=== PATIENT | female | born 1935 | race Caucasian/White ===

== ENCOUNTER → 2016-11-12 | Outpatient (CLI) | payer MEDICARE ==
--- NOTE | 2016-11-12 15:59 | US ---
EXAMINATION TYPE: US thyroid st tissue head/neck DATE OF EXAM: 11/12/2016 3:06 PM COMPARISON: on PACS CLINICAL HISTORY: Thyroid Nodule E04.1. Follow up. No hx of biopsy. GLAND SIZE: Right Lobe: 3.8 x 1.8 x 1.8 cm Overall Parenchyma: heterogenous Left Lobe: 4.3 x 1.9 x 1.4 cm Overall Parenchyma: heterogeneous Isthmus Thickness: 0.7 cm NODULES RIGHT: # of nodules measured on right: 2 1. 0.8 X 0.6 x 0.7 cm echogenic solid nodule at the lower pole with well-defined margins. This nod ule is taller than wide and shows intranodular vascularity. Prior size: 0.7 x 0.6 x 0.7 cm 2. 0.3 X 0.2 x 0.3 cm echogenic solid nodule at the mid pole with well-defined margins. This nodule is taller than wide and shows intranodular vascularity. Prior size: no prior LEFT: # of nodules measured on left: 1 1. 0.9 X 0.6 x 0.8 cm echogenic solid nodule at the mid pole with well-defined margins. This nodul e is taller than wide and shows intranodular vascularity. Prior size: 0.7 x 0.6 x 0.7 cm ISTHMUS: # of nodules measured in the isthmus: 0 Bilateral neck scanned, no evidence of lymphadenopathy. IMPRESSION: Bilateral thyroid heterogeneity and nodularity persists. Nodules are nonspecific.
== END | disposition home or self-care (01) ==
LOC: RADUSWWP 14:31
PROVIDERS: ATTEND Family Medicine
DX: E04.2 Nontoxic multinodular goiter (principal)
CPT/HCPCS: 76536

== ENCOUNTER → 2017-05-12 | Outpatient (CLI) | payer MEDICARE ==
--- NOTE | 2017-05-12 16:03 | US ---
EXAMINATION TYPE: US pelvic limited DATE OF EXAM: 05/12/2017 COMPARISON: US 2013 CLINICAL HISTORY: R35.0 Urinary frequency. Bladder appears wnl. Post void residual is normal at 0. IMPRESSION: Unremarkable bladder, no significant postvoid residual volume
--- NOTE | 2017-05-12 16:06 | US ---
EXAMINATION TYPE: US thyroid st tissue head/neck DATE OF EXAM: 05/12/2017 COMPARISON: US 10/2016 CLINICAL HISTORY: 81-year-old female E04.1 Thyroid nodule. TECHNIQUE: Multiple sonographic images of the thyroid gland are obtained. FINDINGS: GLAND SIZE: Right Lobe: 4.1 x 1.4 x 1.7 cm Overall Parenchyma: heterogenous Left Lobe: 3.9 x 1.3 x 1.5 cm Overall Parenchyma: heterogeneous Isthmus Thickness: 0.7 cm NODULES RIGHT: # of nodules measured on right: 2 1. 0.8 X 0.6 x 0.7 cm echogenic solid nodule at the lower pole with well-defined margins; . This n odule is taller than wide and shows intranodular vascularity. Prior size: 0.8 x 0.6 x 0.7 cm 2. 0.2 X 0.3 x 0.3 cm echogenic solid nodule at the mid pole with well-defined margins; . This nodu le is wider than tall and shows intranodular vascularity. Prior size: 0.3 x 0.2 x 0.3 cm LEFT: # of nodules measured on left: 1 1. 0.9 X 0.8 x 0.8 cm echogenic solid nodule at the mid/lower pole with well-defined margins; . Th is nodule is wider than tall and shows intranodular vascularity. Prior size: 0.9 x 0.6 x 0.8 cm ISTHMUS: # of nodules measured in the isthmus: 0 Bilateral neck scanned, no evidence of lymphadenopathy. IMPRESSION: 2 nodules in the right lobe and one on the left, largest measuring 9 mm, all appearing solid. These h ave not significantly changed from 11/12/2016.
== END | disposition home or self-care (01) ==
LOC: RADUSWWP 13:54
PROVIDERS: ATTEND Family Medicine
DX: R35.0 Frequency of micturition (principal); E04.2 Nontoxic multinodular goiter
CPT/HCPCS: 76536; 76857

== ENCOUNTER → 2017-11-09 | Outpatient (CLI) | payer MEDICARE ==
--- NOTE | 2017-11-09 10:32 | US ---
EXAMINATION TYPE: US thyroid st tissue head/neck DATE OF EXAM: 11/09/2017 COMPARISON: NONE CLINICAL HISTORY: 82-year-old female E04.1 nontoxic single thyroid nodule. TECHNIQUE: Multiple sonographic images of the thyroid gland are obtained. FINDINGS: GLAND SIZE: Right Lobe: 4.0 x 2.0 x 2.5 cm Overall Parenchyma: heterogenous Left Lobe: 4.0 x 1.3 x 2.0 cm Overall Parenchyma: homogeneous Isthmus Thickness: 0.9 cm NODULES RIGHT: # of nodules measured on right: 2 1. 0.8 X 0.8 x 0.8 cm hyperechoic solid nodule at the lower pole with well-defined margins. This n odule is wider than tall and shows intranodular vascularity. Prior size: 8 x 7 x 6 mm 2. 0.4 X 0.4 x 0.4 cm hyperechoic solid nodule at the mid pole with irregular margins. This nodule is wider as is tall and shows intranodular vascularity. Prior size: 0.3 x 0.2 x 0.3 cm LEFT: # of nodules measured on left: 1 1. 1.0 X 0.6 x 0.7 cm hyperechoic solid nodule at the mid pole with well-defined margins. This nod ule is taller than wide and shows no intranodular vascularity. Prior size: 0.9 x 0.8 x 0.8 cm ISTHMUS: # of nodules measured in the isthmus: 1 1. 0.9 X 0.9 x 0.6 cm isoechoic mixed nodule at the lower isthmus with poorly defined margins. Thi s nodule is wider than tall and shows no intranodular vascularity. Prior size: no prior Bilateral neck scanned: inferior to right thyroid is hyperechoic oval mixed nodule, possible parathy roid gland measuring 0.7 x 0.7 x 0.5cm. IMPRESSION: 1. Multiple thyroid nodules, largest on the right measuring 8 mm and on the left measuring 10 mm. The se have enlarged by 1 or 2 mm in a few dimensions. 2. In addition, a 9 mm isthmic nodule was not clearly seen previously. 3. Follow-up is recommended. 4. Additional 7 mm nodule below the right lobe of the thyroid gland could represent a parathyroid gla nd.
== END | disposition home or self-care (01) ==
LOC: RADUSWWP 09:25
PROVIDERS: ATTEND Family Medicine
DX: E04.2 Nontoxic multinodular goiter (principal)
CPT/HCPCS: 76536

== ENCOUNTER → 2018-08-17 | Outpatient (CLI) | payer MEDICARE ==
--- NOTE | 2018-08-17 22:32 | MR ---
EXAMINATION TYPE: MR brain and iac wo/w con DATE OF EXAM: 08/17/2018 COMPARISON: CT brain July 15, 2014 HISTORY: Dizziness,rt sided hearing loss TECHNIQUE: Multiplanar, multisequence images of the brain and brainstem including the internal auditory canals a re all performed without and with IV contrast, utilizing 7.5 mL intravenous Gadavist . FINDINGS: Diffusion weighted images demonstrate no evidence of a recent infarct or other diffusion ab normality. There is no worrisome extra-axial fluid collection. There is ventricular and sulcal promi nence consistent with mild diffuse age-related cerebral atrophy. There are focal and confluent areas of T2 hyperintensity seen throughout the superficial, deep, and most prominent at the periventricular levels. There is involvement in the brainstem noted centered at oanh. Lesions are nonspecific in belg[place] earance and distribution but most likely on the basis of product of chronic small vessel ischemic amari nge . Midline structures demonstrate normal morphology. The craniocervical junction appears within normal limits. Tortuous course to the vertebrobasilar system is incidentally seen. Post contrast images dem onstrate no abnormal enhancement. The dural venous sinuses appear patent. The visualized sinuses are clear and the globes are intact. No suspicious fluid signal is seen in mastoid air cells bilaterally. The vestibulocochlear complexes are symmetric and felt to be within normal limits. No suspicious enhancing cerebellopontine angle mas ses identified bilaterally. IMPRESSION: 1. No suspicious fluid or suspicious enhancing cerebellopontine angle mass identified to account for patient's symptoms of dizziness and right-sided hearing loss. 2. There is mild diffuse age-related cerebral atrophy and fairly advanced chronic small vessel ischem ic change appreciated.
== END | disposition home or self-care (01) ==
LOC: RADMRIMAIN 14:56
PROVIDERS: ATTEND Otolaryngology
DX: I67.82 Cerebral ischemia (principal); G31.1 Senile degeneration of brain, not elsewhere classified; H91.91 Unspecified hearing loss, right ear; H93.3X2 Disorders of left acoustic nerve
CPT/HCPCS: 70553; A9585

== ENCOUNTER → 2018-08-29 | Outpatient (CLI) | payer MEDICARE ==
--- NOTE | 2018-08-29 10:15 | CT ---
EXAMINATION TYPE: CT abdomen pelvis wo con DATE OF EXAM: 08/29/2018 COMPARISON: 04/15/2014 HISTORY: Abdominal aortic aneurysm CT DLP: 785 mGycm Automated exposure control for dose reduction was used. TECHNIQUE: Helical acquisition of images was performed from the lung bases through the pelvis. FINDINGS: LUNG BASES: Stable pulmonary nodules within the lungs bilaterally. At least 2 of which are calcified and likely represent granuloma. Findings unchanged from 03/13/2016. LIVER/GB: Previous cholecystectomy changes noted. Occasional hepatic granuloma noted. PANCREAS: No significant abnormality is seen. SPLEEN: Splenic granuloma noted. 7 mm calcification the splenic hilum may represent borderline spleni c artery aneurysm but stable in appearance. ADRENALS: No significant abnormality is seen. KIDNEYS: Punctate 2 mm calcification lower pole left kidney. There are both hypodense and hyperdense renal lesions bilaterally. Majority which are stable. Hyperdense lesion involving the right kidney is not seen with certainty on the previous exam and measures approximately 1 cm. Upper pole 4 mm renal calculus noted. No hydronephrosis bilaterally. ADENOPATHY: None visualized. OSSEOUS STRUCTURES: Hypertrophic and degenerative changes of the vertebral column. There is fusion o f the L2-L3 level. Vertebral hemangioma are incidentally noted multilevel facet arthropathy. Multilev el canal stenosis suspected. BOWEL: Diverticulosis of the colon. Bowel gas pattern nonspecific with no evidence of obstruction. OTHER: There is ectasia of the abdominal aorta with a maximal AP dimension in a infrarenal location m easuring 3.1 cm. Mild atherosclerotic plaque. There does appear to be ectasia of the bilateral iliac arteries measuring 1.9 cm on the right and 1.7 cm on the left. IMPRESSION: 1. Infrarenal abdominal aortic aneurysm measuring 3.1 cm in maximal dimension similar in appearance t o the prior exam with extension into the common iliac arteries. There is ectasia of the bilateral hussein ac arteries measuring a maximal dimension of 1.9 cm on the right. 2. Indeterminate right renal lesion which is hyperdense. Remaining hypodense lesions are stable. Mariano mmend ultrasound of the kidney. 3. Nonobstructing bilateral renal calculi. 4. Stable multiple less than 5 mm pulmonary nodules.
== END | disposition home or self-care (01) ==
LOC: RADCTMAIN 08:37
PROVIDERS: ATTEND Thoracic Surgery (Cardiothoracic Vascular Surgery)
DX: I71.4 Abdominal aortic aneurysm, without rupture (principal); N28.9 Disorder of kidney and ureter, unspecified; N20.0 Calculus of kidney; I77.89 Other specified disorders of arteries and arterioles
CPT/HCPCS: 74176

== ENCOUNTER → 2018-10-14 | Outpatient (CLI) | payer MEDICARE ==
--- NOTE | 2018-10-14 15:14 | US ---
EXAMINATION TYPE: US carotid duplex BILAT DATE OF EXAM: 10/14/2018 COMPARISON: NONE CLINICAL HISTORY: R09.89 CAROTID BRUIT. dizziness EXAM MEASUREMENTS: RIGHT: Peak Systolic Velocity (PSV) cm/sec ----- Right CCA: 70.1 ----- Right ICA: 89.7 ----- Right ECA: 90.8 ICA/CCA ratio: 1.3 RIGHT: End Diastole cm/sec ----- Right CCA: 19.5 ----- Right ICA: 32.5 ----- Right ECA: 16.0 LEFT: Peak Systolic Velocity (PSV) cm/sec ----- Left CCA: 61.6 ----- Left ICA: 63.1 ----- Left ECA: 51.9 ICA/CCA ratio: 1.0 LEFT: End Diastole cm/sec ----- Left CCA: 19.6 ----- Left ICA: 27.5 ----- Left ECA: 13.5 VERTEBRALS (direction of flow): Right Vertebral: Antegrade Left Vertebral: Antegrade Rhythm: Normal Mild homogeneous plaque seen, no significant stenosis Grayscale, color Doppler, spectral Doppler imaging performed of the carotid arteries. Waveform analys is does not show significant stenosis of the proximal internal carotid arteries. IMPRESSION: No hemodynamic significant stenosis of the proximal internal carotid arteries by Doppler criteria, an indirect measurement of carotid stenosis
== END ==
LOC: RADUSWWP 14:26
PROVIDERS: ATTEND Otolaryngology
DX: R09.89 Other specified symptoms and signs involving the circulatory and respiratory systems (principal)
CPT/HCPCS: 93880

== ENCOUNTER → 2023-04-13 | Outpatient (CLI) | payer MEDICARE ==
--- NOTE | 2023-04-13 10:35 | MR ---
"EXAMINATION TYPE: MR brain and iac wo/w con DATE OF EXAM: 04/13/2023 COMPARISON: 08/17/2018 HISTORY: Dizziness, tinnitus, right sided hearing loss. TECHNIQUE: Multiplanar, multisequence images of the brain and brainstem is performed without and with IV contras t, utilizing 6 mL intravenous Gadavist . FINDINGS: Diffusion weighted images demonstrate an area of cortical linear increased signal in the le ft parietal lobe which may represent areas of acute ischemia. Corresponding FLAIR abnormal signal. A mild generalized degenerative change with diffuse focal areas of abnormal signal in the white matte r and oanh compatible with remote ischemic no midline shift or mass effect. There is dolichoectasia of the vertebrobasilar system. Marked dilation of the distal bilateral ICAs a nd proximal MCA suggestive of fusiform aneurysms. There is no evidence of cerebellopontine angle mass or schwannoma. Mastoid air cells are clear. Changes of chronic sinusitis. Orbits are symmetric. Sella turcica normal. Craniocervical junction michael ntained. IMPRESSION: 1. Findings are suspicious for tiny area of subacute ischemia subcortical left parietal lobe. 2. Degenerative and extends as remote ischemic change. 3. No evidence of cerebellopontine angle mass or schwannoma. 4. 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 A [place] critical message alert has been initiated for Joe Randall DO via the [employer] | Critical Results System on 04/13/2023 10:30 AM. This message alert has been sent to Joe diez DO via the preferences provided by the clinician for the receipt of Radiology Critical F indings. Message ID [id number]."
== END | disposition home or self-care (01) ==
LOC: RADMRIMAIN 08:18
PROVIDERS: ATTEND Otolaryngology
DX: I67.82 Cerebral ischemia (principal); H91.91 Unspecified hearing loss, right ear; H93.11 Tinnitus, right ear; R42 Dizziness and giddiness; G45.0 Vertebro-basilar artery syndrome
CPT/HCPCS: 70553; A9585

== ENCOUNTER → 2023-06-08 | Outpatient (CLI) | payer MEDICARE ==
--- NOTE | 2023-06-09 08:14 | MR ---
EXAMINATION TYPE: MR angio head wo/neck wo/w con DATE OF EXAM: 06/08/2023 3:02 PM CLINICAL INDICATION:Female, 87 years old with history of I67.1; I65.2; I82.90; PHH, Acute stroke, ane urysm. Loss of balance, falling COMPARISON: 04/13/2023 and 08/17/2018 Technical: MRA brain: 2D and 3-D [id number] Axial with MIP and 3-D reconstruction. Performed on a separate w orkstation. MRA neck: Multiplanar, multi-sequence imaging as well as [id number] and phase was performed extra cranial vasculature of the neck. 3-D reformatted images and maximum intensity projection reformatted images were submitted for evaluation, these are performed on a separate workstation. IV Contrast: 7.5 cc Gadobutrol Findings: Vertebral arteries: The vertebral arteries are patent. Vertebral arteries are: Codominant. Basilar artery: The basilar artery is intact. Dolichoectasia of the vertebrobasilar system is stable back to 2019. Internal Carotid arteries: The cervical, petrous, cavernous and supraclinoid segments are normal. Fus iform ectasia of the carotid siphons bilaterally stable back to 2019. DESIRE: Patent with no evidence of aneurysm. ACOM: Present without evidence of aneurysm. MCA: Patent with no evidence of aneurysm. ASSISTANT NEWS DIRECTOR: Patent with no evidence of aneurysm. origin of the left posterior cerebellar artery. PCOM: Hypoplastic right and origin left. RIGHT CAROTID SYSTEM: The common carotid artery is patent. The carotid bifurcations demonstrates no e vidence for hemodynamically significant stenosis. The internal carotid artery is patent. LEFT CAROTID SYSTEM: The common carotid artery is patent. The carotid bifurcations demonstrates no e vidence for hemodynamically significant stenosis. The internal carotid artery is patent. The origins of the great vessels and vertebral arteries appear unremarkable. The right vertebral art jey is dominant. IMPRESSION: 1. No evidence of intracranial significant stenosis. 2. 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 3. No evidence of significant stenosis at the carotid bifurcations. The carotid and vertebral arteri es are patent.
--- NOTE | 2023-06-09 08:37 | CA ---
Transthoracic Echo Report Name: Shirlene Adam Age: 87 Gender: F : 1935 Exam Date: 06/08/2023 15:00 Exam Location: [facility] Ht (in): 64 Wt (lb): 165 Ordering Physician: Faraz Joshi DO Attending/Referring Phys: Germ Drier Judi Shields [facility] Procedure CPT: Indications: I67.1; I65.2; I82.90 Cardiac Hx: Technical Quality: Technically difficult study Contrast 1: Total Dose (mL): Contrast 2: Total Dose (mL): MEASUREMENTS (Male / Female) Normal Values 2D ECHO LV Diastolic Diameter PLAX 5.0 cm 4.2 - 5.9 / 3.9 - 5.3 cm LV Systolic Diameter PLAX 3.8 cm IVS Diastolic Thickness 1.3 cm 0.6 - 1.0 / 0.6 - 0.9 cm LVPW Diastolic Thickness 1.3 cm 0.6 - 1.0 / 0.6 - 0.9 cm LV Relative Wall Thickness 0.5 LVOT Diameter 2.0 cm Ascending Aorta Diameter 4.1 cm M-MODE Aortic Root Diameter MM 3.5 cm LA Systolic Diameter MM 3.4 cm LA Ao Ratio MM 1.0 AV Cusp Separation MM 2.5 cm DOPPLER AV Peak Velocity 148.0 cm/s AV Peak Gradient 8.8 mmHg AV Mean Velocity 105.4 cm/s AV Mean Gradient 5.0 mmHg AV Velocity Time Integral 29.2 cm AI Peak Velocity 403.3 cm/s AI Peak Gradient 65.0 mmHg AI Pressure Half Time 521.4 ms LVOT Peak Velocity 122.0 cm/s LVOT Peak Gradient 6.0 mmHg LVOT Velocity Time Integral 23.8 cm LVOT Stroke Volume 77.8 cm??? LVOT Stroke Volume Index 43.2 ml/m??? LVOT Cardiac Index 3221.6 cm???/min???m??? AV Area Cont Eq vti 2.7 cm??? AV Area Cont Eq pk 2.7 cm??? Mitral E Point Velocity 41.9 cm/s Mitral A Point Velocity 108.4 cm/s Mitral E to A Ratio 0.4 MV Deceleration Time 201.8 ms LV E' Lateral Velocity 6.1 cm/s Mitral E to LV E' Lateral Ratio 6.8 LV E' Septal Velocity 4.4 cm/s Mitral E to LV E' Septal Ratio 9.6 TR Peak Velocity 194.0 cm/s TR Peak Gradient 15.0 mmHg Right Atrial Pressure 3.0 mmHg Pulmonary Artery Systolic Pressu 18.0 mmHg Right Ventricular Systolic Press 18.0 mmHg FINDINGS Left Ventricle Mildly increased left ventricular wall thickness. normal left ventricular systolic function.left ventricular ejection fraction is estimated at 55-60 %. Normal left ventricular wall motion. Left ventricular cavity size normal. Normal left ventricular diastolic filling pattern. Right Ventricle Right ventricle at upper limits of normal. Right Atrium Upper normal right atrial size. Left Atrium Normal left atrial size. Mitral Valve Calcified leaflets. Mild mitral annular calcification. Mild mitral regurgitation. Aortic Valve Aortic valve not well visualized. Mild aortic regurgitation. Tricuspid Valve Structurally normal tricuspid valve. Mild tricuspid regurgitation. Pulmonic Valve Pulmonic valve not well visualized. Pericardium No pericardial effusion. Echo free space anterior to the right ventricle likely represents a fat pad. Aorta Aorta at the level of the sinuses of valsalva (root) upper normal. Mildly dilated proximal ascending aorta (tube). CONCLUSIONS 1. Normal left ventricle size and systolic function 2. Mild mitral, aortic and tricuspid regurgitation with no evidence of pulmonary hypertension Previewed by: Dr. Dee Castillo MD (Electronically Signed) Final Date: 09 June 2023 08:36
== END | disposition home or self-care (01) ==
LOC: RADMRIMAIN 13:28
PROVIDERS: ATTEND Psychiatry & Neurology Neurology
DX: I67.1 Cerebral aneurysm, nonruptured (principal); I65.23 Occlusion and stenosis of bilateral carotid arteries; I82.90 Acute embolism and thrombosis of unspecified vein; R26.89 Other abnormalities of gait and mobility
CPT/HCPCS: 93306; 70544; 70549; A9585

== ENCOUNTER → 2023-08-24 | Outpatient (CLI) | payer MEDICARE | END | disposition home or self-care (01) | LOC: RADECHMAIN 07:41 | PROVIDERS: ATTEND Psychiatry & Neurology Neurology | DX: Z53.9 Procedure and treatment not carried out, unspecified reason (principal) | CPT/HCPCS: 93270 ==

== ENCOUNTER 2023-09-25 09:32 | Emergency (ER) | payer MEDICARE ==
--- NOTE | 2023-09-25 09:49 | ED ---
Lower Extremity Injury HPI - General Chief Complaint: Extremity Injury, Lower Stated Complaint: Fall, R Knee Injury Time Seen by Provider: 09/25/23 09:35 Source: patient, EMS, RN notes reviewed Mode of arrival: EMS Limitations: physical limitation - History of Present Illness Initial Comments: 88-year-old female presents emergency department complaint of right knee pain. Patient states she got up to go to the bathroom states that she tripped and fell onto her knee. Patient had no head injury no loss conscious. Patient complains of severe right knee pain she did receive 100 mcg of fentanyl by EMS. She states that helped the pain some but states that she is dizzy from the medication. Patient denies back pain, hip pain. She has had a prior knee replacement on the right by Dr. Miles patient denies any known of a fever at home. Patient denies any cough or cold-like symptoms denies any dysuria no abdominal pain she states she only has knee pain. - Related Data Home Medications Medication Instructions Recorded Confirmed Atorvastatin Calcium [Lipitor] 10 mg PO DAILY 12/04/13 03/13/16 Tim Cit/Mag/D3/Zn/Supervisor Shuttle Veneering/Hoang/Bor 2 tab PO DAILY 12/04/13 03/13/16 [Citracal-D3 Plus Magnesium Tab] Cholecalciferol [Vitamin D3 (25 2,000 unit PO DAILY 12/04/13 03/13/16 Mcg = 1000 Iu)] Pantoprazole Sodium [Protonix] 40 mg PO DAILY 12/04/13 03/13/16 Sertraline [Zoloft] 50 mg PO DAILY 12/04/13 03/13/16 Anastrozole [Arimidex] 1 mg PO DAILY 04/15/14 03/13/16 Multivitamins, Thera [Multivitamin] 1 tab PO DAILY 03/13/16 03/13/16 Vit C/E/Zn/Coppr/Lutein/Zeaxan 1 cap PO DAILY 03/13/16 03/13/16 [Preservision Areds 2 Softgel] amLODIPine [Norvasc] 5 mg PO DAILY 03/13/16 03/13/16 Previous Rx's Medication Instructions Recorded Ibuprofen [Motrin] 600 mg PO Q6HR PRN #20 tab 03/13/16 Allergies Allergy/AdvReac Type Severity Reaction Status Date / Time cefuroxime axetil Allergy Anaphylaxis Verified 09/25/23 09:37 [From Ceftin] Penicillins Allergy Itching Verified 09/25/23 09:37 warfarin sodium AdvReac GI BLEED Verified 09/25/23 09:37 [From Coumadin] Review of Systems ROS Statement: Those systems with pertinent positive or pertinent negative responses have been documented in the HPI. ROS Other: All systems not noted in ROS Statement are negative. 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 HAD RADIATION -2013 History of Any Multi-Drug Resistant Organisms: None Reported Past Surgical History: Breast Surgery, Hysterectomy, Joint Replacement Additional Past Surgical History / Comment(s): LAURA KNEE REPLACEMENT,ABD CYST REMOVED, CATARACT SURGERY LAURA Past Anesthesia/Blood Transfusion Reactions: No Reported Reaction Past Psychological History: Anxiety, Depression Past Alcohol Use History: Rare Past Drug Use History: None Reported - Past Family History Brother(s) Daughter(s) Family Medical History: Cancer (breast cancer in 50's) Sister(s) Daughter(s) Family Medical History: Cancer (breast cancer in her 50's) General Exam Limitations: no limitations General appearance: alert, in no apparent distress Head exam: Present: atraumatic, normocephalic, normal inspection Respiratory exam: Present: normal lung sounds bilaterally. Absent: respiratory distress, wheezes, rales, rhonchi, stridor Cardiovascular Exam: Present: normal rhythm, tachycardia, normal heart sounds. Absent: systolic murmur, diastolic murmur, rubs, gallop, clicks Extremities exam: Present: other (Right knee swelling, tenderness to palpation just proximal to the knee, old surgical incision noted and no range of motion) Course Vital Signs 09/25/23 09/25/23 09/25/23 09:34 10:13 10:49 Temperature 100.9 F H 101 F H Pulse Rate 102 H 97 76 Respiratory 16 18 18 Rate Blood Pressure 125/76 129/69 O2 Sat by Pulse 80 L 88 L Oximetry Medical Decision Making - Medical Decision Making Was pt. sent in by a medical professional or institution (, PA, ROUTING CLERK, urgent care, hospital, or ch[facility]...) When possible be specific @ -No Did you speak to anyone other than the patient for history (EMS, parent, family, police, friend...)? What history was obtained from this source @ -No Did you review nursing and triage notes (agree or disagree)? Why? @ -I reviewed and agree with nursing and triage notes Were old charts reviewed (outside hosp., previous admission, EMS record, old EKG, old radiological studies, urgent care reports/EKG's, chcf records)? Report findings @ -No old charts were reviewed Differential Diagnosis (chest pain, altered mental status, abdominal pain women, abdominal pain men, vaginal bleeding, weakness, fever, dyspnea, syncope, headache, dizziness, GI bleed, back pain, seizure, CVA, palpatations, mental health, musculoskeletal)? @ -Fall, femur fracture, periprosthetic fracture, knee contusion EKG interpreted by me (3pts min.). @ -None X-rays interpreted by me (1pt min.). @ -Right knee showing displaced right distal femur fracture Chest x-ray shows scarring bilaterally, no infiltrate CT interpreted by me (1pt min.). @ -None done U/S interpreted by me (1pt. min.). @ -None done What testing was considered but not performed or refused? (CT, X-rays, U/S, labs)? Why? @ -None What meds were considered but not given or refused? Why? @ -None Did you discuss the management of the patient with other professionals (professionals i.e. , PA, ROUTING CLERK, lab, RT, psych nurse, social service liaison, excellence specialist, teacher, nuclear officer, case liner)? Give summary @ -I did discuss the case with on-call orthopedics for orthopedics associate Dr. Mark recommended patient to be transferred to trauma [facility] Discussed the case with [facility] Dr. Cowan for transfer Was smoking cessation discussed for >3mins.? @ -No Was critical care preformed (if so, how long)? @ -No Were there social determinants of health that impacted care today? How? (Homelessness, low income, unemployed, alcoholism, drug addiction, transportation, low edu. Level, literacy, decrease access to med. care, prison, rehab)? @ -No Was there de-escalation of care discussed even if they declined (Discuss DNR or withdrawal of care, Hospice)? DNR status @ -No What co-morbidities impacted this encounter? (DM, HTN, Smoking, COPD, CAD, Cancer, CVA, ARF, Chemo, Hep., AIDS, mental health diagnosis, sleep apnea, morbid obesity)? @ -None Was patient admitted / discharged? Hospital course, mention meds given and route, prescriptions, significant lab abnormalities, going to OR and other pertinent info. @ -[Transferred to [facility] for right distal femur fracture. She was placed in a knee immobilizer for stability, patient noted to be febrile without any current complaints blood work, urinalysis was ordered along with viral swab. Patient initially had hypoxia without complaints of shortness of breath and poor waveform on pulse oximetry. Pulse ox has improved some though chest x-ray shows probable pulmonary fibrosis type changes Undiagnosed new problem with uncertain prognosis? @ -No Drug Therapy requiring intensive monitoring for toxicity (Heparin, Nitro, Insulin, Cardizem)? @ -No Were any procedures done? @ -No Diagnosis/symptom? @ -Fall distal femur fracture right Acute, or Chronic, or Acute on Chronic? @ -Acute Uncomplicated (without systemic symptoms) or Complicated (systemic symptoms)? @ -Complicated Side effects of treatment? @ -No Exacerbation, Progression, or Severe Exacerbation? @ -No Poses a threat to life or bodily function? How? (Chest pain, [place], [place], pneumonia, PE, COPD, DKA, ARF, appy, cholecystitis, CVA, Diverticulitis, Homicidal, Suicidal, threat to staff... and all critical care pts) @ -Yes surgical risk - Lab Data Result diagrams: 09/25/23 10:15 09/25/23 10:15 Lab Results 09/25/23 09/25/23 09/25/23 Range/Units 10:15 10:15 10:15 WBC 11.0 H (3.8-10.6) k/uL RBC 3.80 (3.80-5.40) m/uL Hgb 9.7 L (11.4-16.0) gm/dL Hct 31.5 L (34.0-46.0) % MCV 82.9 (80.0-100.0) fL MCH 25.5 (25.0-35.0) pg MCHC 30.8 L (31.0-37.0) g/dL RDW 17.0 H (11.5-15.5) % Plt Count 259 (150-450) k/uL MPV 8.2 Neutrophils % 88 % Lymphocytes % 5 % Monocytes % 6 % Eosinophils % 0 % Basophils % 0 % Neutrophils # 9.7 H (1.3-7.7) k/uL Lymphocytes # 0.5 L (1.0-4.8) k/uL Monocytes # 0.7 (0-1.0) k/uL Eosinophils # 0.0 (0-0.7) k/uL Basophils # 0.0 (0-0.2) k/uL Hypochromasia Marked Anisocytosis Slight PT 10.8 (10.0-12.5) sec INR 1.0 (<1.2) APTT 18.4 L (22.0-30.0) sec Sodium (137-145) mmol/L Potassium (3.5-5.1) mmol/L Chloride (98-107) mmol/L Carbon Dioxide (22-30) mmol/L Anion Gap mmol/L BUN (7-17) mg/dL Creatinine (0.52-1.04) mg/dL Est GFR (CKD-EPI)AfAm (>60 ml/min/1.73 sqM) Est GFR (CKD-EPI)NonAf (>60 ml/min/1.73 sqM) Glucose (74-99) mg/dL Calcium (8.4-10.2) mg/dL Total Bilirubin (0.2-1.3) mg/dL AST (14-36) U/L ALT (4-34) U/L Alkaline Phosphatase (38-126) U/L Total Protein (6.3-8.2) g/dL Albumin (3.5-5.0) g/dL Urine Color Colorless Urine Appearance Clear (Clear) Urine pH 6.0 (5.0-8.0) Ur Specific [place] 1.014 (1.001-1.035) Urine Protein Negative (Negative) Urine Glucose (UA) Negative (Negative) Urine Ketones Negative (Negative) Urine Blood Negative (Negative) Urine Nitrite Negative (Negative) Urine Bilirubin Negative (Negative) Urine Urobilinogen <2.0 (<2.0) mg/dL Ur Leukocyte Esterase Small H (Negative) Urine RBC 1 (0-5) /hpf Urine WBC 3 (0-5) /hpf Ur Squamous Epith Cells <1 (0-4) /hpf Urine Bacteria Rare H (None) /hpf Hyaline Casts 1 (0-2) /lpf Urine Mucus Rare H (None) /hpf Influenza Type A (PCR) (Not Detectd) Influenza Type B (PCR) (Not Detectd) RSV (PCR) (Not Detectd) SARS-CoV-2 (PCR) (Not Detectd) 09/25/23 09/25/23 Range/Units 10:15 10:15 WBC (3.8-10.6) k/uL RBC (3.80-5.40) m/uL Hgb (11.4-16.0) gm/dL Hct (34.0-46.0) % MCV (80.0-100.0) fL MCH (25.0-35.0) pg MCHC (31.0-37.0) g/dL RDW (11.5-15.5) % Plt Count (150-450) k/uL MPV Neutrophils % % Lymphocytes % % Monocytes % % Eosinophils % % Basophils % % Neutrophils # (1.3-7.7) k/uL Lymphocytes # (1.0-4.8) k/uL Monocytes # (0-1.0) k/uL Eosinophils # (0-0.7) k/uL Basophils # (0-0.2) k/uL Hypochromasia Anisocytosis PT (10.0-12.5) sec INR (<1.2) APTT (22.0-30.0) sec Sodium 139 (137-145) mmol/L Potassium 4.5 (3.5-5.1) mmol/L Chloride 109 H (98-107) mmol/L Carbon Dioxide 23 (22-30) mmol/L Anion Gap 7 mmol/L BUN 22 H (7-17) mg/dL Creatinine 0.65 (0.52-1.04) mg/dL Est GFR (CKD-EPI)AfAm >90 (>60 ml/min/1.73 sqM) Est GFR (CKD-EPI)NonAf 81 (>60 ml/min/1.73 sqM) Glucose 130 H (74-99) mg/dL Calcium 9.2 (8.4-10.2) mg/dL Total Bilirubin 0.7 (0.2-1.3) mg/dL AST 25 (14-36) U/L ALT 14 (4-34) U/L Alkaline Phosphatase 99 (38-126) U/L Total Protein 6.3 (6.3-8.2) g/dL Albumin 3.8 (3.5-5.0) g/dL Urine Color Urine Appearance (Clear) Urine pH (5.0-8.0) Ur Specific [place] (1.001-1.035) Urine Protein (Negative) Urine Glucose (UA) (Negative) Urine Ketones (Negative) Urine Blood (Negative) Urine Nitrite (Negative) Urine Bilirubin (Negative) Urine Urobilinogen (<2.0) mg/dL Ur Leukocyte Esterase (Negative) Urine RBC (0-5) /hpf Urine WBC (0-5) /hpf Ur Squamous Epith Cells (0-4) /hpf Urine Bacteria (None) /hpf Hyaline Casts (0-2) /lpf Urine Mucus (None) /hpf Influenza Type A (PCR) Not Detected (Not Detectd) Influenza Type B (PCR) Not Detected (Not Detectd) RSV (PCR) Not Detected (Not Detectd) SARS-CoV-2 (PCR) Not Detected (Not Detectd) Disposition Clinical Impression: Fall, Fracture of distal end of right femur, Fever Disposition: OTHER INSTITUTION NOT DEFINED Condition: Fair Referrals: Narinder Marlow DO [Primary Care Provider] - 1-2 days Time of Disposition: 10:17 - Out of Hospital Transfer - Req. Specs Out of Hospital Transfer - Requested Specifics: Other Emergency [facility] ([facility])
--- NOTE | 2023-09-25 10:04 | XR ---
EXAMINATION TYPE: XR knee limited RT DATE OF EXAM: 09/25/2023 10:01 AM CLINICAL INDICATION:Female, 88 years old with history of pain; COMPARISON: 09/19/2013. TECHNIQUE: XR knee limited RT; examined in Frontal, lateral and oblique projections. FINDINGS/IMPRESSION: Right femoral spiral fracture of the diaphysis. Fracture line does not extend to the right knee arthr oplasty.
--- NOTE | 2023-09-25 10:23 | XR ---
EXAMINATION TYPE: XR chest 1V DATE OF EXAM: 09/25/2023 10:11 AM CLINICAL INDICATION:Female, 88 years old with history of fever, preop; COMPARISON: Chest radiographs from 03/13/2016 TECHNIQUE: XR chest 1V Frontal view of the chest. FINDINGS: Lungs/Pleura: Prominent interstitial lung markings are seen scattered throughout the lungs. No eviden ce of focal consolidation, pneumothorax or pleural effusion. Pulmonary vascularity: Unremarkable. Heart/mediastinum: Cardiomediastinal silhouette is unremarkable. Musculoskeletal: No acute osseous pathology. IMPRESSION: Similar scattered reticular opacities with at least partial which is chronic interstitial lung change s seen dating back to 2015. No focal consolidation.
[2023-09-25 10:35] VITALS: RESP 18
[2023-09-25] MEDS: ACETAMINOPHEN TAB 325 MG TAB PO STA (10:44)
[2023-09-25 11:06] VITALS: BP 129/69; PULSE 76; TEMP 101
[2023-09-25 11:09] LABS: Anisocytosis Slight; Basophils % (A) 0 %; Eosinophils % (A) 0 %; HCT 31.5 % (34.0-46.0); HGB 9.7 gm/dL (11.4-16.0); Hypochromasia Marked; Lymphocytes # (A) 0.5 k/uL (1.0-4.8); Lymphocytes % (A) 5 %; MCH 25.5 pg (25.0-35.0); MCHC 30.8 g/dL (31.0-37.0); MCV 82.9 fL (80.0-100.0); Mean Platelet Volume 8.2; Monocytes # (A) 0.7 k/uL (0-1.0); Monocytes % (A) 6 %; Neutrophils # (A) 9.7 k/uL (1.3-7.7); Neutrophils % (A) 88 %; Platelet Count 259 k/uL (150-450)
[2023-09-25 11:12] LABS: ALT 14 U/L (4-34); AST 25 U/L (14-36); African American GFR (CKD) >90 (>60 ml/min/1.73 sqM); Albumin 3.8 g/dL (3.5-5.0); Alkaline Phosphatase 99 U/L (38-126); Anion Gap 7 mmol/L; Blood Urea Nitrogen 22 mg/dL (7-17); Calcium 9.2 mg/dL (8.4-10.2); Carbon Dioxide 23 mmol/L (22-30); Chloride 109 mmol/L (98-107); Glucose 130 mg/dL (74-99); Non-African American GFR(CKD) 81 (>60 ml/min/1.73 sqM); Potassium 4.5 mmol/L (3.5-5.1); Sodium 139 mmol/L (137-145); Total Bilirubin 0.7 mg/dL (0.2-1.3); Total Protein 6.3 g/dL (6.3-8.2)
[2023-09-25 11:31] LABS: Appearance,Urine Clear (Clear); Bacteria,Urine Rare /hpf; Bilirubin,Urine Negative (Negative); Blood,Urine Negative (Negative); Color,Urine Colorless; Glucose,Urine (UA) Negative (Negative); Hyaline Casts,Urine 1 /lpf (0-2); Ketones,Urine Negative (Negative); Leukocyte Esterase,Urine Small (Negative); Mucus,Urine Rare /hpf; Nitrite,Urine Negative (Negative); Protein,Urine Negative (Negative); Prothrombin Time 10.8 sec (10.0-12.5); RBC,Urine 1 /hpf (0-5); Specific Gravity,Urine 1.014 (1.001-1.035); Squamous Epithelial Cell,Urine <1 /hpf (0-4); Urobilinogen,Urine <2.0 mg/dL (<2.0); WBC,Urine 3 /hpf (0-5)
[2023-09-25 11:48] LABS: Partial Thromboplastin Time 18.4 sec (22.0-30.0)
== END 2023-09-25 10:54 | disposition other institution (70) ==
LOC: EC 09:32
DX: S72.401A Unspecified fracture of lower end of right femur, initial encounter for closed fracture (principal); R50.9 Fever, unspecified; R09.02 Hypoxemia; R00.0 Tachycardia, unspecified; I10 Essential (primary) hypertension; E78.5 Hyperlipidemia, unspecified; F32.A Depression, unspecified; F41.9 Anxiety disorder, unspecified; Z20.822 Contact with and (suspected) exposure to COVID-19; Z79.899 Other long term (current) drug therapy; Z88.0 Allergy status to penicillin; Z88.1 Allergy status to other antibiotic agents; Z88.8 Allergy status to other drugs, medicaments and biological substances; W01.0XXA Fall on same level from slipping, tripping and stumbling without subsequent striking against object, initial encounter
CPT/HCPCS: 36415; 80053; 85025; 85610; 85730; 81001; 87636; 73560; 71045; 99285; 51701; L1830

== ENCOUNTER → 2023-12-06 | Outpatient (CLI) | payer MEDICARE ==
--- NOTE | 2023-12-06 14:16 | CT ---
EXAMINATION TYPE: CT chest wo con CT DLP: 729.2 mGycm, Automated exposure control for dose reduction was used. DATE OF EXAM: 12/06/2023 1:51 PM COMPARISON: 03/13/2016. 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 HIGH RESOLUTION. TECHNIQUE: High-resolution scan with 1 mm thick cuts at millimeter intervals. Multiple axial images w ere obtained through the chest. Sagittal and coronal reformats were created for review. Contrast used: mL of (None if empty) Oral contrast used: (None if empty) FINDINGS: LUNGS/ PLEURA: Scattered calcified granulomas. No focal consolidation, pneumothorax or pleural effusi on. Additional scattered pulmonary nodules felt to be present. No evidence for honeycombing or ground glass opacities. AIRWAY: No bronchial wall thickening or bronchiectasis. HEART: Heart is mildly enlarged for size. There is mild coronary artery cusp patient's.. MEDIASTINUM: No gross evidence of adenopathy. VASCULATURE: No aortic aneurysm. Ectasia of ascending thoracic aorta up to 43 mm. MUSCULOSKELETAL: No acute osseous abnormalities SOFT TISSUES/LYMPH NODES: Unremarkable. LOWER NECK: No significant findings. UPPER ABDOMEN: The liver is enlarged for size. Scattered colonic diverticula. Cholecystectomy clips a re present. IMPRESSION: 1. No evidence for pulmonary fibrosis or evidence to suggest interstitial lung disease. 2. Scattered calcified granulomas and other pulmonary nodules likely present. Complete evaluation wi th regular CT low dose may be of benefit. 3. Mild cardiomegaly with mild coronary artery atherosclerosis.
== END | disposition home or self-care (01) ==
LOC: RADCTMAIN 13:16
PROVIDERS: ATTEND Internal Medicine
DX: J96.11 Chronic respiratory failure with hypoxia (principal); R91.8 Other nonspecific abnormal finding of lung field; I25.10 Atherosclerotic heart disease of native coronary artery without angina pectoris; I51.7 Cardiomegaly
CPT/HCPCS: 71250

== ENCOUNTER 2024-01-06 15:45 | Emergency (ER) | payer MEDICARE ==
[2024-01-06 15:56] VITALS: TEMP 98.3
--- NOTE | 2024-01-06 16:08 | ED ---
Fall HPI - General Chief Complaint: Fall Stated Complaint: Fall on thinners Time Seen by Provider: 01/06/24 15:54 Source: patient, EMS Mode of arrival: EMS - History of Present Illness Initial Comments: Patient is an 88-year-old woman brought to have evaluation for fall head injury and taking blood thinners. The patient states she had used the bathroom. When she got up from the commode she stood up and toppled backwards striking the back of her head against hard objects. She does not believe she lost consciousness but not entirely certain. She does have a little bit of occipital headache. Patient denies neurologic symptoms. MD Complaint: fall Onset/Timin -: hour(s) Fall From: standing When Fall Occurred: other Fall Witnessed: no Place Fall Occurred: home Loss of Consciousness: unsure Prolonged Down Time?: no Symptoms Prior to Fall: none Location: head Severity: mild Quality: dull Context: tripped/slipped - Related Data Home Medications Medication Instructions Recorded Confirmed Atorvastatin Calcium [Lipitor] 10 mg PO DAILY 12/04/13 03/13/16 Tim Cit/Mag/D3/Zn/Injury/Safety Hazard Assessment/Hoang/Bor 2 tab PO DAILY 12/04/13 03/13/16 [Citracal-D3 Plus Magnesium Tab] Cholecalciferol [Vitamin D3 (25 2,000 unit PO DAILY 12/04/13 03/13/16 Mcg = 1000 Iu)] Pantoprazole Sodium [Protonix] 40 mg PO DAILY 12/04/13 03/13/16 Sertraline [Zoloft] 50 mg PO DAILY 12/04/13 03/13/16 Anastrozole [Arimidex] 1 mg PO DAILY 04/15/14 03/13/16 Multivitamins, Thera [Multivitamin] 1 tab PO DAILY 03/13/16 03/13/16 Vit C/E/Zn/Coppr/Lutein/Zeaxan 1 cap PO DAILY 03/13/16 03/13/16 [Preservision Areds 2 Softgel] amLODIPine [Norvasc] 5 mg PO DAILY 03/13/16 03/13/16 Previous Rx's Medication Instructions Recorded Ibuprofen [Motrin] 600 mg PO Q6HR PRN #20 tab 03/13/16 Allergies Allergy/AdvReac Type Severity Reaction Status Date / Time cefuroxime axetil Allergy Anaphylaxis Verified 01/06/24 15:56 [From Ceftin] Penicillins Allergy Itching Verified 01/06/24 15:56 warfarin sodium AdvReac GI BLEED Verified 01/06/24 15:56 [From Coumadin] Review of Systems ROS Statement: Those systems with pertinent positive or pertinent negative responses have been documented in the HPI. ROS Other: All systems not noted in ROS Statement are negative. Constitutional: Denies: fever, chills, weakness Eyes: Denies: vision change Respiratory: Denies: cough, dyspnea Cardiovascular: Denies: chest pain, palpitations Gastrointestinal: Denies: abdominal pain, nausea, vomiting Genitourinary: Denies: dysuria, hematuria Musculoskeletal: Denies: back pain Neurological: Reports: headache. 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 HAD RADIATION History of Any Multi-Drug Resistant Organisms: None Reported Past Surgical History: Breast Surgery, Hysterectomy, Joint Replacement, Orthopedic Surgery Additional Past Surgical History / Comment(s): LAURA KNEE REPLACEMENT,ABD CYST REMOVED, CATARACT SURGERY LAURA, toe removed to treat hammer toe in 03/2023 Past Anesthesia/Blood Transfusion Reactions: No Reported Reaction Past Psychological History: Anxiety, Depression Smoking Status: Never smoker Past Alcohol Use History: Rare Past Drug Use History: None Reported - Past Family History Brother(s) Daughter(s) Family Medical History: Cancer (breast cancer in 50's) Sister(s) Daughter(s) Family Medical History: Cancer (breast cancer in her 50's) General Exam General appearance: alert, in no apparent distress Head exam: Present: normocephalic, other (Small scalp contusion near the occiput with tenderness no obvious deformity) Eye exam: Present: normal appearance. Absent: scleral icterus, conjunctival injection Neck exam: Present: normal inspection, full ROM. Absent: tenderness Respiratory exam: Present: normal lung sounds bilaterally. Absent: respiratory distress, wheezes, rales, rhonchi, stridor, accessory muscle use Cardiovascular Exam: Present: regular rate, normal rhythm, normal heart sounds. Absent: systolic murmur, diastolic murmur, rubs, gallop GI/Abdominal exam: Present: soft. Absent: distended, tenderness, guarding, rebound, rigid, mass Extremities exam: Present: normal inspection, normal capillary refill. Absent: pedal edema, calf tenderness Back exam: Present: normal inspection. Absent: CVA tenderness (R), CVA tenderness (L) Neurological exam: Present: alert Skin exam: Present: warm, dry, intact, normal color. Absent: rash Course Vital Signs 01/06/24 01/06/24 15:49 18:05 Temperature 98.3 F Pulse Rate 86 82 Respiratory 20 16 Rate Blood Pressure 157/79 158/89 O2 Sat by Pulse 87 L 83 L Oximetry Medical Decision Making - Medical Decision Making Patient is an 88-year-old woman here to have evaluation after ground-level fall, while taking Eliquis. Patient struck posterior head. She states there is mild pain. She has not noted neurologic symptoms. The fall is concerning due to Eliquis use. The patient had a CT scan of the brain that I interpreted as negative for acute bony trauma and negative for acute intracranial hemorrhage. Was pt. sent in by a medical professional or institution (, PA, HUMAN CAPITAL MANAGER, urgent care, hospital, or correction...) When possible be specific @ -[No] Did you speak to anyone other than the patient for history (EMS, parent, family, police, friend...)? What history was obtained from this source @ -[No] Did you review nursing and triage notes (agree or disagree)? Why? @ -[I reviewed and agree with nursing and triage notes] Were old charts reviewed (outside hosp., previous admission, EMS record, old EKG, old radiological studies, urgent care reports/EKG's, correction records)? Report findings @ -[No old charts were reviewed] Differential Diagnosis (chest pain, altered mental status, abdominal pain women, abdominal pain men, vaginal bleeding, weakness, fever, dyspnea, syncope, headache, dizziness, GI bleed, back pain, seizure, CVA, palpatations, mental health, musculoskeletal)? @ -[Differential Musculoskeletal Muscular strain, contusion, ligament sprain, fracture, muscle spasm, nerve compression, intracranial hemorrhage, this is not meant to be in all inclusive list EKG interpreted by me (3pts min.). @ -[As above] X-rays interpreted by me (1pt min.). @ -[None done] CT interpreted by me (1pt min.). @ -[I interpreted as above U/S interpreted by me (1pt. min.). @ -[None done] What testing was considered but not performed or refused? (CT, X-rays, U/S, labs)? Why? @ -[None] What meds were considered but not given or refused? Why? @ -[None] Did you discuss the management of the patient with other professionals (professionals i.e. , PA, HUMAN CAPITAL MANAGER, lab, RT, psych nurse, transition social worker, bb shot packer, teacher, policy officer, field nurse case manager)? Give summary @ -[No] Was smoking cessation discussed for >3mins.? @ -[No] Was critical care preformed (if so, how long)? @ -[No] Were there social determinants of health that impacted care today? How? (Homelessness, low income, unemployed, alcoholism, drug addiction, transportation, low edu. Level, literacy, decrease access to med. care, longterm, rehab)? @ -[No] Was there de-escalation of care discussed even if they declined (Discuss DNR or withdrawal of care, Hospice)? DNR status @ -[No] What co-morbidities impacted this encounter? (DM, HTN, Smoking, COPD, CAD, Cancer, CVA, ARF, Chemo, Hep., AIDS, mental health diagnosis, sleep apnea, morbid obesity)? @ -[None] Was patient admitted / discharged? Hospital course, mention meds given and route, prescriptions, significant lab abnormalities, going to OR and other pertinent info. @ -[Patient is an 88-year-old woman here to have evaluation after striking her head and a fall. The patient is taking blood thinning medication and the mechanism is concerning for intracranial hemorrhage. The CT does not reveal any acute bleed. Patient stable for discharge Undiagnosed new problem with uncertain prognosis? @ -[No] Drug Therapy requiring intensive monitoring for toxicity (Heparin, Nitro, Insulin, Cardizem)? @ -[No] Were any procedures done? @ -[No] Diagnosis/symptom? @ -[Acute closed head injury Acute, or Chronic, or Acute on Chronic? @ -[Acute Uncomplicated (without systemic symptoms) or Complicated (systemic symptoms)? @ -[Uncomplicated Side effects of treatment? @ -[No] Exacerbation, Progression, or Severe Exacerbation? @ -[No] Poses a threat to life or bodily function? How? (Chest pain, [place], [place], pneumonia, PE, COPD, DKA, ARF, appy, cholecystitis, CVA, Diverticulitis, Homicidal, Suicidal, threat to staff... and all critical care pts) @ -[No] Disposition Clinical Impression: Fall, Minor head injury Disposition: HOME SELF-CARE Condition: Good Instructions (If sedation given, give patient instructions): Fall Prevention for Older Adults (ED), Head Injury (ED) Is patient prescribed a controlled substance at d/c from ED?: No Referrals: Paulo Mishra MD [Primary Care Provider] - 1-2 days
--- NOTE | 2024-01-06 16:48 | CT ---
EXAMINATION TYPE: CT brain wo con DATE OF EXAM: 01/06/2024 COMPARISON: 07/15/2014 HISTORY: 88-year-old female pain after Fall on Eliquis. TECHNIQUE: Examination was done in axial plane without intravenous contrast. Coronal and sagittal r econstructions performed. CT DLP: 1151.2 mGycm Automated exposure control for dose reduction was used. FINDINGS: Some focal encephalomalacia inferior left frontal cortex is new. Moderate patchy white matter hypoden sities in both cerebral hemispheres. Absence chronic calcifications in the bilateral carotid siphons. Slightly ectatic appearance to the northway of [place] vasculature which is unchanged. There is no evidence of acute intracranial hemorrhage, acute ischemic changes, mass, mass-effect, or extra-axial fluid collection. There is no effacement of cerebral sulci or basal subarachnoid cister ns. There is no hydrocephalus. There is no midline shift. Bledsoe-white matter distinction is preserv ed. Orbits and globes are intact. Paranasal sinuses and mastoid air cells well pneumatized. IMPRESSION: Some encephalomalacia in the superior left frontal cortex, new from 2013 suggests interval vascular t raumatic insult. Moderate burden of chronic small vessel ischemic disease. No acute intracranial abno rmality seen.
[2024-01-06 18:10] VITALS: BP 158/89; PULSE 82; RESP 16
== END 2024-01-06 18:10 | disposition home or self-care (01) ==
LOC: EC 15:45
DX: S00.03XA Contusion of scalp, initial encounter (principal); Z88.0 Allergy status to penicillin; Z88.1 Allergy status to other antibiotic agents; W01.0XXA Fall on same level from slipping, tripping and stumbling without subsequent striking against object, initial encounter; Y92.002 Bathroom of unspecified non-institutional (private) residence as the place of occurrence of the external cause
CPT/HCPCS: 70450; 99284

== ENCOUNTER → 2024-04-04 | Outpatient (CLI) | payer MEDICARE ==
[2024-04-04 09:03] LABS: African American GFR (CKD) 90 (>60 ml/min/1.73 sqM); Blood Urea Nitrogen 20 mg/dL (7-17); Non-African American GFR(CKD) 78 (>60 ml/min/1.73 sqM)
--- NOTE | 2024-04-04 10:34 | CT ---
EXAMINATION TYPE: CT angio chest CT DLP: 264 mGycm, Automated exposure control for dose reduction was used. DATE OF EXAM: 04/04/2024 9:37 AM COMPARISON: 12/06/2023. CLINICAL INDICATION: Female, 88 years old with history of I26.99 pulmonary embolism; SOB TECHNIQUE/CONTRAST: CTA scan of the thorax is performed with IV Contrast, patient injected with 100 mL of Isovue 370, MIP images are created and reviewed these are created on a separate workstation.. FINDINGS: Pulmonary Artery: There is no evidence for a filling defect within the pulmonary vasculature to sugge st acute pulmonary embolism. The pulmonary artery is of normal size. Lungs/Pleura: No evidence of focal consolidation, pleural effusion or pneumothorax. Scattered calcifi ed granulomas throughout the lungs. Airway: Large airways are patent. Heart: Heart is within normal limits for size. Vasculature: No evidence of aortic aneurysm. Mediastinum: No gross evidence of adenopathy. Partially calcified lymph nodes throughout the mediasti num. Musculoskeletal: No acute osseous abnormalities compression deformity of the T9 vertebrae there is at least 50% height loss. Soft Tissues/lymph nodes: Unremarkable. Lower neck: No significant findings. Upper Abdomen right upper quadrant cholecystectomy clips. IMPRESSION: 1. No evidence of pulmonary embolism. 2. Ectasia of ascending thoracic aorta measuring up to 4.2 cm. 3. Compression deformity of the T9 vertebrae. Correlate with back pain. This is felt to be new from a xial imaging on 12/06/2023. 4. Sequela of chronic granulomatous disease.
== END | disposition home or self-care (01) ==
LOC: RADCTMAIN 08:25
PROVIDERS: ATTEND Internal Medicine
DX: I26.99 Other pulmonary embolism without acute cor pulmonale
CPT/HCPCS: 36415; 71275; 82565; 84520

== ENCOUNTER → 2024-05-23 | Outpatient (CLI) | payer MEDICARE ==
--- NOTE | 2024-05-23 12:51 | CA ---
Transthoracic Echo Report Name: Shirlene Adam Age: 88 Gender: F : 1935 Exam Date: 05/23/2024 11:34 Exam Location: [facility] Ht (in): 64 Wt (lb): 161 Ordering Physician: Virgen Juarez MD Attending/Referring Phys: Berry Picker Donna Mtz RDCS Procedure CPT: Indications: I27.0 PRIMARY PULMONARY HYPERTENSION Cardiac Hx: Technical Quality: Fair Contrast 1: Total Dose (mL): Contrast 2: Total Dose (mL): MEASUREMENTS (Male / Female) Normal Values 2D ECHO LV Diastolic Diameter PLAX 3.8 cm 4.2 - 5.9 / 3.9 - 5.3 cm LV Systolic Diameter PLAX 2.5 cm IVS Diastolic Thickness 1.4 cm 0.6 - 1.0 / 0.6 - 0.9 cm LVPW Diastolic Thickness 1.4 cm 0.6 - 1.0 / 0.6 - 0.9 cm LV Relative Wall Thickness 0.8 RV Internal Dim ED PLAX 1.4 cm LA Systolic Diameter LX 3.7 cm 3.0 - 4.0 / 2.7 - 3.8 cm LV Diastolic Volume MOD BP 66.8 cm??? 67 - 155 / 56 - 104 cm??? LV Systolic Volume MOD BP 35.9 cm??? 22 - 58 / 19 - 49 cm??? LV Ejection Fraction MOD BP 46.3 % >= 55 % LV Cardiac Index MOD BP 1163.0 cm???/min???m??? LV Diastolic Volume MOD 4C 75.1 cm??? LV Systolic Volume MOD 4C 47.6 cm??? LV Ejection Fraction MOD 4C 36.6 % LV Cardiac Index MOD 4C 1032.9 cm???/min???m??? LV Diastolic Length 4C 7.4 cm LV Systolic Length 4C 6.4 cm LV Diastolic Volume MOD 2C 56.9 cm??? LV Systolic Volume MOD 2C 23.5 cm??? LV Ejection Fraction MOD 2C 58.7 % LV Cardiac Index MOD 2C 1257.6 cm???/min???m??? LV Diastolic Length 2C 7.0 cm LV Systolic Length 2C 5.5 cm LA Volume 63.8 cm??? 18 - 58 / 22 - 52 cm??? LA Volume Index 34.8 cm???/m??? 16 - 28 cm???/m??? M-MODE Aortic Root Diameter MM 3.8 cm LA Systolic Diameter MM 3.8 cm LA Ao Ratio MM 1.0 AV Cusp Separation MM 2.1 cm DOPPLER AI Peak Velocity 391.3 cm/s AI Peak Gradient 61.3 mmHg AI Pressure Half Time 921.1 ms MV Area PHT 4.1 cm??? Mitral E Point Velocity 48.1 cm/s Mitral A Point Velocity 102.0 cm/s Mitral E to A Ratio 0.5 MV Deceleration Time 185.8 ms TR Peak Velocity 202.8 cm/s TR Peak Gradient 16.5 mmHg Right Ventricular Systolic Press 36.2 mmHg FINDINGS Left Ventricle Left ventricular ejection fraction is estimated at 45-50%. Moderately increased septal wall thickness. Moderately increased posterior wall thickness. Mildly decreased left ventricular ejection fraction. Right Ventricle Mild right ventricular dilatation. Mild pulmonary hypertension. Right Atrium Normal right atrial size. Left Atrium Moderately increased left atrial volume. Mitral Valve Structurally normal mitral valve. Mild mitral regurgitation. No mitral stenosis. Aortic Valve Trileaflet aortic valve. Trace to mild aortic regurgitation. No aortic stenosis. Tricuspid Valve Structurally normal tricuspid valve. Mild tricuspid regurgitation. No tricuspid stenosis. Pulmonic Valve Structurally normal pulmonic valve. No pulmonic stenosis. Trace pulmonic regurgitation. Pericardium No pericardial or pleural effusion. Aorta Aorta at the level of the sinuses of valsalva (root) normal 3.8cm. CONCLUSIONS Normal LV size with mild concentric LVH and ejection fraction of 45-50%. Moderately enlarged left atrium. Mild mitral annular calcification and aortic sclerosis without restriction. Mild mitral and tricuspid regurgitation. Mild aortic insufficiency. No significant pulmonary hypertension. No pericardial effusion Previewed by: Dr. John Hall MD (Electronically Signed) Final Date: 23 May 2024 12:51
== END | disposition home or self-care (01) ==
LOC: RADECHMAIN 11:21
PROVIDERS: ATTEND Internal Medicine
CPT/HCPCS: 93306

== ENCOUNTER 2024-07-07 03:26 | Inpatient (IN) | payer MEDICARE ==
--- NOTE | 2024-07-07 03:31 | ED ---
Altered Mental Status HPI - General Stated Complaint: Altered Mental Status Time Seen by Provider: 07/07/24 03:28 Source: patient, EMS Mode of arrival: EMS Limitations: altered mental status - History of Present Illness Initial Comments: Patient is an 89-year-old woman brought from her assisted living facility to have evaluation for unresponsiveness. She was reportedly found slumped over in a wheelchair by staff member who activated EMS. EMS states that on their arrival they put her on monitor she was bradycardic, she was having poor respiratory effort and pulse ox initially was approximately 70. Patient was placed on nonrebreather oxygen and then gradually became responsive. On arrival, the patient is able to state that she recognizes she is in the hospital. She is denying chest pain. No dyspnea. No headache, back or abdominal pain. MD Complaint: altered mental status, decreased responsiveness -: unknown Severity: severe Associated Symptoms: denies other symptoms Treatments Prior to Arrival: oxygen - Related Data Home Medications Medication Instructions Recorded Confirmed Atorvastatin Calcium [Lipitor] 10 mg PO HS 12/04/13 07/07/24 Tim Cit/Mag/D3/Zn/Jitney Driver/Hoang/Bor 1 tab PO DAILY 12/04/13 07/07/24 [Citracal-D3 Plus Magnesium Tab] Sertraline [Zoloft] 50 mg PO HS 12/04/13 07/07/24 Albuterol Sulfate [Ventolin HFA] 2 puff INHALATION RT-Q4H 07/07/24 07/07/24 Apixaban [Eliquis] 5 mg PO BID 07/07/24 07/07/24 Ergocalciferol [Vitamin D2 (1250 1,250 mcg PO WEEKLY 07/07/24 07/07/24 Mcg = 94500 Iu)] lisinopriL [Zestril] 10 mg PO DAILY 07/07/24 07/07/24 Allergies Allergy/AdvReac Type Severity Reaction Status Date / Time cefuroxime axetil Allergy Anaphylaxis Verified 07/07/24 09:05 [From Ceftin] Penicillins Allergy Itching Verified 07/07/24 09:05 warfarin sodium AdvReac GI BLEED Verified 07/07/24 09:05 [From Coumadin] Review of Systems ROS Statement: Those systems with pertinent positive or pertinent negative responses have been documented in the HPI. ROS Other: All systems not noted in ROS Statement are negative. Limitations: ROS unobtainable due to patients medical condition Constitutional: Denies: fever Respiratory: Denies: cough, dyspnea Cardiovascular: Denies: chest pain, palpitations Gastrointestinal: Reports: vomiting. 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 HAD RADIATION -2013 History of Any Multi-Drug Resistant Organisms: None Reported Past Surgical History: Breast Surgery, Hysterectomy, Joint Replacement, Orthopedic Surgery Additional Past Surgical History / Comment(s): LAURA KNEE REPLACEMENT,ABD CYST REMOVED, CATARACT SURGERY LAURA, toe removed to treat hammer toe in 03/2023 Past Anesthesia/Blood Transfusion Reactions: No Reported Reaction Past Psychological History: Anxiety, Depression Smoking Status: Never smoker Past Alcohol Use History: Rare Past Drug Use History: None Reported - Past Family History Brother(s) Daughter(s) Family Medical History: Cancer (breast cancer in 50's) Sister(s) Daughter(s) Family Medical History: Cancer (breast cancer in her 50's) General Exam General appearance: alert, in no apparent distress Head exam: Present: atraumatic, normocephalic Eye exam: Present: normal appearance, PERRL. Absent: scleral icterus, conjunctival injection ENT exam: Present: mucous membranes dry Neck exam: Present: normal inspection. Absent: tenderness Respiratory exam: Present: rhonchi. Absent: wheezes, rales, stridor, accessory muscle use Cardiovascular Exam: Present: regular rate, normal rhythm, normal heart sounds. Absent: systolic murmur, diastolic murmur, rubs, gallop GI/Abdominal exam: Present: soft. Absent: distended, tenderness, guarding, rebound, mass Extremities exam: Present: normal inspection, normal capillary refill. Absent: pedal edema, calf tenderness Back exam: Present: normal inspection. Absent: CVA tenderness (R), CVA tenderness (L) Neurological exam: Present: alert, CN II-XII intact. Absent: oriented X3 (Patient is oriented to person, recognizes she is in a hospital, could not identify the date), motor sensory deficit Skin exam: Present: warm, dry, intact, mottled. Absent: normal color, rash Course Vital Signs 07/07/24 07/07/24 07/07/24 03:27 03:36 03:58 Temperature 98.2 F Pulse Rate 94 82 Pulse Rate [ Heel Seat Pounder ] Respiratory 20 20 Rate Blood Pressure 141/93 148/93 O2 Sat by Pulse 82 L 100 Oximetry Fraction of 100 Inspired Oxygen (FIO2) 07/07/24 07/07/24 07/07/24 04:29 04:50 06:27 Temperature Pulse Rate 76 76 67 Pulse Rate [ Heel Seat Pounder ] Respiratory 20 16 16 Rate Blood Pressure 128/87 130/89 118/83 O2 Sat by Pulse 98 99 98 Oximetry Fraction of Inspired Oxygen (FIO2) 07/07/24 07/07/24 07/07/24 07:25 07:50 08:00 Temperature 98.8 F 99.0 F Pulse Rate 69 69 Pulse Rate [ Heel Seat Pounder ] Respiratory 17 18 Rate Blood Pressure 116/84 126/86 O2 Sat by Pulse 99 99 Oximetry Fraction of 60 Inspired Oxygen (FIO2) 07/07/24 07/07/24 07/07/24 08:08 08:14 08:50 Temperature Pulse Rate 73 Pulse Rate [ Heel Seat Pounder ] Respiratory 17 Rate Blood Pressure 128/89 O2 Sat by Pulse 92 L Oximetry Fraction of 60 40 Inspired Oxygen (FIO2) 07/07/24 07/07/24 07/07/24 09:05 09:35 10:10 Temperature 98.8 F 97.8 F Pulse Rate 75 75 71 Pulse Rate [ Heel Seat Pounder ] Respiratory 17 16 17 Rate Blood Pressure 130/88 104/73 127/83 O2 Sat by Pulse 97 98 96 Oximetry Fraction of Inspired Oxygen (FIO2) 07/07/24 07/07/24 07/07/24 11:10 12:23 14:00 Temperature 98.6 F 98.4 F Pulse Rate 69 61 Pulse Rate [ 64 Heel Seat Pounder ] Respiratory 20 17 Rate Blood Pressure 127/83 127/83 O2 Sat by Pulse 97 97 Oximetry Fraction of Inspired Oxygen (FIO2) 07/07/24 07/07/24 07/07/24 14:32 15:00 16:00 Temperature 98.0 F Pulse Rate 61 64 60 Pulse Rate [ Heel Seat Pounder ] Respiratory 18 18 17 Rate Blood Pressure 98/66 108/62 O2 Sat by Pulse 95 95 95 Oximetry Fraction of Inspired Oxygen (FIO2) 07/07/24 17:00 Temperature Pulse Rate 62 Pulse Rate [ Heel Seat Pounder ] Respiratory 17 Rate Blood Pressure 110/58 O2 Sat by Pulse 95 Oximetry Fraction of Inspired Oxygen (FIO2) Medical Decision Making - Medical Decision Making Patient is an 89-year-old woman brought from [facility] care facility for being unresponsive. The patient is able to answer questions and is oriented x 2. She is denying complaints on arrival. The patient is placed on BiPAP for the initial low oxygen saturation but then increased to 100%. Will attempt to wean the oxygen down. Patient does have elevated troponin but again on questioning denies chest pain. She did have elevated D-dimer but had already been sent for CT scan, given her history of previous PE and there was no PE evident on the scan by my interpretation. The patient had chest x-ray that I interpreted as negative for acute infiltrate, pneumothorax, congestive heart failure The patient had CT of the brain that, my interpretation, does show evidence of old stroke. No acute bony injury. No acute intracranial hemorrhage or mass effect Case was discussed with admitting physician and also with cardiology and suspicion of recent TX, though no acute ischemia on the ECG. Was pt. sent in by a medical professional or institution (, PA, RADON INSPECTOR, urgent care, hospital, or residential...) When possible be specific @ -Sent from long-term care facility to have evaluation of altered mental status Did you speak to anyone other than the patient for history (EMS, parent, family, police, friend...)? What history was obtained from this source @ -[EMS contributed history Did you review nursing and triage notes (agree or disagree)? Why? @ -[I reviewed and agree with nursing and triage notes] Were old charts reviewed (outside hosp., previous admission, EMS record, old EKG, old radiological studies, urgent care reports/EKG's, residential records)? Report findings @ -[Transfer paperwork was reviewed] Differential Diagnosis (chest pain, altered mental status, abdominal pain women, abdominal pain men, vaginal bleeding, weakness, fever, dyspnea, syncope, headache, dizziness, GI bleed, back pain, seizure, CVA, palpatations, mental health, musculoskeletal)? @ -[Differential Dyspnea: Coronary syndrome, arrhythmia, tamponade, asthma, COPD, pulmonary embolism, pneumonia, pneumothorax, pulmonary effusion, anaphylaxis, diabetic ketoacidosis, flailed chest, pulmonary contusion, diaphragmatic rupture, anemia, neuromuscular, this is not meant to be an all-inclusive list. Differential Altered Mental Status: Hypoglycemia, DKA, hypercapnia, ETOH, overdose, CO poisoning, trauma, myxedema coma, HTN encephalopathy, infection, encephalitis, psychosis, intercranial hemorrhage, hepatic encephalopathy, meningitis, CVA, this is not meant to be an all-inclusive list EKG interpreted by me (3pts min.). @ -[I interpreted as above] X-rays interpreted by me (1pt min.). @ -[I interpreted as above CT interpreted by me (1pt min.). @ -[Interpreted as above U/S interpreted by me (1pt. min.). @ -[None done] What testing was considered but not performed or refused? (CT, X-rays, U/S, labs)? Why? @ -[None] What meds were considered but not given or refused? Why? @ -[None] Did you discuss the management of the patient with other professionals (professionals i.e. , PA, RADON INSPECTOR, lab, RT, psych nurse, transition social worker, architect intern, teacher, chief wellness officer, case hardener)? Give summary @ -[Case discussed with admitting physician and treatment recommendations incorporated Was smoking cessation discussed for >3mins.? @ -[No] Was critical care preformed (if so, how long)? @ -[Yes, 35 minutes Were there social determinants of health that impacted care today? How? (Homelessness, low income, unemployed, alcoholism, drug addiction, transportation, low edu. Level, literacy, decrease access to med. care, senior living, rehab)? @ -[No] Was there de-escalation of care discussed even if they declined (Discuss DNR or withdrawal of care, Hospice)? DNR status @ -[No] What co-morbidities impacted this encounter? (DM, HTN, Smoking, COPD, CAD, Cancer, CVA, ARF, Chemo, Hep., AIDS, mental health diagnosis, sleep apnea, morbid obesity)? @ -[COPD, hypertension, previous stroke Was patient admitted / discharged? Hospital course, mention meds given and route, prescriptions, significant lab abnormalities, going to OR and other pertinent info. @ -[See above Undiagnosed new problem with uncertain prognosis? @ -[No] Drug Therapy requiring intensive monitoring for toxicity (Heparin, Nitro, Insulin, Cardizem)? @ -[No] Were any procedures done? @ -[No] Diagnosis/symptom? @ -[Acute altered mental status Elevated troponin, suspected NSTEMI Acute dyspnea Hypoxemic respiratory failure Urinary tract infection Hyponatremia Acute, or Chronic, or Acute on Chronic? @ -[Acute Uncomplicated (without systemic symptoms) or Complicated (systemic symptoms)? @ -[Complicated by mental status change Side effects of treatment? @ -[No] Exacerbation, Progression, or Severe Exacerbation? @ -[No] Poses a threat to life or bodily function? How? (Chest pain, [place], TX, pneumonia, PE, COPD, DKA, ARF, appy, cholecystitis, CVA, Diverticulitis, Homicidal, Suicidal, threat to staff... and all critical care pts) @ -[Yes there is threat of worsening respiratory failure and - Lab Data Result diagrams: 07/08/24 03:31 07/09/24 08:16 Lab Results 07/07/24 07/07/24 07/07/24 Range/Units 03:28 03:28 03:28 WBC 9.0 (3.8-10.6) k/uL RBC 5.24 (3.80-5.40) m/uL Hgb 15.9 (11.4-16.0) gm/dL Hct 48.1 H (34.0-46.0) % MCV 91.9 (80.0-100.0) fL MCH 30.3 (25.0-35.0) pg MCHC 33.0 (31.0-37.0) g/dL RDW 14.5 (11.5-15.5) % Plt Count 172 (150-450) k/uL MPV 7.8 Neutrophils % 84 % Lymphocytes % 5 % Monocytes % 8 % Eosinophils % 0 % Basophils % 0 % Neutrophils # 7.6 (1.3-7.7) k/uL Lymphocytes # 0.5 L (1.0-4.8) k/uL Monocytes # 0.7 (0-1.0) k/uL Eosinophils # 0.0 (0-0.7) k/uL Basophils # 0.0 (0-0.2) k/uL PT 11.1 (10.0-12.5) sec INR 1.0 (<1.2) APTT 19.6 L (22.0-30.0) sec D-Dimer (<0.60) mg/L FEU VBG pH (7.31-7.41) VBG pCO2 (37-51) mmHg VBG HCO3 (24-28) mmol/L Sodium (137-145) mmol/L Potassium (3.5-5.1) mmol/L Chloride (98-107) mmol/L Carbon Dioxide (22-30) mmol/L Anion Gap mmol/L BUN (7-17) mg/dL Creatinine (0.52-1.04) mg/dL Est GFR (CKD-EPI)AfAm (>60 ml/min/1.73 sqM) Est GFR (CKD-EPI)NonAf (>60 ml/min/1.73 sqM) Glucose (74-99) mg/dL POC Glucose (mg/dL) (70-110) mg/dL POC Glu Alley Tender ID Calcium (8.4-10.2) mg/dL Total Bilirubin (0.2-1.3) mg/dL AST (14-36) U/L ALT (4-34) U/L Alkaline Phosphatase (38-126) U/L Troponin I (0.000-0.034) ng/mL Total Protein (6.3-8.2) g/dL Albumin (3.5-5.0) g/dL Urine Color Yellow Urine Appearance Cloudy H (Clear) Urine pH 5.5 (5.0-8.0) Ur Specific [place] >1.050 H (1.001-1.035) Urine Protein Trace H (Negative) Urine Glucose (UA) Negative (Negative) Urine Ketones Negative (Negative) Urine Blood Moderate H (Negative) Urine Nitrite Negative (Negative) Urine Bilirubin Negative (Negative) Urine Urobilinogen <2.0 (<2.0) mg/dL Ur Leukocyte Esterase Large H (Negative) Urine RBC 37 H (0-5) /hpf Urine WBC 73 H (0-5) /hpf Ur Squamous Epith Cells <1 (0-4) /hpf Urine Bacteria Occasional H (None) /hpf Urine Mucus Rare H (None) /hpf Urine Yeast (Budding) Few H (None) /hpf 07/07/24 07/07/24 07/07/24 Range/Units 03:28 03:28 03:28 WBC (3.8-10.6) k/uL RBC (3.80-5.40) m/uL Hgb (11.4-16.0) gm/dL Hct (34.0-46.0) % MCV (80.0-100.0) fL MCH (25.0-35.0) pg MCHC (31.0-37.0) g/dL RDW (11.5-15.5) % Plt Count (150-450) k/uL MPV Neutrophils % % Lymphocytes % % Monocytes % % Eosinophils % % Basophils % % Neutrophils # (1.3-7.7) k/uL Lymphocytes # (1.0-4.8) k/uL Monocytes # (0-1.0) k/uL Eosinophils # (0-0.7) k/uL Basophils # (0-0.2) k/uL PT (10.0-12.5) sec INR (<1.2) APTT (22.0-30.0) sec D-Dimer 9.31 H (<0.60) mg/L FEU VBG pH (7.31-7.41) VBG pCO2 (37-51) mmHg VBG HCO3 (24-28) mmol/L Sodium 130 L (137-145) mmol/L Potassium 4.4 (3.5-5.1) mmol/L Chloride 103 (98-107) mmol/L Carbon Dioxide 15 L (22-30) mmol/L Anion Gap 12 mmol/L BUN 40 H (7-17) mg/dL Creatinine 1.40 H (0.52-1.04) mg/dL Est GFR (CKD-EPI)AfAm 39 (>60 ml/min/1.73 sqM) Est GFR (CKD-EPI)NonAf 34 (>60 ml/min/1.73 sqM) Glucose 178 H (74-99) mg/dL POC Glucose (mg/dL) (70-110) mg/dL POC Glu Alley Tender ID Calcium 9.2 (8.4-10.2) mg/dL Total Bilirubin 1.3 (0.2-1.3) mg/dL AST 47 H (14-36) U/L ALT 17 (4-34) U/L Alkaline Phosphatase 92 (38-126) U/L Troponin I 7.400 H* (0.000-0.034) ng/mL Total Protein 7.1 (6.3-8.2) g/dL Albumin 3.9 (3.5-5.0) g/dL Urine Color Urine Appearance (Clear) Urine pH (5.0-8.0) Ur Specific [place] (1.001-1.035) Urine Protein (Negative) Urine Glucose (UA) (Negative) Urine Ketones (Negative) Urine Blood (Negative) Urine Nitrite (Negative) Urine Bilirubin (Negative) Urine Urobilinogen (<2.0) mg/dL Ur Leukocyte Esterase (Negative) Urine RBC (0-5) /hpf Urine WBC (0-5) /hpf Ur Squamous Epith Cells (0-4) /hpf Urine Bacteria (None) /hpf Urine Mucus (None) /hpf Urine Yeast (Budding) (None) /hpf 07/07/24 07/07/24 07/07/24 Range/Units 03:29 05:30 06:17 WBC (3.8-10.6) k/uL RBC (3.80-5.40) m/uL Hgb (11.4-16.0) gm/dL Hct (34.0-46.0) % MCV (80.0-100.0) fL MCH (25.0-35.0) pg MCHC (31.0-37.0) g/dL RDW (11.5-15.5) % Plt Count (150-450) k/uL MPV Neutrophils % % Lymphocytes % % Monocytes % % Eosinophils % % Basophils % % Neutrophils # (1.3-7.7) k/uL Lymphocytes # (1.0-4.8) k/uL Monocytes # (0-1.0) k/uL Eosinophils # (0-0.7) k/uL Basophils # (0-0.2) k/uL PT (10.0-12.5) sec INR (<1.2) APTT (22.0-30.0) sec D-Dimer (<0.60) mg/L FEU VBG pH 7.30 L (7.31-7.41) VBG pCO2 45 (37-51) mmHg VBG HCO3 22 L (24-28) mmol/L Sodium (137-145) mmol/L Potassium (3.5-5.1) mmol/L Chloride (98-107) mmol/L Carbon Dioxide (22-30) mmol/L Anion Gap mmol/L BUN (7-17) mg/dL Creatinine (0.52-1.04) mg/dL Est GFR (CKD-EPI)AfAm (>60 ml/min/1.73 sqM) Est GFR (CKD-EPI)NonAf (>60 ml/min/1.73 sqM) Glucose (74-99) mg/dL POC Glucose (mg/dL) 172 H (70-110) mg/dL POC Glu Alley Tender ID [place] Calcium (8.4-10.2) mg/dL Total Bilirubin (0.2-1.3) mg/dL AST (14-36) U/L ALT (4-34) U/L Alkaline Phosphatase (38-126) U/L Troponin I 8.110 H* (0.000-0.034) ng/mL Total Protein (6.3-8.2) g/dL Albumin (3.5-5.0) g/dL Urine Color Urine Appearance (Clear) Urine pH (5.0-8.0) Ur Specific [place] (1.001-1.035) Urine Protein (Negative) Urine Glucose (UA) (Negative) Urine Ketones (Negative) Urine Blood (Negative) Urine Nitrite (Negative) Urine Bilirubin (Negative) Urine Urobilinogen (<2.0) mg/dL Ur Leukocyte Esterase (Negative) Urine RBC (0-5) /hpf Urine WBC (0-5) /hpf Ur Squamous Epith Cells (0-4) /hpf Urine Bacteria (None) /hpf Urine Mucus (None) /hpf Urine Yeast (Budding) (None) /hpf - EKG Data -: EKG Interpreted by Me EKG shows normal: sinus rhythm, intervals (Normal), QRS complexes (Left Anterior fascicular block) Rate: normal (96 bpm) Interpretation: nonspecific ST-T wave changes, LVH Disposition Clinical Impression: Elevated troponin, Acute respiratory failure Disposition: ADMITTED IP TO THIS [facility] Condition: Poor Is patient prescribed a controlled substance at d/c from ED?: No
[2024-07-07 03:33] LABS: Glucose,Whole Blood 172 mg/dL (70-110)
[2024-07-07 03:52] LABS: ALT 17 U/L (4-34); AST 47 U/L (14-36); African American GFR (CKD) 39 (>60 ml/min/1.73 sqM); Albumin 3.9 g/dL (3.5-5.0); Alkaline Phosphatase 92 U/L (38-126); Anion Gap 12 mmol/L; Blood Urea Nitrogen 40 mg/dL (7-17); Calcium 9.2 mg/dL (8.4-10.2); Carbon Dioxide 15 mmol/L (22-30); Chloride 103 mmol/L (98-107); Glucose 178 mg/dL (74-99); Non-African American GFR(CKD) 34 (>60 ml/min/1.73 sqM); Potassium 4.4 mmol/L (3.5-5.1); Sodium 130 mmol/L (137-145); Total Bilirubin 1.3 mg/dL (0.2-1.3); Total Protein 7.1 g/dL (6.3-8.2)
[2024-07-07 03:58] LABS: Basophils % (A) 0 %; Eosinophils % (A) 0 %; HCT 48.1 % (34.0-46.0); HGB 15.9 gm/dL (11.4-16.0); Lymphocytes # (A) 0.5 k/uL (1.0-4.8); Lymphocytes % (A) 5 %; MCH 30.3 pg (25.0-35.0); MCV 91.9 fL (80.0-100.0); Mean Platelet Volume 7.8; Monocytes # (A) 0.7 k/uL (0-1.0); Monocytes % (A) 8 %; Neutrophils # (A) 7.6 k/uL (1.3-7.7); Neutrophils % (A) 84 %; Platelet Count 172 k/uL (150-450); RBC 5.24 m/uL (3.80-5.40); RDW 14.5 % (11.5-15.5)
--- NOTE | 2024-07-07 04:08 | CT ---
EXAM: CT Head Without Intravenous Contrast CLINICAL HISTORY: ITS.REASON CT Reason: Altered mental status TECHNIQUE: Axial computed tomography images of the head/brain without intravenous contrast. CTDI is 49.1 mGy and DLP is 1184.4 mGy-cm. This CT exam was performed using one or more of the following dose reduction techniques: automated exposure control, adjustment of the mA and/or kV according to patient size, and/or use of iterative reconstruction technique. COMPARISON: No relevant prior studies available. FINDINGS: No acute intracranial hemorrhage. No midline shift or mass effect. Encephalomalacia in the LEFT frontal lobe, consistent with old infarct. Age-related cerebral volume loss. Periventricular and subcortical white matter hypoattenuation, consistent with chronic microangiopathy. The visualized orbits appear grossly unremarkable. The calvarium is intact. The visualized paranasal sinuses and mastoid air cells are grossly clear. IMPRESSION: No acute intracranial hemorrhage, midline shift, or mass effect. Encephalomalacia in the LEFT frontal lobe, consistent with old infarct.
[2024-07-07 04:19] LABS: Prothrombin Time 11.1 sec (10.0-12.5)
[2024-07-07] MEDS: SODIUM CHLORIDE 0.9% 500 ML 500 ML IV ONE (04:27)
[2024-07-07 04:31] LABS: Partial Thromboplastin Time 19.6 sec (22.0-30.0)
--- NOTE | 2024-07-07 04:55 | XR ---
EXAM: XR Chest, 1 View CLINICAL HISTORY: ITS.REASON XR Reason: altered mental status TECHNIQUE: Frontal view of the chest. COMPARISON: XR Chest dated 03/28/24, CT dated 12/06/23 FINDINGS: Lungs: Small calcified granulomas bilaterally as seen on the prior CT. No consolidation. Pleural space: Unremarkable. No pneumothorax. Heart: Unremarkable. No cardiomegaly. Mediastinum: Unremarkable. Normal mediastinal contour. Bones/joints: Unremarkable. No acute fracture. Soft tissues: Clips in the left breast. Vasculature: Tortuous aorta, stable. IMPRESSION: No acute findings in the chest.
--- NOTE | 2024-07-07 05:03 | CT ---
EXAM: CT Angiography Chest With Intravenous Contrast CLINICAL HISTORY: ITS.REASON CT Reason: dyspnea, history of PE TECHNIQUE: Axial computed tomographic angiography images of the chest with intravenous contrast. CTDI is 33.67 mGy and DLP is 404.8 mGy-cm. This CT exam was performed using one or more of the following dose reduction techniques: automated exposure control, adjustment of the mA and/or kV according to patient size, and/or use of iterative reconstruction technique. MIP reconstructed images were created and reviewed. COMPARISON: CTA Chest dated 04/04/2024 FINDINGS: Pulmonary arteries: Unremarkable. No pulmonary embolism. Aorta: No acute findings. No thoracic aortic aneurysm. Lungs: Mild bibasilar atelectasis. No mass. Pleural space: Unremarkable. No significant effusion. No pneumothorax. Heart: Unremarkable. No cardiomegaly. No significant pericardial effusion. No evidence of RV dysfunction. Bones/joints: No acute fracture. No dislocation. Soft tissues: Unremarkable. Lymph nodes: Unremarkable. No enlarged lymph nodes. Kidneys and ureters: Partially visualized left hydronephrosis, new since the prior. Nonobstructing left renal calculus noted. Other findings: Calcified granulomas bilaterally. . IMPRESSION: 1. No evidence of pulmonary embolism. 2. Partially visualized left hydronephrosis, new since the prior.
[2024-07-07 05:53] LABS: VBG PH 7.3 (7.31-7.41)
[2024-07-07] MEDS: HEPARIN SOD,PORK IN 0.45% NACL 25,000 UNIT in 0.45% NACL 1 250ML.BAG IV SCH (06:32)
[2024-07-07] MEDS: HEPARIN SODIUM 1,000 UN/ML (10ML VL) IV ONE (06:39)
[2024-07-07] MEDS ORDERED: MAG HYDROX/AL HYDROX/SIMETH 30 ML CUP PO PRN (06:57)
[2024-07-07] MEDS ORDERED: MORPHINE SULFATE 4 MG/ML SYRINGE IV PRN (06:57)
[2024-07-07] MEDS ORDERED: ONDANSETRON 4 MG/2 ML VIAL IVP PRN (06:57)
[2024-07-07] MEDS ORDERED: NALOXONE 0.4 MG/ML 1 ML VIAL IV PRN (06:57)
[2024-07-07] MEDS: SODIUM CHLORIDE 0.9% 1,000 ML IV SCH (07:25)
[2024-07-07] MEDS: PANTOPRAZOLE 40 MG/10 ML VIAL IV SCH (08:02)
[2024-07-07] MEDS: AZTREONAM 1 GM in SODIUM CHLORIDE 0.9% 50 ML IVPB SCH (09:35)
[2024-07-07] MEDS: METOPROLOL TARTRATE 12.5 MG TAB PO SCH (10:23)
[2024-07-07] MEDS: lisinopriL 10 MG TAB PO SCH (10:23)
[2024-07-07] MEDS: ISOSORBIDE MONONITRATE ER 30 MG TAB.ER.24H PO SCH (10:23)
[2024-07-07] MEDS: ASPIRIN 81 MG PO SCH (10:23)
--- NOTE | 2024-07-07 11:14 | CONS ---
CONSULTATION CHIEF COMPLAINT: Shortness of breath and elevated troponin. HISTORY OF PRESENT ILLNESS: This is an 89-year-old lady with history of hypertension, dyslipidemia, osteoarthritis, who is on long-term anticoagulant for undefined reason, presented to hospital following an episode of unresponsiveness at home. She lives at an assisted care facility. She was found slumped over in a wheelchair by a staff member, who activated the EMS, was found to be having poor respiratory effort. Pulse ox was in the 70s, brought to the hospital where she became gradually more responsive and did not have any symptoms of chest pain, difficulty in breathing, dizziness. She does not have any leg edema, PND, or orthopnea. Her labs showed a hemoglobin of 15.9, platelet count is 170, BUN is 40, creatinine is 1.4. Troponins were elevated at 7.4 and 8.1. The patient had elevated D- dimer, underwent a CT scan of the chest that is negative for pulmonary embolism. EKG showed sinus rhythm with nonspecific ST-T wave changes. There is no prior history of coronary artery disease or congestive heart failure. The patient had an echocardiogram in May 2024 that revealed mild LV systolic dysfunction and moderately increased left atrium with mild mitral and tricuspid regurgitation. At the time of my evaluation this morning, she appears comfortable at rest and is free of cardiac symptoms. PAST MEDICAL HISTORY: Significant for hypertension, dyslipidemia, and COPD. MEDICATIONS: Include, 1. Ventolin. 2. Lisinopril 10 daily. 3. Vitamin D. 4. Lipitor 10 daily. 5. Eliquis 5 b.i.d. ALLERGIES: To penicillin, Ceftin, Coumadin. FAMILY HISTORY: Negative for premature coronary artery disease. SOCIAL HISTORY: Negative for current smoking, EtOH abuse, or drug abuse. REVIEW OF SYSTEMS: 14 out of 14 review of systems has been performed. Pertinents are as documented in history of presenting illness. PHYSICAL EXAMINATION: GENERAL: Comfortable at rest. VITAL SIGNS: Stable. CHEST: Reveals good air entry bilaterally. HEART: Reveals first and second heart sounds. Systolic murmur at the apex. ABDOMEN: Soft. EXTREMITIES: Did not reveal any edema. Peripheral pulses are felt. LABORATORY DATA: Labs show that the troponin is 7.4 and 8.1, creatinine is 1.4. Hemoglobin is 15.9, potassium is 4.4. ASSESSMENT: 1. Acute [id number]-CT-[id number] elevation myocardial infarction. 2. History of hypertension. 3. History of dyslipidemia. PLAN: The patient had been started on IV heparin. Eliquis is on hold. I will check an echo to assess her LV function. I talked to her at length about her treatment options. Understanding all the issues, she opted for conservative medical therapy at this time. I will add nitrates and beta blockers to what she is on along with aspirin and adjust her therapies based on how her symptoms evolve. MMODL / AMADAN: [id number] /
[2024-07-07] MEDS ORDERED: ALBUTEROL NEBULIZED 2.5 MG/3 ML INHALATION SCH (12:00)
[2024-07-07] MEDS: HEPARIN SODIUM 1,000 UN/ML (10ML VL) IV PRN (14:30)
--- NOTE | 2024-07-07 16:01 | P.HPIM ---
History of Present Illness H&P Date: 07/07/24 Chief Complaint: Decreased responsiveness This is a 89-year-old patient, follows Dr. Marlow. Patient was brought in by the EMS to the ER. Patient is at her assisted living. EMS was called with the patient was found to be slumped over in the chair by the care of a staff member. At baseline patient is only AO x 1. Patient had mild to moderate labored respirations. When staff member did compress out there found the patient slumped over in the wheelchair and altered. His 911 was initiated. Patient herself is a very poor historian. Pulse ox was found to be 70%. Normally wears oxygen. Patient was briefly into bradycardia with heart rate in the 40s. P atient had vomited prior to arrival of the EMS. Patient during transport was put on 15 L nonrebreather. Pulse ox came to 80 to 90%. EKG showed normal sinus rhythm with some T wave changes. Patient is not really able to speak. Struggling a bit. In the ER patient is able to answer questions. But she thinks it is 1991. She thinks she is in the [facility]. Review of systems: Limited because of patient's advanced dementia Social history: Assisted living. Non-smoker. Alcohol rarely. Physical examination: VITAL SIGNS: 98.2, 94, 20, 141/93, 82% with BiPAP on presentation GENERAL: BMI 21.5, reclining bed awake a bit tired. EYES: Pupils equal. Conjunctiva marco l. HEENT: External appearance of nose and ears normal, oral cavity grossly normal. NECK: JVD not raised; masses not palpable. HEART: First and second heart sounds are normal; no edema. LUNGS: Respiratory rate increased, diminished breath sounds n. ABDOMEN: Soft, nontender, liver spleen not palpable, no masses palpable. PSYCH: Patient did state her name cannot she think she is in [facility] she thinks it is 1991 l. MUSCULOSKELETAL:No Clubbing/cyanosis;muscles-grossly intact. OA NEUROLOGICAL: Cranial nerves grossly intact; no facial asymmetry, power and sensation grossly intact. Does move all limbs LYMPHATICS: No lymph nodes palpable in the axilla and neck INVESTIGATIONS, reviewed in the clinical context: July 07, 2024: White count 9 hemoglobin 15.9 platelets 172 sodium 130 potassium 4.4 BUN 40 creatinine 1.4 Troponin I 7.48.16.4 EKG tracing personally reviewed by me-normal sinus rhythm. Some ST-T wave changes. CT brain without contrast: No acute event. Encephalomalacia in the left frontal lobe consistent with old infarct Chest x-ray film personally reviewed by me-borderline cardiomegaly. Unfolding of the aorta. Rotated film. Portable CT angio chest: Negative PE. Partially visualized left hydronephrosis. Nonobstructing left renal calculus. Assessment plan: -Acute non-Q wave NE. Aspirin. Lipitor. Lopressor. IV heparin. 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 Zestril. -Chronic medical debility -Acute versus chronic kidney disease Follow renal function -Full code No family at the bedside. Nurses tried to get in touch with them. Close is guarded. Past Medical History Past Medical History: Cancer, GI Bleed, Hyperlipidemia, Hypertension, Osteoarthritis (OA) Additional Past Medical History / Comment(s): HX DIVERTICULITIS, BLEEDING ULCER -REC 2 UNITS PRBC,ANEMIA,BREAST CA LEFT BREAST WITH 2 LYMPH NODES REMOVED. HAD RADIATION History of Any Multi-Drug Resistant Organisms: None Reported Past Surgical History: Breast Surgery, Hysterectomy, Joint Replacement, Orthoped ic Surgery Additional Past Surgical History / Comment(s): LAURA KNEE REPLACEMENT,ABD CYST REMOVED, CATARACT SURGERY LAURA, toe removed to treat hammer toe in 03/2023 Past Anesthesia/Blood Transfusion Reactions: No Reported Reaction Past Psychological History: Anxiety, Depression Smoking Status: Never smoker Past Alcohol Use History: Rare Past Drug Use History: None Reported - Past Family History Brother(s) Daughter(s) Family Medical History: Cancer (breast cancer in 50's) Sister(s) Daughter(s) Family Medical History: Cancer (breast cancer in her 50's) Medications and Allergies Home Medications Medication Instructions Recorded Confirmed Type Atorvastatin Calcium [Lipitor] 10 mg PO HS 12/04/13 07/07/24 History Tim Cit/Mag/D3/Zn/Major Donor Coordinator/Hoang/Bor 1 tab PO DAILY 12/04/13 07/07/24 History [Citracal-D3 Plus Magnesium Tab] Sertraline [Zoloft] 50 mg PO HS 12/04/13 07/07/24 History Albuterol Sulfate [Ventolin HFA] 2 puff INHALATION RT-Q4H 07/07/24 07/07/24 History Apixaban [Eliquis] 5 mg PO BID 07/07/24 07/07/24 History Ergocalciferol [Vitamin D2 (1250 1,250 mcg PO WEEKLY 07/07/24 07/07/24 History Mcg = 26974 Iu)] lisinopriL [Zestril] 10 mg PO DAILY 07/07/24 07/07/24 History Allergies Allergy/AdvReac Type Severity Reaction Status Date / Time cefuroxime axetil Allergy Anaphylaxis Verified 07/07/24 09:05 [From Ceftin] Penicillins Allergy Itching Verified 07/07/24 09:05 warfarin sodium AdvReac GI BLEED Verified 07/07/24 09:05 [From Coumadin] Physical Exam Vitals: Vital Signs Temp Pulse Resp BP Pulse Ox FiO2 07/07/24 09:35 75 16 104/73 98 07/07/24 09:05 98.8 F 75 17 130/88 97 07/07/24 08:50 73 17 128/89 92 L 07/07/24 08:14 40 07/07/24 08:08 60 07/07/24 08:00 99.0 F 69 18 126/86 99 07/07/24 07:50 60 07/07/24 07:25 98.8 F 69 17 116/84 99 07/07/24 06:27 67 16 118/83 98 07/07/24 04:50 76 16 130/89 99 07/07/24 04:29 76 20 128/87 98 07/07/24 03:58 82 20 148/93 100 07/07/24 03:36 100 07/07/24 03:27 98.2 F 94 20 141/93 82 L Intake and Output 07/06/24 07/07/24 07/07/24 22:59 06:59 14:59 Other: Weight 55 kg Results CBC & Chem 7: 07/07/24 03:28 07/07/24 03:28 Labs: Abnormal Lab Results - Last 24 Hours (Table) 07/07/24 07/07/24 07/07/24 Range/Units 03:28 03:28 03:28 Hct 48.1 H (34.0-46.0) % Lymphocytes # 0.5 L (1.0-4.8) k/uL APTT 19.6 L (22.0-30.0) sec D-Dimer (<0.60) mg/L FEU VBG pH (7.31-7.41) VBG HCO3 (24-28) mmol/L Sodium 130 L (137-145) mmol/L Carbon Dioxide 15 L (22-30) mmol/L BUN 40 H (7-17) mg/dL Creatinine 1.40 H (0.52-1.04) mg/dL Glucose 178 H (74-99) mg/dL POC Glucose (mg/dL) (70-110) mg/dL AST 47 H (14-36) U/L Troponin I (0.000-0.034) ng/mL 07/07/24 07/07/24 07/07/24 Range/Units 03: 03:28 03:29 Hct (34.0-46.0) % Lymphocytes # (1.0-4.8) k/uL APTT (22.0-30.0) sec D-Dimer 9.31 H (<0.60) mg/L FEU VBG pH (7.31-7.41) VBG HCO3 (24-28) mmol/L Sodium (137-145) mmol/L Carbon Dioxide (22-30) mmol/L BUN (7-17) mg/dL Creatinine (0.52-1.04) mg/dL Glucose (74-99) mg/dL POC Glucose (mg/dL) 172 H (70-110) mg/dL AST (14-36) U/L Troponin I 7.400 H* (0.000-0.034) ng/mL 07/07/24 07/07/24 Range/Units 05:30 06:17 Hct (34.0-46.0) % Lymphocytes # (1.0-4.8) k/uL APTT (22.0-30.0) sec D-Dimer (<0.60) mg/L FEU VBG pH 7.30 L (7.31-7.41) VBG HCO3 22 L (24-28) mmol/L Sodium (137-145) mmol/L Carbon Dioxide (22-30) mmol/L BUN (7-17) mg/dL Creatinine (0.52-1.04) mg/dL Glucose (74-99) mg/dL POC Glucose (mg/dL) (70-110) mg/dL AST (14-36) U/L Troponin I 8.110 H* (0.000-0.034) ng/mL
--- NOTE | 2024-07-07 16:52 | P.CNPUL ---
History of Present Illness Consult date: 07/07/24 Requesting physician: Ac Mccoy Reason for consult: hypoxemia Chief complaint: Unresponsiveness History of present illness: This is an 89-year-old female patient who resides at up assisted living facility and has a history of hyperlipidemia, GI bleed, hypertension, osteoarthritis, anxiety/depression, left sided breast cancer with previous radiation, non- smoker. Early this morning she was found slumped over in a wheelchair by a staff member who called EMS. Upon arrival to EMS she was found to be bradycardic with poor respiratory effort and initial pulse ox readings in the 70s. She was placed on a nonrebreather mask and became more responsive and was brought into the emergency room. EKG revealed sinus rhythm with some ST depression. CT scan of the brain revealed no acute intracranial hemorrhage, midline shift or mass effect. Revealed no acute pulmonary process. CT angiogram revealed no evidence of pulmonary embolism. Partially visualized left hydronephrosis. White count 9.0. Hemoglobin 15.1. Platelets 172. D-dimer 9.31. Sodium 130. Potassium 4.4. Bicarb 15. BUN 40. Creatinine 1.40. Glucose 178. Troponins 7.4, 8.1, 6.4. She is seen today in consultation in the emergency department. She is currently awake, alert. Maintaining O2 saturations in the 90s on 5 L/min per nasal cannula. He is afebrile. Hemodynamically stable. She has been initiated on a heparin drip. She is a poor historian. Review of Systems ROS unobtainable: due to mental status Past Medical History Past Medical History: Cancer, GI Bleed, Hyperlipidemia, Hypertension, Osteoarthritis (OA) Additional Past Medical History / Comment(s): HX DIVERTICULITIS, BLEEDING ULCER -REC 2 UNITS PRBC,ANEMIA,BREAST CA LEFT BREAST WITH 2 LYMPH NODES REMOVED. HAD RADIATION -2013 History of Any Multi-Drug Resistant Organisms: None Reported Past Surgical History: Breast Surgery, Hysterectomy, Joint Replacement, Orthopedic Surgery Additional Past Surgical History / Comment(s): LAURA KNEE REPLACEMENT,ABD CYST REMOVED, CATARACT SURGERY LAURA, toe removed to treat hammer toe in 03/2023 Past Anesthesia/Blood Transfusion Reactions: No Reported Reaction Past Psychological History: Anxiety, Depression Smoking Status: Never smoker Past Alcohol Use History: Rare Past Drug Use History: None Reported - Past Family History Brother(s) Daughter(s) Family Medical History: Cancer (breast cancer in 50's) Sister(s) Daughter(s) Family Medical History: Cancer (breast cancer in her 50's) Medications and Allergies Home Medications Medication Instructions Recorded Confirmed Type Atorvastatin Calcium [Lipitor] 10 mg PO HS 12/04/13 07/07/24 History Tim Cit/Mag/D3/Zn/Bunch Breaker/Hoang/Bor 1 tab PO DAILY 12/04/13 07/07/24 History [Citracal-D3 Plus Magnesium Tab] Sertraline [Zoloft] 50 mg PO HS 12/04/13 07/07/24 History Albuterol Sulfate [Ventolin HFA] 2 puff INHALATION RT-Q4H 07/07/24 07/07/24 History Apixaban [Eliquis] 5 mg PO BID 07/07/24 07/07/24 History Ergocalciferol [Vitamin D2 (1250 1,250 mcg PO WEEKLY 07/07/24 07/07/24 History Mcg = 83428 Iu)] lisinopriL [Zestril] 10 mg PO DAILY 07/07/24 07/07/24 History Allergies Allergy/AdvReac Type Severity Reaction Status Date / Time cefuroxime axetil Allergy Anaphylaxis Verified 07/07/24 09:05 [From Ceftin] Penicillins Allergy Itching Verified 07/07/24 09:05 warfarin sodium AdvReac GI BLEED Verified 07/07/24 09:05 [From Coumadin] Physical Exam Vitals: Vital Signs Temp Pulse Resp BP Pulse Ox FiO2 07/07/24 14:32 98.0 F 61 18 98/66 95 07/07/24 12:23 98.4 F 61 17 127/83 97 07/07/24 11:10 98.6 F 69 20 127/83 97 07/07/24 10:10 97.8 F 71 17 127/83 96 07/07/24 09:35 75 16 104/73 98 07/07/24 09:05 98.8 F 75 17 130/88 97 07/07/24 08:50 73 17 128/89 92 L 07/07/24 08:14 40 07/07/24 08:08 60 07/07/24 08:00 99.0 F 69 18 126/86 99 07/07/24 07:50 60 07/07/24 07:25 98.8 F 69 17 116/84 99 07/07/24 06:27 67 16 118/83 98 07/07/24 04:50 76 16 130/89 99 07/07/24 04:29 76 20 128/87 98 07/07/24 03:58 82 20 148/93 100 07/07/24 03:36 100 07/07/24 03:27 98.2 F 94 20 141/93 82 L Intake and Output 07/07/24 07/07/24 07/07/24 06:59 14:59 22:59 Intake Total 42.68 Balance 42.68 Intake: Intake, IV Titration 42.68 Amount Heparin Sod,Pork in 0.45% 42.68 NaCl 25,000 unit In 0.45 % NaCl 1 250ml.bag @ 12 UNITS/KG/HR 6.6 mls/hr IV .Q24H [facility] Rx#:[id number] Other: Weight 55 kg GENERAL EXAM: Alert, confused 89-year-old female, on 5 L nasal cannula, in no apparent distress. HEAD: Normocephalic. EYES: Normal reaction of pupils, equal size. NOSE: Clear with pink turbinates. THROAT: No erythema or exudates. NECK: No masses, no JVD. CHEST: No chest wall deformity. LUNGS: Equal air entry with no crackles, wheeze, rhonchi or dullness. CVS: S1 and S2 normal with no audible murmur, regular rhythm. ABDOMEN: No hepatosplenomegaly, normal bowel sounds, no guarding or rigidity. SPINE: No scoliosis or deformity SKIN: No rashes CENTRAL NERVOUS SYSTEM: No focal deficits, tone is normal in all 4 extremities. EXTREMITIES: There is no peripheral edema. No clubbing, no cyanosis. Peripheral pulses are intact. Results - Laboratory Findings CBC and BMP: 07/07/24 03:28 07/07/24 03:28 PT/INR, D-dimer PT 11.1 sec (10.0-12.5) 07/07/24 03:28 INR 1.0 (<1.2) 07/07/24 03:28 D-Dimer 9.31 mg/L FEU (<0.60) H 07/07/24 03:28 Abnormal lab findings: Abnormal Labs 07/07/24 07/07/2424 03:28 03:28 03:28 Hct 48.1 H Lymphocytes # 0.5 L APTT 19.6 L D-Dimer VBG pH VBG HCO3 Sodium 130 L Carbon Dioxide 15 L BUN 40 H Creatinine 1.40 H Glucose 178 H POC Glucose (mg/dL) AST 47 H Troponin I 07/07/24 07/07/24 07/07/24 03:28 03:28 03:29 Hct Lymphocytes # APTT D-Dimer 9.31 H VBG pH VBG HCO3 Sodium Carbon Dioxide BUN Creatinine Glucose POC Glucose (mg/dL) 172 H AST Troponin I 7.400 H* 07/07/24 07/07/24 07/07/24 05:30 06:17 11:45 Hct Lymphocytes # APTT 31.2 H D-Dimer VBG pH 7.30 L VBG HCO3 22 L Sodium Carbon Dioxide BUN Creatinine Glucose POC Glucose (mg/dL) AST Troponin I 8.110 H* 07/07/24 11:45 Hct Lymphocytes # APTT D-Dimer VBG pH VBG HCO3 Sodium Carbon Dioxide BUN Creatinine Glucose POC Glucose (mg/dL) AST Troponin I 6.470 H* - Diagnostic Findings Chest x-ray: image reviewed CT scan - chest: image reviewed Assessment and Plan Assessment: Syncopal episode of unclear etiology, possible myocardial infarction, found unresponsive slumped over in a chair with bradycardia and hypoxemia Acute non-ST segment elevation myocardial infarction Acute hypoxemic respiratory failure secondary to above. Pulmonary embolism ruled out, no consolidation, no pleural effusions Acute kidney injury History of hypertension Hyperlipidemia History of left breast cancer History of anxiety/depression Lifelong non-smoker Plan: The patient was seen and evaluated Imaging, labs and medications reviewed Currently on a heparin drip Cardiology plans conservative treatment Titrate down the FiO2 as tolerated We will continue to follow and make further recommendations based on her clinical status I have personally seen and examined the patient, performed the documentation and the assessment and plan as written. Number of minutes spent on the visit: 20 Dictation was produced using [employer] dictation software. Please excuse any grammatical, word or spelling errors.
[2024-07-07 21:48] LABS: Appearance,Urine Cloudy (Clear); Bacteria,Urine Occasional /hpf; Bilirubin,Urine Negative (Negative); Blood,Urine Moderate (Negative); Budding Yeast,Urine Few /hpf; Color,Urine Yellow; Glucose,Urine (UA) Negative (Negative); Ketones,Urine Negative (Negative); Leukocyte Esterase,Urine Large (Negative); Mucus,Urine Rare /hpf; Nitrite,Urine Negative (Negative); PH, Urine 5.5 (5.0-8.0); Protein,Urine Trace (Negative); RBC,Urine 37 /hpf (0-5); Squamous Epithelial Cell,Urine <1 /hpf (0-4); Urobilinogen,Urine <2.0 mg/dL (<2.0); WBC,Urine 73 /hpf (0-5)
[2024-07-07 21:49] LABS: Specific Gravity,Urine >1.050 (1.001-1.035)
[2024-07-07] MEDS: SERTRALINE 50 MG TAB PO SCH (21:55)
[2024-07-07] MEDS: ATORVASTATIN 10 MG TAB PO SCH (21:55)
[2024-07-08 03:55] LABS: Basophils % (A) 1 %; Eosinophils # (A) 0.1 k/uL (0-0.7); Eosinophils % (A) 1 %; HCT 41.6 % (34.0-46.0); HGB 13.5 gm/dL (11.4-16.0); Lymphocytes # (A) 0.8 k/uL (1.0-4.8); Lymphocytes % (A) 9 %; MCH 29.7 pg (25.0-35.0); MCHC 32.5 g/dL (31.0-37.0); MCV 91.6 fL (80.0-100.0); Mean Platelet Volume 7.8; Monocytes # (A) 0.9 k/uL (0-1.0); Monocytes % (A) 10 %; Neutrophils # (A) 7.1 k/uL (1.3-7.7); Neutrophils % (A) 78 %; Platelet Count 182 k/uL (150-450); RBC 4.55 m/uL (3.80-5.40); RDW 14.9 % (11.5-15.5); WBC 9.1 k/uL (3.8-10.6)
[2024-07-08 04:01] LABS: Partial Thromboplastin Time 39.2 sec (22.0-30.0)
[2024-07-08 11:07] LABS: African American GFR (CKD) 63 (>60 ml/min/1.73 sqM); Anion Gap 5 mmol/L; Blood Urea Nitrogen 36 mg/dL (7-17); Calcium 8.6 mg/dL (8.4-10.2); Carbon Dioxide 21 mmol/L (22-30); Chloride 109 mmol/L (98-107); Glucose 91 mg/dL (74-99); Non-African American GFR(CKD) 54 (>60 ml/min/1.73 sqM); Potassium 4.2 mmol/L (3.5-5.1); Sodium 135 mmol/L (137-145)
--- NOTE | 2024-07-08 12:19 | P.PN ---
Subjective Progress Note Date: 07/08/24 This is an 89-year-old female with past medical history of hypertension, dyslipidemia, osteoarthritis on long-term anticoagulation for pulmonary embolism, history of breast cancer. Patient presented to hospital due to episode of unresponsiveness. She lives at [facility]. Apparently she was found slumped over in a wheelchair by the staff member. Her pulse ox was initially 70%. Patient gradually became more responsive. She did not have any complaints of chest pain no difficulty breathing no dizziness. CT of the chest was negative for pulmonary embolism. EKG showed a sinus rhythm with nonspecific ST-T wave changes. Patient has no prior history of coronary artery disease or heart failure. She had an echocardiogram done in May 2024 that revealed mild LV systolic dysfunction and moderately increased left atrium with mild mitral and tricuspid regurgitation. Patient's [id number] brings to our attention that patient has had mental status changes and is not at her baseline. Because of this, we will ask for neurology consult. Also discussed that patient had elevated troponins for non-ST JI and recommendations would normally be for a cardiac catheterization but due to her mental status changes and renal abnormalities, we would hold off on this until the other issues are resolved. This was discussed with patient's [id number] at the bedside and also patient's daughter, Rosenda Marroquin at [phone], was contacted and updated. She is in agreement to give patient time to resolve other medical issues before pursuing left heart catheterization if in fact the patient would want to pursue that. Physical examination: Gen: This is an 89-year-old female in no acute distress VS: reviewed HEENT: Head is atraumatic, normocephalic. Pupils equal, round. Sclerae is anicteric. LUNGS: Clear to auscultation. No wheezes or rhonchi. No intercostal retractions. HEART: Regular rate and rhythm. Systolic murmur at the apex. ABDOMEN: Soft No tenderness. EXTREMITIES: No pedal edema. No calf tenderness. NEUROLOGICAL: Patient is awake, alert. Assessment: NSTEMI Metabolic encephalopathy of unclear etiology Acute kidney injury Hypertension Dyslipidemia History of pulmonary embolism Plan: Continue patient on aspirin 81 mg daily, Imdur 30 mg daily, lisinopril 10 mg daily, Lopressor 12.5 mg twice daily Continue heparin drip Obtain limited echocardiogram Discussed option of left heart cath once mental status and renal function are improved Consult neurology Monitor electrolytes and renal function Further recommendations to follow based upon clinical course Thank you kindly for this consultation. Nurse practitioner note has been reviewed, I agree with documented findings and plan of care. Patient was seen and examined. Objective - Vital Signs Vital signs: Vital Signs Temp 97.8 F 07/08/24 09:29 Pulse 83 07/08/24 09:29 Resp 18 07/08/24 09:29 BP 122/70 07/08/24 09:29 Pulse Ox 98 07/08/24 09:29 FiO2 40 07/07/24 08:14 Intake & Output 07/07/24 07/08/24 07/08/24 18:59 06:59 18:59 Intake Total 42.68 132.999 128 Output Total 500 Balance 42.68 -367.001 128 Weight 69.5 kg Intake: IV 10 Invasive Line 2 10 Intake, IV Titration 42.68 132.999 Amount Heparin Sod,Pork in 0.45% 42.68 132.999 NaCl 25,000 unit In 0.45 % NaCl 1 250ml.bag @ 12 UNITS/KG/HR 6.6 mls/hr IV .Q24H [facility] Rx#:[id number] Oral 118 Output: Urine 500 Other: Voiding Method External Catheter External Catheter # Voids 1 - Labs CBC & Chem 7: 07/08/24 03:31 07/08/24 03:31 Labs: Abnormal Lab Results - Last 24 Hours (Table) 07/07/24 07/07/24 07/07/24 Range/Units 03:28 11:45 11:45 Lymphocytes # (1.0-4.8) k/uL APTT 31.2 H (22.0-30.0) sec Troponin I 6.470 H* (0.000-0.034) ng/mL Urine Appearance Cloudy H (Clear) Ur Specific [place] >1.050 H (1.001-1.035) Urine Protein Trace H (Negative) Urine Blood Moderate H (Negative) Ur Leukocyte Esterase Large H (Negative) Urine RBC 37 H (0-5) /hpf Urine WBC 73 H (0-5) /hpf Urine Bacteria Occasional H (None) /hpf Urine Mucus Rare H (None) /hpf Urine Yeast (Budding) Few H (None) /hpf 07/07/24 07/08/24 07/08/24 Range/Units 19:00 03:31 03:31 Lymphocytes # 0.8 L (1.0-4.8) k/uL APTT 42.0 H 39.2 H (22.0-30.0) sec Troponin I (0.000-0.034) ng/mL Urine Appearance (Clear) Ur Specific [place] (1.001-1.035) Urine Protein (Negative) Urine Blood (Negative) Ur Leukocyte Esterase (Negative) Urine RBC (0-5) /hpf Urine WBC (0-5) /hpf Urine Bacteria (None) /hpf Urine Mucus (None) /hpf Urine Yeast (Budding) (None) /hpf
--- NOTE | 2024-07-08 14:40 | P.CNNES ---
History of Present Illness Consult date: 07/08/24 Requesting physician: Josey Odom Reason for Consult: mental status change History of Present Illness: This is an 89-year-old woman who resides in assisted living facility who presents emergency department via EMS since the staff found patient to be slumped over in a wheelchair. History is obtained from medical record and the patient's nurse. Upon EMS eval and her she was found to be bradycardic with poor respiratory effort and her pulse ox reading was in the 70s. The patient was placed on nonrebreather mask and became more more responsive. EKG shows sinus rhythm with some ST depression. Upon seeing the patient she is having recurrent vomiting episode. The patient has old history of stroke. Has underlying history of GI bleed, hypertension, left breast cancer with previous radiation, non-smoker. Some of the workup during this hospital visit consisted of: White blood cell is within normal limits Sodium is 130, creatinine is 1.40 which has normalized. BUN is 40 and most recent is 36. Initial serum glucose is 178 Calcium is 9.2. AST is 47 ALT 17. Troponin is 7.40 repeated is 8.10. Urinalysis seems possible suggestive of underlying urinary tract infection with leukocyte is large, urine white blood cells 73. CT of the head is reported as no acute intracranial hemorrhage, midline shift or mass effect. Encephalomalacia in the left frontal lobe consistent with old infarct. I personally reviewed the CT and agree with the report. Review of Systems As per HPI. Past Medical History Past Medical History: Cancer, CVA/TIA, Dementia, GI Bleed, Hyperlipidemia, Hypertension, Osteoarthritis (OA), Pulmonary Embolus (PE) Additional Past Medical History / Comment(s): HX DIVERTICULITIS, BLEEDING ULCER -REC 2 UNITS PRBC,ANEMIA,BREAST CA LEFT BREAST WITH 2 LYMPH NODES REMOVED. HAD RADIATION -2013 History of Any Multi-Drug Resistant Organisms: None Reported Past Surgical History: Breast Surgery, Hysterectomy, Joint Replacement, Orthopedic Surgery Additional Past Surgical History / Comment(s): LAURA KNEE REPLACEMENT,ABD CYST REMOVED, CATARACT SURGERY LAURA, toe removed to treat hammer toe in 03/2023 Past Anesthesia/Blood Transfusion Reactions: No Reported Reaction Past Psychological History: Anxiety, Depression Additional Psychological History / Comment(s): . Smoking Status: Never smoker Past Alcohol Use History: Rare Past Drug Use History: None Reported - Past Family History Brother(s) Daughter(s) Family Medical History: Cancer Sister(s) Daughter(s) Family Medical History: Cancer Medications and Allergies Home Medications Medication Instructions Recorded Confirmed Type Atorvastatin Calcium [Lipitor] 10 mg PO HS 12/04/13 07/07/24 History Tim Cit/Mag/D3/Zn/Public Health Advisor/Hoang/Bor 1 tab PO DAILY 12/04/13 07/07/24 History [Citracal-D3 Plus Magnesium Tab] Sertraline [Zoloft] 50 mg PO HS 12/04/13 07/07/24 History Albuterol Sulfate [Ventolin HFA] 2 puff INHALATION RT-Q4H 07/07/24 07/07/24 History Apixaban [Eliquis] 5 mg PO BID 07/07/24 07/07/24 History Ergocalciferol [Vitamin D2 (1250 1,250 mcg PO WEEKLY 07/07/24 07/07/24 History Mcg = 24025 Iu)] lisinopriL [Zestril] 10 mg PO DAILY 07/07/24 07/07/24 History Allergies Allergy/AdvReac Type Severity Reaction Status Date / Time cefuroxime axetil Allergy Anaphylaxis Verified 07/07/24 09:05 [From Ceftin] Penicillins Allergy Itching Verified 07/07/24 09:05 warfarin sodium AdvReac GI BLEED Verified 07/07/24 09:05 [From Coumadin] Physical Examination - Vital Signs Vital Signs: Vital Signs Temp Pulse Pulse Resp BP BP Pulse Ox 07/08/24 12:09 18 91 L 07/08/24 11:55 18 86 L 07/08/24 11:40 98.7 F 83 18 99/48 80 L 07/08/24 10:10 18 95 07/08/24 09:29 97.8 F 83 18 122/70 98 07/08/24 03:17 97.9 F 65 18 146/84 97 07/07/24 23:42 98.3 F 60 20 126/72 95 07/07/24 21:30 98.2 F 65 18 125/73 95 07/07/24 17:00 62 17 110/58 95 07/07/24 16:00 60 17 95 07/07/24 15:00 64 18 108/62 95 07/07/24 14:32 98.0 F 61 18 98/66 95 Intake and Output 07/07/24 07/08/24 07/08/24 22:59 06:59 14:59 Intake Total 69.575 63.424 195.576 Output Total 500 225 Balance 69.575 -436.576 -29.424 Intake: IV 10 Invasive Line 2 10 Intake, IV Titration 69.575 63.424 67.576 Amount Heparin Sod,Pork in 0.45% 69.575 63.424 67.576 NaCl 25,000 unit In 0.45 % NaCl 1 250ml.bag @ 12 UNITS/KG/HR 6.6 mls/hr IV .Q24H [facility] Rx#:[id number] Oral 118 Output: Urine 500 225 Other: Voiding Method External Catheter External Catheter External Catheter # Voids 1 Weight 55 kg 69.5 kg General: Sitting in a recliner chair and does not appear in recliner chair. Is having recurrent retching episode. Neuro: Limited. Patient is awake alert oriented to self. She stated she is at the nursing facility. She is following few simple commands. No facial weakness. No dysarthria from limited examination. Motor: Strength is limited in assessing individual muscle strength. Patient is able to show me thumbs up on bilateral hands. She is able to kick with both legs above gravity Results - Laboratory Findings CBC and BMP: 07/08/24 03:31 07/08/24 03:31 Abnormal Lab Findings: Abnormal Labs 07/07/24 07/07/24 07/07/24 03:28 03:28 03:28 Hct 48.1 H Lymphocytes # 0.5 L APTT 19.6 L D-Dimer VBG pH VBG HCO3 Sodium Chloride Carbon Dioxide BUN Creatinine Glucose POC Glucose (mg/dL) AST Troponin I Urine Appearance Cloudy H Ur Specific [place] >1.050 H Urine Protein Trace H Urine Blood Moderate H Ur Leukocyte Esterase Large H Urine RBC 37 H Urine WBC 73 H Urine Bacteria Occasional H Urine Mucus Rare H Urine Yeast (Budding) Few H 07/07/24 07/07/24 07/07/24 03:28 03:28 03:28 Hct Lymphocytes # APTT D-Dimer 9.31 H VBG pH VBG HCO3 Sodium 130 L Chloride Carbon Dioxide 15 L BUN 40 H Creatinine 1.40 H Glucose 178 H POC Glucose (mg/dL) AST 47 H Troponin I 7.400 H* Urine Appearance Ur Specific [place] Urine Protein Urine Blood Ur Leukocyte Esterase Urine RBC Urine WBC Urine Bacteria Urine Mucus Urine Yeast (Budding) 07/07/24 07/07/24 07/07/24 03:29 05:30 06:17 Hct Lymphocytes # APTT D-Dimer VBG pH 7.30 L VBG HCO3 22 L Sodium Chloride Carbon Dioxide BUN Creatinine Glucose POC Glucose (mg/dL) 172 H AST Troponin I 8.110 H* Urine Appearance Ur Specific [place] Urine Protein Urine Blood Ur Leukocyte Esterase Urine RBC Urine WBC Urine Bacteria Urine Mucus Urine Yeast (Budding) 07/07/24 07/07/24 07/07/24 11:45 11:45 19:00 Hct Lymphocytes # APTT 31.2 H 42.0 H D-Dimer VBG pH VBG HCO3 Sodium Chloride Carbon Dioxide BUN Creatinine Glucose POC Glucose (mg/dL) AST Troponin I 6.470 H* Urine Appearance Ur Specific [place] Urine Protein Urine Blood Ur Leukocyte Esterase Urine RBC Urine WBC Urine Bacteria Urine Mucus Urine Yeast (Budding) 07/08/24 07/08/24 07/08/24 03:31 03:31 03:31 Hct Lymphocytes # 0.8 L APTT 39.2 H D-Dimer VBG pH VBG HCO3 Sodium 135 L Chloride 109 H Carbon Dioxide 21 L BUN 36 H Creatinine Glucose POC Glucose (mg/dL) AST Troponin I Urine Appearance Ur Specific [place] Urine Protein Urine Blood Ur Leukocyte Esterase Urine RBC Urine WBC Urine Bacteria Urine Mucus Urine Yeast (Budding) 07/08/24 09:57 Hct Lymphocytes # APTT 46.1 H D-Dimer VBG pH VBG HCO3 Sodium Chloride Carbon Dioxide BUN Creatinine Glucose POC Glucose (mg/dL) AST Troponin I Urine Appearance Ur Specific [place] Urine Protein Urine Blood Ur Leukocyte Esterase Urine RBC Urine WBC Urine Bacteria Urine Mucus Urine Yeast (Budding) Assessment and Plan Assessment: This is an 89-year-old woman who presented emergency department from her nursing facility since she was found slumped over in a wheelchair by staff members. EMS found her to be bradycardic with poor respiratory effort with a pulse ox in the 70s. She was more responsive with nonrebreather. EKG reveals sinus rhythm with some ST depression. Altered mental status seems due to acute hypoxic encephalopathy as well as component of metabolic encephalopathy. CT of the head is unremarkable for any acute process Syncopal of unknown etiology but possibly due to myocardial infarction Acute non-ST segment elevation Mild hyponatremia Acute kidney injury History of old stroke. Underlying history of GI bleed History of left breast cancer with previous radiation History of hyperlipidemia History of osteoarthritis Underlying history of anxiety/depression Plan: We will pursue carotid duplex once the patient is stable. Currently she is having recurrent vomiting episodes. I ordered ammonia level, TSH, vitamin B12 2D echo was ordered and is pending. Cardiology is on board Pulmonary is on board Patient is on aspirin 81 mg daily. She is on Lipitor 10 mg nightly. She was started on heparin drip by the ED team. Will defer the use to the cardiology and primary team. For the rest of medical management to primary and other specialist next The plan discussed with the patient's nurse Thank you for the consultation Time with Patient: Greater than 30
--- NOTE | 2024-07-08 15:07 | P.PN ---
Subjective Progress Note Date: 07/08/24 This is an 89-year-old female patient who resides at up assisted living facility and has a history of hyperlipidemia, GI bleed, hypertension, osteoarthritis, anxiety/depression, left sided breast cancer with previous radiation, non- smoker. Early this morning she was found slumped over in a wheelchair by a staff member who called EMS. Upon arrival to EMS she was found to be bradycardic with poor respiratory effort and initial pulse ox readings in the 70s. She was placed on a nonrebreather mask and became more responsive and was brought into the emergency room. EKG revealed sinus rhythm with some ST depression. CT scan of the brain revealed no acute intracranial hemorrhage, midline shift or mass effect. Revealed no acute pulmonary process. CT angiogram revealed no evidence of pulmonary embolism. Partially visualized left hydronephrosis. White count 9.0. Hemoglobin 15.1. Platelets 172. D-dimer 9.31. Sodium 130. Potassium 4.4. Bicarb 15. BUN 40. Creatinine 1.40. Glucose 178. Troponins 7.4, 8.1, 6.4. She is seen today in consultation in the emergency department. She is currently awake, alert. Maintaining O2 saturations in the 90s on 5 L/min per nasal cannula. He is afebrile. Hemodynamically stable. She has been initiated on a heparin drip. She is a poor historian. The patient is seen today July 08, 2024 in follow-up on the selective care unit. She is currently sitting up in a chair. Awake and alert in no acute distress. Maintaining O2 saturations in the 90s on 5 L/min per nasal cannula. She has been afebrile. She is currently nauseated. Blood cultures pending. White count 9.1. Hemoglobin 13.5. Platelets 182. Sodium 135. Potassium 4.2. Bicarb 21. BUN 36. Creatinine 0.95. Glucose 91. She remains on a heparin drip. Antibiotics in the form of aztreonam. Normal saline at 75 mL/h. Objective - Vital Signs Vital signs: Vital Signs Temp 98.7 F 07/08/24 11:40 Pulse 83 07/08/24 11:40 Resp 18 07/08/24 12:09 BP 99/48 07/08/24 11:40 Pulse Ox 91 L 07/08/24 12:09 FiO2 40 07/07/24 08:14 Intake & Output 07/07/24 07/08/24 07/08/24 18:59 06:59 18:59 Intake Total 42.68 132.999 195.576 Output Total 500 225 Balance 42.68 -367.001 -29.424 Weight 69.5 kg Intake: IV 10 Invasive Line 2 10 Intake, IV Titration 42.68 132.999 67.576 Amount Heparin Sod,Pork in 0.45% 42.68 132.999 67.576 NaCl 25,000 unit In 0.45 % NaCl 1 250ml.bag @ 12 UNITS/KG/HR 6.6 mls/hr IV .Q24H [facility] Rx#:[id number] Oral 118 Output: Urine 500 225 Other: Voiding Method External Catheter External Catheter # Voids 1 - Exam GENERAL EXAM: Alert, confused 89-year-old female, up in a chair, on 5 L nasal cannula, in no apparent distress. HEAD: Normocephalic. EYES: Normal reaction of pupils, equal size. NOSE: Clear with pink turbinates. THROAT: No erythema or exudates. NECK: No masses, no JVD. CHEST: No chest wall deformity. LUNGS: Equal air entry with no crackles, wheeze, rhonchi or dullness. CVS: S1 and S2 normal with no audible murmur, regular rhythm. ABDOMEN: No hepatosplenomegaly, normal bowel sounds, no guarding or rigidity. SPINE: No scoliosis or deformity SKIN: No rashes CENTRAL NERVOUS SYSTEM: No focal deficits, tone is normal in all 4 extremities. EXTREMITIES: There is no peripheral edema. No clubbing, no cyanosis. Angela pheral pulses are intact. - Labs CBC & Chem 7: 07/08/24 03:31 07/08/24 03:31 Labs: Abnormal Lab Results - Last 24 Hours (Table) 07/07/24 07/07/24 07/08/24 Range/Units 03:28 19:00 03:31 Lymphocytes # 0.8 L (1.0-4.8) k/uL APTT 42.0 H (22.0-30.0) sec Sodium (137-145) mmol/L Chloride (98-107) mmol/L Carbon Dioxide (22-30) mmol/L BUN (7-17) mg/dL Urine Appearance Cloudy H (Clear) Ur Specific [place] >1.050 H (1.001-1.035) Urine Protein Trace H (Negative) Urine Blood Moderate H (Negative) Ur Leukocyte Esterase Large H (Negative) Urine RBC 37 H (0-5) /hpf Urine WBC 73 H (0-5) /hpf Urine Bacteria Occasional H (None) /hpf Urine Mucus Rare H (None) /hpf Urine Yeast (Budding) Few H (None) /hpf 07/08/24 07/08/24 07/08/24 Range/Units 03:31 03:31 09:57 Lymphocytes # (1.0-4.8) k/uL APTT 39.2 H 46.1 H (22.0-30.0) sec Sodium 135 L (137-145) mmol/L Chloride 109 H (98-107) mmol/L Carbon Dioxide 21 L (22-30) mmol/L BUN 36 H (7-17) mg/dL Urine Appearance (Clear) Ur Specific [place] (1.001-1.035) Urine Protein (Negative) Urine Blood (Negative) Ur Leukocyte Esterase (Negative) Urine RBC (0-5) /hpf Urine WBC (0-5) /hpf Urine Bacteria (None) /hpf Urine Mucus (None) /hpf Urine Yeast (Budding) (None) /hpf Microbiology - Last 24 Hours (Table) 07/07/24 03:43 Blood Culture - Preliminary Blood 07/07/24 03:28 Blood Culture - Preliminary Blood Assessment and Plan Assessment: Syncopal episode of unclear etiology, possible myocardial infarction, found unresponsive slumped over in a chair with bradycardia and hypoxemia Acute non-ST segment elevation myocardial infarction Acute hypoxemic respiratory failure secondary to above. Pulmonary embolism ruled out, no consolidation, no pleural effusions Acute kidney injury History of hypertension Hyperlipidemia History of left breast cancer History of anxiety/depression Lifelong non-smoker Plan: The patient was seen and evaluated Labs and medications reviewed Remains on a heparin drip Echocardiogram pending Titrate down the FiO2 as tolerated Prognosis is guarded DNR/DNI CODE STATUS We will continue to follow I have personally seen and examined the patient, performed the documentation and the assessment and plan as written. Number of minutes spent on the visit: 10 Dictation was produced using [employer] dictation software. Please excuse any grammatical, word or spelling errors.
--- NOTE | 2024-07-08 16:54 | P.PN ---
Progress Note - Text Progress Note Date: 07/08/24 Chief Complaint: Decreased responsiveness This is a 89-year-old patient, follows Dr. Marlow. Patient was brought in by the EMS to the ER. Patient is at her assisted living. EMS was called with the patient was found to be slumped over in the chair by the care of a staff member. At baseline patient is only AO x 1. Patient had mild to moderate labored respirations. When staff member did compress out there found the patient slumped over in the wheelchair and altered. His 911 was initiated. Patient herself is a very poor historian. Pulse ox was found to be 70%. Normally wears oxygen. Patient was briefly into bradycardia with heart rate in the 40s. Patient had vomited prior to arrival of the EMS. Patient during transport was put on 15 L nonrebreather. Pulse ox came to 80 to 90%. EKG showed normal sinus rhythm with some T wave changes. Patient is not really able to speak. Struggling a bit. In the ER patient is able to answer questions. But she thinks it is 1991. She thinks she is in the [facility]. July 08: Patient more awake today. Answering simple questions. Had a fair amount of breakfast. Cardiology is considering a cardiac catheterization. On IV heparin drip. Seen by neurology. [place] to be having encephalopathy on presentation. Possibly from [place]. Active Medications Acetaminophen (Acetaminophen Tab 325 Mg Tab) 650 mg PO Q6HR PRN PRN Reason: Mild Pain or Fever > 100.5 Al Hydroxide/Mg Hydroxide (Mag Hydrox/Al Hydrox/Simeth 30 Ml Cup) 15 ml PO Q6HR PRN PRN Reason: Indigestion Aspirin (Aspirin 81 Mg) 81 mg PO DAILY [facility] Last Admin: 07/08/24 09:35 Dose: 81 mg Atorvastatin Calcium (Atorvastatin 10 Mg Tab) 10 mg PO HS [facility] Last Admin: 07/07/24 21:55 Dose: 10 mg Docusate Sodium (Docusate 100 Mg Cap) 100 mg PO BID PRN PRN Reason: Constipation Heparin Sodium (Porcine) (Heparin Sodium 1,000 Un/Ml (10ml Vl)) 0 unit IV PER PROTOCOL PRN; Protocol PRN Reason: Low PTT Last Admin: 07/08/24 04:13 Dose: 1,375 unit Heparin Sodium/Sodium Chloride (25,000 unit/ Sodium Chloride) 250 mls @ 6.6 mls/hr IV .Q24H [facility]; Protocol Last Titration: 07/08/24 10:41 Dose: 19 units/kg/hr, 10.45 mls/hr Sodium Chloride (Saline 0.9%) 1,000 mls @ 75 mls/hr IV .[id number] [facility] Last Admin: 07/08/24 09:52 Dose: Not Given Aztreonam 1 gm/ Sodium (Chloride) 50 mls @ 16.67 mls/hr IVPB Q12HR [facility]; Protocol Last Admin: 07/08/24 09:35 Dose: 16.67 mls/hr Isosorbide Mononitrate (Isosorbide Mononitrate Er 30 Mg Tab.Er.24h) 30 mg PO DAILY [facility] Last Admin: 07/08/24 09:35 Dose: 30 mg Lisinopril (Lisinopril 10 Mg Tab) 10 mg PO DAILY [facility] Last Admin: 07/08/24 09:35 Dose: 10 mg Metoprolol Tartrate (Metoprolol Tartrate 12.5 Mg Tab) 12.5 mg PO BID [facility] Last Admin: 07/08/24 09:35 Dose: 12.5 mg Morphine Sulfate (Morphine Sulfate 4 Mg/Ml Syringe) 4 mg IV Q4HR PRN PRN Reason: Severe Pain (Scale 7 to 10) Naloxone HCl (Naloxone 0.4 Mg/Ml 1 Ml Vial) 0.2 mg IV Q2M PRN PRN Reason: Opioid Reversal Ondansetron HCl (Ondansetron 4 Mg/2 Ml Vial) 4 mg IVP Q8HR PRN PRN Reason: Nausea And Vomiting Pantoprazole Sodium (Pantoprazole 40 Mg/10 Ml Vial) 40 mg IV DAILY [facility] Last Admin: 07/08/24 09:35 Dose: 40 mg Sertraline HCl (Sertraline 50 Mg Tab) 50 mg PO HS [facility] Last Admin: 07/07/24 21:55 Dose: 50 mg Social history: Assisted living. Non-smoker. Alcohol rarely. Physical examination: VITAL SIGNS: 98.4, 85, 18, 112 x 62, 94% on 5 L GENERAL: BMI 21.5, more awake but tired EYES: Pupils equal. Conjunctiva marco l. HEENT: External appearance of nose and ears normal, oral cavity grossly normal. NECK: JVD not raised; masses not palpable. HEART: First and second heart sounds are normal; no edema. LUNGS: Respiratory rate increased, diminished breath sounds n. ABDOMEN: Soft, nontender, liver spleen not palpable, no masses palpable. PSYCH: Patient did state her name cannot she think she is in [facility] she thinks it is 1992 l. MUSCULOSKELETAL:No Clubbing/cyanosis;muscles-grossly intact. OA INVESTIGATIONS, reviewed in the clinical context: July 08: White count 9.1 hemoglobin 13.5 platelets 182 sodium 135 creatinine 0.95 July 07, 2024: White count 9 hemoglobin 15.9 platelets 172 sodium 130 potassium 4.4 BUN 40 creatinine 1.4 Troponin I 7.4, 8.1, 6.4 EKG tracing personally reviewed by me-normal sinus rhythm. Some ST-T wave changes. CT brain without contrast: No acute event. Encephalomalacia in the left frontal lobe consistent with old infarct Chest x-ray film personally reviewed by me-borderline cardiomegaly. Unfolding of the aorta. Rotated film. Portable CT angio chest: Negative PE. Partially visualized left hydronephrosis. Nonobstructing left renal calculus. Assessment plan: -Acute non-Q wave [place]. Aspirin. Lipitor. Lopressor. IV heparin. Cardiology following--considering cardiac cath -IV heparin monitoring Follow PTT -Acute hypoxic respiratory failure. Cause unclear Patient does not have any obvious pneumonia, PE or effusion. 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 Zestril. -Chronic medical debility -Acute acute kidney injury, possible ATN from blood pressure fluctuation: Better Follow renal function -DNR Continue current treatment plan. Follow with consultants Past Medical History Past Medical History: Cancer, GI Bleed, Hyperlipidemia, Hypertension, Osteoarthritis (OA) Additional Past Medical History / Comment(s): HX DIVERTICULITIS, BLEEDING ULCER -2013-REC 2 UNITS PRBC,ANEMIA,BREAST CA LEFT BREAST WITH 2 LYMPH NODES REMOVED. HAD RADIATION -2013 History of Any Multi-Drug Resistant Organisms: None Reported Past Surgical History: Breast Surgery, Hysterectomy, Joint Replacement, Orthopedic Surgery Additional Past Surgical History / Comment(s): LAURA KNEE REPLACEMENT,ABD CYST REMOVED, CATARACT SURGERY LAURA, toe removed to treat hammer toe in 03/2023 Past Anesthesia/Blood Transfusion Reactions: No Reported Reaction Past Psychological History: Anxiety, Depression Smoking Status: Never smoker Past Alcohol Use History: Rare Past Drug Use History: None Reported
[2024-07-09 09:40] LABS: African American GFR (CKD) 86 (>60 ml/min/1.73 sqM); Anion Gap 11 mmol/L; Blood Urea Nitrogen 29 mg/dL (7-17); Carbon Dioxide 19 mmol/L (22-30); Chloride 105 mmol/L (98-107); Glucose 89 mg/dL (74-99); Non-African American GFR(CKD) 75 (>60 ml/min/1.73 sqM); Potassium 3.6 mmol/L (3.5-5.1); Sodium 135 mmol/L (137-145)
--- NOTE | 2024-07-09 11:59 | P.PN ---
Subjective Progress Note Date: 07/09/24 This is an 89-year-old female with past medical history of hypertension, dyslipidemia, osteoarthritis on long-term anticoagulation for pulmonary embolism, history of breast cancer. Patient presented to hospital due to episode of unresponsiveness. She lives at [facility]. Apparently she was found slumped over in a wheelchair by the staff member. Her pulse ox was initially 70%. Patient gradually became more responsive. She did not have any complaints of chest pain no difficulty breathing no dizziness. CT of the chest was negative for pulmonary embolism. EKG showed a sinus rhythm with nonspecific ST-T wave changes. Patient has no prior history of coronary artery disease or heart failure. She had an echocardiogram done in May 2024 that revealed mild LV systolic dysfunction and moderately increased left atrium with mild mitral and tricuspid regurgitation. Patient's [id number] brings to our attention that patient has had mental status changes and is not at her baseline. Because of this, we will ask for neurology consult. Also discussed that patient had elevated troponins for non-ST JI and recommendations would normally be for a cardiac catheterization but due to her mental status changes and renal abnormalities, we would hold off on this until the other issues are resolved. This was discussed with patient's [id number] at the bedside and also patient's daughter, Rosenda Marroquin at [phone], was contacted and updated. She is in agreement to give patient time to resolve other medical issues before pursuing left heart catheterization if in fact the patient would want to pursue that. 07/09/24 Patient is seen and examined. Her kidney function is improving. We had a neurology consult yesterday to evaluate mental status which is improving. Patient did have episode last evening where she took off her oxygen and it was difficult getting her pulse ox up and she was placed on BiPAP. She is currently on 8 L nasal cannula high flow and pulse ox is 94%, blood pressure 120/64, heart rate is in the 70s. Patient is continued on heparin drip. Echocardiogram has been taken and report pending. Discussed heart catheterization with the patient's [id number] and family are in agreement at this time for medical management. Physical examination: Gen: This is an 89-year-old female in no acute distress VS: reviewed HEENT: Head is atraumatic, normocephalic. Pupils equal, round. Sclerae is anicteric. LUNGS: Clear to auscultation. No wheezes or rhonchi. No intercostal retractions. HEART: Regular rate and rhythm. Systolic murmur at the apex. ABDOMEN: Soft No tenderness. EXTREMITIES: No pedal edema. No calf tenderness. NEUROLOGICAL: Patient is awake, alert. Assessment: NSTEMI, medical management Metabolic encephalopathy of unclear etiology Acute kidney injury, resolved Hypertension Dyslipidemia History of pulmonary embolism Plan: Continue patient on aspirin 81 mg daily, Imdur 30 mg daily, lisinopril 10 mg daily, Lopressor 12.5 mg twice daily Continue heparin drip for another 24 hours Consult neurology Monitor electrolytes and renal function Further recommendations to follow based upon clinical course Nurse practitioner note has been reviewed, I agree with documented findings and plan of care. Patient was seen and examined. Objective - Vital Signs Vital signs: Vital Signs Temp 98.2 F 07/09/24 07:44 Pulse 71 07/09/24 07:44 Resp 16 07/09/24 08:14 BP 139/73 07/09/24 07:44 Pulse Ox 98 07/09/24 07:44 FiO2 75 07/09/24 03:08 Intake & Output 07/08/24 07/09/24 07/09/24 18:59 06:59 18:59 Intake Total 195.576 239.479 Output Total 225 200 Balance -29.424 -200 239.479 Weight 69 kg Intake: IV 10 Invasive Line 2 10 Intake, IV Titration 67.576 239.479 Amount Heparin Sod,Pork in 0.45% 67.576 239.479 NaCl 25,000 unit In 0.45 % NaCl 1 250ml.bag @ 12 UNITS/KG/HR 6.6 mls/hr IV .Q24H [facility] Rx#:[id number] Oral 118 Output: Urine 225 200 Other: Voiding Method External Catheter External Catheter External Catheter # Voids 1 # Bowel Movements 1 - Labs CBC & Chem 7: 07/08/24 03:31 07/09/24 08:16 Labs: Abnormal Lab Results - Last 24 Hours (Table) 07/08/24 07/08/24 07/09/24 Range/Units 03:31 09:57 08:16 APTT 46.1 H (22.0-30.0) sec Sodium 135 L 135 L (137-145) mmol/L Chloride 109 H (98-107) mmol/L Carbon Dioxide 21 L 19 L (22-30) mmol/L BUN 36 H 29 H (7-17) mg/dL 07/09/24 Range/Units 08:16 APTT 41.5 H (22.0-30.0) sec Sodium (137-145) mmol/L Chloride (98-107) mmol/L Carbon Dioxide (22-30) mmol/L BUN (7-17) mg/dL Microbiology - Last 24 Hours (Table) 07/07/24 22:15 Urine Culture - Preliminary Urine,Clean Catch 07/07/24 03:43 Blood Culture - Preliminary Blood 07/07/24 03:28 Blood Culture - Preliminary Blood
--- NOTE | 2024-07-09 12:06 | XR ---
EXAMINATION TYPE: XR chest 1V portable DATE OF EXAM: 07/09/2024 COMPARISON: 07/07/2024 CLINICAL INDICATION: Female, 89 years old with history of CHF; TECHNIQUE: Single frontal view of the chest is obtained. FINDINGS: There is moderate cardiomegaly and mild pulmonary vascular congestion. The findings suggest the prese nce of mild CHF and clinical correlation is recommended. There is no airspace consolidation. There is no pneumothorax or pleural effusion. The osseous structures are intact. IMPRESSION: Findings suggest presence possibly mild CHF clinical correlation is recommended. [facility], , 07/09/2024 12:04 PM
[2024-07-09 12:58] LABS: ABG Base Excess -2.8 mmol/L; ABG HCO3 21 mmol/L (21-25); ABG Oxygen Saturation 95.2 % (94-97); ABG PCO2 31 mmHg (35-45); ABG PH 7.43 (7.35-7.45); ABG PO2 70 mmHg (83-108); ABG TCO2 22 mmol/L (19-24); Allen Test Performed? Yes
--- NOTE | 2024-07-09 15:16 | P.PN ---
Progress Note - Text Progress Note Date: 07/09/24 Chief Complaint: Decreased responsiveness This is a 89-year-old patient, follows Dr. Marlow. Patient was brought in by the EMS to the ER. Patient is at her assisted living. EMS was called with the patient was found to be slumped over in the chair by the care of a staff member. At baseline patient is only AO x 1. Patient had mild to moderate labored respirations. When staff member did compress out there found the patient slumped over in the wheelchair and altered. His 911 was initiated. Patient herself is a very poor historian. Pulse ox was found to be 70%. Normally wears oxygen. Patient was briefly into bradycardia with heart rate in the 40s. Patient had vomited prior to arrival of the EMS. Patient during transport was put on 15 L nonrebreather. Pulse ox came to 80 to 90%. EKG showed normal sinus rhythm with some T wave changes. Patient is not really able to speak. Struggling a bit. In the ER patient is able to answer questions. But she thinks it is 1991. She thinks she is in the [facility]. July 08: Patient more awake today. Answering simple questions. Had a fair amount of breakfast. Cardiology is considering a cardiac catheterization. On IV heparin drip. Seen by neurology. [place] to be having encephalopathy on presentation. Possibly from [place]. July 09: Up in chair. On 8 to 10 L high flow oxygen. No obvious cause has been determined. ABG: On 50% 92 shows PaO2 of 70 pCO2 of 31. Chest x-ray has been nonspecific. 2D echo was done results pending. Had about 75% of breakfast lunch. Active Medications Acetaminophen (Acetaminophen Tab 325 Mg Tab) 650 mg PO Q6HR PRN PRN Reason: Mild Pain or Fever > 100.5 Al Hydroxide/Mg Hydroxide (Mag Hydrox/Al Hydrox/Simeth 30 Ml Cup) 15 ml PO Q6HR PRN PRN Reason: Indigestion Aspirin (Aspirin 81 Mg) 81 mg PO DAILY [facility] Last Admin: 07/09/24 07:51 Dose: 81 mg Atorvastatin Calcium (Atorvastatin 10 Mg Tab) 10 mg PO HS [facility] Last Admin: 07/08/24 21:38 Dose: Not Given Docusate Sodium (Docusate 100 Mg Cap) 100 mg PO BID PRN PRN Reason: Constipation Heparin Sodium (Porcine) (Heparin Sodium 1,000 Un/Ml (10ml Vl)) 0 unit IV PER PROTOCOL PRN; Protocol PRN Reason: Low PTT Last Admin: 07/08/24 04:13 Dose: 1,375 unit Heparin Sodium/Sodium Chloride (25,000 unit/ Sodium Chloride) 250 mls @ 6.6 mls/hr IV .Q24H [facility]; Protocol Last Titration: 07/09/24 09:36 Dose: 21 units/kg/hr, 11.55 mls/hr Sodium Chloride (Saline 0.9%) 1,000 mls @ 75 mls/hr IV .[id number] [facility] Last Admin: 07/09/24 11:08 Dose: Not Given Aztreonam 1 gm/ Sodium (Chloride) 50 mls @ 16.67 mls/hr IVPB Q12HR [facility]; Protocol Last Admin: 07/09/24 07:51 Dose: 16.67 mls/hr Isosorbide Mononitrate (Isosorbide Mononitrate Er 30 Mg Tab.Er.24h) 30 mg PO DAILY [facility] Last Admin: 07/09/24 07:51 Dose: 30 mg Lisinopril (Lisinopril 10 Mg Tab) 10 mg PO DAILY [facility] Last Admin: 07/09/24 07:51 Dose: 10 mg Metoprolol Tartrate (Metoprolol Tartrate 12.5 Mg Tab) 12.5 mg PO BID [facility] Last Admin: 07/09/24 07:50 Dose: 12.5 mg Morphine Sulfate (Morphine Sulfate 4 Mg/Ml Syringe) 4 mg IV Q4HR PRN PRN Reason: Severe Pain (Scale 7 to 10) Naloxone HCl (Naloxone 0.4 Mg/Ml 1 Ml Vial) 0.2 mg IV Q2M PRN PRN Reason: Opioid Reversal Ondansetron HCl (Ondansetron 4 Mg/2 Ml Vial) 4 mg IVP Q8HR PRN PRN Reason: Nausea And Vomiting Pantoprazole Sodium (Pantoprazole 40 Mg/10 Ml Vial) 40 mg IV DAILY [facility] Last Admin: 07/09/24 07:50 Dose: 40 mg Sertraline HCl (Sertraline 50 Mg Tab) 50 mg PO HS [facility] Last Admin: 07/08/24 21:39 Dose: Not Given Social history: Assisted living. Non-smoker. Alcohol rarely. Physical examination: VITAL SIGNS: 97.5, 70, 18, 120 x 64, 94% on 8 to 10 L GENERAL: BMI 21.5,, tired, EYES: Pupils equal. Conjunctiva marco l. HEENT: External appearance of nose and ears normal, oral cavity grossly normal. NECK: JVD not raised; masses not palpable. HEART: First and second heart sounds are normal; no edema. LUNGS: Respiratory rate increased, diminished breath sounds n. ABDOMEN: Soft, nontender, liver spleen not palpable, no masses palpable. PSYCH: Sitting simple questions MUSCULOSKELETAL:No Clubbing/cyanosis;muscles-grossly intact. OA INVESTIGATIONS, reviewed in the clinical context: July 09: ABG: pH 7.43 pCO2 31 pO2 70 on FiO2 50% potassium 3.6 creatinine 0.73 July 08: White count 9.1 hemoglobin 13.5 platelets 182 sodium 135 creatinine 0.95 July 07, 2024: White count 9 hemoglobin 15.9 platelets 172 sodium 130 potassium 4.4 BUN 40 creatinine 1.4 Troponin I 7.4, 8.1, 6.4 EKG tracing personally reviewed by me-normal sinus rhythm. Some ST-T wave changes. CT brain without contrast: No acute event. Encephalomalacia in the left frontal lobe consistent with old infarct Chest x-ray film personally reviewed by me-borderline cardiomegaly. Unfolding of the aorta. Rotated film. Portable CT angio chest: Negative PE. Partially visualized left hydronephrosis. Nonobstructing left renal calculus. Assessment plan: -Acute non-Q wave [place]. Aspirin. Lipitor. Lopressor. IV heparin. Cardiology following--considering cardiac cath -IV heparin monitoring Follow PTT -Acute hypoxic respiratory failure. Cause unclear/slow to respond On high flow 8 to 10 L Pending 2D echo Patient does not have any obvious pneumonia, PE or effusion. 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 Zestril. -Chronic medical debility -Acute acute kidney injury, possible ATN from blood pressure fluctuation: Better Follow renal function -DNR Pending 2D echo. Requiring high flow oxygen. Oral intake fair. Blood gases noted. Past Medical History Past Medical History: Cancer, GI Bleed, Hyperlipidemia, Hypertension, Osteoarthritis (OA) Additional Past Medical History / Comment(s): HX DIVERTICULITIS, BLEEDING ULCER -REC 2 UNITS PRBC,ANEMIA,BREAST CA LEFT BREAST WITH 2 LYMPH NODES REMOVED. HAD RADIATION -2013 History of Any Multi-Drug Resistant Organisms: None Reported Past Surgical History: Breast Surgery, Hysterectomy, Joint Replacement, Orthopedic Surgery Additional Past Surgical History / Comment(s): LAURA KNEE REPLACEMENT,ABD CYST REMOVED, CATARACT SURGERY LAURA, toe removed to treat hammer toe in 03/2023 Past Anesthesia/Blood Transfusion Reactions: No Reported Reaction Past Psychological History: Anxiety, Depression Smoking Status: Never smoker Past Alcohol Use History: Rare Past Drug Use History: None Reported
--- NOTE | 2024-07-09 15:30 | P.PN ---
Subjective Progress Note Date: 07/09/24 This is an 89-year-old female patient who resides at [facility] assisted [facility] and has a history of hyperlipidemia, GI bleed, hypertension, osteoarthritis, anxiety/depression, left sided breast cancer with previous radiation, non- smoker. Early this morning she was found slumped over in a wheelchair by a staff member who called EMS. Upon arrival to EMS she was found to be bradycardic with poor respiratory effort and initial pulse ox readings in the 70s. She was placed on a nonrebreather mask and became more responsive and was brought into the emergency room. EKG revealed sinus rhythm with some ST depression. CT scan of the brain revealed no acute intracranial hemorrhage, midline shift or mass effect. Revealed no acute pulmonary process. CT angiogram revealed no evidence of pulmonary embolism. Partially visualized left hydronephrosis. White count 9.0. Hemoglobin 15.1. Platelets 172. D-dimer 9.31. Sodium 130. Potassium 4.4. Bicarb 15. BUN 40. Creatinine 1.40. Glucose 178. Troponins 7.4, 8.1, 6.4. She is seen today in consultation in the emergency department. She is currently awake, alert. Maintaining O2 saturations in the 90s on 5 L/min per nasal cannula. He is afebrile. Hemodynamically stable. She has been initiated on a heparin drip. She is a poor historian. The patient is seen today July 08, 2024 in follow-up on the selective care unit. She is currently sitting up in a chair. Awake and alert in no acute distress. Maintaining O2 saturations in the 90s on 5 L/min per nasal cannula. She has been afebrile. She is currently nauseated. Blood cultures pending. White count 9.1. Hemoglobin 13.5. Platelets 182. Sodium 135. Potassium 4.2. Bicarb 21. BUN 36. Creatinine 0.95. Glucose 91. She remains on a heparin drip. Antibiotics in the form of aztreonam. Normal saline at 75 mL/h. The patient is seen today July 09, 2024 in follow-up on the selective care unit. She is currently sitting up in a chair. She is still requiring 8 L high flow nasal cannula. She intermittently needs BiPAP 14/7 and 50% FiO2. X-ray reveals moderate cardiomegaly and mild pulmonary vascular congestion. Continued on a heparin drip. Blood cultures pending. Urine culture ending. She remains on antibiotics in the form of aztreonam. Sodium 135. Potassium 3.4. Bicarb 19. BUN 29. Creatinine 0.73. Ammonia level 11. Arterial blood gases revealed a PaO2 of 70, pCO2 31. pH 7.43. Objective - Vital Signs Vital signs: Vital Signs Temp 97.5 F L 07/09/24 11:35 Pulse 70 07/09/24 11:35 Resp 18 07/09/24 11:35 BP 120/64 07/09/24 11:35 Pulse Ox 94 L 07/09/24 11:35 FiO2 75 07/09/24 03:08 Intake & Output 07/08/24 07/09/24 07/09/24 18:59 06:59 18:59 Intake Total 195.576 369.479 Output Total 225 200 Balance -29.424 -200 369.479 Weight 69 kg Intake: IV 10 10 Invasive Line 2 10 10 Intake, IV Titration 67.576 239.479 Amount Heparin Sod,Pork in 0.45% 67.576 239.479 NaCl 25,000 unit In 0.45 % NaCl 1 250ml.bag @ 12 UNITS/KG/HR 6.6 mls/hr IV .Q24H [facility] Rx#:[id number] Oral 118 120 Output: Urine 225 200 Other: Voiding Method External Catheter External Catheter External Catheter # Voids 2 # Bowel Movements 1 - Exam GENERAL EXAM: Alert, 89-year-old female, up in a chair, on 8 L nasal cannula, in no apparent distress. HEAD: Normocephalic. EYES: Normal reaction of pupils, equal size. NOSE: Clear with pink turbinates. THROAT: No erythema or exudates. NECK: No masses, no JVD. CHEST: No chest wall deformity. LUNGS: Equal air entry with faint crackles in the posterior bases. CVS: S1 and S2 normal with no audible murmur, regular rhythm. ABDOMEN: No hepatosplenomegaly, normal bowel sounds, no guarding or rigidity. SPINE: No scoliosis or deformity SKIN: No rashes CENTRAL NERVOUS SYSTEM: No focal deficits, tone is normal in all 4 extremities. EXTREMITIES: There is no peripheral edema. No clubbing, no cyanosis. Peripheral pulses are intact. - Labs CBC & Chem 7: 07/08/24 03:31 07/09/24 08:16 Labs: Abnormal Lab Results - Last 24 Hours (Table) 07/08/24 07/09/24 07/09/24 Range/Units 03:38 08:16 08:16 APTT 41.5 H (22.0-30.0) sec ABG pCO2 (35-45) mmHg ABG pO2 (83-108) mmHg Sodium 135 L (137-145) mmol/L Carbon Dioxide 19 L (22-30) mmol/L BUN 29 H (7-17) mg/dL Vitamin B12 1973.0 H (200.0-944.0) pg/mL 07/09/24 Range/Units 12:55 APTT (22.0-30.0) sec ABG pCO2 31 L (35-45) mmHg ABG pO2 70 L (83-108) mmHg Sodium (137-145) mmol/L Carbon Dioxide (22-30) mmol/L BUN (7-17) mg/dL Vitamin B12 (200.0-944.0) pg/mL Microbiology - Last 24 Hours (Table) 07/07/24 03:43 Blood Culture - Preliminary Blood 07/07/24 03:28 Blood Culture - Preliminary Blood 07/07/24 22:15 Urine Culture - Preliminary Urine,Clean Catch Assessment and Plan Assessment: Syncopal episode of unclear etiology, possible myocardial infarction, found unresponsive slumped over in a chair with bradycardia and hypoxemia Acute non-ST segment elevation myocardial infarction Acute hypoxemic respiratory failure secondary to above. Pulmonary embolism ruled out, no consolidation, no pleural effusions Acute kidney injury Suspected urinary tract infection, culture pending History of hypertension Hyperlipidemia History of left breast cancer History of anxiety/depression Lifelong non-smoker Plan: The patient was seen and evaluated Chest x-ray, ABGs, labs and medications reviewed Give Lasix 20 mg IVP x 1 Add DuoNeb inhalations Remains on a heparin drip Echocardiogram pending Continued on Azactam Urine and blood cultures pending Titrate down the FiO2 as tolerated Prognosis is guarded DNR/DNI CODE STATUS We will continue to follow I have personally seen and examined the patient, performed the documentation and the assessment and plan as written. Number of minutes spent on the visit: 10 Dictation was produced using [employer] dictation software. Please excuse any grammatical, word or spelling errors.
[2024-07-09] MEDS: IPRATROPIUM-ALBUTEROL 3 ML NEB INHALATION SCH (15:55)
--- NOTE | 2024-07-09 16:04 | P.PN ---
Subjective Progress Note Date: 07/09/24 I am following-up with patient and she is on high flow oxygen 10L. She still have confusion. Objective - Vital Signs Vital signs: Vital Signs Temp 97.5 F L 07/09/24 11:35 Pulse 78 07/09/24 15:52 Resp 18 07/09/24 11:35 BP 120/64 07/09/24 11:35 Pulse Ox 94 L 07/09/24 11:35 FiO2 75 07/09/24 03:08 Intake & Output 07/08/24 07/09/24 07/09/24 18:59 06:59 18:59 Intake Total 195.576 440.704 Output Total 225 200 Balance -29.424 -200 440.704 Weight 69 kg Intake: IV 10 10 Invasive Line 2 10 10 Intake, IV Titration 67.576 310.704 Amount Heparin Sod,Pork in 0.45% 67.576 310.704 NaCl 25,000 unit In 0.45 % NaCl 1 250ml.bag @ 12 UNITS/KG/HR 6.6 mls/hr IV .Q24H [facility] Rx#:[id number] Oral 118 120 Output: Urine 225 200 Other: Voiding Method External Catheter External Catheter External Catheter # Voids 2 # Bowel Movements 1 - Exam Lying in bed and is not in acute distress. Lung: Is on high flow oxygen. Neuro: Patient is mildly drowsy but is awakeable to voice. Is oriented to self and correctly stated she is in the hospital. She stated the year is 2021. She correctly named objects (pen, glasses). Is following simple commands. No dysathria. Some of the workup during this hospital visit consisted of: Vitamin B12: 1972 TSH: 0.558 Ammonia 11 Calcium is 9.2. AST is 47 ALT 17. Troponin is 7.40 repeated is 8.10. Urinalysis seems possible suggestive of underlying urinary tract infection with leukocyte is large, urine white blood cells 73. CT of the head is reported as no acute intracranial hemorrhage, midline shift or mass effect. Encephalomalacia in the left frontal lobe consistent with old infarct. I personally reviewed the CT and agree with the report. - Labs CBC & Chem 7: 07/08/24 03:31 07/09/24 08:16 Labs: Abnormal Lab Results - Last 24 Hours (Table) 07/08/24 07/09/2407/09/24 Range/Units 03:38 08:16 08:16 APTT 41.5 H (22.0-30.0) sec ABG pCO2 (35-45) mmHg ABG pO2 (83-108) mmHg Sodium 135 L (137-145) mmol/L Carbon Dioxide 19 L (22-30) mmol/L BUN 29 H (7-17) mg/dL Vitamin B12 1973.0 H (200.0-944.0) pg/mL 07/09/24 07/09/24 Range/Units 12:55 14:58 APTT 47.6 H (22.0-30.0) sec ABG pCO2 31 L (35-45) mmHg ABG pO2 70 L (83-108) mmHg Sodium (137-145) mmol/L Carbon Dioxide (22-30) mmol/L BUN (7-17) mg/dL Vitamin B12 (200.0-944.0) pg/mL Microbiology - Last 24 Hours (Table) 07/07/24 03:43 Blood Culture - Preliminary Blood 07/07/24 03:28 Blood Culture - Preliminary Blood 07/07/24 22:15 Urine Culture - Preliminary Urine,Clean Catch Assessment and Plan Assessment: This is an 89-year-old woman who presented emergency department from her nursing facility since she was found slumped over in a wheelchair by staff members. EMS found her to be bradycardic with poor respiratory effort with a pulse ox in the 70s. She was more responsive with nonrebreather. EKG reveals sinus rhythm with some ST depression. Altered mental status seems due to acute hypoxic encephalopathy as well as component of metabolic encephalopathy and acute UTI. CT of the head is unremarkable for any acute process Syncopal of unknown etiology but possibly due to myocardial infarction Acute non-ST segment elevation Probable acute UTI Mild hyponatremia Acute kidney injury History of old stroke. Underlying history of GI bleed History of left breast cancer with previous radiation History of hyperlipidemia History of osteoarthritis Underlying history of anxiety/depression Plan: Will get an MRI Brain. Will hold off on carotid duplex and rest of stroke work-up if MRI Brain reveals stroke. 2D echo was ordered and is pending. Cardiology is on board Pulmonary is on board Patient is on aspirin 81 mg daily. She is on Lipitor 10 mg nightly. She was started on heparin drip by the ED team. Will defer the use to the cardiology and primary team. For the rest of medical management to primary and other specialist next The plan discussed with the patient's [id number]. Time with Patient: Less than 30
[2024-07-09] MEDS: ACETAMINOPHEN TAB 325 MG TAB PO PRN (18:03)
[2024-07-09] MEDS: FUROSEMIDE 10 MG/ML 2 ML VIAL IV ONE (18:03)
[2024-07-10] MEDS: APIXABAN 5 MG TAB PO SCH (15:24)
--- NOTE | 2024-07-10 15:57 | MR ---
EXAMINATION TYPE: MR brain wo con DATE OF EXAM: 07/10/2024 1:32 PM COMPARISON: CT brain 07/07/2024 CLINICAL INDICATION: Female, 89 years old with history of altered mental status, Altered mental statu s. TECHNIQUE: Multiplanar, multiecho imaging on a 3.0 Becki magnet is performed through the brain. Stud y is performed within 24 hours of arrival to the hospital.Multiplanar, multiecho imaging on a 3.0 Princess la magnet is performed through the knee. IV Contrast: mL (None, if empty) FINDINGS: The craniovertebral junction is normal. The pituitary is normal. Diffusion-weighted imaging is performed. There are extensive punctate hyperintensities scattered wit hin bilateral cortex, centrum semiovale. There are punctate hyperintensities within the cerebellum. A dditionally, there is inferior cerebellar and posterior occipital lobe cortical hyperintensities. Fin dings could be related to scattered emboli. Consider venous infarcts. There is some blooming artifact present within the superior left cerebellum could indicate prior unde rlying hemorrhage. Periventricular white matter hyperintensity is present, likely on the basis of chronic white matter i schemic changes Ventricles and sulci are prominent for the patient age. IMPRESSION: 1. Extensive punctate cortical and subcortical hyperintensities, suspicious for acute ischemic change s. 2. Acute infarct suspected within the left cerebellum. Some prior hemorrhage could be considered. No mass effect is evident. 3. Acute appearing cortical infarcts bilateral occipital lobes larger on the left 4. Atrophy with chronic appearing periventricular white matter ischemic change. [facility], , 07/10/2024 3:55 PM
--- NOTE | 2024-07-10 16:12 | P.PN ---
Subjective Progress Note Date: 07/10/24 This is an 89-year-old female patient who resides at [facility] and has a history of hyperlipidemia, GI bleed, hypertension, osteoarthritis, anxiety/depression, left sided breast cancer with previous radiation, non- smoker. Early this morning she was found slumped over in a wheelchair by a staff member who called EMS. Upon arrival to EMS she was found to be bradycardic with poor respiratory effort and initial pulse ox readings in the 70s. She was placed on a nonrebreather mask and became more responsive and was brought into the emergency room. EKG revealed sinus rhythm with some ST depression. CT scan of the brain revealed no acute intracranial hemorrhage, midline shift or mass effect. Revealed no acute pulmonary process. CT angiogram revealed no evidence of pulmonary embolism. Partially visualized left hydronephrosis. White count 9.0. Hemoglobin 15.1. Platelets 172. D-dimer 9.31. Sodium 130. Potassium 4.4. Bicarb 15. BUN 40. Creatinine 1.40. Glucose 178. Troponins 7.4, 8.1, 6.4. She is seen today in consultation in the emergency department. She is currently awake, alert. Maintaining O2 saturations in the 90s on 5 L/min per nasal cannula. He is afebrile. Hemodynamically stable. She has been initiated on a heparin drip. She is a poor historian. The patient is seen today July 08, 2024 in follow-up on the selective care unit. She is currently sitting up in a chair. Awake and alert in no acute distress. Maintaining O2 saturations in the 90s on 5 L/min per nasal cannula. She has been afebrile. She is currently nauseated. Blood cultures pending. White count 9.1. Hemoglobin 13.5. Platelets 182. Sodium 135. Potassium 4.2. Bicarb 21. BUN 36. Creatinine 0.95. Glucose 91. She remains on a heparin drip. Antibiotics in the form of aztreonam. Normal saline at 75 mL/h. The patient is seen today July 09, 2024 in follow-up on the selective care unit. She is currently sitting up in a chair. She is still requiring 8 L high flow nasal cannula. She intermittently needs BiPAP 14/7 and 50% FiO2. X-ray reveals moderate cardiomegaly and mild pulmonary vascular congestion. Continued on a heparin drip. Blood cultures pending. Urine culture ending. She remains on antibiotics in the form of aztreonam. Sodium 135. Potassium 3.4. Bicarb 19. BUN 29. Creatinine 0.73. Ammonia level 11. Arterial blood gases revealed a PaO2 of 70, pCO2 31. pH 7.43. The patient is seen today July 10, 2024 in follow-up on the selective care unit. She is awake and alert in no acute distress. Currently sitting up in a chair. Still requiring 10 L high flow nasal cannula. She is alternating with BiPAP 14/7 and 50% FiO2. She is continued on DuoNeb inhalations. Antibiotics in the form of Azactam. MRI of the brain reveals extensive punctate cortical and subcortical hyperintensities, suspicious for acute ischemic changes. Acute infarct within the left cerebellum. Acute appearing cortical infarcts bilateral occipital lobes larger on the left. Blood cultures revealed no growth. Urine culture revealed no growth. PTT 54.8. Remains on a heparin drip. Objective - Vital Signs Vital signs: Vital Signs Temp 98.1 F 07/10/24 11:30 Pulse 84 07/10/24 15:24 Resp 16 07/10/24 11:30 BP 137/79 07/10/24 11:30 Pulse Ox 92 L 07/10/24 11:30 FiO2 75 07/09/24 03:08 Intake & Output 07/09/24 07/10/24 07/10/24 18:59 06:59 18:59 Intake Total 558.704 568.662 Output Total 400 Balance 558.704 -400 568.662 Weight 70 kg Intake: IV 10 Invasive Line 2 10 Intake, IV Titration 310.704 210.662 Amount Aztreonam 1 gm In Sodium 50 Chloride 0.9% 50 ml @ 16. 67 mls/hr IVPB Q12HR [facility] Rx#:[id number] Heparin Sod,Pork in 0.45% 310.704 160.662 NaCl 25,000 unit In 0.45 % NaCl 1 250ml.bag @ 12 UNITS/KG/HR 6.6 mls/hr IV .Q24H [facility] Rx#:[id number] Oral 238 358 Output: Urine 400 Other: Voiding Method External Catheter External Catheter External Catheter # Voids 2 1 # Bowel Movements 1 - Exam GENERAL EXAM: Alert, 89-year-old female, on 10 L nasal cannula, in no apparent distress. HEAD: Normocephalic. EYES: Normal reaction of pupils, equal size. NOSE: Clear with pink turbinates. THROAT: No erythema or exudates. NECK: No masses, no JVD. CHEST: No chest wall deformity. LUNGS: Equal air entry with faint crackles in the posterior bases. CVS: S1 and S2 normal with no audible murmur, regular rhythm. ABDOMEN: No hepatosplenomegaly, normal bowel sounds, no guarding or rigidity. SPINE: No scoliosis or deformity SKIN: No rashes CENTRAL NERVOUS SYSTEM: No focal deficits, tone is normal in all 4 extremities. EXTREMITIES: There is no peripheral edema. No clubbing, no cyanosis. Peripheral pulses are intact. - Labs CBC & Chem 7: 07/08/24 03:31 07/09/24 08:16 Labs: Abnormal Lab Results - Last 24 Hours (Table) 07/10/24 Range/Units 06:59 APTT 54.8 H (22.0-30.0) sec Microbiology - Last 24 Hours (Table) 07/07/24 03:43 Blood Culture - Preliminary Blood 07/07/24 03:28 Blood Culture - Preliminary Blood 07/07/24 22:15 Urine Culture - Final Urine,Clean Catch Diana albicans Assessment and Plan Assessment: Syncopal episode of unclear etiology, possible myocardial infarction, found unresponsive slumped over in a chair with bradycardia and hypoxemia. MRI of the brain reveals extensive punctate cortical and subcortical hyperintensities, suspicious for acute ischemic changes. Acute infarct suspected within the left cerebellum. Some prior hemorrhage could be considered. No mass effect. Acute appearing cortical infarcts bilateral occipital lobes larger on the left. Atrophy with chronic appearing periventricular white matter changes Acute non-ST segment elevation myocardial infarction Acute hypoxemic respiratory failure secondary to above. Pulmonary embolism ruled out, no consolidation, no pleural effusions Acute kidney injury Suspected urinary tract infection, culture pending History of hypertension Hyperlipidemia History of left breast cancer History of anxiety/depression Lifelong non-smoker Plan: The patient was seen and evaluated MRI of the brain, labs and medications reviewed Continue DuoNeb inhalations Continued on Azactam Urine and blood cultures pending Titrate down the FiO2 as tolerated Prognosis is guarded DNR/DNI CODE STATUS We will continue to follow I have personally seen and examined the patient, performed the documentation and the assessment and plan as written. Number of minutes spent on the visit: 10 Dictation was produced using [employer] dictation software. Please excuse any grammatical, word or spelling errors.
--- NOTE | 2024-07-10 16:59 | P.PN ---
Subjective Progress Note Date: 07/10/24 I am following-up with patient and she continues to be on high flow oxygen. Today she had pulse ox in the high 80s. Objective - Vital Signs Vital signs: Vital Signs Temp 98.1 F 07/10/24 11:30 Pulse 74 07/10/24 15:30 Resp 16 07/10/24 15:30 BP 131/76 07/10/24 15:30 Pulse Ox 96 07/10/24 15:30 FiO2 75 07/09/24 03:08 Intake & Output 07/09/24 07/10/24 07/10/24 18:59 06:59 18:59 Intake Total 558.704 568.662 Output Total 400 Balance 558.704 -400 568.662 Weight 70 kg Intake: IV 10 Invasive Line 2 10 Intake, IV Titration 310.704 210.662 Amount Aztreonam 1 gm In Sodium 50 Chloride 0.9% 50 ml @ 16. 67 mls/hr IVPB Q12HR [facility] Rx#:[id number] Heparin Sod,Pork in 0.45% 310.704 160.662 NaCl 25,000 unit In 0.45 % NaCl 1 250ml.bag @ 12 UNITS/KG/HR 6.6 mls/hr IV .Q24H [facility] Rx#:[id number] Oral 238 358 Output: Urine 400 Other: Voiding Method External Catheter External Catheter External Catheter # Voids 2 1 # Bowel Movements 1 - Exam Lying in bed and is not in acute distress. Lung: Is on high flow oxygen. Neuro: Patient is severe drowsy but is briefly awake able to voice. She is not verbalizing as much or as communicative She is tracking No facial weakness. Some of the workup during this hospital visit consisted of: Vitamin B12: 1972 TSH: 0.558 Ammonia 11 Calcium is 9.2. AST is 47 ALT 17. Troponin is 7.40 repeated is 8.10. Urinalysis seems possible suggestive of underlying urinary tract infection with leukocyte is large, urine white blood cells 73. CT of the head is reported as no acute intracranial hemorrhage, midline shift or mass effect. Encephalomalacia in the left frontal lobe consistent with old infarct. I personally reviewed the CT and agree with the report. - Labs CBC & Chem 7: 07/08/24 03:31 07/09/24 08:16 Labs: Abnormal Lab Results - Last 24 Hours (Table) 07/10/24 Range/Units 06:59 APTT 54.8 H (22.0-30.0) sec Microbiology - Last 24 Hours (Table) 07/07/24 03:43 Blood Culture - Preliminary Blood 07/07/24 03:28 Blood Culture - Preliminary Blood 07/07/24 22:15 Urine Culture - Final Urine,Clean Catch Diana albicans Assessment and Plan Assessment: This is an 89-year-old woman who presented emergency department from her nursing facility since she was found slumped over in a wheelchair by staff members. EMS found her to be bradycardic with poor respiratory effort with a pulse ox in the 70s. She was more responsive with nonrebreather. EKG reveals sinus rhythm with some ST depression. Altered mental status seems due to acute hypoxic encephalopathy as well as component of metabolic encephalopathy and acute UTI. CT of the head is unremarkable for any acute process Syncopal of unknown etiology but possibly due to myocardial infarction Acute non-ST segment elevation Probable acute UTI Mild hyponatremia Acute kidney injury History of old stroke. Underlying history of GI bleed History of left breast cancer with previous radiation History of hyperlipidemia History of osteoarthritis Underlying history of anxiety/depression Plan: Pending MRI Brain. If MRI Brain is positive for stroke then will get rest of stroke work-up. 2D echo was ordered and is pending. Cardiology is on board Pulmonary is on board Patient is on aspirin 81 mg daily. She is on Lipitor 10 mg nightly. Cardiology and primary team. For the rest of medical management to primary and other specialist Time with Patient: Less than 30
--- NOTE | 2024-07-10 19:21 | P.PN ---
Subjective Patient is resting comfortably No chest pain no dizziness no lightheadedness On examination heart sounds are normal Breath sounds are clear Impression non-ST elevation NV Encephalopathy Hypertension, well-controlled History of pulmonary embolism Plan Maximize medical treatment and resume anticoagulation. For stroke prevention Stop heparin Objective - Vital Signs Vital signs: Vital Signs Temp 98.1 F 07/10/24 11:30 Pulse 74 07/10/24 15:30 Resp 16 07/10/24 15:30 BP 131/76 07/10/24 15:30 Pulse Ox 96 07/10/24 15:30 FiO2 75 07/09/24 03:08 Intake & Output 07/10/24 07/10/24 07/11/24 06:59 18:59 06:59 Intake Total 568.662 Output Total 400 Balance -400 568.662 Weight 70 kg Intake: Intake, IV Titration 210.662 Amount Aztreonam 1 gm In Sodium 50 Chloride 0.9% 50 ml @ 16. 67 mls/hr IVPB Q12HR [facility] Rx#:[id number] Heparin Sod,Pork in 0.45% 160.662 NaCl 25,000 unit In 0.45 % NaCl 1 250ml.bag @ 12 UNITS/KG/HR 6.6 mls/hr IV .Q24H [facility] Rx#:[id number] Oral 358 Output: Urine 400 Other: Voiding Method External Catheter External Catheter # Voids 1 - Labs CBC & Chem 7: 07/08/24 03:31 07/09/24 08:16 Labs: Abnormal Lab Results - Last 24 Hours (Table) 07/10/24 Range/Units 06:59 APTT 54.8 H (22.0-30.0) sec Microbiology - Last 24 Hours (Table) 07/07/24 03:43 Blood Culture - Preliminary Blood 07/07/24 03:28 Blood Culture - Preliminary Blood 07/07/24 22:15 Urine Culture - Final Urine,Clean Catch Diana albicans
--- NOTE | 2024-07-10 20:10 | P.PN ---
Progress Note - Text Progress Note Date: 07/10/24 Chief Complaint: Decreased responsiveness This is a 89-year-old patient, follows Dr. Marlow. Patient was brought in by the EMS to the ER. Patient is at her assisted living. EMS was called with the patient was found to be slumped over in the chair by the care of a staff member. At baseline patient is only AO x 1. Patient had mild to moderate labored respirations. When staff member did compress out there found the patient slumped over in the wheelchair and altered. His 911 was initiated. Patient herself is a very poor historian. Pulse ox was found to be 70%. Normally wears oxygen. Patient was briefly into bradycardia with heart rate in the 40s. Patient had vomited prior to arrival of the EMS. Patient during transport was put on 15 L nonrebreather. Pulse ox came to 80 to 90%. EKG showed normal sinus rhythm with some T wave changes. Patient is not really able to speak. Struggling a bit. In the ER patient is able to answer questions. But she thinks it is 1991. She thinks she is in the [facility]. July 08: Patient more awake today. Answering simple questions. Had a fair amount of breakfast. Cardiology is considering a cardiac catheterization. On IV heparin drip. Seen by neurology. [place] to be having encephalopathy on presentation. Possibly from [place]. July 09: Up in chair. On 8 to 10 L high flow oxygen. No obvious cause has been determined. ABG: On 50% 92 shows PaO2 of 70 pCO2 of 31. Chest x-ray has been nonspecific. 2D echo was done results pending. Had about 75% of breakfast lunch. July 10: Patient was seen this morning. Still requiring high flow oxygen anywhere from 8 to 10 L. No obvious cause found. Will order a VQ scan to rule out any peripheral PE. IV heparin being discontinued by cardiology today. Resume Jyoti. I spoke to patient's daughter at the bedside. Patient had a femur fracture back in September of this year. Since then patient is become hypoxic. Patient with apparent significant l load of fat embolism that may have resulted in hypoxia. MRI results suggestive of scattered emboli in the brain Late this evening I spoke to patient's qssvhyhp-ag-tal Diana and her daughter Susannah who was flown from out of town. Over the phone. Came in for me back in September of this year Eliquis was actually discontinued by Dr. Juarez because of the fall. And patient's not been Eliquis at home. Risk of falls. Given multiple infarcts in that case after discussing with them decided not to give any Eliquis. They understand prognosis guarded. Will see how patient does with her oxygen status. Active Medications Acetaminophen (Acetaminophen Tab 325 Mg Tab) 650 mg PO Q6HR PRN PRN Reason: Mild Pain or Fever > 100.5 Last Admin: 07/09/24 18:03 Dose: 650 mg Al Hydroxide/Mg Hydroxide (Mag Hydrox/Al Hydrox/Simeth 30 Ml Cup) 15 ml PO Q6HR PRN PRN Reason: Indigestion Albuterol/Ipratropium (Ipratropium-Albuterol 3 Ml Neb) 3 ml INHALATION RT-QID [facility] Last Admin: 07/10/24 15:17 Dose: 3 ml Albuterol/Ipratropium (Ipratropium-Albuterol 3 Ml Neb) 3 ml INHALATION RT-Q2H PRN PRN Reason: Shortness Of Breath Or Wheezing Apixaban (Apixaban 5 Mg Tab) 5 mg PO BID [facility]; Protocol Aspirin (Aspirin 81 Mg) 81 mg PO DAILY [facility] Last Admin: 07/10/24 08:17 Dose: 81 mg Atorvastatin Calcium (Atorvastatin 40 Mg Tab) 40 mg PO HS [facility] Docusate Sodium (Docusate 100 Mg Cap) 100 mg PO BID PRN PRN Reason: Constipation Aztreonam 1 gm/ Sodium (Chloride) 50 mls @ 16.67 mls/hr IVPB Q12HR [facility]; Protocol Last Admin: 07/10/24 09:00 Dose: 16.67 mls/hr Isosorbide Mononitrate (Isosorbide Mononitrate Er 30 Mg Tab.Er.24h) 30 mg PO D AILY [facility] Last Admin: 07/10/24 08:17 Dose: 30 mg Lisinopril (Lisinopril 10 Mg Tab) 10 mg PO DAILY [facility] Last Admin: 07/10/24 08:17 Dose: 10 mg Metoprolol Tartrate (Metoprolol Tartrate 12.5 Mg Tab) 12.5 mg PO BID [facility] Last Admin: 07/10/24 08:17 Dose: 12.5 mg Naloxone HCl (Naloxone 0.4 Mg/Ml 1 Ml Vial) 0.2 mg IV Q2M PRN PRN Reason: Opioid Reversal Ondansetron HCl (Ondansetron 4 Mg/2 Ml Vial) 4 mg IVP Q8HR PRN PRN Reason: Nausea And Vomiting Pantoprazole Sodium (Pantoprazole 40 Mg/10 Ml Vial) 40 mg IV DAILY [facility] Last Admin: 07/10/24 08:17 Dose: 40 mg Sertraline HCl (Sertraline 50 Mg Tab) 50 mg PO HS [facility] Last Admin: 07/09/24 21:10 Dose: 50 mg Social history: Assisted living. Non-smoker. Alcohol rarely. Physical examination: VITAL SIGNS: Afebrile, 74, 16, 131 x 76, 96% high flow 10 L GENERAL: BMI 21.5,, tired, laying in bed EYES: Pupils equal. Conjunctiva marco l. HEENT: External appearance of nose and ears normal, oral cavity grossly normal. NECK: JVD not raised; masses not palpable. HEART: First and second heart sounds are normal; no edema. LUNGS: Respiratory rate increased, diminished breath sounds n. ABDOMEN: Soft, nontender, liver spleen not palpable, no masses palpable. PSYCH: Answering simple questions MUSCULOSKELETAL:No Clubbing/cyanosis;muscles-grossly intact. OA INVESTIGATIONS, reviewed in the clinical context: MRI brain: Acute infarct suspected within the left cerebellum. Acute appearing cortical infarcts bilateral occipital lobes larger on the left. July 09: ABG: pH 7.43 pCO2 31 pO2 70 on FiO2 50% potassium 3.6 creatinine 0.73 July 08: White count 9.1 hemoglobin 13.5 platelets 182 sodium 135 creatinine 0.95 July 07, 2024: White count 9 hemoglobin 15.9 platelets 172 sodium 130 potassium 4.4 BUN 40 creatinine 1.4 Troponin I 7.4, 8.1, 6.4 EKG tracing personally reviewed by me-normal sinus rhythm. Some ST-T wave changes. CT brain without contrast: No acute event. Encephalomalacia in the left frontal lobe consistent with old infarct Chest x-ray film personally reviewed by me-borderline cardiomegaly. Unfolding of the aorta. Rotated film. Portable CT angio chest: Negative PE. Partially visualized left hydronephrosis. Nonobstructing left renal calculus. Assessment plan: -Acute non-Q wave [place]. Aspirin. Lipitor. Lopressor. IV heparin-being discontinued today. 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 New diagnosis -IV heparin monitoring-stop today Follow PTT -Chronic medical debility. At baseline patient uses a wheelchair -Acute hypoxic respiratory failure. Cause unclear/slow to respond On high flow 8 to 10 L Pending 2D echo Patient does not have any obvious pneumonia, PE or effusion. Pulmonary following Order VQ scan to rule out any peripheral PE. 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 Zestril. -Chronic medical debility -Acute acute kidney injury, possible ATN from blood pressure fluctuation: Better Follow renal function -DNR Patient not really a candidate for anticoagulation because of falls as discussed with both daughters, not put the patient on any Eliquis. Prognosis guarded. Will see how patient does. Past Medical History Past Medical History: Cancer, GI Bleed, Hyperlipidemia, Hypertension, Osteoarthritis (OA) Additional Past Medical History / Comment(s): HX DIVERTICULITIS, BLEEDING ULCER -REC 2 UNITS PRBC,ANEMIA,BREAST CA LEFT BREAST WITH 2 LYMPH NODES REMOVED. HAD RADIATION -2013 History of Any Multi-Drug Resistant Organisms: None Reported Past Surgical History: Breast Surgery, Hysterectomy, Joint Replacement, Orthopedic Surgery Additional Past Surgical History / Comment(s): LAURA KNEE REPLACEMENT,ABD CYST REMOVED, CATARACT SURGERY LAURA, toe removed to treat hammer toe in 03/2023 Past Anesthesia/Blood Transfusion Reactions: No Reported Reaction Past Psychological History: Anxiety, Depression Smoking Status: Never smoker Past Alcohol Use History: Rare Past Drug Use History: None Reported
[2024-07-10] MEDS: ATORVASTATIN 40 MG TAB PO SCH (20:23)
[2024-07-10] MEDS ORDERED: ATORVASTATIN 20 MG TAB PO SCH (21:00)
[2024-07-10] MEDS ORDERED: APIXABAN 5 MG TAB PO SCH (21:00)
--- NOTE | 2024-07-10 21:21 | US ---
EXAMINATION TYPE: US carotid duplex BILAT DATE OF EXAM: 07/10/2024 COMPARISON: US 2018 CLINICAL INDICATION: Female, 89 years old with history of stroke; Stroke Additional History: .... TECHNIQUE: Grayscale, color Doppler and spectral Doppler evaluation of the bilateral carotid systems and vertebral arteries. Indirect Doppler criteria was utilized. FINDINGS: EXAM MEASUREMENTS: RIGHT: Peak Systolic Velocity (PSV) cm/sec ----- Right CCA: 94.2 ----- Right ICA: 98.7 ----- Right ECA: 163.0 ICA/CCA ratio: 1.05 RIGHT: End Diastole cm/sec ----- Right CCA: 9.74 ----- Right ICA: 13.4 ----- Right ECA: 0.0 LEFT: Peak Systolic Velocity (PSV) cm/sec ----- Left CCA: 81.7 ----- Left ICA: 84.8 ----- Left ECA: 116.0 ICA/CCA ratio: 1.04 LEFT: End Diastole cm/sec ----- Left CCA: 9.25 ----- Left ICA: 13.9 ----- Left ECA: 0.0 VERTEBRALS (direction of flow): Right Vertebral: Antegrade Left Vertebral: Antegrade Rhythm: Normal CUT OFF SAW GRADER NOTES: Slightly limited due to tortuosity of vessels. No significant velocity elevation s visualized today Color Doppler imaging shows patency with blood flow throughout the carotid artery. Spectral waveforms are within normal limits. IMPRESSION: Right: No hemodynamically significant stenosis. Left: No hemodynamically significant stenosis. [facility], , 07/10/2024 9:18 PM
[2024-07-11 03:00] LABS: Chol/HDL Ratio 2.33 Ratio; LDL Cholesterol,Calculated 47.3 mg/dL (0.0-131.0); VLDL Calculation 19.44 mg/dL (5.00-40.00)
--- NOTE | 2024-07-11 09:20 | NM ---
EXAMINATION TYPE: NM pul vent and perfuse DATE OF EXAM: 07/11/2024 CLINICAL INDICATION: Female, 89 years old with history of prob peripheral PE; COMPARISON: NONE TECHNIQUE: Utilizing inhalation of 67.6 mCi Tc 99m DTPA aerosol and intravenous injection of 5.2 mCi of Tc 99m MAA, ventilation and perfusion images are acquired post injection in multiple projections. FINDINGS: Normal radiotracer distribution is noted in the lungs. There is no evidence of mismatched defects. IMPRESSION: No evidence for pulmonary embolus. [facility], , 07/11/2024 9:18 AM
--- NOTE | 2024-07-11 12:17 | P.PN ---
Subjective HISTORY OF PRESENT ILLNESS: This is an 89-year-old female with past medical history of hypertension, dyslipidemia, osteoarthritis on long-term anticoagulation for pulmonary embolism, history of breast cancer. Patient presented to hospital due to episode of unresponsiveness. She lives at [facility]. Apparently she was found slumped over in a wheelchair by the staff member. Her pulse ox was initially 70%. Patient gradually became more responsive. She did not have any complaints of chest pain no difficulty breathing no dizziness. CT of the chest was negative for pulmonary embolism. EKG showed a sinus rhythm with nonspecific ST-T wave changes. Patient has no prior history of coronary artery disease or heart failure. She had an echocardiogram done in May 2024 that revealed mild LV systolic dysfunction and moderately increased left atrium with mild mitral and tricuspid regurgitation. Patient's [id number] brings to our attention that patient has had mental status changes and is not at her baseline. Because of this, we will ask for neurology consult. Also discussed that patient had elevated troponins for non-ST JI and recommendations would normally be for a cardiac catheterization but due to her mental status changes and renal abnormalities, we would hold off on this until the other issues are resolved. This was discussed with patient's pwqzvefr-so-jyi at the bedside and also patient's daughter, Rosenda Marroquin at [phone], was contacted and updated. She is in agreement to give patient time to resolve other medical issues before pursuing left heart catheterization if in fact the patient would want to pursue that. 07/09/24 Patient is seen and examined. Her kidney function is improving. We had a ne urology consult yesterday to evaluate mental status which is improving. Patient did have episode last evening where she took off her oxygen and it was difficult getting her pulse ox up and she was placed on BiPAP. She is currently on 8 L nasal cannula high flow and pulse ox is 94%, blood pressure 120/64, heart rate is in the 70s. Patient is continued on heparin drip. Echocardiogram has been taken and report pending. Discussed heart catheterization with the patient's ouqhkobz-[id number] and family are in agreement at this time for medical management. 07/11/2024 Patient examined this morning at the bedside. Patient currently denies chest pain or pressure. She denies shortness of breath. Telemetry reveals sinus mechanism. Carotid Doppler performed with no significant stenosis bilaterally. VQ scan negative for PE. MRI of the brain completed revealing extensive punctuate cortical and subcortical hyperintensity suspicious for acute ischemic changes. Acute infarct suspected within the left cerebellum. Some prior hemorrhage could be considered. No mass effect is evident. Acute appearing cortical infarcts bilateral occipital lobe larger on the left. Atrophy with chronic appearing periventricular white matter ischemic changes. Patient's Eliquis has been placed on hold. Further discussion with patient's daughter who lives in [place] at the bedside who states the last time she was visiting in March, she did notice that her mother was not taking her medications as prescri bed. PHYSICAL EXAM: VITAL SIGNS: Reviewed. GENERAL: Well-developed in no acute distress. NECK: Supple. No JVD or thyromegaly LUNGS: Respirations even and unlabored. Lungs essentially clear to auscultation bilaterally. HEART: Regular rate and rhythm. S1 and S2 heard. EXTREMITIES: Normal range of motion. No clubbing or cyanosis. Peripheral pulses intact. No lower extremity edema ASSESSMENT: NSTEMI, medical management Acute CVA Metabolic encephalopathy Acute kidney injury, resolved Hypertension Dyslipidemia History of pulmonary embolism PLAN: 2D echo ordered. Await results. Continue current cardiac medications Continue with medical management for non-STEMI. No plans for cardiac cat heterization at this time Continue with permissive hypertension at this time due to CVA Patient's Eliquis remains on hold. From a cardiology standpoint, recommend resuming Eliquis. However defer to neurology Patient's daughter who lives in [place] at the bedside who states the last time she was visiting in March, she did notice that her mother was not taking her medications as prescribed. Family states they are going to go to her apartment to see if she has been taking her medications as prescribed. Continue telemetry monitoring to assess for any arrhythmias Further recommendations pending patient course Nurse practitioner note has been reviewed by physician. Signing provider agrees with the documented findings, assessment, and plan of care documented by VASCULAR TECHNOLOGIST SONOGRAPHER as a scribe. Objective - Vital Signs Vital signs: Vital Signs Temp 98.2 F 07/11/24 08:00 Pulse 76 07/11/24 11:30 Resp 16 07/11/24 08:00 BP 149/84 07/11/24 08:00 Pulse Ox 95 07/11/24 08:00 FiO2 75 07/09/24 03:08 Intake & Output 07/10/24 07/11/24 07/11/24 18:59 06:59 18:59 Intake Total 568.662 Output Total 400 Balance 568.662 -400 Intake: Intake, IV Titration 210.662 Amount Aztreonam 1 gm In Sodium 50 Chloride 0.9% 50 ml @ 16. 67 mls/hr IVPB Q12HR [facility] Rx#:[id number] Heparin Sod,Pork in 0.45% 160.662 NaCl 25,000 unit In 0.45 % NaCl 1 250ml.bag @ 12 UNITS/KG/HR 6.6 mls/hr IV .Q24H [facility] Rx#:[id number] Oral 358 Output: Urine 400 Other: Voiding Method External Catheter Bedside Commode Bedside Commode Incontinent Incontinent # Voids 2 # Bowel Movements 0 - Labs CBC & Chem 7: 07/08/24 03:31 07/09/24 08:16 Labs: Microbiology - Last 24 Hours (Table) 07/07/24 03:43 Blood Culture - Preliminary Blood 07/07/24 03:28 Blood Culture - Preliminary Blood
--- NOTE | 2024-07-11 15:47 | P.PN ---
Subjective Progress Note Date: 07/11/24 Principal diagnosis: Shortness of breath. This is an 89-year-old female patient who resides at up assisted living facility and has a history of hyperlipidemia, GI bleed, hypertension, osteoarthritis, anxiety/depression, left sided breast cancer with previous radiation, non-smoke r. Early this morning she was found slumped over in a wheelchair by a staff member who called EMS. Upon arrival to EMS she was found to be bradycardic with poor respiratory effort and initial pulse ox readings in the 70s. She was placed on a nonrebreather mask and became more responsive and was brought into the emergency room. EKG revealed sinus rhythm with some ST depression. CT scan of the brain revealed no acute intracranial hemorrhage, midline shift or mass effect. Revealed no acute pulmonary process. CT angiogram revealed no evidence of pulmonary embolism. Partially visualized left hydronephrosis. White count 9.0. Hemoglobin 15.1. Platelets 172. D-dimer 9.31. Sodium 130. Potassium 4.4. Bicarb 15. BUN 40. Creatinine 1.40. Glucose 178. Troponins 7.4, 8.1, 6.4. She is seen today in consultation in the emergency department. She is currently awake, alert. Maintaining O2 saturations in the 90s on 5 L/min per nasal cannula. He is afebrile. Hemodynamically stable. She has been initiated on a heparin drip. She is a poor historian. The patient is seen today July 08, 2024 in follow-up on the selective care unit. She is currently sitting up in a chair. Awake and alert in no acute distress. Maintaining O2 saturations in the 90s on 5 L/min per nasal cannula. She has been afebrile. She is currently nauseated. Blood cultures pending. White count 9.1. Hemoglobin 13.5. Platelets 182. Sodium 135. Potassium 4.2. Bicarb 21. BUN 36. Creatinine 0.95. Glucose 91. She remains on a heparin drip. Antibiotics in the form of aztreonam. Normal saline at 75 mL/h. The patient is seen today July 09, 2024 in follow-up on the selective care unit. She is currently sitting up in a chair. She is still requiring 8 L high flow nasal cannula. She intermittently needs BiPAP 14/7 and 50% FiO2. X-ray reveals moderate cardiomegaly and mild pulmonary vascular congestion. Continued on a heparin drip. Blood cultures pending. Urine culture ending. She remains on antibiotics in the form of aztreonam. Sodium 135. Potassium 3.4. Bicarb 19. BUN 29. Creatinine 0.73. Ammonia level 11. Arterial blood gases revealed a PaO2 of 70, pCO2 31. pH 7.43. The patient is seen today July 10, 2024 in follow-up on the selective care unit. She is awake and alert in no acute distress. Currently sitting up in a chair. Still requiring 10 L high flow nasal cannula. She is alternating with BiPAP 14/7 and 50% FiO2. She is continued on DuoNeb inhalations. Antibiotics in the form of Azactam. MRI of the brain reveals extensive punctate cortical and subcortical hyperintensities, suspicious for acute ischemic changes. Acute infarct within the left cerebellum. Acute appearing cortical infarcts bilateral occipital lobes larger on the left. Blood cultures revealed no growth. Urine culture revealed no growth. PTT 54.8. Remains on a heparin drip. Progress note dated July 11, 2024. 89-year-old female seen in room 381. The patient is currently on 8 L high flow nasal O2. The patient continues on aztreonam. The patient had a previous CT angiogram that was negative for pulmonary embolism, but despite that, the patient also had a VQ scan ordered, that was also negative. We will check an N- terminal proBNP level, and a procalcitonin level. The patient does use oxygen at home, at 3 L. No new labs today other than a N-terminal proBNP level of 2370. Procalcitonin levels pending. Objective - Vital Signs Vital signs: Vital Signs Temp 98.2 F 07/11/24 12:00 Pulse 80 07/11/24 15:23 Resp 16 07/11/24 14:00 BP 126/71 07/11/24 12:00 Pulse Ox 93 L 07/11/24 15:20 FiO2 75 07/09/24 03:08 Intake & Output 07/10/24 07/11/24 07/11/24 18:59 06:59 18:59 Intake Total 568.662 Output Total 400 Balance 568.662 -400 Intake: Intake, IV Titration 210.662 Amount Aztreonam 1 gm In Sodium 50 Chloride 0.9% 50 ml @ 16. 67 mls/hr IVPB Q12HR [facility] Rx#:[id number] Heparin Sod,Pork in 0.45% 160.662 NaCl 25,000 unit In 0.45 % NaCl 1 250ml.bag @ 12 UNITS/KG/HR 6.6 mls/hr IV .Q24H [facility] Rx#:[id number] Oral 358 Output: Urine 400 Other: Voiding Method External Catheter Bedside Commode Bedside Commode Incontinent Incontinent # Voids 2 # Bowel Movements 0 - Exam No acute distress, oriented 3. Currently on high flow nasal O2. HEENT examination is grossly unremarkable. Mucous membranes are moist. No oral lesions. Neck supple. Full range of motion. No adenopathy thyromegaly or neck vein distention. Cardiovascular examination reveals regular rhythm rate. S1-S2 normal. No S3 or S4. No discernible murmur noted. Lungs reveal mild bibasilar crackles. No wheezes. No rhonchi. Breath sounds equal. Abdomen soft bowel sounds are heard. No masses or tenderness. Extremities are intact. No cyanosis clubbing or edema. Skin is without rash or lesion. Neurologic examination is brief but nonfocal. - Labs CBC & Chem 7: 07/08/24 03:31 07/09/24 08:16 Labs: Microbiology - Last 24 Hours (Table) 07/07/24 03:43 Blood Culture - Preliminary Blood 07/07/24 03:28 Blood Culture - Preliminary Blood Assessment and Plan Assessment: Syncopal episode of unclear etiology, possible myocardial infarction. Acute non-ST segment elevation myocardial infarction. Acute hypoxemic respiratory failure secondary to above. Acute kidney injury. Suspected urinary tract infection. History of hypertension. Hyperlipidemia. History of left breast cancer. History of anxiety/depression. Lifelong non-smoker. Plan: Plan dated July 11, 2024. The patient is seen and evaluated. The patient's labs, are reviewed. X-rays and medications are also reviewed. The patient continues on aztreonam. A VQ scan was ordered, and was normal. The patient is a DO NOT RESUSCITATE patient. Labs, x-rays, and all medications are reviewed. We will continue to follow make recommendations along the way. The N-terminal proBNP was a bit elevated suggesting some fluid overload. Her procalcitonin level is currently pending. If negative, aztreonam should be discontinued. Time with Patient: Less than 30
--- NOTE | 2024-07-11 17:03 | P.PN ---
Progress Note - Text Progress Note Date: 07/11/24 Chief Complaint: Decreased responsiveness This is a 89-year-old patient, follows Dr. Marlow. Patient was brought in by the EMS to the ER. Patient is at her assisted living. EMS was called with the patient was found to be slumped over in the chair by the care of a staff member. At baseline patient is only AO x 1. Patient had mild to moderate labored respirations. When staff member did compress out there found the patient slumped over in the wheelchair and altered. His 911 was initiated. Patient herself is a very poor historian. Pulse ox was found to be 70%. Normally wears oxygen. Patient was briefly into bradycardia with heart rate in the 40s. Patient had vomited prior to arrival of the EMS. Patient during transport was put on 15 L nonrebreather. Pulse ox came to 80 to 90%. EKG showed normal sinus rhythm with some T wave changes. Patient is not really able to speak. Struggling a bit. In the ER patient is able to answer questions. But she thinks it is 1991. She thinks she is in the [facility]. July 08: Patient more awake today. Answering simple questions. Had a fair amount of breakfast. Cardiology is considering a cardiac catheterization. On IV heparin drip. Seen by neurology. [place] to be having encephalopathy on presentation. Possibly from IL. July 09: Up in chair. On 8 to 10 L high flow oxygen. No obvious cause has been determined. ABG: On 50% 92 shows PaO2 of 70 pCO2 of 31. Chest x-ray has been nonspecific. 2D echo was done results pending. Had about 75% of breakfast lunch. July 10: Patient was seen this morning. Still requiring high flow oxygen anywhere from 8 to 10 L. No obvious cause found. Will order a VQ scan to rule out any peripheral PE. IV heparin being discontinued by cardiology today. Resume Jyoti. I spoke to patient's daughter at the bedside. Patient had a femur fracture back in September of this year. Since then patient is become hypoxic. Patient with apparent significant l load of fat embolism that may have resulted in hypoxia. MRI results suggestive of scattered emboli in the brain Late this evening I spoke to patient's [id number] Diana and her daughter Susannah who was flown from out of town. Over the phone. Came in for me back in September of this year Eliquis was actually discontinued by Dr. Juarez because of the fall. And patient's not been Eliquis at home. Risk of falls. Given multiple infarcts in that case after discussing with them decided not to give any Eliquis. They understand prognosis guarded. Will see how patient does with her oxygen status. July 11: Saw the patient this afternoon. Remains on high flow oxygen. Attempt to decrease not successful. Still hovering around 8 to 10 L. Spoke to patient's daughter and [id number] at the bedside. Given patient's age and comorbidity they agree and very limited options. Anticoagulation could be dangerous in the setting of acute stroke. Agreeable to looking into hospice. Also discussed with manager social work. Patient's VQ scan unremarkable. 2D echo results still pending. Cause of hypoxia unclear. At home patient is on 3 L of oxygen. Oral intake fair. Patient does not have any fever. No cough. Normal procalcitonin. DC aztreonam. Active Medications Acetaminophen (Acetaminophen Tab 325 Mg Tab) 650 mg PO Q6HR PRN PRN Reason: Mild Pain or Fever > 100.5 Last Admin: 07/09/24 18:03 Dose: 650 mg Al Hydroxide/Mg Hydroxide (Mag Hydrox/Al Hydrox/Simeth 30 Ml Cup) 15 ml PO Q6HR PRN PRN Reason: Indigestion Albuterol/Ipratropium (Ipratropium-Albuterol 3 Ml Neb) 3 ml INHALATION RT-QID SUZANNE Last Admin: 07/11/24 15:10 Dose: 3 ml Albuterol/Ipratropium (Ipratropium-Albuterol 3 Ml Neb) 3 ml INHALATION RT-Q2H PRN PRN Reason: Shortness Of Breath Or Wheezing Aspirin (Aspirin 81 Mg) 81 mg PO DAILY [facility] Last Admin: 07/11/24 09:40 Dose: 81 mg Atorvastatin Calcium (Atorvastatin 40 Mg Tab) 40 mg PO HS [facility] Last Admin: 07/10/24 20:23 Dose: 40 mg Docusate Sodium (Docusate 100 Mg Cap) 100 mg PO BID PRN PRN Reason: Constipation Aztreonam 1 gm/ Sodium (Chloride) 50 mls @ 16.67 mls/hr IVPB Q12HR SUZANNE; Protocol Last Admin: 07/11/24 09:40 Dose: 16.67 mls/hr Isosorbide Mononitrate (Isosorbide Mononitrate Er 30 Mg Tab.Er.24h) 30 mg PO DAILY [facility] Last Admin: 07/11/24 09:40 Dose: 30 mg Lisinopril (Lisinopril 10 Mg Tab) 10 mg PO DAILY [facility] Last Admin: 07/11/24 09:40 Dose: 10 mg Metoprolol Tartrate (Metoprolol Tartrate 12.5 Mg Tab) 12.5 mg PO BID [facility] Last Admin: 07/11/24 09:40 Dose: 12.5 mg Naloxone HCl (Naloxone 0.4 Mg/Ml 1 Ml Vial) 0.2 mg IV Q2M PRN PRN Reason: Opioid Reversal Ondansetron HCl (Ondansetron 4 Mg/2 Ml Vial) 4 mg IVP Q8HR PRN PRN Reason: Nausea And Vomiting Sertraline HCl (Sertraline 50 Mg Tab) 50 mg PO HS [facility] Last Admin: 07/10/24 20:23 Dose: 50 mg Social history: Assisted living. Non-smoker. Alcohol rarely. Physical examination: VITAL SIGNS: 98.2, 72, 16, 126% 1, 94% on 8 L GENERAL: BMI 21.5,, up in a chair, but short of breath EYES: Pupils equal. Conjunctiva marco l. HEENT: External appearance of nose and ears normal, oral cavity grossly normal. NECK: JVD not raised; masses not palpable. HEART: First and second heart sounds are normal; no edema. LUNGS: Respiratory rate increased, diminished breath sounds n. ABDOMEN: Soft, nontender, liver spleen not palpable, no masses palpable. PSYCH: Answering simple questions MUSCULOSKELETAL:No Clubbing/cyanosis;muscles-grossly intact. OA INVESTIGATIONS, reviewed in the clinical context: VQ scan: No mismatch Carotid Doppler: No significant stenosis July 11: proBNP 2370. Procalcitonin 0.10 MRI brain: Acute infarct suspected within the left cerebellum. Acute appearing cortical infarcts bilateral occipital lobes larger on the left. July 09: ABG: pH 7.43 pCO2 31 pO2 70 on FiO2 50% potassium 3.6 creatinine 0.73 July 08: White count 9.1 hemoglobin 13.5 platelets 182 sodium 135 creatinine 0.95 July 07, 2024: White count 9 hemoglobin 15.9 platelets 172 sodium 130 potassium 4.4 BUN 40 creatinine 1.4 Troponin I 7.4, 8.1, 6.4 EKG tracing personally reviewed by me-normal sinus rhythm. Some ST-T wave changes. CT brain without contrast: No acute event. Encephalomalacia in the left frontal lobe consistent with old infarct Chest x-ray film personally reviewed by me-borderline cardiomegaly. Unfolding of the aorta. Rotated film. Portable CT angio chest: Negative PE. Partially visualized left hydronephrosis. Nonobstructing left renal calculus. Assessment plan: -Acute non-Q wave IL. Aspirin. Lipitor. Lopressor. IV heparin-being discontinued today. 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 New diagnosis -IV heparin monitoring-discontinued Follow PTT -Chronic medical debility. At baseline patient uses a wheelchair -Acute hypoxic respiratory failure. Cause unclear/slow to respond On high flow 8 to 10 L Pending 2D echo Patient does not have any obvious pneumonia, PE or effusion. 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 Zestril. -Chronic medical debility -Acute acute kidney injury, possible ATN from blood pressure fluctuation: Better Follow renal function -DNR Continue current treatment plan. Remains on high flow oxygen anywhere from 8 to 10 L. Unable to dilate down. Cause unclear. Advance care planning [July 11, 2024]: This was done at the bedside with patient's daughter and [id number]. Patient's advanced age. Comorbidities. Multiple strokes embolic on this pres entation. Blood thinner will be highly risky given that it was discontinued earlier by Dr. Juarez few months ago because of risk of falls. And given the acute stroke it may convert into hemorrhagic stroke. They are agreeable to look into rehab/hospice depending on clinical course. Time spent for this about 25 minutes Past Medical History Past Medical History: Cancer, GI Bleed, Hyperlipidemia, Hypertension, Osteoarthritis (OA) Additional Past Medical History / Comment(s): HX DIVERTICULITIS, BLEEDING ULCER -REC 2 UNITS PRBC,ANEMIA,BREAST CA LEFT BREAST WITH 2 LYMPH NODES REMOVED. HAD RADIATION History of Any Multi-Drug Resistant Organisms: None Reported Past Surgical History: Breast Surgery, Hysterectomy, Joint Replacement, Orthopedic Surgery Additional Past Surgical History / Comment(s): LAURA KNEE REPLACEMENT,ABD CYST REMOVED, CATARACT SURGERY LAURA, toe removed to treat hammer toe in 03/2023 Past Anesthesia/Blood Transfusion Reactions: No Reported Reaction Past Psychological History: Anxiety, Depression Smoking Status: Never smoker Past Alcohol Use History: Rare Past Drug Use History: None Reported
--- NOTE | 2024-07-11 18:19 | P.PN ---
Subjective Progress Note Date: 07/11/24 I am following up with the patient and according respiratory therapist she is desatting. Patient is on high flow oxygen and getting breathing treatment. Per patient's daughter she stated that she was notified by the primary attending to consider hospice. Objective - Vital Signs Vital signs: Vital Signs Temp 98.2 F 07/11/24 12:00 Pulse 80 07/11/24 15:23 Resp 16 07/11/24 14:00 BP 126/71 07/11/24 12:00 Pulse Ox 93 L 07/11/24 15:20 FiO2 75 07/09/24 03:08 Intake & Output 07/10/24 07/11/24 07/11/24 18:59 06:59 18:59 Intake Total 568.662 Output Total 400 Balance 568.662 -400 Intake: Intake, IV Titration 210.662 Amount Aztreonam 1 gm In Sodium 50 Chloride 0.9% 50 ml @ 16. 67 mls/hr IVPB Q12HR SUZANNE Rx#:[id number] Heparin Sod,Pork in 0.45% 160.662 NaCl 25,000 unit In 0.45 % NaCl 1 250ml.bag @ 12 UNITS/KG/HR 6.6 mls/hr IV .Q24H SUZANNE Rx#:[id number] Oral 358 Output: Urine 400 Other: Voiding Method External Catheter Bedside Commode Bedside Commode Incontinent Incontinent # Voids 2 # Bowel Movements 0 - Exam Is sitting up in a recliner chair and is not in acute distress. Lung: Is on high flow oxygen. Neuro: Patient is mildly to moderately drowsy but is awakeable to voice. She is oriented to self place. Is following simple commands. Right facial weakness no dysarthria. Motor: Strength is hard to assess individual muscle strength because of her cooperation. Is Lifting arms and legs above gravity Some of the workup during this hospital visit consisted of: Vitamin B12: 1973 TSH: 0.558 Ammonia 11 There is triglyceride 97, cholesterol 117, LDL is 47 and HDL is 50. Calcium is 9.2. AST is 47 ALT 17. Troponin is 7.40 repeated is 8.10. Urinalysis seems possible suggestive of underlying urinary tract infection with leukocyte is large, urine white blood cells 73. CT of the head is reported as no acute intracranial hemorrhage, midline shift or mass effect. Encephalomalacia in the left frontal lobe consistent with old infarct. I personally reviewed the CT and agree with the report. MRI of the brain is reported as extensive punctate cortical and subcortical hyperintensity, suspicious for acute ischemic changes. Acute infarct suspected in the left cerebellum. Some prior hemorrhage could be considered. No mass effect is evident. Acute appearing cortical infarct bilateral occipital lobe larger on the left. Atrophy with chronic appearing periventricular white matter ischemic changes. I personally reviewed the MRI and I do agree the patient has bilateral ischemic stroke or small to moderate in size but mostly small that seems embolic in etiology. The nurse no A-fib so far. Carotid duplex: Is reported as no hemodynamic significant stenosis of the right and left. - Labs CBC & Chem 7: 07/08/24 03:31 07/09/24 08:16 Labs: Microbiology - Last 24 Hours (Table) 07/07/24 03:43 Blood Culture - Preliminary Blood 07/07/24 03:28 Blood Culture - Preliminary Blood Assessment and Plan Assessment: This is an 89-year-old woman who presented emergency department from her nursing facility since she was found slumped over in a wheelchair by staff members. EMS found her to be bradycardic with poor respiratory effort with a pulse ox in the 70s. She was more responsive with nonrebreather. EKG reveals sinus rhythm with some ST depression. Acute to subacute ischemic stroke over bilateral hemisphere and it seems cardioembolic in etiology. No IV thrombolytics since outside the window and the risk outweigh the benefit. Altered mental status seems due to multifactorial: acute stroke, acute hypoxic encephalopathy as well as component of metabolic encephalopathy and acute UTI. Syncopal of unknown etiology but possibly due to myocardial infarction Acute non-ST segment elevation Probable acute UTI Mild hyponatremia Acute kidney injury History of old stroke. Underlying history of GI bleed History of left breast cancer with previous radiation History of hyperlipidemia History of osteoarthritis Underlying history of anxiety/depression Plan: Pending 2D echo. If 2D echo is negative then recommend transesophageal echocardiogram once the patient is stable. At this time patient is unstable for transesophageal echocardiogram because of her respiratory status. The nurse will attempt to find out the result of the 2D echo. Was ordered stat on 07/07/2024 and it is reported was taken. Cardiology is on board Pulmonary is on board Patient is on aspirin 81 mg daily. I started Plavix 75mg daily. Eliquis is on hold and recommend resuming Eliquis on 07/15/2024 to avoid hemorrhagic conversion because of stroke. But if the benefit outweighed the risk then recommend heparin drip and avoid boluses and keep PTT between 45 and 60. Once a nticoagulation is started recommend stopping Plavix to avoid increase risk of bleed from neurological perspective. She is on Lipitor 10 mg nightly and I went up on Lipitor to 40 mg nightly for secondary stroke prophylaxis Continue neurochecks Cardiac monitoring PT, OT and SKILLED LABOR are consulted Will defer the rest of medical management to primary and other specialist DVT prophylaxis I started the patient on subcu heparin 5000 units every 12 hours Overall condition is critical. Plan is discussed with patient, her daughter who is at bedside and her nurse. Time with Patient: Less than 30
[2024-07-11] MEDS: CLOPIDOGREL 75 MG TAB PO SCH (20:27)
[2024-07-11] MEDS: DOCUSATE 100 MG CAP PO PRN (20:27)
[2024-07-11] MEDS: HEPARIN SODIUM,PORCINE 5,000 UNIT/ML 1 ML VIAL SQ SCH (20:28)
--- NOTE | 2024-07-12 10:36 | CA ---
Transthoracic Echo Report Name: Shirlene Adam Age: 89 Gender: F : 1935 Exam Date: 07/07/2024 16:45 Exam Location: [facility] Ht (in): 63 Wt (lb): 121 Ordering Physician: Germain Brown MD ([id number]) Attending/Referring Phys: Kevin SOTO Mysql Database Administrator Katie Thrasher RDCS Procedure CPT: Indications: elevated troponins Cardiac Hx: Technical Quality: Fair Contrast 1: Definity Total Dose (mL): 2 Contrast 2: Total Dose (mL): MEASUREMENTS (Male / Female) Normal Values 2D ECHO LV Diastolic Diameter PLAX 4.8 cm 4.2 - 5.9 / 3.9 - 5.3 cm LV Systolic Diameter PLAX 3.6 cm IVS Diastolic Thickness 1.5 cm 0.6 - 1.0 / 0.6 - 0.9 cm LVPW Diastolic Thickness 1.2 cm 0.6 - 1.0 / 0.6 - 0.9 cm LV Relative Wall Thickness 0.6 LV Diastolic Volume MOD BP 106.9 cm??? 67 - 155 / 56 - 104 cm??? LV Systolic Volume MOD BP 68.1 cm??? 22 - 58 / 19 - 49 cm??? LV Ejection Fraction MOD BP 36.3 % >= 55 % LV Cardiac Index MOD BP 2008.3 cm???/min???m??? LV Diastolic Volume MOD 4C 128.4 cm??? LV Systolic Volume MOD 4C 82.7 cm??? LV Ejection Fraction MOD 4C 35.6 % LV Cardiac Index MOD 4C 2367.5 cm???/min???m??? LV Diastolic Length 4C 7.3 cm LV Systolic Length 4C 7.0 cm LV Diastolic Volume MOD 2C 83.8 cm??? LV Systolic Volume MOD 2C 52.4 cm??? LV Ejection Fraction MOD 2C 37.5 % LV Cardiac Index MOD 2C 1626.1 cm???/min???m??? LV Diastolic Length 2C 7.8 cm LV Systolic Length 2C 7.6 cm FINDINGS Left Ventricle Moderately increased septal wall thickness. Mildly increased posterior wall thickness. Mildly increased left ventricular diastolic volume. Moderately increased left ventricular systolic volume. Moderately decreased left ventricular ejection fraction. Left ventricular ejection fraction is estimated at 35-40 %. Right Ventricle Right Atrium Left Atrium Mitral Valve Mild mitral regurgitation. Aortic Valve Trace aortic regurgitation. Tricuspid Valve Pulmonic Valve Pericardium No pericardial effusion. Aorta CONCLUSIONS Technically difficult and limited study. Global decrease in contractility with ejection fraction the 40% range with mild mitral and aortic insufficiency. No pericardial effusion Previewed by: Dr. John Hall MD (Electronically Signed) Final Date: 12 July 2024 10:35
--- NOTE | 2024-07-12 12:22 | P.PN ---
Subjective HISTORY OF PRESENT ILLNESS: This is an 89-year-old female with past medical history of hypertension, dyslipidemia, osteoarthritis on long-term anticoagulation for pulmonary embolism, history of breast cancer. Patient presented to hospital due to episode of unresponsiveness. She lives at [facility]. Apparently she was found slumped over in a wheelchair by the staff member. Her pulse ox was initially 70%. Patient gradually became more responsive. She did not have any complaints of chest pain no difficulty breathing no dizziness. CT of the chest was negative for pulmonary embolism. EKG showed a sinus rhythm with nonspecific ST-T wave changes. Patient has no prior history of coronary artery disease or heart failure. She had an echocardiogram done in May 2024 that revealed mild LV systolic dysfunction and moderately increased left atrium with mild mitral and tricuspid regurgitation. Patient's [id number] brings to our attention that patient has had mental status changes and is not at her baseline. Because of this, we will ask for neurology consult. Also discussed that patient had elevated troponins for non-ST JI and recommendations would normally be for a cardiac catheterization but due to her mental status changes and renal abnormalities, we would hold off on this until the other issues are resolved. This was discussed with patient's lbnhzjqh-ow-gla at the bedside and also patient's daughter, Rosenda Marroquin at [phone], was contacted and updated. She is in agreement to give patient time to resolve other medical issues before pursuing left heart catheterization if in fact the patient would want to pursue that. 07/09/24 Patient is seen and examined. Her kidney function is improving. We had a ne urology consult yesterday to evaluate mental status which is improving. Patient did have episode last evening where she took off her oxygen and it was difficult getting her pulse ox up and she was placed on BiPAP. She is currently on 8 L nasal cannula high flow and pulse ox is 94%, blood pressure 120/64, heart rate is in the 70s. Patient is continued on heparin drip. Echocardiogram has been taken and report pending. Discussed heart catheterization with the patient's [id number] and family are in agreement at this time for medical management. 07/11/2024 Patient examined this morning at the bedside. Patient currently denies chest pain or pressure. She denies shortness of breath. Telemetry reveals sinus mechanism. Carotid Doppler performed with no significant stenosis bilaterally. VQ scan negative for PE. MRI of the brain completed revealing extensive punctuate cortical and subcortical hyperintensity suspicious for acute ischemic changes. Acute infarct suspected within the left cerebellum. Some prior hemorrhage could be considered. No mass effect is evident. Acute appearing cortical infarcts bilateral occipital lobe larger on the left. Atrophy with chronic appearing periventricular white matter ischemic changes. Patient's Eliquis has been placed on hold. Further discussion with patient's daughter who lives in [place] at the bedside who states the last time she was visiting in March, she did notice that her mother was not taking her medications as prescri bed. 07/12/2024 Patient examined this morning at the bedside. Patient currently denies chest pain or pressure. She denies shortness of breath. She remains on 13 L high flow nasal cannula. Echocardiogram completed revealing ejection fraction 35 to 40% PHYSICAL EXAM: VITAL SIGNS: Reviewed. GENERAL: Well-developed in no acute distress. NECK: Supple. No JVD or thyromegaly LUNGS: Respirations even and unlabored. Lungs essentially clear to auscultation bilaterally. HEART: Regular rate and rhythm. S1 and S2 heard. EXTREMITIES: Normal range of motion. No clubbing or cyanosis. Peripheral pul ses intact. 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 No plans for cardiac catheterization at this time Patient currently on aspirin and Plavix. Eliquis has been placed on hold. Neurology recommending to resume Eliquis on 07/15/2024 Further recommendations pending patient course Nurse practitioner note has been reviewed by physician. Signing provider agrees with the documented findings, assessment, and plan of care documented by ABALONE SHELLER as a scribe. Objective - Vital Signs Vital signs: Vital Signs Temp 98.3 F 07/12/24 08:00 Pulse 73 07/12/24 11:56 Resp 18 07/12/24 08:00 BP 140/67 07/12/24 08:00 Pulse Ox 90 L 07/12/24 08:17 FiO2 80 07/12/24 11:51 Intake & Output 07/11/24 07/12/24 07/12/24 18:59 06:59 18:59 Intake Total 236 118 Balance 236 118 Weight 74.5 kg Intake: Oral 236 118 Other: Voiding Method Bedside Commode Bedside Commode Bedside Commode Incontinent Incontinent Incontinent # Voids 3 2 # Bowel Movements 0 - Labs CBC & Chem 7: 07/08/24 03:31 07/09/24 08:16
--- NOTE | 2024-07-12 12:50 | XR ---
EXAMINATION TYPE: XR chest 1V portable DATE OF EXAM: 07/12/2024 12:33 PM COMPARISON: 07/09/2024 CLINICAL INDICATION: Female, 89 years old with history of Hypoxemia, TECHNIQUE: XR chest 1V portable view(s) obtained. FINDINGS: The heart size is slightly prominent. The pulmonary vasculature is normal. Some streak opacity makes than the left lower lobe. Correlate for atelectasis. IMPRESSION: 1. Clinical consideration for streak atelectasis left lower lobe [facility], , 07/12/2024 12:47 PM
[2024-07-12] MEDS: FUROSEMIDE 10 MG/ML 4 ML VIAL IV SCH (13:15)
--- NOTE | 2024-07-12 16:11 | P.PN ---
Subjective Progress Note Date: 07/12/24 This is an 89-year-old female patient who resides at [facility] assisted living facility and has a history of hyperlipidemia, GI bleed, hypertension, osteoarthritis, anxiety/depression, left sided breast cancer with previous radiation, non- smoker. Early this morning she was found slumped over in a wheelchair by a staff member who called EMS. Upon arrival to EMS she was found to be bradycardic with poor respiratory effort and initial pulse ox readings in the 70s. She was placed on a nonrebreather mask and became more responsive and was brought into the emergency room. EKG revealed sinus rhythm with some ST depression. CT scan of the brain revealed no acute intracranial hemorrhage, midline shift or mass effect. Revealed no acute pulmonary process. CT angiogram revealed no evidence of pulmonary embolism. Partially visualized left hydronephrosis. White count 9.0. Hemoglobin 15.1. Platelets 172. D-dimer 9.31. Sodium 130. Potassium 4.4. Bicarb 15. BUN 40. Creatinine 1.40. Glucose 178. Troponins 7.4, 8.1, 6.4. She is seen today in consultation in the emergency department. She is currently awake, alert. Maintaining O2 saturations in the 90s on 5 L/min per nasal cannula. He is afebrile. Hemodynamically stable. She has been initiated on a heparin drip. She is a poor historian. The patient is seen today July 08, 2024 in follow-up on the selective care unit. She is currently sitting up in a chair. Awake and alert in no acute distress. Maintaining O2 saturations in the 90s on 5 L/min per nasal cannula. She has been afebrile. She is currently nauseated. Blood cultures pending. White count 9.1. Hemoglobin 13.5. Platelets 182. Sodium 135. Potassium 4.2. Bicarb 21. BUN 36. Creatinine 0.95. Glucose 91. She remains on a heparin drip. Antibiotics in the form of aztreonam. Normal saline at 75 mL/h. The patient is seen today July 09, 2024 in follow-up on the selective care unit. She is currently sitting up in a chair. She is still requiring 8 L high flow nasal cannula. She intermittently needs BiPAP 14/7 and 50% FiO2. X-ray reveals moderate cardiomegaly and mild pulmonary vascular congestion. Continued on a heparin drip. Blood cultures pending. Urine culture ending. She remains on antibiotics in the form of aztreonam. Sodium 135. Potassium 3.4. Bicarb 19. BUN 29. Creatinine 0.73. Ammonia level 11. Arterial blood gases revealed a PaO2 of 70, pCO2 31. pH 7.43. The patient is seen today July 10, 2024 in follow-up on the selective care unit. She is awake and alert in no acute distress. Currently sitting up in a chair. Still requiring 10 L high flow nasal cannula. She is alternating with BiPAP 14/7 and 50% FiO2. She is continued on DuoNeb inhalations. Antibiotics in the form of Azactam. MRI of the brain reveals extensive punctate cortical and subcortical hyperintensities, suspicious for acute ischemic changes. Acute infarct within the left cerebellum. Acute appearing cortical infarcts bilateral occipital lobes larger on the left. Blood cultures revealed no growth. Urine culture revealed no growth. PTT 54.8. Remains on a heparin drip. The patient is seen today July 12, 2024 in follow-up on the selective care unit. She is currently sitting up in bed. Awake and alert. She is now requiring Airvo high flow oxygen at 50 L and 80% FiO2. X-ray continues to show only some streaky atelectasis of the left lower lobe. proBNP level 2370. Procalcitonin negative at 0.10. Urine culture was positive for Diana only. Blood cultures revealed no growth. She is continued on DuoNeb inhalations. Azactam discontinued. Objective - Vital Signs Vital signs: Vital Signs Temp 98.3 F 07/12/24 12:00 Pulse 80 07/12/24 15:54 Resp 18 07/12/24 15:54 BP 118/62 07/12/24 12:00 Pulse Ox 90 L 07/12/24 15:45 FiO2 80 07/12/24 15:45 Intake & Output 07/11/24 07/12/24 07/12/24 18:59 06:59 18:59 Intake Total 236 118 Output Total 1800 Balance 236 -1682 Weight 74.5 kg Intake: Oral 236 118 Output: Urine 1800 Female - External 1800 Other: Voiding Method Bedside Commode Bedside Commode Bedside Commode Incontinent Incontinent Incontinent # Voids 3 2 # Bowel Movements 0 - Exam GENERAL EXAM: Alert, 89-year-old female, on Airvo high flow oxygen at 50 L and 80% FiO2, in no apparent distress. HEAD: Normocephalic. EYES: Normal reaction of pupils, equal size. NOSE: Clear with pink turbinates. THROAT: No erythema or exudates. NECK: No masses, no JVD. CHEST: No chest wall deformity. LUNGS: Equal air entry with faint crackles in the left base. CVS: S1 and S2 normal with no audible murmur, regular rhythm. ABDOMEN: No hepatosplenomegaly, normal bowel sounds, no guarding or rigidity. SPINE: No scoliosis or deformity SKIN: No rashes CENTRAL NERVOUS SYSTEM: No focal deficits, tone is normal in all 4 extremities. EXTREMITIES: There is no peripheral edema. No clubbing, no cyanosis. Peripheral pulses are intact. - Labs CBC & Chem 7: 07/08/24 03:31 07/09/24 08:16 Labs: Microbiology - Last 24 Hours (Table) 07/07/24 03:43 Blood Culture - Final Blood 07/07/24 03:28 Blood Culture - Final Blood Assessment and Plan Assessment: Syncopal episode of unclear etiology, possible myocardial infarction, found unresponsive slumped over in a chair with bradycardia and hypoxemia. MRI of the brain reveals extensive punctate cortical and subcortical hyperintensities, suspicious for acute ischemic changes. Acute infarct suspected within the left cerebellum. Some prior hemorrhage could be considered. No mass effect. Acute appearing cortical infarcts bilateral occipital lobes larger on the left. Atrophy with chronic appearing periventricular white matter changes Acute non-ST segment elevation myocardial infarction Acute hypoxemic respiratory failure secondary to above. On Airvo high flow oxygen at 50 L and 80% FiO2. Pulmonary embolism ruled out, no consolidation, no pleural effusions Acute kidney injury Suspected urinary tract infection, culture pending History of hypertension Hyperlipidemia History of left breast cancer History of anxiety/depression Lifelong non-smoker Plan: The patient was seen and evaluated Chest x-ray, labs and medications reviewed Requiring Airvo high flow oxygen Add Lasix 40 mg IV every 12 hours Titrate down the FiO2 as tolerated Continue DuoNeb inhalations Titrate down the FiO2 as tolerated Prognosis is guarded DNR/DNI CODE STATUS May need to consider hospice Dr. Child spoke with several family members at the bedside today I have personally seen and examined the patient, performed the documentation and the assessment and plan as written. Number of minutes spent on the visit: 10 Dictation was produced using [employer] dictation software. Please excuse any grammatical, word or spelling errors.
--- NOTE | 2024-07-12 16:58 | P.PN ---
Progress Note - Text Progress Note Date: 07/12/24 Chief Complaint: Decreased responsiveness This is a 89-year-old patient, follows Dr. Marlow. Patient was brought in by the EMS to the ER. Patient is at her assisted living. EMS was called with the patient was found to be slumped over in the chair by the care of a staff member. At baseline patient is only AO x 1. Patient had mild to moderate labored respirations. When staff member did compress out there found the patient slumped over in the wheelchair and altered. His 911 was initiated. Patient herself is a very poor historian. Pulse ox was found to be 70%. Normally wears oxygen. Patient was briefly into bradycardia with heart rate in the 40s. Patient had vomited prior to arrival of the EMS. Patient during transport was put on 15 L nonrebreather. Pulse ox came to 80 to 90%. EKG showed normal sinus rhythm with some T wave changes. Patient is not really able to speak. Struggling a bit. In the ER patient is able to answer questions. But she thinks it is 1991. She thinks she is in the [facility]. July 08: Patient more awake today. Answering simple questions. Had a fair amount of breakfast. Cardiology is considering a cardiac catheterization. On IV heparin drip. Seen by neurology. [place] to be having encephalopathy on presentation. Possibly from UT. July 09: Up in chair. On 8 to 10 L high flow oxygen. No obvious cause has been determined. ABG: On 50% 92 shows PaO2 of 70 pCO2 of 31. Chest x-ray has been nonspecific. 2D echo was done results pending. Had about 75% of breakfast lunch. July 10: Patient was seen this morning. Still requiring high flow oxygen anywhere from 8 to 10 L. No obvious cause found. Will order a VQ scan to rule out any peripheral PE. IV heparin being discontinued by cardiology today. Resume Jyoti. I spoke to patient's daughter at the bedside. Patient had a femur fracture back in September of this year. Since then patient is become hypoxic. Patient with apparent significant l load of fat embolism that may have resulted in hypoxia. MRI results suggestive of scattered emboli in the brain Late this evening I spoke to patient's [id number] Diana and her daughter Susannah who was flown from out of town. Over the phone. Came in for me back in September of this year Eliquis was actually discontinued by Dr. Juarez because of the fall. And patient's not been Eliquis at home. Risk of falls. Given multiple infarcts in that case after discussing with them decided not to give any Eliquis. They understand prognosis guarded. Will see how patient does with her oxygen status. July 11: Saw the patient this afternoon. Remains on high flow oxygen. Attempt to decrease not successful. Still hovering around 8 to 10 L. Spoke to patient's daughter and [id number] at the bedside. Given patient's age and comorbidity they agree and very limited options. Anticoagulation could be dangerous in the setting of acute stroke. Agreeable to looking into hospice. Also discussed with social work therapist. Patient's VQ scan unremarkable. 2D echo results still pending. Cause of hypoxia unclear. At home patient is on 3 L of oxygen. Oral intake fair. Patient does not have any fever. No cough. Normal procalcitonin. DC aztreonam. July 12: Laying in bed. Oxygen requirement has gone up to 30 L. Spoke with respiratory therapist. Patient placed on Airvo. 50 L and 80%. His daughter and [id number] at the bedside. Discussed. Limited 2D echo showed EF of 40%. Oral intake about 50%. Lasix was ordered by pulmonary. Prognosis remains very guarded. Active Medications Acetaminophen (Acetaminophen Tab 325 Mg Tab) 650 mg PO Q6HR PRN PRN Reason: Mild Pain or Fever > 100.5 Last Admin: 07/09/24 18:03 Dose: 650 mg Al Hydroxide/Mg Hydroxide (Mag Hydrox/Al Hydrox/Simeth 30 Ml Cup) 15 ml PO Q6HR PRN PRN Reason: Indigestion Albuterol/Ipratropium (Ipratropium-Albuterol 3 Ml Neb) 3 ml INHALATION RT-QID [facility] Last Admin: 07/12/24 15:42 Dose: 3 ml Albuterol/Ipratropium (Ipratropium-Albuterol 3 Ml Neb) 3 ml INHALATION RT-Q2H PRN PRN Reason: Shortness Of Breath Or Wheezing Aspirin (Aspirin 81 Mg) 81 mg PO DAILY [facility] Last Admin: 07/12/24 08:46 Dose: 81 mg Atorvastatin Calcium (Atorvastatin 40 Mg Tab) 40 mg PO HS [facility] Last Admin: 07/11/24 20:27 Dose: 40 mg Clopidogrel Bisulfate (Clopidogrel 75 Mg Tab) 75 mg PO DAILY [facility] Last Admin: 07/12/24 08:46 Dose: 75 mg Docusate Sodium (Docusate 100 Mg Cap) 100 mg PO BID PRN PRN Reason: Constipation Last Admin: 07/11/24 20:27 Dose: 100 mg Furosemide (Furosemide 10 Mg/Ml 4 Ml Vial) 40 mg IV Q12HR [facility] Last Admin: 07/12/24 13:15 Dose: 40 mg Heparin Sodium (Porcine) (Heparin Sodium,Porcine 5,000 Unit/Ml 1 Ml Vial) 5,000 unit SQ Q12HR [facility] Last Admin: 07/12/24 08:46 Dose: 5,000 unit Isosorbide Mononitrate (Isosorbide Mononitrate Er 30 Mg Tab.Er.24h) 30 mg PO DAILY [facility] Last Admin: 07/12/24 08:46 Dose: 30 mg Lisinopril (Lisinopril 10 Mg Tab) 10 mg PO DAILY [facility] Last Admin: 07/12/24 08:46 Dose: 10 mg Metoprolol Tartrate (Metoprolol Tartrate 12.5 Mg Tab) 12.5 mg PO BID [facility] Last Admin: 07/12/24 08:46 Dose: 12.5 mg Naloxone HCl (Naloxone 0.4 Mg/Ml 1 Ml Vial) 0.2 mg IV Q2M PRN PRN Reason: Opioid Reversal Ondansetron HCl (Ondansetron 4 Mg/2 Ml Vial) 4 mg IVP Q8HR PRN PRN Reason: Nausea And Vomiting Sertraline HCl (Sertraline 50 Mg Tab) 50 mg PO HS [facility] Last Admin: 07/11/24 20:27 Dose: 50 mg Social history: Assisted living. Non-smoker. Alcohol rarely. Physical examination: VITAL SIGNS: 98.3, 82, 18, 118 x 62, 98% on Airvo 50 L 80% GENERAL: Lying in bed, short of breath EYES: Pupils equal. Conjunctiva marco l. HEENT: External appearance of nose and ears normal, oral cavity grossly normal. NECK: JVD not raised; masses not palpable. HEART: First and second heart sounds are normal; no edema. LUNGS: Respiratory rate increased, diminished breath sounds ABDOMEN: Soft, nontender, liver spleen not palpable, no masses palpable. PSYCH: Answering simple questions MUSCULOSKELETAL:No Clubbing/cyanosis;muscles-grossly intact. OA INVESTIGATIONS, reviewed in the clinical context: VQ scan: No mismatch Carotid Doppler: No significant stenosis July 11: proBNP 2370. Procalcitonin 0.10 MRI brain: Acute infarct suspected within the left cerebellum. Acute appearing cortical infarcts bilateral occipital lobes larger on the left. July 09: ABG: pH 7.43 pCO2 31 pO2 70 on FiO2 50% potassium 3.6 creatinine 0.73 July 08: White count 9.1 hemoglobin 13.5 platelets 182 sodium 135 creatinine 0.95 July 07, 2024: White count 9 hemoglobin 15.9 platelets 172 sodium 130 potassium 4.4 BUN 40 creatinine 1.4 Troponin I 7.4, 8.1, 6.4 EKG tracing personally reviewed by me-normal sinus rhythm. Some ST-T wave changes. CT brain without contrast: No acute event. Encephalomalacia in the left frontal lobe consistent with old infarct Chest x-ray film personally reviewed by me-borderline cardiomegaly. Unfolding of the aorta. Rotated film. Portable CT angio chest: Negative PE. Partially visualized left hydronephrosis. Nonobstructing left renal calculus. Assessment plan: -Acute non-Q wave UT. Aspirin. Lipitor. Lopressor. IV heparin-being discontinued today. 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 -Probable acute congestive heart failure from systolic dysfunction ischemic EF 40% IV Lasix 40 mg every 12 -IV heparin monitoring-discontinued Follow PTT -Chronic medical debility. At baseline patient uses a wheelchair -Acute hypoxic respiratory failure. Worsening On Airvo 50% Patient does not have any obvious pneumonia, PE or effusion. 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 Zestril. -Chronic medical debility -Acute acute kidney injury, possible ATN from blood pressure fluctuation: Better Follow renal function -DNR Advance care planning [July 11, 2024]: This was done at the bedside with patient's daughter and [id number]. Patient's advanced age. Comorbidities. Multiple strokes embolic on this presentation. Blood thinner will be highly risky given that it was discontinued earlier by Dr. Larry few months ago because of risk of falls. And given the acute stroke it may convert into hemorrhagic stroke. They are agreeable to look into rehab/hospice depending on clinical course. Time spent for this about 25 minutes Discussed with patient's daughter and [id number] at the bedside. Oxygen requirement has gone up. Prognosis remains guarded. Given her age and comorbid ities. Past Medical History Past Medical History: Cancer, GI Bleed, Hyperlipidemia, Hypertension, Osteoarthritis (OA) Additional Past Medical History / Comment(s): HX DIVERTICULITIS, BLEEDING ULCER 3-REC 2 UNITS PRBC,ANEMIA,BREAST CA LEFT BREAST WITH 2 LYMPH NODES REMOVED. HAD RADIATION -2013 History of Any Multi-Drug Resistant Organisms: None Reported Past Surgical History: Breast Surgery, Hysterectomy, Joint Replacement, Orthopedic Surgery Additional Past Surgical History / Comment(s): LAURA KNEE REPLACEMENT,ABD CYST REMOVED, CATARACT SURGERY LAURA, toe removed to treat hammer toe in 03/2023 Past Anesthesia/Blood Transfusion Reactions: No Reported Reaction Past Psychological History: Anxiety, Depression Smoking Status: Never smoker Past Alcohol Use History: Rare Past Drug Use History: None Reported
--- NOTE | 2024-07-13 12:49 | P.PN ---
Subjective HISTORY OF PRESENT ILLNESS: This is an 89-year-old female with past medical history of hypertension, dyslipidemia, osteoarthritis on long-term anticoagulation for pulmonary embolism, history of breast cancer. Patient presented to hospital due to episode of unresponsiveness. She lives at [facility]. Apparently she was found slumped over in a wheelchair by the staff member. Her pulse ox was initially 70%. Patient gradually became more responsive. She did not have any complaints of chest pain no difficulty breathing no dizziness. CT of the chest was negative for pulmonary embolism. EKG showed a sinus rhythm with nonspecific ST-T wave changes. Patient has no prior history of coronary artery disease or heart failure. She had an echocardiogram done in May 2024 that revealed mild LV systolic dysfunction and moderately increased left atrium with mild mitral and tricuspid regurgitation. Patient's [id number] brings to our attention that patient has had mental status changes and is not at her baseline. Because of this, we will ask for neurology consult. Also discussed that patient had elevated troponins for non-ST JI and recommendations would normally be for a cardiac catheterization but due to her mental status changes and renal abnormalities, we would hold off on this until the other issues are resolved. This was discussed with patient's [id number]-no-rxe at the bedside and also patient's daughter, Rosenda Marroquin at [phone], was contacted and updated. She is in agreement to give patient time to resolve other medical issues before pursuing left heart catheterization if in fact the patient would want to pursue that. 07/09/24 Patient is seen and examined. Her kidney function is improving. We had a ne urology consult yesterday to evaluate mental status which is improving. Patient did have episode last evening where she took off her oxygen and it was difficult getting her pulse ox up and she was placed on BiPAP. She is currently on 8 L nasal cannula high flow and pulse ox is 94%, blood pressure 120/64, heart rate is in the 70s. Patient is continued on heparin drip. Echocardiogram has been taken and report pending. Discussed heart catheterization with the patient's [id number] and family are in agreement at this time for medical management. 07/11/2024 Patient examined this morning at the bedside. Patient currently denies chest pain or pressure. She denies shortness of breath. Telemetry reveals sinus mechanism. Carotid Doppler performed with no significant stenosis bilaterally. VQ scan negative for PE. MRI of the brain completed revealing extensive punctuate cortical and subcortical hyperintensity suspicious for acute ischemic changes. Acute infarct suspected within the left cerebellum. Some prior hemorrhage could be considered. No mass effect is evident. Acute appearing cortical infarcts bilateral occipital lobe larger on the left. Atrophy with chronic appearing periventricular white matter ischemic changes. Patient's Eliquis has been placed on hold. Further discussion with patient's daughter who lives in [place] at the bedside who states the last time she was visiting in March, she did notice that her mother was not taking her medications as prescri bed. 07/12/2024 Patient examined this morning at the bedside. Patient currently denies chest pain or pressure. She denies shortness of breath. She remains on 13 L high flow nasal cannula. Echocardiogram completed revealing ejection fraction 35 to 40% 07/13/2024 Patient examined this morning at the bedside. Patient currently denies chest pain or pressure. She denies shortness of breath. She remains on nasal cannula to maintain oxygen saturations greater than 92%. PHYSICAL EXAM: VITAL SIGNS: Reviewed. GENERAL: Well-developed in no acute distress. NECK: Supple. No JVD or thyromegaly LUNGS: Respirations even and unlabored. Lungs essentially clear to auscultation bilaterally. HEART: Regular rate and rhythm. S1 and S2 heard. EXTREMITIES: Normal range of motion. No clubbing or cyanosis. Peripheral pulses intact. 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 No plans for cardiac catheterization at this time Patient currently on aspirin and Plavix. Eliquis has been placed on hold. Neurology recommending to resume Eliquis on 07/15/2024 and then stopping Plavix. Continue aspirin. No further inpatient recommendations from a cardiac standpoint We will sign off. Please reconsult if needed. Nurse practitioner note has been reviewed by physician. Signing provider agrees with the documented findings, assessment, and plan of care documented by LIE DETECTOR OPERATOR as a scribe. Objective - Vital Signs Vital signs: Vital Signs Temp 97.1 F L 07/13/24 11:29 Pulse 88 07/13/24 11:29 Resp 24 07/13/24 11:29 BP 95/61 07/13/24 11:29 Pulse Ox 81 L 07/13/24 11:29 FiO2 85 07/13/24 11:00 Intake & Output 07/12/24 07/13/24 07/13/24 18:59 06:59 18:59 Intake Total 236 150 Output Total 2700 700 Balance -2464 -700 150 Weight 74.5 kg Intake: Oral 236 150 Output: Urine 2700 700 Female - External 1800 Other: Voiding Method Bedside Commode Indwelling Catheter Indwelling Catheter Incontinent - Labs CBC & Chem 7: 07/08/24 03:31 07/09/24 08:16 Labs: Microbiology - Last 24 Hours (Table) 07/07/24 03:43 Blood Culture - Final Blood 07/07/24 03:28 Blood Culture - Final Blood
--- NOTE | 2024-07-13 14:21 | P.PN ---
Subjective Progress Note Date: 07/13/24 This is an 89-year-old female patient who resides at up assisted living facility and has a history of hyperlipidemia, GI bleed, hypertension, osteoarthritis, anxiety/depression, left sided breast cancer with previous radiation, non- smoker. Early this morning she was found slumped over in a wheelchair by a staff member who called EMS. Upon arrival to EMS she was found to be bradycardic with poor respiratory effort and initial pulse ox readings in the 70s. She was placed on a nonrebreather mask and became more responsive and was brought into the emergency room. EKG revealed sinus rhythm with some ST depression. CT scan of the brain revealed no acute intracranial hemorrhage, midline shift or mass effect. Revealed no acute pulmonary process. CT angiogram revealed no evidence of pulmonary embolism. Partially visualized left hydronephrosis. White count 9.0. Hemoglobin 15.1. Platelets 172. D-dimer 9.31. Sodium 130. Potassium 4.4. Bicarb 15. BUN 40. Creatinine 1.40. Glucose 178. Troponins 7.4, 8.1, 6.4. She is seen today in consultation in the emergency department. She is currently awake, alert. Maintaining O2 saturations in the 90s on 5 L/min per nasal cannula. He is afebrile. Hemodynamically stable. She has been initiated on a heparin drip. She is a poor historian. The patient is seen today July 08, 2024 in follow-up on the selective care unit. She is currently sitting up in a chair. Awake and alert in no acute distress. Maintaining O2 saturations in the 90s on 5 L/min per nasal cannula. She has been afebrile. She is currently nauseated. Blood cultures pending. White count 9.1. Hemoglobin 13.5. Platelets 182. Sodium 135. Potassium 4.2. Bicarb 21. BUN 36. Creatinine 0.95. Glucose 91. She remains on a heparin drip. Antibiotics in the form of aztreonam. Normal saline at 75 mL/h. The patient is seen today July 09, 2024 in follow-up on the selective care unit. She is currently sitting up in a chair. She is still requiring 8 L high flow nasal cannula. She intermittently needs BiPAP 14/7 and 50% FiO2. X-ray reveals moderate cardiomegaly and mild pulmonary vascular congestion. Continued on a heparin drip. Blood cultures pending. Urine culture ending. She remains on antibiotics in the form of aztreonam. Sodium 135. Potassium 3.4. Bicarb 19. BUN 29. Creatinine 0.73. Ammonia level 11. Arterial blood gases revealed a PaO2 of 70, pCO2 31. pH 7.43. The patient is seen today July 10, 2024 in follow-up on the selective care unit. She is awake and alert in no acute distress. Currently sitting up in a chair. Still requiring 10 L high flow nasal cannula. She is alternating with BiPAP 14/7 and 50% FiO2. She is continued on DuoNeb inhalations. Antibiotics in the form of Azactam. MRI of the brain reveals extensive punctate cortical and subcortical hyperintensities, suspicious for acute ischemic changes. Acute infarct within the left cerebellum. Acute appearing cortical infarcts bilateral occipital lobes larger on the left. Blood cultures revealed no growth. Urine culture revealed no growth. PTT 54.8. Remains on a heparin drip. The patient is seen today July 12, 2024 in follow-up on the selective care unit. She is currently sitting up in bed. Awake and alert. She is now requiring Airvo high flow oxygen at 50 L and 80% FiO2. X-ray continues to show only some streaky atelectasis of the left lower lobe. proBNP level 2370. Procalcitonin negative at 0.10. Urine culture was positive for Diana only. Blood cultures revealed no growth. She is continued on DuoNeb inhalations. Azactam discontinued. The patient is seen today July 13, 2024 in follow-up on the selective care unit. She is currently resting in bed. Her oxygen requirements have gone up again today. She is currently on Airvo high flow oxygen at 55 L and 85% FiO2. O2 saturations have continued to decline. Family is at the bedside. She remains on bronchodilators. Remains on IV diuretics. Heparin for DVT prophylaxis. Objective - Vital Signs Vital signs: Vital Signs Temp 97.1 F L 07/13/24 11:29 Pulse 88 07/13/24 13:24 Resp 24 07/13/24 13:24 BP 95/61 07/13/24 11:29 Pulse Ox 81 L 07/13/24 11:29 FiO2 85 07/13/24 11:00 Intake & Output 07/12/24 07/13/24 07/13/24 18:59 06:59 18:59 Intake Total 236 350 Output Total 2700 700 Balance -2464 -700 350 Weight 74.5 kg Intake: Oral 236 350 Output: Urine 2700 700 Female - External 1800 Other: Voiding Method Bedside Commode Indwelling Catheter Indwelling Catheter Incontinent - Exam GENERAL EXAM: Alert, very weak 89-year-old female, on Airvo high flow oxygen at 55 L and 88% FiO2, in no apparent distress. HEAD: Normocephalic. EYES: Normal reaction of pupils, equal size. NOSE: Clear with pink turbinates. THROAT: No erythema or exudates. NECK: No masses, no JVD. CHEST: No chest wall deformity. LUNGS: Equal air entry with faint crackles in the left base. CVS: S1 and S2 normal with no audible murmur, regular rhythm. ABDOMEN: No hepatosplenomegaly, normal bowel sounds, no guarding or rigidity. SPINE: No scoliosis or deformity SKIN: No rashes CENTRAL NERVOUS SYSTEM: No focal deficits, tone is normal in all 4 extremities. EXTREMITIES: There is no peripheral edema. No clubbing, no cyanosis. Peripheral pulses are intact. - Labs CBC & Chem 7: 07/08/24 03:31 07/09/24 08:16 Labs: Microbiology - Last 24 Hours (Table) 07/07/24 03:43 Blood Culture - Final Blood 07/07/24 03:28 Blood Culture - Final Blood Assessment and Plan Assessment: Syncopal episode of unclear etiology, possible myocardial infarction, found unresponsive slumped over in a chair with bradycardia and hypoxemia. MRI of the brain reveals extensive punctate cortical and subcortical hyperintensities, suspicious for acute ischemic changes. Acute infarct suspected within the left cerebellum. Some prior hemorrhage could be considered. No mass effect. Acute appearing cortical infarcts bilateral occipital lobes larger on the left. Atrophy with chronic appearing periventricular white matter changes Acute non-ST segment elevation myocardial infarction Acute hypoxemic respiratory failure secondary to above. On Airvo high flow oxygen at 55 L and 85% FiO2. Pulmonary embolism ruled out, no consolidation, no pleural effusions Acute kidney injury Suspected urinary tract infection, culture pending History of hypertension Hyperlipidemia History of left breast cancer History of anxiety/depression Lifelong non-smoker Plan: The patient was seen and evaluated Medications reviewed Requiring increasing FiO2 support on the Airvo O2 saturations continue to decline Offered BiPAP support however family declines at this time They are considering comfort care I have personally seen and examined the patient, performed the documentation and the assessment and plan as written. Number of minutes spent on the visit: 10 Dictation was produced using [employer] dictation software. Please excuse any grammatical, word or spelling errors.
--- NOTE | 2024-07-13 14:36 | P.PN ---
Subjective Progress Note Date: 07/13/24 Is accompanied by her daughter and [id number] and according to her family members it seems that she had a tough morning it which she desatted in the morning and was recommended that she be on BiPAP but family has refused. Per family members during our are not aware the patient has any history of atria l fibrillation and she was on anticoagulation for blood clot and they were told that she does not have to be on long-term anticoagulation. It seems she had history of pulmonary embolism. Objective - Vital Signs Vital signs: Vital Signs Temp 97.1 F L 07/13/24 11:29 Pulse 88 07/13/24 13:24 Resp 24 07/13/24 13:24 BP 95/61 07/13/24 11:29 Pulse Ox 81 L 07/13/24 11:29 FiO2 85 07/13/24 11:00 Intake & Output 07/12/24 07/13/24 07/13/24 18:59 06:59 18:59 Intake Total 236 350 Output Total 2700 700 Balance -2464 -700 350 Weight 74.5 kg Intake: Oral 236 350 Output: Urine 2700 700 Female - External 1800 Other: Voiding Method Bedside Commode Indwelling Catheter Indwelling Catheter Incontinent - Exam Is sitting up in a recliner chair and is not in acute distress. Lung: Is on high flow oxygen. Neuro: Patient is moderately drowsy but is awakeable to voice. She is oriented to self place. Is following simple commands. Right facial weakness no dysarthria. Motor: Strength is hard to assess individual muscle strength because of her cooperation. Is Lifting arms and legs above gravity Some of the workup during this hospital visit consisted of: Vitamin B12: 1973 TSH: 0.558 Ammonia 11 There is triglyceride 97, cholesterol 117, LDL is 47 and HDL is 50. Calcium is 9.2. AST is 47 ALT 17. Troponin is 7.40 repeated is 8.10. Urinalysis seems possible suggestive of underlying urinary tract infection with leukocyte is large, urine white blood cells 73. CT of the head is reported as no acute intracranial hemorrhage, midline shift or mass effect. Encephalomalacia in the left frontal lobe consistent with old in farct. I personally reviewed the CT and agree with the report. MRI of the brain is reported as extensive punctate cortical and subcortical hyperintensity, suspicious for acute ischemic changes. Acute infarct suspected in the left cerebellum. Some prior hemorrhage could be considered. No mass eff ect is evident. Acute appearing cortical infarct bilateral occipital lobe larger on the left. Atrophy with chronic appearing periventricular white matter ischemic changes. I personally reviewed the MRI and I do agree the patient has bilateral ischemic stroke or small to moderate in size but mostly small that seems embolic in etiology. Carotid duplex: Is reported as no hemodynamic significant stenosis of the right and left. Limited 2D echo: Technically difficult and limited study. Global decrease in contractility with ejection fraction of 40% range with mild mitral and aortic insufficiency. No pericardial effusion - Labs CBC & Chem 7: 07/08/24 03:31 07/09/24 08:16 Labs: Microbiology - Last 24 Hours (Table) 07/07/24 03:43 Blood Culture - Final Blood 07/07/24 03:28 Blood Culture - Final Blood Assessment and Plan Assessment: This is an 89-year-old woman who presented emergency department from her nursing facility since she was found slumped over in a wheelchair by staff members. EMS found her to be bradycardic with poor respiratory effort with a pulse ox in the 70s. She was more responsive with nonrebreather. EKG reveals sinus rhythm with some ST depression. Acute to subacute ischemic stroke over bilateral hemisphere and it seems cardioembolic in etiology. No IV thrombolytics since outside the window and the risk outweigh the benefit. Altered mental status seems due to multifactorial: acute stroke, acute hypoxic encephalopathy as well as component of metabolic encephalopathy and acute UTI. Today patient desatted in the low 80s and family refused BiPAP Syncopal of unknown etiology but possibly due to myocardial infarction Acute non-ST segment elevation Probable acute UTI Mild hyponatremia Acute kidney injury History of old stroke. History of pulmonary embolism Underlying history of GI bleed History of left breast cancer with previous radiation History of hyperlipidemia History of osteoarthritis Underlying history of anxiety/depression Plan: Recommend transesophageal echocardiogram once the patient is stable. She is currently unstable because of her karlo distress. Family has declined BiPAP. Cardiology is on board Pulmonary is on board It seems that the patient has history of pulmonary embolism and she was on anticoagulation according to the family and they are told she does not have to be on long-term anticoagulation. I will defer the decision of use of anticoagulation to cardiology and primary team if needed. Patient is on aspirin 81 mg daily. I started Plavix 75mg daily. Eliquis is on hold and recommend resuming Eliquis (if felt needed) on 07/15/2024 to avoid hemorrhagic conversion because of stroke. But if the benefit outweighed the risk then recommend heparin drip and avoid boluses and keep PTT between 45 and 60. Once anticoagulation is started recommend stopping Plavix to avoid increase risk of bleed from neurological perspective. Continue Lipitor to 40 mg nightly for secondary stroke prophylaxis Continue neurochecks Cardiac monitoring PT, OT and ASSISTANT PROFESSOR OF MATHEMATICS are consulted Will defer the rest of medical management to primary and other specialist DVT prophylaxis On subcu heparin 5000 units every 12 hours Prognosis is poor. Plan is discussed with patient, her daughter and [id number] who were at bedside and her nurse. Time with Patient: Less than 30
--- NOTE | 2024-07-13 16:51 | P.PN ---
Progress Note - Text Progress Note Date: 07/13/24 Chief Complaint: Decreased responsiveness This is a 89-year-old patient, follows Dr. Marlow. Patient was brought in by the EMS to the ER. Patient is at her assisted living. EMS was called with the patient was found to be slumped over in the chair by the care of a staff member. At baseline patient is only AO x 1. Patient had mild to moderate labored respirations. When staff member did compress out there found the patient slumped over in the wheelchair and altered. His 911 was initiated. Patient herself is a very poor historian. Pulse ox was found to be 70%. Normally wears oxygen. Patient was briefly into bradycardia with heart rate in the 40s. Patient had vomited prior to arrival of the EMS. Patient during transport was put on 15 L nonrebreather. Pulse ox came to 80 to 90%. EKG showed normal sinus rhythm with some T wave changes. Patient is not really able to speak. Struggling a bit. In the ER patient is able to answer questions. But she thinks it is 1991. She thinks she is in the [facility]. July 08: Patient more awake today. Answering simple questions. Had a fair amount of breakfast. Cardiology is considering a cardiac catheterization. On IV heparin drip. Seen by neurology. Shobonier to be having encephalopathy on presentation. Possibly from NM. July 09: Up in chair. On 8 to 10 L high flow oxygen. No obvious cause has been determined. ABG: On 50% 92 shows PaO2 of 70 pCO2 of 31. Chest x-ray has been nonspecific. 2D echo was done results pending. Had about 75% of breakfast lunch. July 10: Patient was seen this morning. Still requiring high flow oxygen anywhere from 8 to 10 L. No obvious cause found. Will order a VQ scan to rule out any peripheral PE. IV heparin being discontinued by cardiology today. Resume Jyoti. I spoke to patient's daughter at the bedside. Patient had a femur fracture back in September of this year. Since then patient is become hypoxic. Patient with apparent significant l load of fat embolism that may have resulted in hypoxia. MRI results suggestive of scattered emboli in the brain Late this evening I spoke to patient's [id number] Diana and her daughter Susannah who was flown from out of town. Over the phone. Came in for me back in September of this year Eliquis was actually discontinued by Dr. Juarez because of the fall. And patient's not been Eliquis at home. Risk of falls. Given multiple infarcts in that case after discussing with them decided not to give any Eliquis. They understand prognosis guarded. Will see how patient does with her oxygen status. July 11: Saw the patient this afternoon. Remains on high flow oxygen. Attempt to decrease not successful. Still hovering around 8 to 10 L. Spoke to patient's daughter and [id number] at the bedside. Given patient's age and comorbidity they agree and very limited options. Anticoagulation could be dangerous in the setting of acute stroke. Agreeable to looking into hospice. Also discussed with social work manager. Patient's VQ scan unremarkable. 2D echo results still pending. Cause of hypoxia unclear. At home patient is on 3 L of oxygen. Oral intake fair. Patient does not have any fever. No cough. Normal procalcitonin. DC aztreonam. July 12: Laying in bed. Oxygen requirement has gone up to 30 L. Spoke with respiratory therapist. Patient placed on Airvo. 50 L and 80%. His daughter and [id number] at the bedside. Discussed. Limited 2D echo showed EF of 40%. Oral intake about 50%. Lasix was ordered by pulmonary. Prognosis remains very guarded. July 13: Patient is on Airvo. Reclining in bed. Able to communicate. Dr. Child suggested BiPAP but the patient wants to communicate and meet with her family. Patient's daughter and [id number] at the bedside understand patient is doing poorly. Remains on IV Lasix. Continues to tolerate diet. Active Medications Acetaminophen (Acetaminophen Tab 325 Mg Tab) 650 mg PO Q6HR PRN PRN Reason: Mild Pain or Fever > 100.5 Last Admin: 07/09/24 18:03 Dose: 650 mg Al Hydroxide/Mg Hydroxide (Mag Hydrox/Al Hydrox/Simeth 30 Ml Cup) 15 ml PO Q6HR PRN PRN Reason: Indigestion Albuterol/Ipratropium (Ipratropium-Albuterol 3 Ml Neb) 3 ml INHALATION RT-QID SUZANNE Last Admin: 07/13/24 15:09 Dose: 3 ml Albuterol/Ipratropium (Ipratropium-Albuterol 3 Ml Neb) 3 ml INHALATION RT-Q2H PRN PRN Reason: Shortness Of Breath Or Wheezing Aspirin (Aspirin 81 Mg) 81 mg PO DAILY [facility] Last Admin: 07/13/24 08:55 Dose: 81 mg Atorvastatin Calcium (Atorvastatin 40 Mg Tab) 40 mg PO HS [facility] Last Admin: 07/12/24 20:20 Dose: 40 mg Benzocaine (Benzocaine 20 % Gel 11.9 Gm Tube) 1 applic MM ONCE PRN PRN Reason: Mouth Sore Pain Stop: 07/20/24 16:10 Clopidogrel Bisulfate (Clopidogrel 75 Mg Tab) 75 mg PO DAILY [facility] Last Admin: 07/13/24 08:55 Dose: 75 mg Docusate Sodium (Docusate 100 Mg Cap) 100 mg PO BID PRN PRN Reason: Constipation Last Admin: 07/12/24 17:28 Dose: 100 mg Furosemide (Furosemide 10 Mg/Ml 4 Ml Vial) 40 mg IV Q12HR [facility] Last Admin: 07/13/24 08:55 Dose: 40 mg Heparin Sodium (Porcine) (Heparin Sodium,Porcine 5,000 Unit/Ml 1 Ml Vial) 5,000 unit SQ Q12HR [facility] Last Admin: 07/13/24 08:55 Dose: 5,000 unit Isosorbide Mononitrate (Isosorbide Mononitrate Er 30 Mg Tab.Er.24h) 30 mg PO DAILY [facility] Last Admin: 07/13/24 08:55 Dose: 30 mg Lisinopril (Lisinopril 10 Mg Tab) 10 mg PO DAILY [facility] Last Admin: 07/13/24 08:55 Dose: 10 mg Metoprolol Tartrate (Metoprolol Tartrate 12.5 Mg Tab) 12.5 mg PO BID [facility] Last Admin: 07/13/24 08:55 Dose: 12.5 mg Naloxone HCl (Naloxone 0.4 Mg/Ml 1 Ml Vial) 0.2 mg IV Q2M PRN PRN Reason: Opioid Reversal Ondansetron HCl (Ondansetron 4 Mg/2 Ml Vial) 4 mg IVP Q8HR PRN PRN Reason: Nausea And Vomiting Sertraline HCl (Sertraline 50 Mg Tab) 50 mg PO HS [facility] Last Admin: 07/12/24 20:20 Dose: 50 mg Social history: Assisted living. Non-smoker. Alcohol rarely. Physical examination: VITAL SIGNS: 97.1, 88, 24, 95 x 61, 81% on Airvo GENERAL: Lying in bed short of breath EYES: Pupils equal. Conjunctiva marco l. HEENT: External appearance of nose and ears normal, oral cavity grossly normal. NECK: JVD not raised; masses not palpable. HEART: First and second heart sounds are normal; no edema. LUNGS: Respiratory rate increased, diminished breath sounds ABDOMEN: Soft, nontender, liver spleen not palpable, no masses palpable. PSYCH: Answering simple questions MUSCULOSKELETAL:No Clubbing/cyanosis;muscles-grossly intact. OA INVESTIGATIONS, reviewed in the clinical context: VQ scan: No mismatch Carotid Doppler: No significant stenosis July 11: proBNP 2370. Procalcitonin 0.10 MRI brain: Acute infarct suspected within the left cerebellum. Acute appearing cortical infarcts bilateral occipital lobes larger on the left. July 09: ABG: pH 7.43 pCO2 31 pO2 70 on FiO2 50% potassium 3.6 creatinine 0.73 July 08: White count 9.1 hemoglobin 13.5 platelets 182 sodium 135 creatinine 0.95 July 07, 2024: White count 9 hemoglobin 15.9 platelets 172 sodium 130 potassium 4.4 BUN 40 creatinine 1.4 Troponin I 7.4, 8.1, 6.4 EKG tracing personally reviewed by me-normal sinus rhythm. Some ST-T wave changes. CT brain without contrast: No acute event. Encephalomalacia in the left frontal lobe consistent with old infarct Chest x-ray film personally reviewed by me-borderline cardiomegaly. Unfolding of the aorta. Rotated film. Portable CT angio chest: Negative PE. Partially visualized left hydronephrosis. Nonobstructing left renal calculus. Assessment plan: -Acute non-Q wave NM. Aspirin. Lipitor. Lopressor. IV heparin-being discontinued today. 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 -Probable acute congestive heart failure from systolic dysfunction ischemic EF 40%: Not improving IV Lasix 40 mg every 12 -IV heparin monitoring-discontinued Follow PTT -Chronic medical debility. At baseline patient uses a wheelchair -Acute hypoxic respiratory failure. Worsening On Airvo 85% Patient does not have any obvious pneumonia, PE or effusion. 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 Zestril. -Chronic medical debility -Acute acute kidney injury, possible ATN from blood pressure fluctuation: Better Follow renal function -DNR Advance care planning [July 11, 2024]: This was done at the bedside with patient's daughter and [id number]. Patient's advanced age. Comorbidities. Multiple strokes embolic on this presentation. Blood thinner will be highly risky given that it was discontinued earlier by Dr. Juarez few months ago because of risk of falls. And given the acute stroke it may convert into hemorrhagic stroke. They are agreeable to look into rehab/hospice depending on clinical course. Time spent for this about 25 minutes Family understands patient doing poorly. Patient started to meet up with her family. Understanding well that prognosis very poor.. Continue supportive care. Past Medical History Past Medical History: Cancer, GI Bleed, Hyperlipidemia, Hypertension, Osteoarthritis (OA) Additional Past Medical History / Comment(s): HX DIVERTICULITIS, BLEEDING ULCER -REC 2 UNITS PRBC,ANEMIA,BREAST CA LEFT BREAST WITH 2 LYMPH NODES REMOVED. HAD RADIATION -2013 History of Any Multi-Drug Resistant Organisms: None Reported Past Surgical History: Breast Surgery, Hysterectomy, Joint Replacement, Orthopedic Surgery Additional Past Surgical History / Comment(s): LAURA KNEE REPLACEMENT,ABD CYST REMOVED, CATARACT SURGERY LAURA, toe removed to treat hammer toe in 03/2023 Past Anesthesia/Blood Transfusion Reactions: No Reported Reaction Past Psychological History: Anxiety, Depression Smoking Status: Never smoker Past Alcohol Use History: Rare Past Drug Use History: None Reported
--- NOTE | 2024-07-14 15:36 | P.PN ---
Subjective Progress Note Date: 07/14/24 This is an 89-year-old female patient who resides at up assisted living facility and has a history of hyperlipidemia, GI bleed, hypertension, osteoarthritis, anxiety/depression, left sided breast cancer with previous radiation, non- smoker. Early this morning she was found slumped over in a wheelchair by a staff member who called EMS. Upon arrival to EMS she was found to be bradycardic with poor respiratory effort and initial pulse ox readings in the 70s. She was placed on a nonrebreather mask and became more responsive and was brought into the emergency room. EKG revealed sinus rhythm with some ST depression. CT scan of the brain revealed no acute intracranial hemorrhage, midline shift or mass effect. Revealed no acute pulmonary process. CT angiogram revealed no evidence of pulmonary embolism. Partially visualized left hydronephrosis. White count 9.0. Hemoglobin 15.1. Platelets 172. D-dimer 9.31. Sodium 130. Potassium 4.4. Bicarb 15. BUN 40. Creatinine 1.40. Glucose 178. Troponins 7.4, 8.1, 6.4. She is seen today in consultation in the emergency department. She is currently awake, alert. Maintaining O2 saturations in the 90s on 5 L/min per nasal cannula. He is afebrile. Hemodynamically stable. She has been initiated on a heparin drip. She is a poor historian. The patient is seen today July 08, 2024 in follow-up on the selective care unit. She is currently sitting up in a chair. Awake and alert in no acute distress. Maintaining O2 saturations in the 90s on 5 L/min per nasal cannula. She has been afebrile. She is currently nauseated. Blood cultures pending. White count 9.1. Hemoglobin 13.5. Platelets 182. Sodium 135. Potassium 4.2. Bicarb 21. BUN 36. Creatinine 0.95. Glucose 91. She remains on a heparin drip. Antibiotics in the form of aztreonam. Normal saline at 75 mL/h. The patient is seen today July 09, 2024 in follow-up on the selective care unit. She is currently sitting up in a chair. She is still requiring 8 L high flow nasal cannula. She intermittently needs BiPAP 14/7 and 50% FiO2. X-ray reveals moderate cardiomegaly and mild pulmonary vascular congestion. Continued on a heparin drip. Blood cultures pending. Urine culture ending. She remains on antibiotics in the form of aztreonam. Sodium 135. Potassium 3.4. Bicarb 19. BUN 29. Creatinine 0.73. Ammonia level 11. Arterial blood gases revealed a PaO2 of 70, pCO2 31. pH 7.43. The patient is seen today July 10, 2024 in follow-up on the selective care unit. She is awake and alert in no acute distress. Currently sitting up in a chair. Still requiring 10 L high flow nasal cannula. She is alternating with BiPAP 14/7 and 50% FiO2. She is continued on DuoNeb inhalations. Antibiotics in the form of Azactam. MRI of the brain reveals extensive punctate cortical and subcortical hyperintensities, suspicious for acute ischemic changes. Acute infarct within the left cerebellum. Acute appearing cortical infarcts bilateral occipital lobes larger on the left. Blood cultures revealed no growth. Urine culture revealed no growth. PTT 54.8. Remains on a heparin drip. The patient is seen today July 12, 2024 in follow-up on the selective care unit. She is currently sitting up in bed. Awake and alert. She is now requiring Airvo high flow oxygen at 50 L and 80% FiO2. X-ray continues to show only some streaky atelectasis of the left lower lobe. proBNP level 2370. Procalcitonin negative at 0.10. Urine culture was positive for Diana only. Blood cultures revealed no growth. She is continued on DuoNeb inhalations. Azactam discontinued. The patient is seen today July 13, 2024 in follow-up on the selective care unit. She is currently resting in bed. Her oxygen requirements have gone up again today. She is currently on Airvo high flow oxygen at 55 L and 85% FiO2. O2 saturations have continued to decline. Family is at the bedside. She remains on bronchodilators. Remains on IV diuretics. Heparin for DVT prophylaxis. The patient is seen today July 14, 2024 in follow-up on the selective care unit. She is currently awake and alert, resting fairly comfortably in bed. Continued on Airvo high flow oxygen at 55 L and 90% FiO2. She is continued on Lasix 40 mg every 12 hours. Heparin for DVT prophylaxis. No new labs. She is currently in a -280 mL balance. Family is at the bedside. Objective - Vital Signs Vital signs: Vital Signs Temp 98.3 F 07/14/24 08:27 Pulse 88 07/14/24 12:36 Resp 22 07/14/24 12:34 BP 103/65 07/14/24 12:34 Pulse Ox 90 L 07/14/24 12:34 FiO2 91 07/14/24 12:34 Intake & Output 07/13/24 07/14/24 07/14/24 18:59 06:59 18:59 Intake Total 820 600 Output Total 1100 Balance 820 -1100 600 Weight 64.5 kg 64.5 kg Intake: IV 10 Invasive Line 4 10 Oral 820 590 Output: Urine 1100 Other: Voiding Method Indwelling Catheter Indwelling Catheter Indwelling Catheter - Exam GENERAL EXAM: Alert, very weak 89-year-old female, on Airvo high flow oxygen at 55 L and 90% FiO2, in mild respiratory distress. HEAD: Normocephalic. EYES: Normal reaction of pupils, equal size. NOSE: Clear with pink turbinates. THROAT: No erythema or exudates. NECK: No masses, no JVD. CHEST: No chest wall deformity. LUNGS: Equal air entry with faint crackles in the left base. CVS: S1 and S2 normal with no audible murmur, regular rhythm. ABDOMEN: No hepatosplenomegaly, normal bowel sounds, no guarding or rigidity. SPINE: No scoliosis or deformity SKIN: No rashes CENTRAL NERVOUS SYSTEM: No focal deficits, tone is normal in all 4 extremities. EXTREMITIES: There is no peripheral edema. No clubbing, no cyanosis. Peripheral pulses are intact. - Labs CBC & Chem 7: 07/08/24 03:31 07/09/24 08:16 Assessment and Plan Assessment: Syncopal episode of unclear etiology, possible myocardial infarction, found unresponsive slumped over in a chair with bradycardia and hypoxemia. MRI of the brain reveals extensive punctate cortical and subcortical hyperintensities, suspicious for acute ischemic changes. Acute infarct suspected within the left cerebellum. Some prior hemorrhage could be considered. No mass effect. Acute appearing cortical infarcts bilateral occipital lobes larger on the left. Atrophy with chronic appearing periventricular white matter changes Acute non-ST segment elevation myocardial infarction Acute hypoxemic respiratory failure secondary to above. On Airvo high flow oxygen at 55 L and 90% FiO2. Pulmonary embolism ruled out, no consolidation, no pleural effusions Acute kidney injury Suspected urinary tract infection, culture pending History of hypertension Hyperlipidemia History of left breast cancer History of anxiety/depression Lifelong non-smoker Plan: The patient was seen and evaluated Medications reviewed Requiring increasing FiO2 support on the Airvo Offered BiPAP support however family declines at this time She is a DO NOT RESUSCITATE CODE STATUS I have personally seen and examined the patient, performed the documentation and the assessment and plan as written. Number of minutes spent on the visit: 10 Dictation was produced using [employer] dictation software. Please excuse any grammatical, word or spelling errors.
--- NOTE | 2024-07-14 16:18 | P.PN ---
Progress Note - Text Progress Note Date: 07/14/24 Chief Complaint: Decreased responsiveness This is a 89-year-old patient, follows Dr. Marlow. Patient was brought in by the EMS to the ER. Patient is at her assisted living. EMS was called with the patient was found to be slumped over in the chair by the care of a staff member. At baseline patient is only AO x 1. Patient had mild to moderate labored respirations. When staff member did compress out there found the patient slumped over in the wheelchair and altered. His 911 was initiated. Patient herself is a very poor historian. Pulse ox was found to be 70%. Normally wears oxygen. Patient was briefly into bradycardia with heart rate in the 40s. Patient had vomited prior to arrival of the EMS. Patient during transport was put on 15 L nonrebreather. Pulse ox came to 80 to 90%. EKG showed normal sinus rhythm with some T wave changes. Patient is not really able to speak. Struggling a bit. In the ER patient is able to answer questions. But she thinks it is 1991. She thinks she is in the [facility]. July 08: Patient more awake today. Answering simple questions. Had a fair amount of breakfast. Cardiology is considering a cardiac catheterization. On IV heparin drip. Seen by neurology. [place] to be having encephalopathy on presentation. Possibly from MS. July 09: Up in chair. On 8 to 10 L high flow oxygen. No obvious cause has been determined. ABG: On 50% 92 shows PaO2 of 70 pCO2 of 31. Chest x-ray has been nonspecific. 2D echo was done results pending. Had about 75% of breakfast lunch. July 10: Patient was seen this morning. Still requiring high flow oxygen anywhere from 8 to 10 L. No obvious cause found. Will order a VQ scan to rule out any peripheral PE. IV heparin being discontinued by cardiology today. Resume Jyoti. I spoke to patient's daughter at the bedside. Patient had a femur fracture back in September of this year. Since then patient is become hypoxic. Patient with apparent significant l load of fat embolism that may have resulted in hypoxia. MRI results suggestive of scattered emboli in the brain Late this evening I spoke to patient's [id number] Diana and her daughter Susannah who was flown from out of town. Over the phone. Came in for me back in September of this year Eliquis was actually discontinued by Dr. Juarez because of the fall. And patient's not been Eliquis at home. Risk of falls. Given multiple infarcts in that case after discussing with them decided not to give any Eliquis. They understand prognosis guarded. Will see how patient does with her oxygen status. July 11: Saw the patient this afternoon. Remains on high flow oxygen. Attempt to decrease not successful. Still hovering around 8 to 10 L. Spoke to patient's daughter and [id number] at the bedside. Given patient's age and comorbidity they agree and very limited options. Anticoagulation could be dangerous in the setting of acute stroke. Agreeable to looking into hospice. Also discussed with social welfare research worker. Patient's VQ scan unremarkable. 2D echo results still pending. Cause of hypoxia unclear. At home patient is on 3 L of oxygen. Oral intake fair. Patient does not have any fever. No cough. Normal procalcitonin. DC aztreonam. July 12: Laying in bed. Oxygen requirement has gone up to 30 L. Spoke with respiratory therapist. Patient placed on Airvo. 50 L and 80%. His daughter and [id number] at the bedside. Discussed. Limited 2D echo showed EF of 40%. Oral intake about 50%. Lasix was ordered by pulmonary. Prognosis remains very guarded. July 13: Patient is on Airvo. Reclining in bed. Able to communicate. Dr. Child suggested BiPAP but the patient wants to communicate and meet with her family. Patient's daughter and [id number] at the bedside understand patient is doing poorly. Remains on IV Lasix. Continues to tolerate diet. July 14: Patient shyam propped up. Awake but tired. Remains on Airvo. Patient's daughter, [id number], and granddaughter from [place] is here. Remains on IV Lasix. Prognosis remains very guarded. Further plan depending on clinical course. Active Medications Acetaminophen (Acetaminophen Tab 325 Mg Tab) 650 mg PO Q6HR PRN PRN Reason: Mild Pain or Fever > 100.5 Last Admin: 07/09/24 18:03 Dose: 650 mg Al Hydroxide/Mg Hydroxide (Mag Hydrox/Al Hydrox/Simeth 30 Ml Cup) 15 ml PO Q6HR PRN PRN Reason: Indigestion Albuterol/Ipratropium (Ipratropium-Albuterol 3 Ml Neb) 3 ml INHALATION RT-QID [facility] Last Admin: 07/14/24 12:20 Dose: 3 ml Albuterol/Ipratropium (Ipratropium-Albuterol 3 Ml Neb) 3 ml INHALATION RT-Q2H PRN PRN Reason: Shortness Of Breath Or Wheezing Aspirin (Aspirin 81 Mg) 81 mg PO DAILY [facility] Last Admin: 07/14/24 08:40 Dose: 81 mg Atorvastatin Calcium (Atorvastatin 40 Mg Tab) 40 mg PO HS [facility] Last Admin: 07/13/24 20:30 Dose: 40 mg Benzocaine (Benzocaine 20 % Gel 11.9 Gm Tube) 1 applic MM ONCE PRN PRN Reason: Mouth Sore Pain Stop: 07/20/24 16:10 Clopidogrel Bisulfate (Clopidogrel 75 Mg Tab) 75 mg PO DAILY [facility] Last Admin: 07/14/24 08:40 Dose: 75 mg Docusate Sodium (Docusate 100 Mg Cap) 100 mg PO BID PRN PRN Reason: Constipation Last Admin: 07/12/24 17:28 Dose: 100 mg Furosemide (Furosemide 10 Mg/Ml 4 Ml Vial) 40 mg IV Q12HR [facility] Last Admin: 07/14/24 08:40 Dose: 40 mg Heparin Sodium (Porcine) (Heparin Sodium,Porcine 5,000 Unit/Ml 1 Ml Vial) 5,000 unit SQ Q12HR [facility] Last Admin: 07/14/24 08:40 Dose: 5,000 unit Isosorbide Mononitrate (Isosorbide Mononitrate Er 30 Mg Tab.Er.24h) 30 mg PO DAILY [facility] Last Admin: 07/14/24 08:40 Dose: 30 mg Lisinopril (Lisinopril 10 Mg Tab) 10 mg PO DAILY [facility] Last Admin: 07/14/24 08:40 Dose: 10 mg Metoprolol Tartrate (Metoprolol Tartrate 12.5 Mg Tab) 12.5 mg PO BID [facility] Last Admin: 07/14/24 08:40 Dose: 12.5 mg Naloxone HCl (Naloxone 0.4 Mg/Ml 1 Ml Vial) 0.2 mg IV Q2M PRN PRN Reason: Opioid Reversal Ondansetron HCl (Ondansetron 4 Mg/2 Ml Vial) 4 mg IVP Q8HR PRN PRN Reason: Nausea And Vomiting Sertraline HCl (Sertraline 50 Mg Tab) 50 mg PO HS [facility] Last Admin: 07/13/24 20:30 Dose: 50 mg Social history: Assisted living. Non-smoker. Alcohol rarely. Physical examination: VITAL SIGNS: 98.3, 87, 20, 130 x 81, 92% on Airvo GENERAL: Reclining in bed short of breath EYES: Pupils equal. Conjunctiva marco l. HEENT: External appearance of nose and ears normal, oral cavity grossly normal. NECK: JVD not raised; masses not palpable. HEART: First and second heart sounds are normal; no edema. LUNGS: Respiratory rate increased, diminished breath sounds ABDOMEN: Soft, nontender, liver spleen not palpable, no masses palpable. PSYCH: Answering simple questions MUSCULOSKELETAL:No Clubbing/cyanosis;muscles-grossly intact. OA INVESTIGATIONS, reviewed in the clinical context: VQ scan: No mismatch Carotid Doppler: No significant stenosis July 11: proBNP 2370. Procalcitonin 0.10 MRI brain: Acute infarct suspected within the left cerebellum. Acute appearing cortical infarcts bilateral occipital lobes larger on the left. July 09: ABG: pH 7.43 pCO2 31 pO2 70 on FiO2 50% potassium 3.6 creatinine 0.73 July 08: White count 9.1 hemoglobin 13.5 platelets 182 sodium 135 creatinine 0.95 July 07, 2024: White count 9 hemoglobin 15.9 platelets 172 sodium 130 potassium 4.4 BUN 40 creatinine 1.4 Troponin I 7.4, 8.1, 6.4 EKG tracing personally reviewed by me-normal sinus rhythm. Some ST-T wave changes. CT brain without contrast: No acute event. Encephalomalacia in the left frontal lobe consistent with old infarct Chest x-ray film personally reviewed by me-borderline cardiomegaly. Unfolding of the aorta. Rotated film. Portable CT angio chest: Negative PE. Partially visualized left hydronephrosis. Nonobstructing left renal calculus. Assessment plan: -Acute non-Q wave MS. Aspirin. Lipitor. Lopressor. IV heparin-being discontinued today. 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 -Probable acute congestive heart failure from systolic dysfunction ischemic EF 40%: Not improving IV Lasix 40 mg every 12 -IV heparin monitoring-discontinued Follow PTT -Chronic medical debility. At baseline patient uses a wheelchair -Acute hypoxic respiratory failure. Not improving On Airvo 90% Patient does not have any obvious pneumonia, PE or effusion. 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 Zestril. -Chronic medical debility -Acute acute kidney injury, possible ATN from blood pressure fluctuation: Better Follow renal function -DNR Advance care planning [July 11, 2024]: This was done at the bedside with patient's daughter and [id number]. Patient's advanced age. Comorbidities. Multiple strokes embolic on this presentation. Blood thinner will be highly risky given that it was discontinued earlier by Dr. Juarez few months ago because of risk of falls. And given the acute stroke it may convert into hemorrhagic stroke. They are agreeable to look into rehab/hospice depending on clinical course. Time spent for this about 25 minutes Prognosis remains poor. Continue current treatment plan. Discussed with family at the bedside. Past Medical History Past Medical History: Cancer, GI Bleed, Hyperlipidemia, Hypertension, Osteoarthr itis (OA) Additional Past Medical History / Comment(s): HX DIVERTICULITIS, BLEEDING ULCER 3-REC 2 UNITS PRBC,ANEMIA,BREAST CA LEFT BREAST WITH 2 LYMPH NODES REMOVED. HAD RADIATION History of Any Multi-Drug Resistant Organisms: None Reported Past Surgical History: Breast Surgery, Hysterectomy, Joint Replacement, Orthopedic Surgery Additional Past Surgical History / Comment(s): LAURA KNEE REPLACEMENT,ABD CYST REMOVED, CATARACT SURGERY LAURA, toe removed to treat hammer toe in 03/2023 Past Anesthesia/Blood Transfusion Reactions: No Reported Reaction Past Psychological History: Anxiety, Depression Smoking Status: Never smoker Past Alcohol Use History: Rare Past Drug Use History: None Reported
[2024-07-14] MEDS: BENZOCAINE 20 % GEL 11.9 GM TUBE MM PRN (17:41)
--- NOTE | 2024-07-15 10:44 | P.PN ---
Subjective Progress Note Date: 07/15/24 Principal diagnosis: Shortness of breath. This is an 89-year-old female patient who resides at up assisted living facility and has a history of hyperlipidemia, GI bleed, hypertension, osteoarthritis, anxiety/depression, left sided breast cancer with previous radiation, non-smoke r. Early this morning she was found slumped over in a wheelchair by a staff member who called EMS. Upon arrival to EMS she was found to be bradycardic with poor respiratory effort and initial pulse ox readings in the 70s. She was placed on a nonrebreather mask and became more responsive and was brought into the emergency room. EKG revealed sinus rhythm with some ST depression. CT scan of the brain revealed no acute intracranial hemorrhage, midline shift or mass effect. Revealed no acute pulmonary process. CT angiogram revealed no evidence of pulmonary embolism. Partially visualized left hydronephrosis. White count 9.0. Hemoglobin 15.1. Platelets 172. D-dimer 9.31. Sodium 130. Potassium 4.4. Bicarb 15. BUN 40. Creatinine 1.40. Glucose 178. Troponins 7.4, 8.1, 6.4. She is seen today in consultation in the emergency department. She is currently awake, alert. Maintaining O2 saturations in the 90s on 5 L/min per nasal cannula. He is afebrile. Hemodynamically stable. She has been initiated on a heparin drip. She is a poor historian. The patient is seen today July 08, 2024 in follow-up on the selective care unit. She is currently sitting up in a chair. Awake and alert in no acute distress. Maintaining O2 saturations in the 90s on 5 L/min per nasal cannula. She has been afebrile. She is currently nauseated. Blood cultures pending. White count 9.1. Hemoglobin 13.5. Platelets 182. Sodium 135. Potassium 4.2. Bicarb 21. BUN 36. Creatinine 0.95. Glucose 91. She remains on a heparin drip. Antibiotics in the form of aztreonam. Normal saline at 75 mL/h. The patient is seen today July 09, 2024 in follow-up on the selective care unit. She is currently sitting up in a chair. She is still requiring 8 L high flow nasal cannula. She intermittently needs BiPAP 14/7 and 50% FiO2. X-ray reveals moderate cardiomegaly and mild pulmonary vascular congestion. Continued on a heparin drip. Blood cultures pending. Urine culture ending. She remains on antibiotics in the form of aztreonam. Sodium 135. Potassium 3.4. Bicarb 19. BUN 29. Creatinine 0.73. Ammonia level 11. Arterial blood gases revealed a PaO2 of 70, pCO2 31. pH 7.43. The patient is seen today July 10, 2024 in follow-up on the selective care unit. She is awake and alert in no acute distress. Currently sitting up in a chair. Still requiring 10 L high flow nasal cannula. She is alternating with BiPAP 14/7 and 50% FiO2. She is continued on DuoNeb inhalations. Antibiotics in the form of Azactam. MRI of the brain reveals extensive punctate cortical and subcortical hyperintensities, suspicious for acute ischemic changes. Acute infarct within the left cerebellum. Acute appearing cortical infarcts bilateral occipital lobes larger on the left. Blood cultures revealed no growth. Urine culture revealed no growth. PTT 54.8. Remains on a heparin drip. Progress note dated July 11, 2024. 89-year-old female seen in room 381. The patient is currently on 8 L high flow nasal O2. The patient continues on aztreonam. The patient had a previous CT angiogram that was negative for pulmonary embolism, but despite that, the patient also had a VQ scan ordered, that was also negative. We will check an N- terminal proBNP level, and a procalcitonin level. The patient does use oxygen at home, at 3 L. No new labs today other than a N-terminal proBNP level of 2370. Procalcitonin levels pending. The patient is seen today July 12, 2024 in follow-up on the selective care unit. She is currently sitting up in bed. Awake and alert. She is now r equiring Airvo high flow oxygen at 50 L and 80% FiO2. X-ray continues to show only some streaky atelectasis of the left lower lobe. proBNP level 2370. Procalcitonin negative at 0.10. Urine culture was positive for Diana only. Blood cultures revealed no growth. She is continued on DuoNeb inhalations. Azactam discontinued. The patient is seen today July 13, 2024 in follow-up on the selective care unit. She is currently resting in bed. Her oxygen requirements have gone up again today. She is currently on Airvo high flow oxygen at 55 L and 85% FiO2. O2 saturations have continued to decline. Family is at the bedside. She remains on bronchodilators. Remains on IV diuretics. Heparin for DVT prophylaxis. The patient is seen today July 14, 2024 in follow-up on the selective care unit. She is currently awake and alert, resting fairly comfortably in bed. Continued on Airvo high flow oxygen at 55 L and 90% FiO2. She is continued on Lasix 40 mg every 12 hours. Heparin for DVT prophylaxis. No new labs. She is currently in a -280 mL balance. Family is at the bedside. Progress note dated July 15, 2024. 89-year-old female seen today in room 381. She continues on Airvo, with settings of 55 L/min, and 90%. No IV fluids. Unfortunately, her saturations are in the 80s. No new labs today. We have had ongoing discussions with the patient's daughter and daughter and daughter in law. Objective - Vital Signs Vital signs: Vital Signs Temp 97.9 F 07/15/24 04:00 Pulse 84 07/15/24 08:19 Resp 20 07/15/24 04:00 BP 106/59 07/15/24 04:00 Pulse Ox 83 L 07/15/24 08:11 FiO2 90 07/15/24 08:11 Intake & Output 07/14/24 07/15/24 07/15/24 18:59 06:59 18:59 Intake Total 710 110 Output Total 325 700 Balance 385 -700 110 Weight 64.5 kg Intake: IV 10 Invasive Line 4 10 Oral 700 110 Output: Urine 325 700 Other: Voiding Method Indwelling Catheter Indwelling Catheter - Exam No acute distress, oriented 3. Currently on Airvo. HEENT examination is grossly unremarkable. Mucous membranes are moist. No oral lesions. Neck supple. Full range of motion. No adenopathy thyromegaly or neck vein distention. Cardiovascular examination reveals regular rhythm rate. S1-S2 normal. No S3 or S4. No discernible murmur noted. Lungs reveal mild bibasilar crackles. No wheezes. No rhonchi. Breath sounds equal. Abdomen soft bowel sounds are heard. No masses or tenderness. Extremities are intact. No cyanosis clubbing or edema. Skin is without rash or lesion. Neurologic examination is brief but nonfocal. - Labs CBC & Chem 7: 07/08/24 03:31 07/09/24 08:16 Assessment and Plan Assessment: Syncopal episode of unclear etiology, possible myocardial infarction. Acute non-ST segment elevation myocardial infarction. Acute hypoxemic respiratory failure secondary to above. Acute kidney injury. Suspected urinary tract infection. History of hypertension. Hyperlipidemia. History of left breast cancer. History of anxiety/depression. Lifelong non-smoker. Plan: Plan dated July 11, 2024. The patient is seen and evaluated. The patient's labs, are reviewed. X-rays and medications are also reviewed. The patient continues on aztreonam. A VQ scan was ordered, and was normal. The patient is a DO NOT RESUSCITATE patient. Labs, x-rays, and all medications are reviewed. We will continue to follow make recommendations along the way. The N-terminal proBNP was a bit elevated suggesting some fluid overload. Her procalcitonin level is currently pending. If negative, aztreonam should be discontinued. Plan dated July 15, 2024. The patient really has not been doing very well. Her oxygenation continues to decline. She is on Airvo at 55 L/min with an FiO2 of 90%. The saturations are barely in the 80s. She is not receiving any IV fluids. She is a DO NOT RESUSCITATE patient. We talked to the family about comfort care, but they were not yet ready to go in that direction. We will continue to follow make recomm endations. Prognosis is poor. Time with Patient: Less than 30
--- NOTE | 2024-07-15 14:33 | P.PN ---
Progress Note - Text Progress Note Date: 07/15/24 Chief Complaint: Decreased responsiveness This is a 89-year-old patient, follows Dr. Marlow. Patient was brought in by the EMS to the ER. Patient is at her assisted living. EMS was called with the patient was found to be slumped over in the chair by the care of a staff member. At baseline patient is only AO x 1. Patient had mild to moderate labored respirations. When staff member did compress out there found the patient slumped over in the wheelchair and altered. His 911 was initiated. Patient herself is a very poor historian. Pulse ox was found to be 70%. Normally wears oxygen. Patient was briefly into bradycardia with heart rate in the 40s. Patient had vomited prior to arrival of the EMS. Patient during transport was put on 15 L nonrebreather. Pulse ox came to 80 to 90%. EKG showed normal sinus rhythm with some T wave changes. Patient is not really able to speak. Struggling a bit. In the ER patient is able to answer questions. But she thinks it is 1991. She thinks she is in the [facility]. July 08: Patient more awake today. Answering simple questions. Had a fair amount of breakfast. Cardiology is considering a cardiac catheterization. On IV heparin drip. Seen by neurology. [place] to be having encephalopathy on presentation. Possibly from [place]. July 09: Up in chair. On 8 to 10 L high flow oxygen. No obvious cause has been determined. ABG: On 50% 92 shows PaO2 of 70 pCO2 of 31. Chest x-ray has been nonspecific. 2D echo was done results pending. Had about 75% of breakfast lunch. July 10: Patient was seen this morning. Still requiring high flow oxygen anywhere from 8 to 10 L. No obvious cause found. Will order a VQ scan to rule out any peripheral PE. IV heparin being discontinued by cardiology today. Resume Jyoti. I spoke to patient's daughter at the bedside. Patient had a femur fracture back in September of this year. Since then patient is become hypoxic. Patient with apparent significant l load of fat embolism that may have resulted in hypoxia. MRI results suggestive of scattered emboli in the brain Late this evening I spoke to patient's [id number] Diana and her daughter Susannah who was flown from out of town. Over the phone. Came in for me back in September of this year Eliquis was actually discontinued by Dr. Juarez because of the fall. And patient's not been Eliquis at home. Risk of falls. Given multiple infarcts in that case after discussing with them decided not to give any Eliquis. They understand prognosis guarded. Will see how patient does with her oxygen status. July 11: Saw the patient this afternoon. Remains on high flow oxygen. Attempt to decrease not successful. Still hovering around 8 to 10 L. Spoke to patient's daughter and [id number] at the bedside. Given patient's age and comorbidity they agree and very limited options. Anticoagulation could be dangerous in the setting of acute stroke. Agreeable to looking into hospice. Also discussed with social science professor. Patient's VQ scan unremarkable. 2D echo results still pending. Cause of hypoxia unclear. At home patient is on 3 L of oxygen. Oral intake fair. Patient does not have any fever. No cough. Normal procalcitonin. DC aztreonam. July 12: Laying in bed. Oxygen requirement has gone up to 30 L. Spoke with respiratory therapist. Patient placed on Airvo. 50 L and 80%. His daughter and [id number] at the bedside. Discussed. Limited 2D echo showed EF of 40%. Oral intake about 50%. Lasix was ordered by pulmonary. Prognosis remains very guarded. July 13: Patient is on Airvo. Reclining in bed. Able to communicate. Dr. Child suggested BiPAP but the patient wants to communicate and meet with her family. Patient's daughter and [id number] at the bedside understand patient is doing poorly. Remains on IV Lasix. Continues to tolerate diet. July 14: Patient shyam propped up. Awake but tired. Remains on Airvo. Patient's daughter, [id number], and granddaughter from [place] is here. Remains on IV Lasix. Prognosis remains very guarded. Further plan depending on clinical course. July 15: Remains on Airvo, 90%. Eating some. Family remains at the bedside. Tired. Able to communicate. Active Medications Acetaminophen (Acetaminophen Tab 325 Mg Tab) 650 mg PO Q6HR PRN PRN Reason: Mild Pain or Fever > 100.5 Last Admin: 07/09/24 18:03 Dose: 650 mg Al Hydroxide/Mg Hydroxide (Mag Hydrox/Al Hydrox/Simeth 30 Ml Cup) 15 ml PO Q6HR PRN PRN Reason: Indigestion Albuterol/Ipratropium (Ipratropium-Albuterol 3 Ml Neb) 3 ml INHALATION RT-QID [facility] Last Admin: 07/14/24 12:20 Dose: 3 ml Albuterol/Ipratropium (Ipratropium-Albuterol 3 Ml Neb) 3 ml INHALATION RT-Q2H PRN PRN Reason: Shortness Of Breath Or Wheezing Aspirin (Aspirin 81 Mg) 81 mg PO DAILY [facility] Last Admin: 07/14/24 08:40 Dose: 81 mg Atorvastatin Calcium (Atorvastatin 40 Mg Tab) 40 mg PO HS [facility] Last Admin: 07/13/24 20:30 Dose: 40 mg Benzocaine (Benzocaine 20 % Gel 11.9 Gm Tube) 1 applic MM ONCE PRN PRN Reason: Mouth Sore Pain Stop: 07/20/24 16:10 Clopidogrel Bisulfate (Clopidogrel 75 Mg Tab) 75 mg PO DAILY [facility] Last Admin: 07/14/24 08:40 Dose: 75 mg Docusate Sodium (Docusate 100 Mg Cap) 100 mg PO BID PRN PRN Reason: Constipation Last Admin: 07/12/24 17:28 Dose: 100 mg Furosemide (Furosemide 10 Mg/Ml 4 Ml Vial) 40 mg IV Q12HR [facility] Last Admin: 07/14/24 08:40 Dose: 40 mg Heparin Sodium (Porcine) (Heparin Sodium,Porcine 5,000 Unit/Ml 1 Ml Vial) 5,000 unit SQ Q12HR [facility] Last Admin: 07/14/24 08:40 Dose: 5,000 unit Isosorbide Mononitrate (Isosorbide Mononitrate Er 30 Mg Tab.Er.24h) 30 mg PO DAILY [facility] Last Admin: 07/14/24 08:40 Dose: 30 mg Lisinopril (Lisinopril 10 Mg Tab) 10 mg PO DAILY [facility] Last Admin: 07/14/24 08:40 Dose: 10 mg Metoprolol Tartrate (Metoprolol Tartrate 12.5 Mg Tab) 12.5 mg PO BID [facility] Last Admin: 07/14/24 08:40 Dose: 12.5 mg Naloxone HCl (Naloxone 0.4 Mg/Ml 1 Ml Vial) 0.2 mg IV Q2M PRN PRN Reason: Opioid Reversal Ondansetron HCl (Ondansetron 4 Mg/2 Ml Vial) 4 mg IVP Q8HR PRN PRN Reason: Nausea And Vomiting Sertraline HCl (Sertraline 50 Mg Tab) 50 mg PO HS [facility] Last Admin: 07/13/24 20:30 Dose: 50 mg Social history: Assisted living. Non-smoker. Alcohol rarely. Physical examination: VITAL SIGNS: 97.6, 88, 24, 96 per 85, 90% on Airvo 55/90 GENERAL: Reclining in bed short of breath EYES: Pupils equal. Conjunctiva marco l. HEENT: External appearance of nose and ears normal, oral cavity grossly normal. NECK: JVD not raised; masses not palpable. HEART: First and second heart sounds are normal; no edema. LUNGS: Respiratory rate increased, diminished breath sounds ABDOMEN: Soft, nontender, liver spleen not palpable, no masses palpable. PSYCH: Answering simple questions MUSCULOSKELETAL:No Clubbing/cyanosis;muscles-grossly intact. OA INVESTIGATIONS, reviewed in the clinical context: VQ scan: No mismatch Carotid Doppler: No significant stenosis July 11: proBNP 2370. Procalcitonin 0.10 MRI brain: Acute infarct suspected within the left cerebellum. Acute appearing cortical infarcts bilateral occipital lobes larger on the left. July 09: ABG: pH 7.43 pCO2 31 pO2 70 on FiO2 50% potassium 3.6 creatinine 0.73 July 08: White count 9.1 hemoglobin 13.5 platelets 182 sodium 135 creatinine 0.95 July 07, 2024: White count 9 hemoglobin 15.9 platelets 172 sodium 130 potassium 4.4 BUN 40 creatinine 1.4 Troponin I 7.4, 8.1, 6.4 EKG tracing personally reviewed by me-normal sinus rhythm. Some ST-T wave changes. CT brain without contrast: No acute event. Encephalomalacia in the left frontal lobe consistent with old infarct Chest x-ray film personally reviewed by me-borderline cardiomegaly. Unfolding of the aorta. Rotated film. Portable CT angio chest: Negative PE. Partially visualized left hydronephrosis. Nonobstructing left renal calculus. Assessment plan: -Acute non-Q wave [place]. Aspirin. Lipitor. Lopressor. IV heparin-being discontinued today. 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 -Probable acute congestive heart failure from systolic dysfunction ischemic EF 40%: Not improving IV Lasix 40 mg every 12 -IV heparin monitoring-discontinued Follow PTT -Chronic medical debility. At baseline patient uses a wheelchair -Acute hypoxic respiratory failure. Not improving On Airvo 90% Patient does not have any obvious pneumonia, PE or effusion. 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 Zestril. -Chronic medical debility -Acute acute kidney injury, possible ATN from blood pressure fluctuation: Better Follow renal function -DNR Advance care planning [July 11, 2024]: This was done at the bedside with patient's daughter and [id number]. Patient's advanced age. Comorbidities. Multiple strokes embolic on this presentation. Blood thinner will be highly risky given that it was discontinued earlier by Dr. Juarez few months ago because of risk of falls. And given the acute stroke it may convert into hemorrhagic stroke. They are agreeable to look into rehab/hospice depending on clinical course. Time spent for this about 25 minutes Prognosis remains poor. Discussed with patient's daughter, [id number] at the bedside. Follow continue treatment plan Past Medical History Past Medical History: Cancer, GI Bleed, Hyperlipidemia, Hypertension, Osteoarthritis (OA) Additional Past Medical History / Comment(s): HX DIVERTICULITIS, BLEEDING ULCER -REC 2 UNITS PRBC,ANEMIA,BREAST CA LEFT BREAST WITH 2 LYMPH NODES REMOVED. HAD RADIATION -2013 History of Any Multi-Drug Resistant Organisms: None Reported Past Surgical History: Breast Surgery, Hysterectomy, Joint Replacement, Orthopedic Surgery Additional Past Surgical History / Comment(s): LAURA KNEE REPLACEMENT,ABD CYST REMOVED, CATARACT SURGERY LAURA, toe removed to treat hammer toe in 03/2023 Past Anesthesia/Blood Transfusion Reactions: No Reported Reaction Past Psychological History: Anxiety, Depression Smoking Status: Never smoker Past Alcohol Use History: Rare Past Drug Use History: None Reported
--- NOTE | 2024-07-16 12:16 | P.PN ---
Subjective Progress Note Date: 07/16/24 Principal diagnosis: Shortness of breath. This is an 89-year-old female patient who resides at up assisted living facility and has a history of hyperlipidemia, GI bleed, hypertension, osteoarthritis, anxiety/depression, left sided breast cancer with previous radiation, non-smoke r. Early this morning she was found slumped over in a wheelchair by a staff member who called EMS. Upon arrival to EMS she was found to be bradycardic with poor respiratory effort and initial pulse ox readings in the 70s. She was placed on a nonrebreather mask and became more responsive and was brought into the emergency room. EKG revealed sinus rhythm with some ST depression. CT scan of the brain revealed no acute intracranial hemorrhage, midline shift or mass effect. Revealed no acute pulmonary process. CT angiogram revealed no evidence of pulmonary embolism. Partially visualized left hydronephrosis. White count 9.0. Hemoglobin 15.1. Platelets 172. D-dimer 9.31. Sodium 130. Potassium 4.4. Bicarb 15. BUN 40. Creatinine 1.40. Glucose 178. Troponins 7.4, 8.1, 6.4. She is seen today in consultation in the emergency department. She is currently awake, alert. Maintaining O2 saturations in the 90s on 5 L/min per nasal cannula. He is afebrile. Hemodynamically stable. She has been initiated on a heparin drip. She is a poor historian. The patient is seen today July 08, 2024 in follow-up on the selective care unit. She is currently sitting up in a chair. Awake and alert in no acute distress. Maintaining O2 saturations in the 90s on 5 L/min per nasal cannula. She has been afebrile. She is currently nauseated. Blood cultures pending. White count 9.1. Hemoglobin 13.5. Platelets 182. Sodium 135. Potassium 4.2. Bicarb 21. BUN 36. Creatinine 0.95. Glucose 91. She remains on a heparin drip. Antibiotics in the form of aztreonam. Normal saline at 75 mL/h. The patient is seen today July 09, 2024 in follow-up on the selective care unit. She is currently sitting up in a chair. She is still requiring 8 L high flow nasal cannula. She intermittently needs BiPAP 14/7 and 50% FiO2. X-ray reveals moderate cardiomegaly and mild pulmonary vascular congestion. Continued on a heparin drip. Blood cultures pending. Urine culture ending. She remains on antibiotics in the form of aztreonam. Sodium 135. Potassium 3.4. Bicarb 19. BUN 29. Creatinine 0.73. Ammonia level 11. Arterial blood gases revealed a PaO2 of 70, pCO2 31. pH 7.43. The patient is seen today July 10, 2024 in follow-up on the selective care unit. She is awake and alert in no acute distress. Currently sitting up in a chair. Still requiring 10 L high flow nasal cannula. She is alternating with BiPAP 14/7 and 50% FiO2. She is continued on DuoNeb inhalations. Antibiotics in the form of Azactam. MRI of the brain reveals extensive punctate cortical and subcortical hyperintensities, suspicious for acute ischemic changes. Acute infarct within the left cerebellum. Acute appearing cortical infarcts bilateral occipital lobes larger on the left. Blood cultures revealed no growth. Urine culture revealed no growth. PTT 54.8. Remains on a heparin drip. Progress note dated July 11, 2024. 89-year-old female seen in room 381. The patient is currently on 8 L high flow nasal O2. The patient continues on aztreonam. The patient had a previous CT angiogram that was negative for pulmonary embolism, but despite that, the patient also had a VQ scan ordered, that was also negative. We will check an N- terminal proBNP level, and a procalcitonin level. The patient does use oxygen at home, at 3 L. No new labs today other than a N-terminal proBNP level of 2370. Procalcitonin levels pending. The patient is seen today July 12, 2024 in follow-up on the selective care unit. She is currently sitting up in bed. Awake and alert. She is now r equiring Airvo high flow oxygen at 50 L and 80% FiO2. X-ray continues to show only some streaky atelectasis of the left lower lobe. proBNP level 2370. Procalcitonin negative at 0.10. Urine culture was positive for Diana only. Blood cultures revealed no growth. She is continued on DuoNeb inhalations. Azactam discontinued. The patient is seen today July 13, 2024 in follow-up on the selective care unit. She is currently resting in bed. Her oxygen requirements have gone up again today. She is currently on Airvo high flow oxygen at 55 L and 85% FiO2. O2 saturations have continued to decline. Family is at the bedside. She remains on bronchodilators. Remains on IV diuretics. Heparin for DVT prophylaxis. The patient is seen today July 14, 2024 in follow-up on the selective care unit. She is currently awake and alert, resting fairly comfortably in bed. Continued on Airvo high flow oxygen at 55 L and 90% FiO2. She is continued on Lasix 40 mg every 12 hours. Heparin for DVT prophylaxis. No new labs. She is currently in a -280 mL balance. Family is at the bedside. Progress note dated July 15, 2024. 89-year-old female seen today in room 381. She continues on Airvo, with settings of 55 L/min, and 90%. No IV fluids. Unfortunately, her saturations are in the 80s. No new labs today. We have had ongoing discussions with the patient's daughter and daughter and daughter in law. Progress note dated July 16, 2024. 89-year-old female seen today in room 381. She continues on Airvo at 55 L/min, with an FiO2 of 90%. Is not receiving any IV fluids. Her daughter is in the room. She is sitting in the chair next to her hospital bed. She appears to be reasonably stable, but very weak. No new labs today. The patient is a DO NOT RESUSCITATE patient. At 1 point, the family was considering comfort care. Objective - Vital Signs Vital signs: Vital Signs Temp 98.3 F 07/16/24 11:18 Pulse 76 07/16/24 12:07 Resp 17 07/16/24 11:18 BP 97/57 07/16/24 11:18 Pulse Ox 91 L 07/16/24 11:18 FiO2 90 07/16/24 11:53 Intake & Output 07/15/24 07/16/24 07/16/24 18:59 06:59 18:59 Intake Total 480 20 130 Output Total 400 800 Balance 80 -780 130 Weight 67 kg Intake: IV 20 20 10 Invasive Line 4 20 20 10 Oral 460 120 Output: Urine 400 800 Other: Voiding Method Indwelling Catheter Indwelling Catheter Indwelling Catheter # Bowel Movements 1 - Exam No acute distress, oriented 3. Currently on Airvo. HEENT examination is grossly unremarkable. Mucous membranes are moist. No oral lesions. Neck supple. Full range of motion. No adenopathy thyromegaly or neck vein distention. Cardiovascular examination reveals regular rhythm rate. S1-S2 normal. No S3 or S4. No discernible murmur noted. Lungs reveal mild bibasilar crackles. No wheezes. No rhonchi. Breath sounds equal. Abdomen soft bowel sounds are heard. No masses or tenderness. Extremities are intact. No cyanosis clubbing or edema. Skin is without rash or lesion. Neurologic examination is brief but nonfocal. - Labs CBC & Chem 7: 07/08/24 03:31 07/09/24 08:16 Assessment and Plan Assessment: Syncopal episode of unclear etiology, possible myocardial infarction. Acute non-ST segment elevation myocardial infarction. Acute hypoxemic respiratory failure secondary to above. Acute kidney injury. Suspected urinary tract infection. History of hypertension. Hyperlipidemia. History of left breast cancer. History of anxiety/depression. Lifelong non-smoker. Plan: Plan dated July 11, 2024. The patient is seen and evaluated. The patient's labs, are reviewed. X-rays and medications are also reviewed. The patient continues on aztreonam. A VQ scan was ordered, and was normal. The patient is a DO NOT RESUSCITATE patient. Labs, x-rays, and all medications are reviewed. We will continue to follow make recommendations along the way. The N-terminal proBNP was a bit elevated suggesting some fluid overload. Her procalcitonin level is currently pending. If negative, aztreonam should be discontinued. Plan dated July 15, 2024. The patient really has not been doing very well. Her oxygenation continues to decline. She is on Airvo at 55 L/min with an FiO2 of 90%. The saturations are barely in the 80s. She is not receiving any IV fluids. She is a DO NOT RESUSCITATE patient. We talked to the family about comfort care, but they were not yet ready to go in that direction. We will continue to follow make recommendations. Prognosis is poor. Plan dated July 16, 2024. The patient is again seen today in room 381. She is a DO NOT RESUSCITATE patient. The daughter is at the bedside. She continues on Airvo. Labs, x-ray s, and all medications are reviewed. The family has given some consideration to possible comfort care. They have not made that decision as yet. We will continue to follow. The patient does continue on breathing treatments, and Lasix, 40 mg IV push, every 12 hours. Prognosis is poor. Time with Patient: Greater than 30
--- NOTE | 2024-07-16 17:43 | P.PN ---
Progress Note - Text Progress Note Date: 07/16/24 Chief Complaint: Decreased responsiveness This is a 89-year-old patient, follows Dr. Marlow. Patient was brought in by the EMS to the ER. Patient is at her assisted living. EMS was called with the patient was found to be slumped over in the chair by the care of a staff member. At baseline patient is only AO x 1. Patient had mild to moderate labored respirations. When staff member did compress out there found the patient slumped over in the wheelchair and altered. His 911 was initiated. Patient herself is a very poor historian. Pulse ox was found to be 70%. Normally wears oxygen. Patient was briefly into bradycardia with heart rate in the 40s. Patient had vomited prior to arrival of the EMS. Patient during transport was put on 15 L nonrebreather. Pulse ox came to 80 to 90%. EKG showed normal sinus rhythm with some T wave changes. Patient is not really able to speak. Struggling a bit. In the ER patient is able to answer questions. But she thinks it is 1991. She thinks she is in the [facility]. July 08: Patient more awake today. Answering simple questions. Had a fair amount of breakfast. Cardiology is considering a cardiac catheterization. On IV heparin drip. Seen by neurology. [place] to be having encephalopathy on presentation. Possibly from IL. July 09: Up in chair. On 8 to 10 L high flow oxygen. No obvious cause has been determined. ABG: On 50% 92 shows PaO2 of 70 pCO2 of 31. Chest x-ray has been nonspecific. 2D echo was done results pending. Had about 75% of breakfast lunch. July 10: Patient was seen this morning. Still requiring high flow oxygen anywhere from 8 to 10 L. No obvious cause found. Will order a VQ scan to rule out any peripheral PE. IV heparin being discontinued by cardiology today. Resume Jyoti. I spoke to patient's daughter at the bedside. Patient had a femur fracture back in September of this year. Since then patient is become hypoxic. Patient with apparent significant l load of fat embolism that may have resulted in hypoxia. MRI results suggestive of scattered emboli in the brain Late this evening I spoke to patient's [id number] Diana and her daughter Susannah who was flown from out of town. Over the phone. Came in for me back in September of this year Eliquis was actually discontinued by Dr. Juarez because of the fall. And patient's not been Eliquis at home. Risk of falls. Given multiple infarcts in that case after discussing with them decided not to give any Eliquis. They understand prognosis guarded. Will see how patient does with her oxygen status. July 11: Saw the patient this afternoon. Remains on high flow oxygen. Attempt to decrease not successful. Still hovering around 8 to 10 L. Spoke to patient's daughter and [id number] at the bedside. Given patient's age and comorbidity they agree and very limited options. Anticoagulation could be dangerous in the setting of acute stroke. Agreeable to looking into hospice. Also discussed with social worker psychiatric. Patient's VQ scan unremarkable. 2D echo results still pending. Cause of hypoxia unclear. At home patient is on 3 L of oxygen. Oral intake fair. Patient does not have any fever. No cough. Normal procalcitonin. DC aztreonam. July 12: Laying in bed. Oxygen requirement has gone up to 30 L. Spoke with respiratory therapist. Patient placed on Airvo. 50 L and 80%. His daughter and [id number] at the bedside. Discussed. Limited 2D echo showed EF of 40%. Oral intake about 50%. Lasix was ordered by pulmonary. Prognosis remains very guarded. July 13: Patient is on Airvo. Reclining in bed. Able to communicate. Dr. Child suggested BiPAP but the patient wants to communicate and meet with her family. Patient's daughter and [id number] at the bedside understand patient is doing poorly. Remains on IV Lasix. Continues to tolerate diet. July 14: Patient shyam propped up. Awake but tired. Remains on Airvo. Patient's daughter, [id number], and granddaughter from [place] is here. Remains on IV Lasix. Prognosis remains very guarded. Further plan depending on clinical course. July 15: Remains on Airvo, 90%. Eating some. Family remains at the bedside. Tired. Able to communicate. July 16: Patient remains on Airvo 55 L, 90%. Oral intake fair. Had a very lengthy discussion with patient's daughter and the frrjgari-yu-hue at the bedside. At this point continue current treatment plan. Will see if oxygen requirement can come down. Active Medications Acetaminophen (Acetaminophen Tab 325 Mg Tab) 650 mg PO Q6HR PRN PRN Reason: Mild Pain or Fever > 100.5 Last Admin: 07/15/24 09:33 Dose: 650 mg Al Hydroxide/Mg Hydroxide (Mag Hydrox/Al Hydrox/Simeth 30 Ml Cup) 15 ml PO Q6HR PRN PRN Reason: Indigestion Albuterol/Ipratropium (Ipratropium-Albuterol 3 Ml Neb) 3 ml INHALATION RT-QID [facility] Last Admin: 07/16/24 15:37 Dose: 3 ml Albuterol/Ipratropium (Ipratropium-Albuterol 3 Ml Neb) 3 ml INHALATION RT-Q2H PRN PRN Reason: Shortness Of Breath Or Wheezing Aspirin (Aspirin 81 Mg) 81 mg PO DAILY [facility] Last Admin: 07/16/24 07:49 Dose: 81 mg Atorvastatin Calcium (Atorvastatin 40 Mg Tab) 40 mg PO HS [facility] Last Admin: 07/15/24 19:33 Dose: 40 mg Clopidogrel Bisulfate (Clopidogrel 75 Mg Tab) 75 mg PO DAILY [facility] Last Admin: 07/16/24 07:49 Dose: 75 mg Docusate Sodium (Docusate 100 Mg Cap) 100 mg PO BID PRN PRN Reason: Constipation Last Admin: 07/12/24 17:28 Dose: 100 mg Furosemide (Furosemide 40 Mg Tab) 40 mg PO DAILY [facility] Heparin Sodium (Porcine) (Heparin Sodium,Porcine 5,000 Unit/Ml 1 Ml Vial) 5,000 unit SQ Q12HR [facility] Last Admin: 07/16/24 07:50 Dose: 5,000 unit Isosorbide Mononitrate (Isosorbide Mononitrate Er 30 Mg Tab.Er.24h) 30 mg PO DAILY [facility] Last Admin: 07/16/24 07:49 Dose: 30 mg Lisinopril (Lisinopril 10 Mg Tab) 10 mg PO DAILY [facility] Last Admin: 07/16/24 07:49 Dose: 10 mg Metoprolol Tartrate (Metoprolol Tartrate 12.5 Mg Tab) 12.5 mg PO BID [facility] Last Admin: 07/16/24 07:49 Dose: 12.5 mg Naloxone HCl (Naloxone 0.4 Mg/Ml 1 Ml Vial) 0.2 mg IV Q2M PRN PRN Reason: Opioid Reversal Ondansetron HCl (Ondansetron 4 Mg/2 Ml Vial) 4 mg IVP Q8HR PRN PRN Reason: Nausea And Vomiting Sertraline HCl (Sertraline 50 Mg Tab) 50 mg PO HS [facility] Last Admin: 07/15/24 19:33 Dose: 50 mg Social history: Assisted living. Non-smoker. Alcohol rarely. Physical examination: VITAL SIGNS: 98.5, 86, 17, 101 x 60, 92% on Airvo 55 L / 90% GENERAL: Reclining in bed short of breath EYES: Pupils equal. Conjunctiva marco l. HEENT: External appearance of nose and ears normal, oral cavity grossly normal. NECK: JVD not raised; masses not palpable. HEART: First and second heart sounds are normal; no edema. LUNGS: Respiratory rate increased, diminished breath sounds ABDOMEN: Soft, nontender, liver spleen not palpable, no masses palpable. PSYCH: Answering simple questions MUSCULOSKELETAL:No Clubbing/cyanosis;muscles-grossly intact. OA INVESTIGATIONS, reviewed in the clinical context: VQ scan: No mismatch Carotid Doppler: No significant stenosis July 11: proBNP 2370. Procalcitonin 0.10 MRI brain: Acute infarct suspected within the left cerebellum. Acute appearing cortical infarcts bilateral occipital lobes larger on the left. July 09: ABG: pH 7.43 pCO2 31 pO2 70 on FiO2 50% potassium 3.6 creatinine 0.73 July 08: White count 9.1 hemoglobin 13.5 platelets 182 sodium 135 creatinine 0.95 July 07, 2024: White count 9 hemoglobin 15.9 platelets 172 sodium 130 potassium 4.4 BUN 40 creatinine 1.4 Troponin I 7.4, 8.1, 6.4 EKG tracing personally reviewed by me-normal sinus rhythm. Some ST-T wave changes. CT brain without contrast: No acute event. Encephalomalacia in the left frontal lobe consistent with old infarct Chest x-ray film personally reviewed by me-borderline cardiomegaly. Unfolding of the aorta. Rotated film. Portable CT angio chest: Negative PE. Partially visualized left hydronephrosis. Nonobstructing left renal calculus. Assessment plan: -Acute non-Q wave IL. Aspirin. Lipitor. Lopressor. IV heparin-being discontinued today. 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 -Probable acute congestive heart failure from systolic dysfunction ischemic EF 40%: Received IV Lasix. Changed to p.o. Lasix -IV heparin monitoring-discontinued Follow PTT -Chronic medical debility. At baseline patient uses a wheelchair -Acute hypoxic respiratory failure. Not improving On Airvo 90% Patient does not have any obvious pneumonia, PE or effusion. 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 Zestril. -Chronic medical debility -Acute acute kidney injury, possible ATN from blood pressure fluctuation: Better Follow renal function -DNR Advance care planning [July 11, 2024]: This was done at the bedside with patient's daughter and [id number]. Patient's advanced age. Comorbidities. Multiple strokes embolic on this presentation. Blood thinner will be highly risky given that it was discontinued earlier by Dr. Juarez few months ago because of risk of falls. And given the acute stroke it may convert into hemorrhagic stroke. They are agreeable to look into rehab/hospice depending on clinical course. Time spent for this about 25 minutes Lengthy discussion with daughter and daughter at the bedside. Prognosis remains poor. Will try to decrease patient's FiO2. Past Medical History Past Medical History: Cancer, GI Bleed, Hyperlipidemia, Hypertension, Osteoarthritis (OA) Additional Past Medical History / Comment(s): HX DIVERTICULITIS, BLEEDING ULCER -REC 2 UNITS PRBC,ANEMIA,BREAST CA LEFT BREAST WITH 2 LYMPH NODES REMOVED. HAD RADIATION History of Any Multi-Drug Resistant Organisms: None Reported Past Surgical History: Breast Surgery, Hysterectomy, Joint Replacement, Orthopedic Surgery Additional Past Surgical History / Comment(s): LAURA KNEE REPLACEMENT,ABD CYST REMOVED, CATARACT SURGERY LAURA, toe removed to treat hammer toe in 03/2023 Past Anesthesia/Blood Transfusion Reactions: No Reported Reaction Past Psychological History: Anxiety, Depression Smoking Status: Never smoker Past Alcohol Use History: Rare Past Drug Use History: None Reported
[2024-07-17 07:18] LABS: Basophils # (A) 0.1 k/uL (0-0.2); Basophils % (A) 0 %; Eosinophils # (A) 0.2 k/uL (0-0.7); Eosinophils % (A) 1 %; HCT 41.9 % (34.0-46.0); HGB 13.9 gm/dL (11.4-16.0); Lymphocytes % (A) 8 %; MCH 30.1 pg (25.0-35.0); MCHC 33.1 g/dL (31.0-37.0); MCV 90.9 fL (80.0-100.0); Mean Platelet Volume 7.1; Monocytes # (A) 0.9 k/uL (0-1.0); Monocytes % (A) 7 %; Neutrophils % (A) 83 %; Platelet Count 321 k/uL (150-450); RBC 4.61 m/uL (3.80-5.40); RDW 14.2 % (11.5-15.5); WBC 13.3 k/uL (3.8-10.6)
[2024-07-17 07:30] LABS: African American GFR (CKD) 65 (>60 ml/min/1.73 sqM); Anion Gap 8 mmol/L; Blood Urea Nitrogen 45 mg/dL (7-17); Calcium 9.3 mg/dL (8.4-10.2); Carbon Dioxide 28 mmol/L (22-30); Chloride 99 mmol/L (98-107); Glucose 94 mg/dL (74-99); Non-African American GFR(CKD) 56 (>60 ml/min/1.73 sqM); Potassium 3.9 mmol/L (3.5-5.1); Sodium 135 mmol/L (137-145)
[2024-07-17] MEDS: FUROSEMIDE 40 MG TAB PO SCH (08:45)
--- NOTE | 2024-07-17 14:03 | P.PN ---
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 Ms. Adam is an 89-year-old female with history of previous stroke, GI bleed, hypertension, hyperlipidemia, left breast cancer, dementia, osteoarthritis, pulmonary embolus, diverticulitis, peptic ulcer disease as well as major depression and anxiety. She was admitted to [facility] on July 07 as she was noted to be slumped over in her wheelchair at her care home and experienced bradycardia as well as decreased respiratory rate and vomiting. She was seen by neurology on July 08 and was only following simple commands at that time. She received an MRI of the brain on July 10 revealing extensive punctate diffusion positive infarcts in the right greater than left c ortex in the left cerebellum, bilateral occipital lobes left greater than right. Echocardiogram revealed ejection fraction of 35 to 40% as well as left ventricular hypertrophy. Her LDL was noted to be 47. A VQ scan on July 11 was negative. There is some consideration about pursuing a transesophageal echocardiogram when the patient is stable as well as a question of whether Eliquis needs to be resumed. At this time the patient's respiratory status is declining and she requires an increasing burden of oxygen to keep her respirations keep her oxygen saturation in good range. Family is considering possible hospice care regarding this. On follow-up July 17, the patient is alert and in bed and able to follow both simple and complex commands. She will hold a somewhat decent conversation but has some difficulties remembering details. Neurologic exam reveals quite no cranial nerve abnormalities with strength of approximately 5 out of 5 in her bilateral upper and lower extremities. No sensory deficit is a bit is visible. Coordination examination reveals no evidence of dysmetria on [id number]-pu-[id number] and reflex emanation feels 1+ symmetric reflexes with plantar sponsors downgoing bilaterally. Assessment: Ms. Adam is an 89-year-old female who suffered multiple embolic strokes. Her ejection fraction was noted to be low at 35 to 40% which may explain the reason for her embolic infarct. She has not been noted to be in atrial fibrillation and is currently being managed on aspirin 81 mg as well as Plavix 75 mg daily. Plan: 1. Neurology will continue to follow the patient on an intermittent basis from this point forward. Should her respiratory status improve I would recommend pursuing a transesophageal echocardiogram and considering anticoagulation: However, this may be deferred in light of her previous GI bleed. Objective - Vital Signs Vital signs: Vital Signs Temp 99.1 F 07/17/24 08:30 Pulse 81 07/17/24 11:40 Resp 16 07/17/24 11:40 BP 93/57 07/17/24 11:40 Pulse Ox 84 L 07/17/24 11:40 FiO2 90 07/17/24 11:27 Intake & Output 07/16/24 07/17/24 07/17/24 18:59 06:59 18:59 Intake Total 380 20 358 Output Total 450 275 550 Balance -70 -255 -192 Weight 65.1 kg Intake: IV 20 20 Invasive Line 4 20 20 Oral 360 358 Output: Urine 450 275 550 Other: Voiding Method Indwelling Catheter Indwelling Catheter Indwelling Catheter # Bowel Movements 1 - Labs CBC & Chem 7: 07/17/24 06:17 07/17/24 06:17 Labs: Abnormal Lab Results - Last 24 Hours (Table) 07/17/24 07/17/24 Range/Units 06:17 06:17 WBC 13.3 H (3.8-10.6) k/uL Neutrophils # 11.0 H (1.3-7.7) k/uL Sodium 135 L (137-145) mmol/L BUN 45 H (7-17) mg/dL
--- NOTE | 2024-07-17 14:27 | XR ---
EXAMINATION TYPE: XR chest 1V DATE OF EXAM: 07/17/2024 COMPARISON: 07/12/2024 CLINICAL INDICATION: Female, 89 years old with history of hypoxia; TECHNIQUE: Single frontal view of the chest is obtained. FINDINGS: Hyperinflation compatible with COPD. Left basilar parenchymal scar atelectasis is stable. There is no focal air space opacity, pleural effusion, or pneumothorax seen. The cardiac silhouette size is within normal limits. The osseous structures are intact. IMPRESSION: [facility] Soheila Hoff, , 07/17/2024 12:33 PM
--- NOTE | 2024-07-17 15:14 | P.PN ---
Subjective Progress Note Date: 07/17/24 This is an 89-year-old female patient who resides at up assisted living facility and has a history of hyperlipidemia, GI bleed, hypertension, osteoarthritis, anxiety/depression, left sided breast cancer with previous radiation, non- smoker. Early this morning she was found slumped over in a wheelchair by a staff member who called EMS. Upon arrival to EMS she was found to be bradycardic with poor respiratory effort and initial pulse ox readings in the 70s. She was placed on a nonrebreather mask and became more responsive and was brought into the emergency room. EKG revealed sinus rhythm with some ST depression. CT scan of the brain revealed no acute intracranial hemorrhage, midline shift or mass effect. Revealed no acute pulmonary process. CT angiogram revealed no evidence of pulmonary embolism. Partially visualized left hydronephrosis. White count 9.0. Hemoglobin 15.1. Platelets 172. D-dimer 9.31. Sodium 130. Potassium 4.4. Bicarb 15. BUN 40. Creatinine 1.40. Glucose 178. Troponins 7.4, 8.1, 6.4. She is seen today in consultation in the emergency department. She is currently awake, alert. Maintaining O2 saturations in the 90s on 5 L/min per nasal cannula. He is afebrile. Hemodynamically stable. She has been initiated on a heparin drip. She is a poor historian. The patient is seen today July 08, 2024 in follow-up on the selective care unit. She is currently sitting up in a chair. Awake and alert in no acute distress. Maintaining O2 saturations in the 90s on 5 L/min per nasal cannula. She has been afebrile. She is currently nauseated. Blood cultures pending. White count 9.1. Hemoglobin 13.5. Platelets 182. Sodium 135. Potassium 4.2. Bicarb 21. BUN 36. Creatinine 0.95. Glucose 91. She remains on a heparin drip. Antibiotics in the form of aztreonam. Normal saline at 75 mL/h. The patient is seen today July 09, 2024 in follow-up on the selective care unit. She is currently sitting up in a chair. She is still requiring 8 L high flow nasal cannula. She intermittently needs BiPAP 14/7 and 50% FiO2. X-ray reveals moderate cardiomegaly and mild pulmonary vascular congestion. Continued on a heparin drip. Blood cultures pending. Urine culture ending. She remains on antibiotics in the form of aztreonam. Sodium 135. Potassium 3.4. Bicarb 19. BUN 29. Creatinine 0.73. Ammonia level 11. Arterial blood gases revealed a PaO2 of 70, pCO2 31. pH 7.43. The patient is seen today July 10, 2024 in follow-up on the selective care unit. She is awake and alert in no acute distress. Currently sitting up in a chair. Still requiring 10 L high flow nasal cannula. She is alternating with BiPAP 14/7 and 50% FiO2. She is continued on DuoNeb inhalations. Antibiotics in the form of Azactam. MRI of the brain reveals extensive punctate cortical and subcortical hyperintensities, suspicious for acute ischemic changes. Acute infarct within the left cerebellum. Acute appearing cortical infarcts bilateral occipital lobes larger on the left. Blood cultures revealed no growth. Urine culture revealed no growth. PTT 54.8. Remains on a heparin drip. Progress note dated July 11, 2024. 89-year-old female seen in room 381. The patient is currently on 8 L high flow nasal O2. The patient continues on aztreonam. The patient had a previous CT angiogram that was negative for pulmonary embolism, but despite that, the patient also had a VQ scan ordered, that was also negative. We will check an N- terminal proBNP level, and a procalcitonin level. The patient does use oxygen at home, at 3 L. No new labs today other than a N-terminal proBNP level of 2370. Procalcitonin levels pending. The patient is seen today July 12, 2024 in follow-up on the selective care unit. She is currently sitting up in bed. Awake and alert. She is now requiring Airvo high flow oxygen at 50 L and 80% FiO2. X-ray continues to show only some streaky atelectasis of the left lower lobe. proBNP level 2370. Procalcitonin negative at 0.10. Urine culture was positive for Diana only. Blood cultures revealed no growth. She is continued on DuoNeb inhalations. Azactam discontinued. The patient is seen today July 13, 2024 in follow-up on the selective care unit. She is currently resting in bed. Her oxygen requirements have gone up again today. She is currently on Airvo high flow oxygen at 55 L and 85% FiO2. O2 saturations have continued to decline. Family is at the bedside. She remains on bronchodilators. Remains on IV diuretics. Heparin for DVT prophylaxis. The patient is seen today July 14, 2024 in follow-up on the selective care unit. She is currently awake and alert, resting fairly comfortably in bed. Continued on Airvo high flow oxygen at 55 L and 90% FiO2. She is continued on Lasix 40 mg every 12 hours. Heparin for DVT prophylaxis. No new labs. She is currently in a -280 mL balance. Family is at the bedside. Progress note dated July 15, 2024. 89-year-old female seen today in room 381. She continues on Airvo, with settings of 55 L/min, and 90%. No IV fluids. Unfortunately, her saturations are in the 80s. No new labs today. We have had ongoing discussions with the patient's daughter and daughter and daughter in law. Progress note dated July 16, 2024. 89-year-old female seen today in room 381. She continues on Airvo at 55 L/min, with an FiO2 of 90%. Is not receiving any IV fluids. Her daughter is in the room. She is sitting in the chair next to her hospital bed. She appears to be reasonably stable, but very weak. No new labs today. The patient is a DO NOT RESUSCITATE patient. At 1 point, the family was considering comfort care. On 07/17/2024, patient remains on Airvo 55 L with an FiO2 of 90%. She continues to be hypoxic. Repeat chest x-ray was done today and it is consistent with COPD and hyperinflation. There are some left basilar parenchymal scarring/atelectasis. No focal airspace disease. No pleural effusion. No pneumothorax. The patient is home O2 dependent and typically uses oxygen 3 L/min nasal cannula. Noted the blood gas was done on 07/09/2024 and FiO2 of 50% showed a pH of 7.43 with a pCO2 of 31 and pO2 of 70. The CTA of the chest done on 07/07/2024 showed no evidence of any pulmonary embolism. It was consistent with calcified granulomas bilaterally and some mild bibasilar atelectatic changes. Furthermore, the patient underwent a perfusion scan that was negative. The patient is resting comfortably in bed. The white cell count is at 13.3 with a heme of 13.9 and a platelet count of 321. BUN is 45 with a creatinine of 0.9 and sodium levels at 135. proBNP level is 2370. Procalcitonin level is at 0.1. Her previous echocardiogram from 05/23/2024 showed a mild impairment LV function with an ejection fraction of 45 to 50%. No significant pulmonary hypertension. Noted the patient has also suffered multiple embolic strokes. She is on a combination of aspirin and Plavix. Neurology is on the case. MRI of the brain confirmed presence of extensive punctate cortical and subcortical hypodensities suspicious for acute ischemic infarcts. Acute infarct is also suspected in the left cerebellum. Some prior hemorrhage could be also considered within the involved area. There is also acute appearing cortical infarcts bilateral occipital lobes right less than left and chronic atrophic changes and chronic periventricular white matter ischemic changes. Objective - Vital Signs Vital signs: Vital Signs Temp 97.9 F 07/16/24 21:00 Pulse 80 07/17/24 08:21 Resp 18 07/17/24 04:36 BP 113/70 07/17/24 04:36 Pulse Ox 91 L 07/17/24 04:36 FiO2 90 07/17/24 08:12 Intake & Output 07/16/24 07/17/24 07/17/24 18:59 06:59 18:59 Intake Total 380 20 358 Output Total 450 275 Balance -70 -255 358 Weight 65.1 kg Intake: IV 20 20 Invasive Line 4 20 20 Oral 360 358 Output: Urine 450 275 Other: Voiding Method Indwelling Catheter Indwelling Catheter # Bowel Movements 1 - Exam No acute distress, oriented 3. Currently on Airvo. HEENT examination is grossly unremarkable. Mucous membranes are moist. No oral lesions. Neck supple. Full range of motion. No adenopathy thyromegaly or neck vein distention. Cardiovascular examination reveals regular rhythm rate. S1-S2 normal. No S3 or S4. No discernible murmur noted. Lungs reveal mild bibasilar crackles. No wheezes. No rhonchi. Breath sounds equal. Abdomen soft bowel sounds are heard. No masses or tenderness. Extremities are intact. No cyanosis clubbing or edema. Skin is without rash or lesion. Neurologic examination is brief but nonfocal. - Labs CBC & Chem 7: 07/17/24 06:17 07/17/24 06:17 Labs: Abnormal Lab Results - Last 24 Hours (Table) 07/17/24 07/17/24 Range/Units 06:17 06:17 WBC 13.3 H (3.8-10.6) k/uL Neutrophils # 11.0 H (1.3-7.7) k/uL Sodium 135 L (137-145) mmol/L BUN 45 H (7-17) mg/dL Assessment and Plan Plan: Acute hypoxic respiratory failure, currently on Airvo with 55 L and FiO2 of 90%. Exact cause is not clear. The patient is known to have chronic hypoxic respiratory failure and typically she is on 3 L of oxygen by nasal cannula. CT of the chest showed no evidence of the pulm embolism and there is some atelectatic changes in lung base bilaterally. The perfusion scan was also negative. Procalcitonin level is low. No evidence of any pneumonia. Consider underlying intracardiac shunting. Multiple strokes, please refer to the MRI of the brain. Considering embolic phenomena. Syncopal episode without any recurrence. Acute non-ST segment elevation myocardial infarction. Acute kidney injury, recovered and the renal function is back to baseline Systolic heart failure with mild impairment LV function with an ejection fraction of 40 to 45% History of hypertension. Hyperlipidemia. History of left breast cancer. History of anxiety/depression. Plan: Ideally, the patient will benefit from a ANJU based on her ongoing hypoxemic event to rule out any intracardiac shunt and the same time rule out any int racardiac source of her multiple strokes. The patient is kept on Airvo for now at 55 L Will gradually down FiO2 as tolerated She is a DNR/DNI CODE STATUS. I was approached by the primary care and there are plans to consider hospice on this patient. Based on age of comorbidities, her prognosis poor specially with multi strokes. The patient will be kept on aspirin and Plavix for now. Continue Lipitor. Continue rest of the medication will continue to follow.
--- NOTE | 2024-07-17 21:12 | P.PN ---
Progress Note - Text Progress Note Date: 07/17/24 Chief Complaint: Decreased responsiveness This is a 89-year-old patient, follows Dr. Marlow. Patient was brought in by the EMS to the ER. Patient is at her assisted living. EMS was called with the patient was found to be slumped over in the chair by the care of a staff member. At baseline patient is only AO x 1. Patient had mild to moderate labored respirations. When staff member did compress out there found the patient slumped over in the wheelchair and altered. His 911 was initiated. Patient herself is a very poor historian. Pulse ox was found to be 70%. Normally wears oxygen. Patient was briefly into bradycardia with heart rate in the 40s. Patient had vomited prior to arrival of the EMS. Patient during transport was put on 15 L nonrebreather. Pulse ox came to 80 to 90%. EKG showed normal sinus rhythm with some T wave changes. Patient is not really able to speak. Struggling a bit. In the ER patient is able to answer questions. But she thinks it is 1991. She thinks she is in the [facility]. July 08: Patient more awake today. Answering simple questions. Had a fair amount of breakfast. Cardiology is considering a cardiac catheterization. On IV heparin drip. Seen by neurology. Mcrae to be having encephalopathy on presentation. Possibly from [facility]. July 09: Up in chair. On 8 to 10 L high flow oxygen. No obvious cause has been determined. ABG: On 50% 92 shows PaO2 of 70 pCO2 of 31. Chest x-ray has been nonspecific. 2D echo was done results pending. Had about 75% of breakfast lunch. July 10: Patient was seen this morning. Still requiring high flow oxygen anywhere from 8 to 10 L. No obvious cause found. Will order a VQ scan to rule out any peripheral PE. IV heparin being discontinued by cardiology today. Resume Jyoti. I spoke to patient's daughter at the bedside. Patient had a femur fracture back in September of this year. Since then patient is become hypoxic. Patient with apparent significant l load of fat embolism that may have resulted in hypoxia. MRI results suggestive of scattered emboli in the brain Late this evening I spoke to patient's [id number] Diana and her daughter Susannah who was flown from out of town. Over the phone. Came in for me back in September of this year Eliquis was actually discontinued by Dr. Juarez because of the fall. And patient's not been Eliquis at home. Risk of falls. Given multiple infarcts in that case after discussing with them decided not to give any Eliquis. They understand prognosis guarded. Will see how patient does with her oxygen status. July 11: Saw the patient this afternoon. Remains on high flow oxygen. Attempt to decrease not successful. Still hovering around 8 to 10 L. Spoke to patient's daughter and [id number] at the bedside. Given patient's age and comorbidity they agree and very limited options. Anticoagulation could be dangerous in the setting of acute stroke. Agreeable to looking into hospice. Also discussed with social insurance adviser. Patient's VQ scan unremarkable. 2D echo results still pending. Cause of hypoxia unclear. At home patient is on 3 L of oxygen. Oral intake fair. Patient does not have any fever. No cough. Normal procalcitonin. DC aztreonam. July 12: Laying in bed. Oxygen requirement has gone up to 30 L. Spoke with respiratory therapist. Patient placed on Airvo. 50 L and 80%. His daughter and [id number] at the bedside. Discussed. Limited 2D echo showed EF of 40%. Oral intake about 50%. Lasix was ordered by pulmonary. Prognosis remains very guarded. July 13: Patient is on Airvo. Reclining in bed. Able to communicate. Dr. Child suggested BiPAP but the patient wants to communicate and meet with her family. Patient's daughter and [id number] at the bedside understand patient is doing poorly. Remains on IV Lasix. Continues to tolerate diet. July 14: Patient shyam propped up. Awake but tired. Remains on Airvo. Patient's daughter, [id number], and granddaughter from [place] is here. Remains on IV Lasix. Prognosis remains very guarded. Further plan depending on clinical course. July 15: Remains on Airvo, 90%. Eating some. Family remains at the bedside. Tired. Able to communicate. July 16: Patient remains on Airvo 55 L, 90%. Oral intake fair. Had a very lengthy discussion with patient's daughter and the [id number] at the bedside. At this point continue current treatment plan. Will see if oxygen requirement can come down. July 17: Patient remains on Airvo 55 and FiO2 90 this morning. Tolerating diet. Spoke to respiratory therapist to see if he can dial down the oxygen. Also discussed with Dr. Hameed to see if any alternate this. Family not at the bedside. Spoke to case operator about possible hospice. Will have to see how much oxygen will be excepted at the facility he goes to. Chest x-ray from today unremarkable Active Medications Acetaminophen (Acetaminophen Tab 325 Mg Tab) 650 mg PO Q6HR PRN PRN Reason: Mild Pain or Fever > 100.5 Last Admin: 07/15/24 09:33 Dose: 650 mg Al Hydroxide/Mg Hydroxide (Mag Hydrox/Al Hydrox/Simeth 30 Ml Cup) 15 ml PO Q6HR PRN PRN Reason: Indigestion Albuterol/Ipratropium (Ipratropium-Albuterol 3 Ml Neb) 3 ml INHALATION RT-QID [facility] Last Admin: 07/17/24 15:04 Dose: 3 ml Albuterol/Ipratropium (Ipratropium-Albuterol 3 Ml Neb) 3 ml INHALATION RT-Q2H PRN PRN Reason: Shortness Of Breath Or Wheezing Aspirin (Aspirin 81 Mg) 81 mg PO DAILY [facility] Last Admin: 07/17/24 08:45 Dose: 81 mg Atorvastatin Calcium (Atorvastatin 40 Mg Tab) 40 mg PO HS [facility] Last Admin: 07/17/24 19:51 Dose: 40 mg Clopidogrel Bisulfate (Clopidogrel 75 Mg Tab) 75 mg PO DAILY [facility] Last Admin: 07/17/24 08:45 Dose: 75 mg Docusate Sodium (Docusate 100 Mg Cap) 100 mg PO BID PRN PRN Reason: Constipation Last Admin: 07/12/24 17:28 Dose: 100 mg Furosemide (Furosemide 40 Mg Tab) 40 mg PO DAILY [facility] Last Admin: 07/17/24 08:45 Dose: 40 mg Heparin Sodium (Porcine) (Heparin Sodium,Porcine 5,000 Unit/Ml 1 Ml Vial) 5,000 unit SQ Q12HR [facility] Last Admin: 07/17/24 19:51 Dose: 5,000 unit Isosorbide Mononitrate (Isosorbide Mononitrate Er 30 Mg Tab.Er.24h) 30 mg PO DAILY [facility] Last Admin: 07/17/24 08:45 Dose: 30 mg Lisinopril (Lisinopril 10 Mg Tab) 10 mg PO DAILY [facility] Last Admin: 07/17/24 08:45 Dose: 10 mg Metoprolol Tartrate (Metoprolol Tartrate 12.5 Mg Tab) 12.5 mg PO BID [facility] Last Admin: 07/17/24 19:51 Dose: 12.5 mg Naloxone HCl (Naloxone 0.4 Mg/Ml 1 Ml Vial) 0.2 mg IV Q2M PRN PRN Reason: Opioid Reversal Ondansetron HCl (Ondansetron 4 Mg/2 Ml Vial) 4 mg IVP Q8HR PRN PRN Reason: Nausea And Vomiting Sertraline HCl (Sertraline 50 Mg Tab) 50 mg PO HS [facility] Last Admin: 07/17/24 19:51 Dose: 50 mg Social history: Assisted living. Non-smoker. Alcohol rarely. Physical examination: VITAL SIGNS: 99, 83, 16, 91/51, 91% on Airvo 55/90 GENERAL: Reclining in bed short of breath EYES: Pupils equal. Conjunctiva marco l. HEENT: External appearance of nose and ears normal, oral cavity grossly normal. NECK: JVD not raised; masses not palpable. HEART: First and second heart sounds are normal; no edema. LUNGS: Respiratory rate increased, diminished breath sounds ABDOMEN: Soft, nontender, liver spleen not palpable, no masses palpable. PSYCH: Able to answer questions MUSCULOSKELETAL:No Clubbing/cyanosis;muscles-grossly intact. OA INVESTIGATIONS, reviewed in the clinical context: July 17: White count 30.3 hemoglobin 30.9 potassium 3.9 creatinine 0.92 VQ scan: No mismatch Carotid Doppler: No significant stenosis July 11: proBNP 2370. Procalcitonin 0.10 MRI brain: Acute infarct suspected within the left cerebellum. Acute appearing cortical infarcts bilateral occipital lobes larger on the left. July 09: ABG: pH 7.43 pCO2 31 pO2 70 on FiO2 50% potassium 3.6 creatinine 0.73 July 08: White count 9.1 hemoglobin 13.5 platelets 182 sodium 135 creatinine 0.95 July 07, 2024: White count 9 hemoglobin 15.9 platelets 172 sodium 130 potassium 4.4 BUN 40 creatinine 1.4 Troponin I 7.4, 8.1, 6.4 EKG tracing personally reviewed by me-normal sinus rhythm. Some ST-T wave changes. CT brain without contrast: No acute event. Encephalomalacia in the left frontal lobe consistent with old infarct Chest x-ray film personally reviewed by me-borderline cardiomegaly. Unfolding of the aorta. Rotated film. Portable CT angio chest: Negative PE. Partially visualized left hydronephrosis. Nonobstructing left renal calculus. Assessment plan: -Acute non-Q wave [facility]. Aspirin. Lipitor. Lopressor. IV heparin-being discontinued today. 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 -Probable acute congestive heart failure from systolic dysfunction ischemic EF 40%: Received IV Lasix. Now p.o. Lasix -IV heparin monitoring-discontinued Follow PTT -Chronic medical debility. At baseline patient uses a wheelchair -Acute hypoxic respiratory failure. Not improving On Airvo 90% Patient does not have any obvious pneumonia, PE or effusion. 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 Zestril. -Chronic medical debility -Acute acute kidney injury, possible ATN from blood pressure fluctuation: Better Follow renal function -DNR Advance care planning [July 11, 2024]: This was done at the bedside with patient's daughter and [id number]. Patient's advanced age. Comorbidities. Multiple strokes embolic on this presentation. Blood thinner will be highly risky given that it was discontinued earlier by Dr. Juarez few months ago because of risk of falls. And given the acute stroke it may convert into hemorrhagic stroke. They are agreeable to look into rehab/hospice depending on clinical course. Time spent for this about 25 minutes Prognosis remains guarded. Requiring high oxygen flow. That can come down. Spoke to social insurance adviser to see how much oxygen will be excepted at the facility. Past Medical History Past Medical History: Cancer, GI Bleed, Hyperlipidemia, Hypertension, Osteoarthritis (OA) Additional Past Medical History / Comment(s): HX DIVERTICULITIS, BLEEDING ULCER -REC 2 UNITS PRBC,ANEMIA,BREAST CA LEFT BREAST WITH 2 LYMPH NODES REMOVED. HAD RADIATION History of Any Multi-Drug Resistant Organisms: None Reported Past Surgical History: Breast Surgery, Hysterectomy, Joint Replacement, Orthopedic Surgery Additional Past Surgical History / Comment(s): LAURA KNEE REPLACEMENT,ABD CYST REMOVED, CATARACT SURGERY LAURA, toe removed to treat hammer toe in 03/2023 Past Anesthesia/Blood Transfusion Reactions: No Reported Reaction Past Psychological History: Anxiety, Depression Smoking Status: Never smoker Past Alcohol Use History: Rare Past Drug Use History: None Reported
[2024-07-18 10:51] VITALS: BMI 25.5
[2024-07-18] MEDS: SODIUM CHLORIDE 0.65% NASAL SPRAY 44 ML BTL NASAL PRN (17:52)
--- NOTE | 2024-07-18 18:40 | P.PN ---
Subjective Progress Note Date: 07/18/24 This is an 89-year-old female patient who resides at [facility] assisted living facility and has a history of hyperlipidemia, GI bleed, hypertension, osteoarthritis, anxiety/depression, left sided breast cancer with previous radiation, non- smoker. Early this morning she was found slumped over in a wheelchair by a staff member who called EMS. Upon arrival to EMS she was found to be bradycardic with poor respiratory effort and initial pulse ox readings in the 70s. She was placed on a nonrebreather mask and became more responsive and was brought into the emergency room. EKG revealed sinus rhythm with some ST depression. CT scan of the brain revealed no acute intracranial hemorrhage, midline shift or mass effect. Revealed no acute pulmonary process. CT angiogram revealed no evidence of pulmonary embolism. Partially visualized left hydronephrosis. White count 9.0. Hemoglobin 15.1. Platelets 172. D-dimer 9.31. Sodium 130. Potassium 4.4. Bicarb 15. BUN 40. Creatinine 1.40. Glucose 178. Troponins 7.4, 8.1, 6.4. She is seen today in consultation in the emergency department. She is currently awake, alert. Maintaining O2 saturations in the 90s on 5 L/min per nasal cannula. He is afebrile. Hemodynamically stable. She has been initiated on a heparin drip. She is a poor historian. The patient is seen today July 08, 2024 in follow-up on the selective care unit. She is currently sitting up in a chair. Awake and alert in no acute distress. Maintaining O2 saturations in the 90s on 5 L/min per nasal cannula. She has been afebrile. She is currently nauseated. Blood cultures pending. White count 9.1. Hemoglobin 13.5. Platelets 182. Sodium 135. Potassium 4.2. Bicarb 21. BUN 36. Creatinine 0.95. Glucose 91. She remains on a heparin drip. Antibiotics in the form of aztreonam. Normal saline at 75 mL/h. The patient is seen today July 09, 2024 in follow-up on the selective care unit. She is currently sitting up in a chair. She is still requiring 8 L high flow nasal cannula. She intermittently needs BiPAP 14/7 and 50% FiO2. X-ray reveals moderate cardiomegaly and mild pulmonary vascular congestion. Continued on a heparin drip. Blood cultures pending. Urine culture ending. She remains on antibiotics in the form of aztreonam. Sodium 135. Potassium 3.4. Bicarb 19. BUN 29. Creatinine 0.73. Ammonia level 11. Arterial blood gases revealed a PaO2 of 70, pCO2 31. pH 7.43. The patient is seen today July 10, 2024 in follow-up on the selective care unit. She is awake and alert in no acute distress. Currently sitting up in a chair. Still requiring 10 L high flow nasal cannula. She is alternating with BiPAP 14/7 and 50% FiO2. She is continued on DuoNeb inhalations. Antibiotics in the form of Azactam. MRI of the brain reveals extensive punctate cortical and subcortical hyperintensities, suspicious for acute ischemic changes. Acute infarct within the left cerebellum. Acute appearing cortical infarcts bilateral occipital lobes larger on the left. Blood cultures revealed no growth. Urine culture revealed no growth. PTT 54.8. Remains on a heparin drip. Progress note dated July 11, 2024. 89-year-old female seen in room 381. The patient is currently on 8 L high flow nasal O2. The patient continues on aztreonam. The patient had a previous CT angiogram that was negative for pulmonary embolism, but despite that, the patient also had a VQ scan ordered, that was also negative. We will check an N- terminal proBNP level, and a procalcitonin level. The patient does use oxygen at home, at 3 L. No new labs today other than a N-terminal proBNP level of 2370. Procalcitonin levels pending. The patient is seen today July 12, 2024 in follow-up on the selective care unit. She is currently sitting up in bed. Awake and alert. She is now requiring Airvo high flow oxygen at 50 L and 80% FiO2. X-ray continues to show only some streaky atelectasis of the left lower lobe. proBNP level 2370. Procalcitonin negative at 0.10. Urine culture was positive for Diana only. Blood cultures revealed no growth. She is continued on DuoNeb inhalations. Azactam discontinued. The patient is seen today July 13, 2024 in follow-up on the selective care unit. She is currently resting in bed. Her oxygen requirements have gone up again today. She is currently on Airvo high flow oxygen at 55 L and 85% FiO2. O2 saturations have continued to decline. Family is at the bedside. She remains on bronchodilators. Remains on IV diuretics. Heparin for DVT prophylaxis. The patient is seen today July 14, 2024 in follow-up on the selective care unit. She is currently awake and alert, resting fairly comfortably in bed. Continued on Airvo high flow oxygen at 55 L and 90% FiO2. She is continued on Lasix 40 mg every 12 hours. Heparin for DVT prophylaxis. No new labs. She is currently in a -280 mL balance. Family is at the bedside. Progress note dated July 15, 2024. 89-year-old female seen today in room 381. She continues on Airvo, with settings of 55 L/min, and 90%. No IV fluids. Unfortunately, her saturations are in the 80s. No new labs today. We have had ongoing discussions with the patient's daughter and daughter and daughter in law. Progress note dated July 16, 2024. 89-year-old female seen today in room 381. She continues on Airvo at 55 L/min, with an FiO2 of 90%. Is not receiving any IV fluids. Her daughter is in the room. She is sitting in the chair next to her hospital bed. She appears to be reasonably stable, but very weak. No new labs today. The patient is a DO NOT RESUSCITATE patient. At 1 point, the family was considering comfort care. On 07/17/2024, patient remains on Airvo 55 L with an FiO2 of 90%. She continues to be hypoxic. Repeat chest x-ray was done today and it is consistent with COPD and hyperinflation. There are some left basilar parenchymal scarring/atelectasis. No focal airspace disease. No pleural effusion. No pneumothorax. The patient is home O2 dependent and typically uses oxygen 3 L/min nasal cannula. Noted the blood gas was done on 07/09/2024 and FiO2 of 50% showed a pH of 7.43 with a pCO2 of 31 and pO2 of 70. The CTA of the chest done on 07/07/2024 showed no evidence of any pulmonary embolism. It was consistent with calcified granulomas bilaterally and some mild bibasilar atelectatic changes. Furthermore, the patient underwent a perfusion scan that was negative. The patient is resting comfortably in bed. The white cell count is at 13.3 with a heme of 13.9 and a platelet count of 321. BUN is 45 with a creatinine of 0.9 and sodium levels at 135. proBNP level is 2370. Procalcitonin level is at 0.1. Her previous echocardiogram from 05/23/2024 showed a mild impairment LV function with an ejection fraction of 45 to 50%. No significant pulmonary hypertension. Noted the patient has also suffered multiple embolic strokes. She is on a combination of aspirin and Plavix. Neurology is on the case. MRI of the brain confirmed presence of extensive punctate cortical and subcortical hypodensities suspicious for acute ischemic infarcts. Acute infarct is also suspected in the left cerebellum. Some prior hemorrhage could be also considered within the involved area. There is also acute appearing cortical infarcts bilateral occipital lobes right less than left and chronic atrophic changes and chronic periventricular white matter ischemic changes. On 07/18/2024, patient is being seen for a follow-up. Essentially unchanged compared to yesterday. She was on Airvo earlier and subsequently, the patient was switched to high flow oxygen 10 L and her current pulse ox is around 84 to 87%. Denies having any significant respiratory distress. No chest pain. Repeat chest x-ray from yesterday was consistent with COPD. No other acute cardiopulmonary abnormalities. White cell count of 13.3 with a hemoglobin 13.9 and a platelet count of 321. Electrolytes are all stable with a BUN of 45 and a creatinine of 0.2. Procalcitonin level is at 0.1. Patient denies having any specific complaints. Consideration is being given for hospice care for this patient. Objective - Vital Signs Vital signs: Vital Signs Temp 99.2 F 07/17/24 19:55 Pulse 76 07/18/24 11:59 Resp 16 07/18/24 08:10 BP 118/51 07/18/24 08:10 Pulse Ox 91 L 07/18/24 08:10 FiO2 85 07/18/24 11:39 Intake & Output 07/17/24 07/18/24 07/18/24 18:59 06:59 18:59 Intake Total 1016 118 Output Total 800 400 Balance 216 -400 118 Weight 65.5 kg 65.5 kg Intake: Oral 1016 118 Output: Urine 800 400 Other: Voiding Method Indwelling Catheter Indwelling Catheter Indwelling Catheter - Exam No acute distress, oriented 3. Currently on 10 L of O2 nasal cannula with a pulse ox of 85 to 87% HEENT examination is grossly unremarkable. Mucous membranes are moist. No oral lesions. Neck supple. Full range of motion. No adenopathy thyromegaly or neck vein distention. Cardiovascular examination reveals regular rhythm rate. S1-S2 normal. No S3 or S4. No discernible murmur noted. Lungs reveal mild bibasilar crackles. No wheezes. No rhonchi. Breath sounds equal. Abdomen soft bowel sounds are heard. No masses or tenderness. Extremities are intact. No cyanosis clubbing or edema. Skin is without rash or lesion. Neurologic examination is brief but nonfocal. - Labs CBC & Chem 7: 07/17/24 06:17 07/17/24 06:17 Assessment and Plan Plan: Acute hypoxic respiratory failure, currently on Airvo with 55 L and FiO2 of 90%. Exact cause is not clear. The patient is known to have chronic hypoxic respiratory failure and typically she is on 3 L of oxygen by nasal cannula. CT of the chest showed no evidence of the pulm embolism and there is some atelectatic changes in lung base bilaterally. The perfusion scan was also negative. Procalcitonin level is low. No evidence of any pneumonia. Consider underlying intracardiac shunting. Noted the patient is being considered for hospice care. Based on that, the patient was taken off the Airvo system and the patient was placed on 10 L of oxygen nasal cannula. Current pulse ox is between 85 to 87%. Multiple strokes, please refer to the MRI of the brain. Considering embolic phenomena. Syncopal episode without any recurrence. Acute non-ST segment elevation myocardial infarction. Acute kidney injury, recovered and the renal function is back to baseline Systolic heart failure with mild impairment LV function with an ejection fraction of 40 to 45% History of hypertension. Hyperlipidemia. History of left breast cancer. History of anxiety/depression. Plan: Keep the patient on high flow oxygen 10 L and monitor the oxygenation Chest x-ray findings are stable from yesterday Ideally, the patient will benefit from a ANJU based on her ongoing hypoxemic event to rule out any intracardiac shunt and the same time rule out any intracardiac source of her multiple strokes. Will gradually down FiO2 as tolerated She is a DNR/DNI CODE STATUS. I was approached by the primary care and there are plans to consider hospice on this patient. Based on age of comorbidities, her prognosis poor specially with multi strokes. The patient will be kept on aspirin and Plavix for now. Continue Lipitor. Continue rest of the medication will continue to follow. Patient is being considered for hospice care.
--- NOTE | 2024-07-18 18:51 | P.PN ---
Progress Note - Text Progress Note Date: 07/18/24 Chief Complaint: Decreased responsiveness This is a 89-year-old patient, follows Dr. Marlow. Patient was brought in by the EMS to the ER. Patient is at her assisted living. EMS was called with the patient was found to be slumped over in the chair by the care of a staff member. At baseline patient is only AO x 1. Patient had mild to moderate labored respirations. When staff member did compress out there found the patient slumped over in the wheelchair and altered. His 911 was initiated. Patient herself is a very poor historian. Pulse ox was found to be 70%. Normally wears oxygen. Patient was briefly into bradycardia with heart rate in the 40s. Patient had vomited prior to arrival of the EMS. Patient during transport was put on 15 L nonrebreather. Pulse ox came to 80 to 90%. EKG showed normal sinus rhythm with some T wave changes. Patient is not really able to speak. Struggling a bit. In the ER patient is able to answer questions. But she thinks it is 1991. She thinks she is in the [facility]. July 08: Patient more awake today. Answering simple questions. Had a fair amount of breakfast. Cardiology is considering a cardiac catheterization. On IV heparin drip. Seen by neurology. [place] to be having encephalopathy on presentation. Possibly from [place]. July 09: Up in chair. On 8 to 10 L high flow oxygen. No obvious cause has been determined. ABG: On 50% 92 shows PaO2 of 70 pCO2 of 31. Chest x-ray has been nonspecific. 2D echo was done results pending. Had about 75% of breakfast lunch. July 10: Patient was seen this morning. Still requiring high flow oxygen anywhere from 8 to 10 L. No obvious cause found. Will order a VQ scan to rule out any peripheral PE. IV heparin being discontinued by cardiology today. Resume Jyoti. I spoke to patient's daughter at the bedside. Patient had a femur fracture back in September of this year. Since then patient is become hypoxic. Patient with apparent significant l load of fat embolism that may have resulted in hypoxia. MRI results suggestive of scattered emboli in the brain Late this evening I spoke to patient's [id number]-vu-xwa Diana and her daughter Susannah who was flown from out of town. Over the phone. Came in for me back in September of this year Eliquis was actually discontinued by Dr. Juarez because of the fall. And patient's not been Eliquis at home. Risk of falls. Given multiple infarcts in that case after discussing with them decided not to give any Eliquis. They understand prognosis guarded. Will see how patient does with her oxygen status. July 11: Saw the patient this afternoon. Remains on high flow oxygen. Attempt to decrease not successful. Still hovering around 8 to 10 L. Spoke to patient's daughter and [id number] at the bedside. Given patient's age and comorbidity they agree and very limited options. Anticoagulation could be dangerous in the setting of acute stroke. Agreeable to looking into hospice. Also discussed with clinical social work aide. Patient's VQ scan unremarkable. 2D echo results still pending. Cause of hypoxia unclear. At home patient is on 3 L of oxygen. Oral intake fair. Patient does not have any fever. No cough. Normal procalcitonin. DC aztreonam. July 12: Laying in bed. Oxygen requirement has gone up to 30 L. Spoke with respiratory therapist. Patient placed on Airvo. 50 L and 80%. His daughter and [id number] at the bedside. Discussed. Limited 2D echo showed EF of 40%. Oral intake about 50%. Lasix was ordered by pulmonary. Prognosis remains very guarded. July 13: Patient is on Airvo. Reclining in bed. Able to communicate. Dr. Child suggested BiPAP but the patient wants to communicate and meet with her family. Patient's daughter and [id number] at the bedside understand patient is doing poorly. Remains on IV Lasix. Continues to tolerate diet. July 14: Patient shyam propped up. Awake but tired. Remains on Airvo. Patient's daughter, awhvyear-zv-dir, and granddaughter from [place] is here. Remains on IV Lasix. Prognosis remains very guarded. Further plan depending on clinical course. July 15: Remains on Airvo, 90%. Eating some. Family remains at the bedside. Tired. Able to communicate. July 16: Patient remains on Airvo 55 L, 90%. Oral intake fair. Had a very lengthy discussion with patient's daughter and the [id number] at the bedside. At this point continue current treatment plan. Will see if oxygen requirement can come down. July 17: Patient remains on Airvo 55 and FiO2 90 this morning. Tolerating diet. Spoke to respiratory therapist to see if he can dial down the oxygen. Also discussed with Dr. Hameed to see if any alternate this. Family not at the bedside. Spoke to shoe caser about possible hospice. Will have to see how much oxygen will be excepted at the facility he goes to. Chest x-ray from today unremarkable July 18: Saw the patient this morning. Remains on Airvo. Appears rather comfortable. Spoke to patient's daughter and [id number] at the bedside. Plan was to decrease to high flow nasal cannula. As far as the oxygen pulse ox in the 80s and patient remains comfortable we then dropped it down to high flow 10 L. Patient remained comfortable. Pulse ox around 85%. Spoke to staff from [facility]. They are looking at if patient is long-term care to go to [facility]. Plan for discharge tomorrow. Will use Xanax/Ativan for as needed for anxiety if required. Patient is tolerating light diet. Patient is tired but able to follow questions and answer simple questions Time spent today about 50 minutes with over 30 minutes of discussion. Active Medications Acetaminophen (Acetaminophen Tab 325 Mg Tab) 650 mg PO Q6HR PRN PRN Reason: Mild Pain or Fever > 100.5 Last Admin: 07/15/24 09:33 Dose: 650 mg Al Hydroxide/Mg Hydroxide (Mag Hydrox/Al Hydrox/Simeth 30 Ml Cup) 15 ml PO Q6HR PRN PRN Reason: Indigestion Albuterol/Ipratropium (Ipratropium-Albuterol 3 Ml Neb) 3 ml INHALATION RT-QID [facility] Last Admin: 07/18/24 16:19 Dose: 3 ml Albuterol/Ipratropium (Ipratropium-Albuterol 3 Ml Neb) 3 ml INHALATION RT-Q2H PRN PRN Reason: Shortness Of Breath Or Wheezing Aspirin (Aspirin 81 Mg) 81 mg PO DAILY [facility] Last Admin: 07/18/24 08:19 Dose: 81 mg Atorvastatin Calcium (Atorvastatin 40 Mg Tab) 40 mg PO HS [facility] Last Admin: 07/17/24 19:51 Dose: 40 mg Clopidogrel Bisulfate (Clopidogrel 75 Mg Tab) 75 mg PO DAILY [facility] Last Admin: 07/18/24 08:19 Dose: 75 mg Docusate Sodium (Docusate 100 Mg Cap) 100 mg PO BID PRN PRN Reason: Constipation Last Admin: 07/18/24 08:19 Dose: 100 mg Furosemide (Furosemide 40 Mg Tab) 40 mg PO DAILY [facility] Last Admin: 07/18/24 08:19 Dose: 40 mg Heparin Sodium (Porcine) (Heparin Sodium,Porcine 5,000 Unit/Ml 1 Ml Vial) 5,000 unit SQ Q12HR [facility] Last Admin: 07/18/24 08:19 Dose: 5,000 unit Isosorbide Mononitrate (Isosorbide Mononitrate Er 30 Mg Tab.Er.24h) 30 mg PO DAILY [facility] Last Admin: 07/18/24 08:19 Dose: 30 mg Lisinopril (Lisinopril 10 Mg Tab) 10 mg PO DAILY [facility] Last Admin: 07/18/24 08:19 Dose: 10 mg Metoprolol Tartrate (Metoprolol Tartrate 12.5 Mg Tab) 12.5 mg PO BID [facility] Last Admin: 07/18/24 08:19 Dose: 12.5 mg Naloxone HCl (Naloxone 0.4 Mg/Ml 1 Ml Vial) 0.2 mg IV Q2M PRN PRN Reason: Opioid Reversal Ondansetron HCl (Ondansetron 4 Mg/2 Ml Vial) 4 mg IVP Q8HR PRN PRN Reason: Nausea And Vomiting Sertraline HCl (Sertraline 50 Mg Tab) 50 mg PO HS [facility] Last Admin: 07/17/24 19:51 Dose: 50 mg Sodium Chloride (Sodium Chloride 0.65% Nasal Welling 44 Ml Btl) 2 spray NASAL Q4H PRN PRN Reason: Dry Nasal Passages Last Admin: 07/18/24 17:52 Dose: 2 spray Social history: Assisted living. Non-smoker. Alcohol rarely. Physical examination: VITAL SIGNS: 98.2, 94, 22, 99 x 45, 85% on 10 L high flow nasal cannula GENERAL: Reclining in bed short of breath EYES: Pupils equal. Conjunctiva marco l. HEENT: External appearance of nose and ears normal, oral cavity grossly normal. NECK: JVD not raised; masses not palpable. HEART: First and second heart sounds are normal; no edema. LUNGS: Respiratory rate increased, diminished breath sounds ABDOMEN: Soft, nontender, liver spleen not palpable, no masses palpable. PSYCH: Able to answer questions MUSCULOSKELETAL:No Clubbing/cyanosis;muscles-grossly intact. OA INVESTIGATIONS, reviewed in the clinical context: July 17: White count 30.3 hemoglobin 30.9 potassium 3.9 creatinine 0.92 VQ scan: No mismatch Carotid Doppler: No significant stenosis July 11: proBNP 2370. Procalcitonin 0.10 MRI brain: Acute infarct suspected within the left cerebellum. Acute appearing cortical infarcts bilateral occipital lobes larger on the left. July 09: ABG: pH 7.43 pCO2 31 pO2 70 on FiO2 50% potassium 3.6 creatinine 0.73 July 08: White count 9.1 hemoglobin 13.5 platelets 182 sodium 135 creatinine 0.95 July 07, 2024: White count 9 hemoglobin 15.9 platelets 172 sodium 130 potassium 4.4 BUN 40 creatinine 1.4 Troponin I 7.4, 8.1, 6.4 EKG tracing personally reviewed by me-normal sinus rhythm. Some ST-T wave changes. CT brain without contrast: No acute event. Encephalomalacia in the left frontal lobe consistent with old infarct Chest x-ray film personally reviewed by me-borderline cardiomegaly. Unfolding of the aorta. Rotated film. Portable CT angio chest: Negative PE. Partially visualized left hydronephrosis. Nonobstructing left renal calculus. Assessment plan: -Acute non-Q wave FL. Aspirin. Lipitor. Lopressor. IV heparin-being discontinued today. 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 -Probable acute congestive heart failure from systolic dysfunction ischemic EF 40%: Received IV Lasix. Now p.o. Lasix -IV heparin monitoring-discontinued Follow PTT -Chronic medical debility. At baseline patient uses a wheelchair -Acute hypoxic respiratory failure. likely from intracardiac shunt [id number]: Not improving On Airvo 90% Patient does not have any obvious pneumonia, PE or effusion. 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 Zestril. -Chronic medical debility -Acute acute kidney injury, possible ATN from blood pressure fluctuation: Better Follow renal function -DNR Advance care planning [July 11, 2024]: This was done at the bedside with patient's daughter and [id number]. Patient's advanced age. Comorbidities. Multiple strokes embolic on this presentation. Blood thinner will be highly risky given that it was discontinued earlier by Dr. Juarez few months ago because of risk of falls. And given the acute stroke it may convert into hemorrhagic stroke. They are agreeable to look into rehab/hospice depending on clinical course. Time spent for this about 25 minutes Discussed with family at the bedside. Hospice team. Down to 10 L nasal cannula. Does follow simple patient's symptoms. Hopefully plan for discharge tomorrow. Looking into long-term care. Past Medical History Past Medical History: Cancer, GI Bleed, Hyperlipidemia, Hypertension, Osteoarthritis (OA) Additional Past Medical History / Comment(s): HX DIVERTICULITIS, BLEEDING ULCER -REC 2 UNITS PRBC,ANEMIA,BREAST CA LEFT BREAST WITH 2 LYMPH NODES REMOVED. HAD RADIATION History of Any Multi-Drug Resistant Organisms: None Reported Past Surgical History: Breast Surgery, Hysterectomy, Joint Replacement, Orthopedic Surgery Additional Past Surgical History / Comment(s): LAURA KNEE REPLACEMENT,ABD CYST REMOVED, CATARACT SURGERY LAURA, toe removed to treat hammer toe in 03/2023 Past Anesthesia/Blood Transfusion Reactions: No Reported Reaction Past Psychological History: Anxiety, Depression Smoking Status: Never smoker Past Alcohol Use History: Rare Past Drug Use History: None Reported
[2024-07-18] MEDS: IPRATROPIUM-ALBUTEROL 3 ML NEB INHALATION PRN (23:32)
--- NOTE | 2024-07-19 16:32 | P.PN ---
Subjective Progress Note Date: 07/19/24 This is an 89-year-old female patient who resides at up assisted living facility and has a history of hyperlipidemia, GI bleed, hypertension, osteoarthritis, anxiety/depression, left sided breast cancer with previous radiation, non- smoker. Early this morning she was found slumped over in a wheelchair by a staff member who called EMS. Upon arrival to EMS she was found to be bradycardic with poor respiratory effort and initial pulse ox readings in the 70s. She was placed on a nonrebreather mask and became more responsive and was brought into the emergency room. EKG revealed sinus rhythm with some ST depression. CT scan of the brain revealed no acute intracranial hemorrhage, midline shift or mass effect. Revealed no acute pulmonary process. CT angiogram revealed no evidence of pulmonary embolism. Partially visualized left hydronephrosis. White count 9.0. Hemoglobin 15.1. Platelets 172. D-dimer 9.31. Sodium 130. Potassium 4.4. Bicarb 15. BUN 40. Creatinine 1.40. Glucose 178. Troponins 7.4, 8.1, 6.4. She is seen today in consultation in the emergency department. She is currently awake, alert. Maintaining O2 saturations in the 90s on 5 L/min per nasal cannula. He is afebrile. Hemodynamically stable. She has been initiated on a heparin drip. She is a poor historian. The patient is seen today July 08, 2024 in follow-up on the selective care unit. She is currently sitting up in a chair. Awake and alert in no acute distress. Maintaining O2 saturations in the 90s on 5 L/min per nasal cannula. She has been afebrile. She is currently nauseated. Blood cultures pending. White count 9.1. Hemoglobin 13.5. Platelets 182. Sodium 135. Potassium 4.2. Bicarb 21. BUN 36. Creatinine 0.95. Glucose 91. She remains on a heparin drip. Antibiotics in the form of aztreonam. Normal saline at 75 mL/h. The patient is seen today July 09, 2024 in follow-up on the selective care unit. She is currently sitting up in a chair. She is still requiring 8 L high flow nasal cannula. She intermittently needs BiPAP 14/7 and 50% FiO2. X-ray reveals moderate cardiomegaly and mild pulmonary vascular congestion. Continued on a heparin drip. Blood cultures pending. Urine culture ending. She remains on antibiotics in the form of aztreonam. Sodium 135. Potassium 3.4. Bicarb 19. BUN 29. Creatinine 0.73. Ammonia level 11. Arterial blood gases revealed a PaO2 of 70, pCO2 31. pH 7.43. The patient is seen today July 10, 2024 in follow-up on the selective care unit. She is awake and alert in no acute distress. Currently sitting up in a chair. Still requiring 10 L high flow nasal cannula. She is alternating with BiPAP 14/7 and 50% FiO2. She is continued on DuoNeb inhalations. Antibiotics in the form of Azactam. MRI of the brain reveals extensive punctate cortical and subcortical hyperintensities, suspicious for acute ischemic changes. Acute infarct within the left cerebellum. Acute appearing cortical infarcts bilateral occipital lobes larger on the left. Blood cultures revealed no growth. Urine culture revealed no growth. PTT 54.8. Remains on a heparin drip. Progress note dated July 11, 2024. 89-year-old female seen in room 381. The patient is currently on 8 L high flow nasal O2. The patient continues on aztreonam. The patient had a previous CT angiogram that was negative for pulmonary embolism, but despite that, the patient also had a VQ scan ordered, that was also negative. We will check an N- terminal proBNP level, and a procalcitonin level. The patient does use oxygen at home, at 3 L. No new labs today other than a N-terminal proBNP level of 2370. Procalcitonin levels pending. The patient is seen today July 12, 2024 in follow-up on the selective care unit. She is currently sitting up in bed. Awake and alert. She is now requiring Airvo high flow oxygen at 50 L and 80% FiO2. X-ray continues to show only some streaky atelectasis of the left lower lobe. proBNP level 2370. Procalcitonin negative at 0.10. Urine culture was positive for Idana only. Blood cultures revealed no growth. She is continued on DuoNeb inhalations. Azactam discontinued. The patient is seen today July 13, 2024 in follow-up on the selective care unit. She is currently resting in bed. Her oxygen requirements have gone up again today. She is currently on Airvo high flow oxygen at 55 L and 85% FiO2. O2 saturations have continued to decline. Family is at the bedside. She remains on bronchodilators. Remains on IV diuretics. Heparin for DVT prophylaxis. The patient is seen today July 14, 2024 in follow-up on the selective care unit. She is currently awake and alert, resting fairly comfortably in bed. Continued on Airvo high flow oxygen at 55 L and 90% FiO2. She is continued on Lasix 40 mg every 12 hours. Heparin for DVT prophylaxis. No new labs. She is currently in a -280 mL balance. Family is at the bedside. Progress note dated July 15, 2024. 89-year-old female seen today in room 381. She continues on Airvo, with settings of 55 L/min, and 90%. No IV fluids. Unfortunately, her saturations are in the 80s. No new labs today. We have had ongoing discussions with the patient's daughter and daughter and daughter in law. Progress note dated July 16, 2024. 89-year-old female seen today in room 381. She continues on Airvo at 55 L/min, with an FiO2 of 90%. Is not receiving any IV fluids. Her daughter is in the room. She is sitting in the chair next to her hospital bed. She appears to be reasonably stable, but very weak. No new labs today. The patient is a DO NOT RESUSCITATE patient. At 1 point, the family was considering comfort care. On 07/17/2024, patient remains on Airvo 55 L with an FiO2 of 90%. She continues to be hypoxic. Repeat chest x-ray was done today and it is consistent with COPD and hyperinflation. There are some left basilar parenchymal scarring/atelectasis. No focal airspace disease. No pleural effusion. No pneumothorax. The patient is home O2 dependent and typically uses oxygen 3 L/min nasal cannula. Noted the blood gas was done on 07/09/2024 and FiO2 of 50% showed a pH of 7.43 with a pCO2 of 31 and pO2 of 70. The CTA of the chest done on 07/07/2024 showed no evidence of any pulmonary embolism. It was consistent with calcified granulomas bilaterally and some mild bibasilar atelectatic changes. Furthermore, the patient underwent a perfusion scan that was negative. The patient is resting comfortably in bed. The white cell count is at 13.3 with a heme of 13.9 and a platelet count of 321. BUN is 45 with a creatinine of 0.9 and sodium levels at 135. proBNP level is 2370. Procalcitonin level is at 0.1. Her previous echocardiogram from 05/23/2024 showed a mild impairment LV function with an ejection fraction of 45 to 50%. No significant pulmonary hypertension. Noted the patient has also suffered multiple embolic strokes. She is on a combination of aspirin and Plavix. Neurology is on the case. MRI of the brain confirmed presence of extensive punctate cortical and subcortical hypodensities suspicious for acute ischemic infarcts. Acute infarct is also suspected in the left cerebellum. Some prior hemorrhage could be also considered within the involved area. There is also acute appearing cortical infarcts bilateral occipital lobes right less than left and chronic atrophic changes and chronic periventricular white matter ischemic changes. On 07/18/2024, patient is being seen for a follow-up. Essentially unchanged compared to yesterday. She was on Airvo earlier and subsequently, the patient was switched to high flow oxygen 10 L and her current pulse ox is around 84 to 87%. Denies having any significant respiratory distress. No chest pain. Repeat chest x-ray from yesterday was consistent with COPD. No other acute cardiopulmonary abnormalities. White cell count of 13.3 with a hemoglobin 13.9 and a platelet count of 321. Electrolytes are all stable with a BUN of 45 and a creatinine of 0.2. Procalcitonin level is at 0.1. Patient denies having any specific complaints. Consideration is being given for hospice care for this patient. On 07/19/2024, the patient is being seen for a follow-up. The patient is calm and comfortable on 10 L high flow with a pulse ox of 87 to 88%. Hemodynamically stable. Denies having any significant respiratory complaints. Hospice has been involved in the case and the patient is interested in proceeding with hospice care. Medications meanwhile remain unchanged. She remains on bronchodilators. She remains on Lasix. She remains on aspirin and Plavix. No new onset focal neurological deficits. Profoundly weak. Objective - Vital Signs Vital signs: Vital Signs Temp 98.4 F 07/19/24 08:35 Pulse 77 07/19/24 11:05 Resp 17 07/19/24 11:05 BP 98/56 07/19/24 11:05 Pulse Ox 87 L 07/19/24 11:05 FiO2 86 07/18/24 11:50 Intake & Output 07/18/24 07/19/24 07/19/24 18:59 06:59 18:59 Intake Total 118 110 Output Total 600 275 Balance -482 -275 110 Weight 65.5 kg 67 kg Intake: Oral 118 110 Output: Urine 600 275 Other: Voiding Method Indwelling Catheter Indwelling Catheter Indwelling Catheter - Exam No acute distress, oriented 3. Currently on 10 L of O2 nasal cannula with a pulse ox of 85 to 87% HEENT examination is grossly unremarkable. Mucous membranes are moist. No oral lesions. Neck supple. Full range of motion. No adenopathy thyromegaly or neck vein distention. Cardiovascular examination reveals regular rhythm rate. S1-S2 normal. No S3 or S4. No discernible murmur noted. Lungs reveal mild bibasilar crackles. No wheezes. No rhonchi. Breath sounds equal. Abdomen soft bowel sounds are heard. No masses or tenderness. Extremities are intact. No cyanosis clubbing or edema. Skin is without rash or lesion. Neurologic examination is brief but nonfocal. - Labs CBC & Chem 7: 07/17/24 06:17 07/17/24 06:17 Assessment and Plan Plan: Acute hypoxic respiratory failure, currently on Airvo with 55 L and FiO2 of 90%. Exact cause is not clear. The patient is known to have chronic hypoxic respir atory failure and typically she is on 3 L of oxygen by nasal cannula. CT of the chest showed no evidence of the pulm embolism and there is some atelectatic changes in lung base bilaterally. The perfusion scan was also negative. Procalcitonin level is low. No evidence of any pneumonia. Consider underlying intracardiac shunting. Noted the patient is being considered for hospice care. Based on that, the patient was taken off the Airvo system and the patient was placed on 10 L of oxygen nasal cannula. Current pulse ox is between 85 to 87%. Multiple strokes, please refer to the MRI of the brain. Considering embolic phenomena. Syncopal episode without any recurrence. Acute non-ST segment elevation myocardial infarction. Acute kidney injury, recovered and the renal function is back to baseline Systolic heart failure with mild impairment LV function with an ejection fraction of 40 to 45% History of hypertension. Hyperlipidemia. History of left breast cancer. History of anxiety/depression. Plan: Keep the patient on high flow oxygen 10 L and monitor the oxygenation Chest x-ray findings are stable Ideally, the patient will benefit from a ANJU based on her ongoing hypoxemic event to rule out any intracardiac shunt and the same time rule out any intracardiac source of her multiple strokes. Nevertheless, the patient has opted for hospice care. Based on age of comorbidities, her prognosis poor specially with multi strokes. The patient will be kept on aspirin and Plavix for now. Continue Lipitor. Continue rest of the medication Hospice care is to follow.
[2024-07-19 16:47] VITALS: RESP 18
--- NOTE | 2024-07-19 19:55 | P.PN ---
Progress Note - Text Progress Note Date: 07/19/24 Chief Complaint: Decreased responsiveness This is a 89-year-old patient, follows Dr. Marlow. Patient was brought in by the EMS to the ER. Patient is at her assisted living. EMS was called with the patient was found to be slumped over in the chair by the care of a staff member. At baseline patient is only AO x 1. Patient had mild to moderate labored respirations. When staff member did compress out there found the patient slumped over in the wheelchair and altered. His 911 was initiated. Patient herself is a very poor historian. Pulse ox was found to be 70%. Normally wears oxygen. Patient was briefly into bradycardia with heart rate in the 40s. Patient had vomited prior to arrival of the EMS. Patient during transport was put on 15 L nonrebreather. Pulse ox came to 80 to 90%. EKG showed normal sinus rhythm with some T wave changes. Patient is not really able to speak. Struggling a bit. In the ER patient is able to answer questions. But she thinks it is 1991. She thinks she is in the [facility]. July 08: Patient more awake today. Answering simple questions. Had a fair amount of breakfast. Cardiology is considering a cardiac catheterization. On IV heparin drip. Seen by neurology. [place] to be having encephalopathy on presentation. Possibly from ND. July 09: Up in chair. On 8 to 10 L high flow oxygen. No obvious cause has been determined. ABG: On 50% 92 shows PaO2 of 70 pCO2 of 31. Chest x-ray has been nonspecific. 2D echo was done results pending. Had about 75% of breakfast lunch. July 10: Patient was seen this morning. Still requiring high flow oxygen anywhere from 8 to 10 L. No obvious cause found. Will order a VQ scan to rule out any peripheral PE. IV heparin being discontinued by cardiology today. Resume Jyoti. I spoke to patient's daughter at the bedside. Patient had a femur fracture back in September of this year. Since then patient is become hypoxic. Patient with apparent significant l load of fat embolism that may have resulted in hypoxia. MRI results suggestive of scattered emboli in the brain Late this evening I spoke to patient's [id number] Diana and her daughter Susannah who was flown from out of town. Over the phone. Came in for me back in September of this year Eliquis was actually discontinued by Dr. Juarez because of the fall. And patient's not been Eliquis at home. Risk of falls. Given multiple infarcts in that case after discussing with them decided not to give any Eliquis. They understand prognosis guarded. Will see how patient does with her oxygen status. July 11: Saw the patient this afternoon. Remains on high flow oxygen. Attempt to decrease not successful. Still hovering around 8 to 10 L. Spoke to patient's daughter and [id number] at the bedside. Given patient's age and comorbidity they agree and very limited options. Anticoagulation could be dangerous in the setting of acute stroke. Agreeable to looking into hospice. Also discussed with social welfare research worker. Patient's VQ scan unremarkable. 2D echo results still pending. Cause of hypoxia unclear. At home patient is on 3 L of oxygen. Oral intake fair. Patient does not have any fever. No cough. Normal procalcitonin. DC aztreonam. July 12: Laying in bed. Oxygen requirement has gone up to 30 L. Spoke with respiratory therapist. Patient placed on Airvo. 50 L and 80%. His daughter and [id number] at the bedside. Discussed. Limited 2D echo showed EF of 40%. Oral intake about 50%. Lasix was ordered by pulmonary. Prognosis remains very guarded. July 13: Patient is on Airvo. Reclining in bed. Able to communicate. Dr. Child suggested BiPAP but the patient wants to communicate and meet with her family. Patient's daughter and [id number] at the bedside understand patient is doing poorly. Remains on IV Lasix. Continues to tolerate diet. July 14: Patient shyam propped up. Awake but tired. Remains on Airvo. Patient's daughter, [id number], and granddaughter from [place] is here. Remains on IV Lasix. Prognosis remains very guarded. Further plan depending on clinical course. July 15: Remains on Airvo, 90%. Eating some. Family remains at the bedside. Tired. Able to communicate. July 16: Patient remains on Airvo 55 L, 90%. Oral intake fair. Had a very lengthy discussion with patient's daughter and the [id number] at the bedside. At this point continue current treatment plan. Will see if oxygen requirement can come down. July 17: Patient remains on Airvo 55 and FiO2 90 this morning. Tolerating diet. Spoke to respiratory therapist to see if he can dial down the oxygen. Also discussed with Dr. Hameed to see if any alternate this. Family not at the bedside. Spoke to major case detective about possible hospice. Will have to see how much oxygen will be excepted at the facility he goes to. Chest x-ray from today unremarkable July 18: Saw the patient this morning. Remains on Airvo. Appears rather comfortable. Spoke to patient's daughter and [id number] at the bedside. Plan was to decrease to high flow nasal cannula. As far as the oxygen pulse ox in the 80s and patient remains comfortable we then dropped it down to high flow 10 L. Patient remained comfortable. Pulse ox around 85%. Spoke to staff from [facility]. They are looking at if patient is long-term care to go to [facility]. Plan for discharge tomorrow. Will use Xanax/Ativan for as needed for anxiety if required. Patient is tolerating light diet. Patient is tired but able to follow questions and answer simple questions Time spent today about 50 minutes with over 30 minutes of discussion. July 19: Patient seen earlier today. Remains on 10 L high flow oxygen. Pulse ox 88%. Comfortable. Eating about 50%. No family at the bedside. Hospice people looking at discharge tomorrow. Active Medications Acetaminophen (Acetaminophen Tab 325 Mg Tab) 650 mg PO Q6HR PRN PRN Reason: Mild Pain or Fever > 100.5 Last Admin: 07/15/24 09:33 Dose: 650 mg Al Hydroxide/Mg Hydroxide (Mag Hydrox/Al Hydrox/Simeth 30 Ml Cup) 15 ml PO Q6HR PRN PRN Reason: Indigestion Albuterol/Ipratropium (Ipratropium-Albuterol 3 Ml Neb) 3 ml INHALATION RT-QID [facility] Last Admin: 07/19/24 16:03 Dose: 3 ml Albuterol/Ipratropium (Ipratropium-Albuterol 3 Ml Neb) 3 ml INHALATION RT-Q2H PRN PRN Reason: Shortness Of Breath Or Wheezing Last Admin: 07/18/24 23:32 Dose: 3 ml Aspirin (Aspirin 81 Mg) 81 mg PO DAILY [facility] Last Admin: 07/19/24 08:36 Dose: 81 mg Atorvastatin Calcium (Atorvastatin 40 Mg Tab) 40 mg PO HS [facility] Last Admin: 07/18/24 20:24 Dose: 40 mg Clopidogrel Bisulfate (Clopidogrel 75 Mg Tab) 75 mg PO DAILY [facility] Last Admin: 07/19/24 08:35 Dose: 75 mg Docusate Sodium (Docusate 100 Mg Cap) 100 mg PO BID PRN PRN Reason: Constipation Last Admin: 07/18/24 08:19 Dose: 100 mg Furosemide (Furosemide 40 Mg Tab) 40 mg PO DAILY [facility] Last Admin: 07/19/24 08:36 Dose: 40 mg Heparin Sodium (Porcine) (Heparin Sodium,Porcine 5,000 Unit/Ml 1 Ml Vial) 5,000 unit SQ Q12HR [facility] Last Admin: 07/19/24 08:35 Dose: 5,000 unit Isosorbide Mononitrate (Isosorbide Mononitrate Er 30 Mg Tab.Er.24h) 30 mg PO DAILY [facility] Last Admin: 07/19/24 08:35 Dose: 30 mg Lisinopril (Lisinopril 10 Mg Tab) 10 mg PO DAILY [facility] Last Admin: 07/19/24 08:35 Dose: 10 mg Metoprolol Tartrate (Metoprolol Tartrate 12.5 Mg Tab) 12.5 mg PO BID [facility] Last Admin: 07/19/24 08:36 Dose: 12.5 mg Naloxone HCl (Naloxone 0.4 Mg/Ml 1 Ml Vial) 0.2 mg IV Q2M PRN PRN Reason: Opioid Reversal Ondansetron HCl (Ondansetron 4 Mg/2 Ml Vial) 4 mg IVP Q8HR PRN PRN Reason: Nausea And Vomiting Sertraline HCl (Sertraline 50 Mg Tab) 50 mg PO HS [facility] Last Admin: 07/18/24 20:24 Dose: 50 mg Sodium Chloride (Sodium Chloride 0.65% Nasal [place] 44 Ml Btl) 2 spray NASAL Q4H PRN PRN Reason: Dry Nasal Passages Last Admin: 07/18/24 17:52 Dose: 2 spray Social history: Assisted living. Non-smoker. Alcohol rarely. Physical examination: VITAL SIGNS: 98.4, 89, 18, 126 x 69, 89% on 10 L GENERAL: Reclining in bed short of breath EYES: Pupils equal. Conjunctiva marco l. HEENT: External appearance of nose and ears normal, oral cavity grossly normal. NECK: JVD not raised; masses not palpable. HEART: First and second heart sounds are normal; no edema. LUNGS: Respiratory rate increased, diminished breath sounds ABDOMEN: Soft, nontender, liver spleen not palpable, no masses palpable. PSYCH: Able to answer questions MUSCULOSKELETAL:No Clubbing/cyanosis;muscles-grossly intact. OA INVESTIGATIONS, reviewed in the clinical context: July 17: White count 30.3 hemoglobin 30.9 potassium 3.9 creatinine 0.92 VQ scan: No mismatch Carotid Doppler: No significant stenosis July 11: proBNP 2370. Procalcitonin 0.10 MRI brain: Acute infarct suspected within the left cerebellum. Acute appearing cortical infarcts bilateral occipital lobes larger on the left. July 09: ABG: pH 7.43 pCO2 31 pO2 70 on FiO2 50% potassium 3.6 creatinine 0.73 July 08: White count 9.1 hemoglobin 13.5 platelets 182 sodium 135 creatinine 0.95 July 07, 2024: White count 9 hemoglobin 15.9 platelets 172 sodium 130 potassium 4.4 BUN 40 creatinine 1.4 Troponin I 7.4, 8.1, 6.4 EKG tracing personally reviewed by me-normal sinus rhythm. Some ST-T wave changes. CT brain without contrast: No acute event. Encephalomalacia in the left frontal lobe consistent with old infarct Chest x-ray film personally reviewed by me-borderline cardiomegaly. Unfolding of the aorta. Rotated film. Portable CT angio chest: Negative PE. Partially visualized left hydronephrosis. Nonobstructing left renal calculus. Assessment plan: -Acute non-Q wave ND. Aspirin. Lipitor. Lopressor. 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 -Probable acute congestive heart failure from systolic dysfunction ischemic EF 40%:: Stabilized Received IV Lasix. Now p.o. Lasix -IV heparin monitoring-discontinued Follow PTT -Chronic medical debility. At baseline patient uses a wheelchair -Acute hypoxic respiratory failure. likely from intracardiac shunt [id number]: Not improving Was Airvo 90%. Tolerating 10 L high flow oxygen. Patient does not have any obvious pneumonia, PE or effusion. 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 Zestril. -Chronic medical debility -Acute acute kidney injury, possible ATN from blood pressure fluctuation: Better Follow renal function -DNR Advance care planning [July 11, 2024]: This was done at the bedside with patient's daughter and [id number]. Patient's advanced age. Comorbidities. Multiple strokes embolic on this presentation. Blood thinner will be highly risky given that it was discontinued earlier by Dr. Juarez few months ago because of risk of falls. And given the acute stroke it may convert into hemorrhagic stroke. They are agreeable to look into rehab/hospice depending on clinical course. Time spent for this about 25 minutes Awaiting hospice discharge. Continue current treatment plan. Past Medical History Past Medical History: Cancer, GI Bleed, Hyperlipidemia, Hypertension, Osteoarthritis (OA) Additional Past Medical History / Comment(s): HX DIVERTICULITIS, BLEEDING ULCER -REC 2 UNITS PRBC,ANEMIA,BREAST CA LEFT BREAST WITH 2 LYMPH NODES REMOVED. HAD RADIATION -2013 History of Any Multi-Drug Resistant Organisms: None Reported Past Surgical History: Breast Surgery, Hysterectomy, Joint Replacement, Orthopedic Surgery Additional Past Surgical History / Comment(s): LAURA KNEE REPLACEMENT,ABD CYST REMOVED, CATARACT SURGERY LAURA, toe removed to treat hammer toe in 03/2023 Past Anesthesia/Blood Transfusion Reactions: No Reported Reaction Past Psychological History: Anxiety, Depression Smoking Status: Never smoker Past Alcohol Use History: Rare Past Drug Use History: None Reported
[2024-07-20 13:13] VITALS: BP 100/55; PULSE 85; TEMP 98.2
[2024-07-20] MEDS: LORazepam 1 MG TAB PO STA (14:35)
--- NOTE | 2024-07-20 14:41 | P.DS ---
Providers Date of admission: 07/07/24 06:57 Expected date of discharge: 07/20/24 Attending physician: Ac Mccoy Consults: 07/07/24 08:38 Consult Physician Routine Consulting Provider: Virgen Juarez Consult Reason/Comments: bi-pap 100% Do you want consulting provider notified?: Yes 07/08/24 09:51 Consult Physician Routine Consulting Provider: Clyde Child Consult Reason/Comments: mental status changes Do you want consulting provider notified?: Yes Primary care physician: [facility] Course: Chief Complaint: Decreased responsiveness This is a 89-year-old patient, follows Dr. Marlow. Patient was brought in by the EMS to the ER. Patient is at her assisted living. EMS was called with the patient was found to be slumped over in the chair by the care of a staff member. At baseline patient is only AO x 1. Patient had mild to moderate labored respirations. When staff member did compress out there found the patient slumped over in the wheelchair and altered. His 911 was initiated. Patient herself is a very poor historian. Pulse ox was found to be 70%. Normally wears oxygen. Patient was briefly into bradycardia with heart rate in the 40s. Patient had vomited prior to arrival of the EMS. Patient during transport was put on 15 L nonrebreather. Pulse ox came to 80 to 90%. EKG showed normal sinus rhythm with some T wave changes. Patient is not really able to speak. Struggling a bit. In the ER patient is able to answer questions. But she thinks it is 1989. She thinks she is in the [facility]. July 08: Patient more awake today. Answering simple questions. Had a fair amount of breakfast. Cardiology is considering a cardiac catheterization. On IV heparin drip. Seen by neurology. Cal[place]oun to be having encephalopathy on presentation. Possibly from ME. July 09: Up in chair. On 8 to 10 L high flow oxygen. No obvious cause has been determined. ABG: On 50% 92 shows PaO2 of 70 pCO2 of 31. Chest x-ray has been nonspecific. 2D echo was done results pending. Had about 75% of breakfast lunch. July 10: Patient was seen this morning. Still requiring high flow oxygen anywhere from 8 to 10 L. No obvious cause found. Will order a VQ scan to rule out any peripheral PE. IV heparin being discontinued by cardiology today. Resume Eliquis. I spoke to patient's daughter at the bedside. Patient had a femur fracture back in September of this year. Since then patient is become hypoxic. Patient with apparent significant l load of fat embolism that may have resulted in hypoxia. MRI results suggestive of scattered emboli in the brain Late this evening I spoke to patient's flfzgkqa-ku-cpo Diana and her daughter Susannah who was flown from out of town. Over the phone. Came in for me back in September of this year Eliquis was actually discontinued by Dr. Juarez because of the fall. And patient's not been Eliquis at home. Risk of falls. Given multip le infarcts in that case after discussing with them decided not to give any Eliquis. They understand prognosis guarded. Will see how patient does with her oxygen status. July 11: Saw the patient this afternoon. Remains on high flow oxygen. Attempt to decrease not successful. Still hovering around 8 to 10 L. Spoke to patient's daughter and ubielubg-fv-ckd at the bedside. Given patient's age and comorbidity they agree and very limited options. Anticoagulation could be dangerous in the setting of acute stroke. Agreeable to looking into hospice. Also discussed with professor of social work. Patient's VQ scan unremarkable. 2D echo results still pending. Cause of hypoxia unclear. At home patient is on 3 L of oxygen. Oral intake fair. Patient does not have any fever. No cough. Normal procalcitonin. DC aztreonam. July 12: Laying in bed. Oxygen requirement has gone up to 30 L. Spoke with respiratory therapist. Patient placed on Airvo. 50 L and 80%. His daughter and enphumkq-rw-rrr at the bedside. Discussed. Limited 2D echo showed EF of 40%. Oral intake about 50%. Lasix was ordered by pulmonary. Prognosis remains very guarded. July 13: Patient is on Airvo. Reclining in bed. Able to communicate. Dr. Child suggested BiPAP but the patient wants to communicate and meet with her family. Patient's daughter and suddofjo-kl-ksg at the bedside understand patie nt is doing poorly. Remains on IV Lasix. Continues to tolerate diet. July 14: Patient shyam propped up. Awake but tired. Remains on Airvo. Patient's daughter, paegjlvg-ta-nqu, and granddaughter from [place] is here. Remains on IV Lasix. Prognosis remains very guarded. Further plan depending on clinical course. July 15: Remains on Airvo, 90%. Eating some. Family remains at the bedside. Tired. Able to communicate. July 16: Patient remains on Airvo 55 L, 90%. Oral intake fair. Had a very lengthy discussion with patient's daughter and the [id number]-nq-vuu at the [facility]. At this point continue current treatment plan. Will see if oxygen requirement can come down. July 17: Patient remains on Airvo 55 and FiO2 90 this morning. Tolerating diet. Spoke to respiratory therapist to see if he can dial down the oxygen. Also discussed with Dr. Hameed to see if any alternate this. Family not at the bedside. Spoke to case supervisor about possible hospice. Will have to see how much oxygen will be excepted at the facility he goes to. Chest x-ray from today unremarkable July 18: Saw the patient this morning. Remains on Airvo. Appears rather comfortable. Spoke to patient's daughter and [id number]-gw-ete at the bedside. Plan was to decrease to high flow nasal cannula. As far as the oxygen pulse ox in the 80s and patient remains comfortable we then dropped it down to high flow 10 L. Patient remained comfortable. Pulse ox around 85%. Spoke to staff from [facility]. They are looking at if patient is long-term care to go to [facility]. Plan for discharge tomorrow. Will use Xanax/Ativan for as needed for anxiety if required. Patient is tolerating light diet. Patient is tired but able to follow questions and answer simple questions Time spent today about 50 minutes with over 30 minutes of discussion. July 19: Patient seen earlier today. Remains on 10 L high flow oxygen. Pulse ox 88%. Comfortable. Eating about 50%. No family at the bedside. Hospice people looking at discharge tomorrow. July 20: Patient's FiO2 was increased today. Drop back to 9 L. Patient has been monitoring respiratory status as opposed to pulse ox readings. Even up to 80s is fine given that patient is relatively comfortable today. Which she is. Patient's been not tolerating his diet. Will be discharged to [facility]. Discussed with professor of social work. Discharge with hospice Discussion and discharge planning more than 35 minutes Social history: Assisted living. Non-smoker. Alcohol rarely. Physical examination: VITAL SIGNS: 98.2, 85, 18, 100/55, 85% on 11 L GENERAL: Reclining in bed short of breath EYES: Pupils equal. Conjunctiva marco l. HEENT: External appearance of nose and ears normal, oral cavity grossly normal. NECK: JVD not raised; masses not palpable. HEART: First and second heart sounds are normal; no edema. LUNGS: Respiratory rate increased, diminished breath sounds ABDOMEN: Soft, nontender, liver spleen not palpable, no masses palpable. PSYCH: Able to answer questions MUSCULOSKELETAL:No Clubbing/cyanosis;muscles-grossly intact. OA INVESTIGATIONS, reviewed in the clinical context: July 17: White count 30.3 hemoglobin 30.9 potassium 3.9 creatinine 0.92 VQ scan: No mismatch Carotid Doppler: No significant stenosis July 11: proBNP 2370. Procalcitonin 0.10 MRI brain: Acute infarct suspected within the left cerebellum. Acute appearing cortical infarcts bilateral occipital lobes larger on the left. July 09: ABG: pH 7.43 pCO2 31 pO2 70 on FiO2 50% potassium 3.6 creatinine 0.73 July 08: White count 9.1 hemoglobin 13.5 platelets 182 sodium 135 creatinine 0.95 July 07, 2024: White count 9 hemoglobin 15.9 platelets 172 sodium 130 potassium 4.4 BUN 40 creatinine 1.4 Troponin I 7.4, 8.1, 6.4 EKG tracing personally reviewed by me-normal sinus rhythm. Some ST-T wave changes. CT brain without contrast: No acute event. Encephalomalacia in the left frontal lobe consistent with old infarct Chest x-ray film personally reviewed by me-borderline cardiomegaly. Unfolding of the aorta. Rotated film. Portable CT angio chest: Negative PE. Partially visualized left hydronephrosis. Nonobstructing left renal calculus. Assessment plan: -Acute non-Q wave ME. Aspirin. Lipitor. Lopressor. 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 -Probable acute congestive heart failure from systolic dysfunction ischemic EF 40%:: Stabilized Received IV Lasix. Now p.o. Lasix -IV heparin monitoring-discontinued -Chronic medical debility. At baseline patient uses a wheelchair -Acute hypoxic respiratory failure. likely from intracardiac shunt [id number]: Not improving Was Airvo 90%. Tolerating 10 L high flow oxygen. Patient does not have any obvious pneumonia, PE or effusion. 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 Zestril. -Chronic medical debility -Acute acute kidney injury, possible ATN from blood pressure fluctuation: Better Follow renal function -DNR Advance care planning [July 11, 2024]: This was done at the bedside with patient's daughter and dkgklrfm-js-tpi. Patient's advanced age. Comorbidities. Multiple strokes embolic on this presentation. Blood thinner will be highly risky given that it was discontinued earlier by Dr. Juarez few months ago because of risk of falls. And given the acute stroke it may convert into hemorrhagic stroke. They are agreeable to look into rehab/hospice depending on clinical course. 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 HAD RADIATION -2013 History of Any Multi-Drug Resistant Organisms: None Reported Past Surgical History: Breast Surgery, Hysterectomy, Joint Replacement, Orthopedic Surgery Additional Past Surgical History / Comment(s): LAURA KNEE REPLACEMENT,ABD CYST REMOVED, CATARACT SURGERY LAURA, toe removed to treat hammer toe in 03/2023 Past Anesthesia/Blood Transfusion Reactions: No Reported Reaction Past Psychological History: Anxiety, Depression Smoking Status: Never smoker Past Alcohol Use History: Rare Past Drug Use History: None Reported Plan - Discharge Summary Discharge Rx Participant: No New Discharge Prescriptions: New Aspirin 81 mg PO DAILY tab Sodium Chloride 0.65% Nasal [Deep Sea (Saline)] 2 spray NASAL Q4H PRN ml PRN Reason: Dry Nasal Passages Ipratropium-Albuterol Nebulize [Duoneb 0.5 mg-3 mg/3 ml Soln] 3 ml INHALATION RT-QID each Ipratropium-Albuterol Nebulize [Duoneb 0.5 mg-3 mg/3 ml Soln] 3 ml INHALATION RT-Q2H PRN each PRN Reason: Shortness Of Breath Or Wheezing Furosemide [Lasix] 40 mg PO DAILY tab Atorvastatin [Lipitor] 40 mg PO HS tab Clopidogrel [Plavix] 75 mg PO DAILY tab Acetaminophen Tab [Tylenol] 650 mg PO Q6HR PRN tab PRN Reason: Mild Pain Or Fever > 100.5 Isosorbide Mononitrate ER [Imdur] 30 mg PO DAILY tab Metoprolol Tartrate [Lopressor] 12.5 mg PO BID tab Continue Tim Cit/Mag/D3/Zn/Shooter Helper/Hoang/Bor [Citracal-D3 Plus Magnesium Tab] 1 tab PO DAILY Sertraline [Zoloft] 50 mg PO HS lisinopriL [Zestril] 10 mg PO DAILY Discontinued Atorvastatin Calcium [Lipitor] 10 mg PO HS Albuterol Sulfate [Ventolin HFA] 2 puff INHALATION RT-Q4H Ergocalciferol [Vitamin D2 (1250 Mcg = 77270 Iu)] 1,250 mcg PO WEEKLY Apixaban [Eliquis] 5 mg PO BID Discharge Medication List Tim Cit/Mag/D3/Zn/Shooter Helper/Hoang/Bor [Citracal-D3 Plus Magnesium Tab] 1 tab PO DAILY 12/04/13 [History] Sertraline [Zoloft] 50 mg PO HS 12/04/13 [History] lisinopriL [Zestril] 10 mg PO DAILY 07/07/24 [History] Acetaminophen Tab [Tylenol] 650 mg PO Q6HR PRN tab 07/20/24 [Rx] Aspirin 81 mg PO DAILY tab 07/20/24 [Rx] Atorvastatin [Lipitor] 40 mg PO HS tab 07/20/24 [Rx] Clopidogrel [Plavix] 75 mg PO DAILY tab 07/20/24 [Rx] Furosemide [Lasix] 40 mg PO DAILY tab 07/20/24 [Rx] Ipratropium-Albuterol Nebulize [Duoneb 0.5 mg-3 mg/3 ml Soln] 3 ml INHALATION RT-Q2H PRN each 07/20/24 [Rx] Ipratropium-Albuterol Nebulize [Duoneb 0.5 mg-3 mg/3 ml Soln] 3 ml INHALATION RT-QID each 07/20/24 [Rx] Isosorbide Mononitrate ER [Imdur] 30 mg PO DAILY tab 07/20/24 [Rx] Metoprolol Tartrate [Lopressor] 12.5 mg PO BID tab 07/20/24 [Rx] Sodium Chloride 0.65% Nasal [Deep Sea (Saline)] 2 spray NASAL Q4H PRN ml 07/20/24 [Rx] Follow up Appointment(s)/Referral(s): Narinder Marlow DO [Primary Care Provider] - 1-2 days Activity/Diet/Wound Care/Special Instructions: fio2 8-10 liters.
--- NOTE | 2024-07-20 19:07 | P.PN ---
Subjective Progress Note Date: 07/20/24 This is an 89-year-old female patient who resides at [facility] assisted [facility] and has a history of hyperlipidemia, GI bleed, hypertension, osteoarthritis, anxiety/depression, left sided breast cancer with previous radiation, non- smoker. Early this morning she was found slumped over in a wheelchair by a staff member who called EMS. Upon arrival to EMS she was found to be bradycardic with poor respiratory effort and initial pulse ox readings in the 70s. She was placed on a nonrebreather mask and became more responsive and was brought into the emergency room. EKG revealed sinus rhythm with some ST depression. CT scan of the brain revealed no acute intracranial hemorrhage, midline shift or mass effect. Revealed no acute pulmonary process. CT angiogram revealed no evidence of pulmonary embolism. Partially visualized left hydronephrosis. White count 9.0. Hemoglobin 15.1. Platelets 172. D-dimer 9.31. Sodium 130. Potassium 4.4. Bicarb 15. BUN 40. Creatinine 1.40. Glucose 178. Troponins 7.4, 8.1, 6.4. She is seen today in consultation in the emergency department. She is currently awake, alert. Maintaining O2 saturations in the 90s on 5 L/min per nasal cannula. He is afebrile. Hemodynamically stable. She has been initiated on a heparin drip. She is a poor historian. The patient is seen today July 08, 2024 in follow-up on the selective care unit. She is currently sitting up in a chair. Awake and alert in no acute distress. Maintaining O2 saturations in the 90s on 5 L/min per nasal cannula. She has been afebrile. She is currently nauseated. Blood cultures pending. White count 9.1. Hemoglobin 13.5. Platelets 182. Sodium 135. Potassium 4.2. Bicarb 21. BUN 36. Creatinine 0.95. Glucose 91. She remains on a heparin drip. Antibiotics in the form of aztreonam. Normal saline at 75 mL/h. The patient is seen today July 09, 2024 in follow-up on the selective care unit. She is currently sitting up in a chair. She is still requiring 8 L high flow nasal cannula. She intermittently needs BiPAP 14/7 and 50% FiO2. X-ray reveals moderate cardiomegaly and mild pulmonary vascular congestion. Continued on a heparin drip. Blood cultures pending. Urine culture ending. She remains on antibiotics in the form of aztreonam. Sodium 135. Potassium 3.4. Bicarb 19. BUN 29. Creatinine 0.73. Ammonia level 11. Arterial blood gases revealed a PaO2 of 70, pCO2 31. pH 7.43. The patient is seen today July 10, 2024 in follow-up on the selective care unit. She is awake and alert in no acute distress. Currently sitting up in a chair. Still requiring 10 L high flow nasal cannula. She is alternating with BiPAP 14/7 and 50% FiO2. She is continued on DuoNeb inhalations. Antibiotics in the form of Azactam. MRI of the brain reveals extensive punctate cortical and subcortical hyperintensities, suspicious for acute ischemic changes. Acute infarct within the left cerebellum. Acute appearing cortical infarcts bilateral occipital lobes larger on the left. Blood cultures revealed no growth. Urine culture revealed no growth. PTT 54.8. Remains on a heparin drip. Progress note dated July 11, 2024. 89-year-old female seen in room 381. The patient is currently on 8 L high flow nasal O2. The patient continues on aztreonam. The patient had a previous CT angiogram that was negative for pulmonary embolism, but despite that, the patient also had a VQ scan ordered, that was also negative. We will check an N- terminal proBNP level, and a procalcitonin level. The patient does use oxygen at home, at 3 L. No new labs today other than a N-terminal proBNP level of 2370. Procalcitonin levels pending. The patient is seen today July 12, 2024 in follow-up on the selective care unit. She is currently sitting up in bed. Awake and alert. She is now requiring Airvo high flow oxygen at 50 L and 80% FiO2. X-ray continues to show only some streaky atelectasis of the left lower lobe. proBNP level 2370. Procalcitonin negative at 0.10. Urine culture was positive for Diana only. Blood cultures revealed no growth. She is continued on DuoNeb inhalations. Azactam discontinued. The patient is seen today July 13, 2024 in follow-up on the selective care unit. She is currently resting in bed. Her oxygen requirements have gone up again today. She is currently on Airvo high flow oxygen at 55 L and 85% FiO2. O2 saturations have continued to decline. Family is at the bedside. She remains on bronchodilators. Remains on IV diuretics. Heparin for DVT prophylaxis. The patient is seen today July 14, 2024 in follow-up on the selective care unit. She is currently awake and alert, resting fairly comfortably in bed. Continued on Airvo high flow oxygen at 55 L and 90% FiO2. She is continued on Lasix 40 mg every 12 hours. Heparin for DVT prophylaxis. No new labs. She is currently in a -280 mL balance. Family is at the bedside. Progress note dated July 15, 2024. 89-year-old female seen today in room 381. She continues on Airvo, with settings of 55 L/min, and 90%. No IV fluids. Unfortunately, her saturations are in the 80s. No new labs today. We have had ongoing discussions with the patient's daughter and daughter and daughter in law. Progress note dated July 16, 2024. 89-year-old female seen today in room 381. She continues on Airvo at 55 L/min, with an FiO2 of 90%. Is not receiving any IV fluids. Her daughter is in the room. She is sitting in the chair next to her hospital bed. She appears to be reasonably stable, but very weak. No new labs today. The patient is a DO NOT RESUSCITATE patient. At 1 point, the family was considering comfort care. On 07/17/2024, patient remains on Airvo 55 L with an FiO2 of 90%. She continues to be hypoxic. Repeat chest x-ray was done today and it is consistent with COPD and hyperinflation. There are some left basilar parenchymal scarring/atelectasis. No focal airspace disease. No pleural effusion. No pneumothorax. The patient is home O2 dependent and typically uses oxygen 3 L/min nasal cannula. Noted the blood gas was done on 07/09/2024 and FiO2 of 50% showed a pH of 7.43 with a pCO2 of 31 and pO2 of 70. The CTA of the chest done on 07/07/2024 showed no evidence of any pulmonary embolism. It was consistent with calcified granulomas bilaterally and some mild bibasilar atelectatic changes. Furthermore, the patient underwent a perfusion scan that was negative. The patient is resting comfortably in bed. The white cell count is at 13.3 with a heme of 13.9 and a platelet count of 321. BUN is 45 with a creatinine of 0.9 and sodium levels at 135. proBNP level is 2370. Procalcitonin level is at 0.1. Her previous echocardiogram from 05/23/2024 showed a mild impairment LV function with an ejection fraction of 45 to 50%. No significant pulmonary hypertension. Noted the patient has also suffered multiple embolic strokes. She is on a combination of aspirin and Plavix. Neurology is on the case. MRI of the brain confirmed presence of extensive punctate cortical and subcortical hypodensities suspicious for acute ischemic infarcts. Acute infarct is also suspected in the left cerebellum. Some prior hemorrhage could be also considered within the involved area. There is also acute appearing cortical infarcts bilateral occipital lobes right less than left and chronic atrophic changes and chronic periventricular white matter ischemic changes. On 07/18/2024, patient is being seen for a follow-up. Essentially unchanged compared to yesterday. She was on Airvo earlier and subsequently, the patient was switched to high flow oxygen 10 L and her current pulse ox is around 84 to 87%. Denies having any significant respiratory distress. No chest pain. Repeat chest x-ray from yesterday was consistent with COPD. No other acute cardiopulmonary abnormalities. White cell count of 13.3 with a hemoglobin 13.9 and a platelet count of 321. Electrolytes are all stable with a BUN of 45 and a creatinine of 0.2. Procalcitonin level is at 0.1. Patient denies having any specific complaints. Consideration is being given for hospice care for this patient. On 07/19/2024, the patient is being seen for a follow-up. The patient is calm and comfortable on 10 L high flow with a pulse ox of 87 to 88%. Hemodynamically stable. Denies having any significant respiratory complaints. Hospice has been involved in the case and the patient is interested in proceeding with hospice care. Medications meanwhile remain unchanged. She remains on bronchodilators. She remains on Lasix. She remains on aspirin and Plavix. No new onset focal neurological deficits. Profoundly weak. On 07/20/2024, the patient is in same condition. She is on 10 L of O2 nasal cannula. She remains hypoxic. Not tolerating diet. Weak and debilitated. Hospice involved and the patient will be discharged with hospice care. No new labs from today. Objective - Vital Signs Vital signs: Vital Signs Temp 97.8 F 07/20/24 08:15 Pulse 89 07/20/24 08:47 Resp 18 07/20/24 08:15 BP 125/57 07/20/24 08:15 Pulse Ox 85 L 07/20/24 09:13 FiO2 86 07/18/24 11:50 Intake & Output 07/19/24 07/20/24 07/20/24 18:59 06:59 18:59 Intake Total 220 0 Output Total 700 200 Balance -480 -200 0 Weight 68 kg Intake: Oral 220 0 Output: Urine 700 200 Other: Voiding Method Indwelling Catheter Indwelling Catheter Indwelling Catheter # Bowel Movements 0 - Exam No acute distress, oriented 3. Currently on 10 L of O2 nasal cannula with a pulse ox of 85 to 87% HEENT examination is grossly unremarkable. Mucous membranes are moist. No oral lesions. Neck supple. Full range of motion. No adenopathy thyromegaly or neck vein distention. Cardiovascular examination reveals regular rhythm rate. S1-S2 normal. No S3 or S4. No discernible murmur noted. Lungs reveal mild bibasilar crackles. No wheezes. No rhonchi. Breath sounds equal. Abdomen soft bowel sounds are heard. No masses or tenderness. Extremities are intact. No cyanosis clubbing or edema. Skin is without rash or lesion. Neurologic examination is brief but nonfocal. - Labs CBC & Chem 7: 07/17/24 06:17 07/17/24 06:17 Assessment and Plan Plan: Acute hypoxic respiratory failure, currently on Airvo with 55 L and FiO2 of 90%. Exact cause is not clear. The patient is known to have chronic hypoxic respiratory failure and typically she is on 3 L of oxygen by nasal cannula. CT of the chest showed no evidence of the pulm embolism and there is some atelectatic changes in lung base bilaterally. The perfusion scan was also negative. Procalcitonin level is low. No evidence of any pneumonia. Consider underlying intracardiac shunting. Noted the patient is being considered for hospice care. Based on that, the patient was taken off the Airvo system and the patient was placed on 10 L of oxygen nasal cannula. Current pulse ox is between 85 to 87%. Multiple strokes, please refer to the MRI of the brain. Considering embolic phenomena. Syncopal episode without any recurrence. Acute non-ST segment elevation myocardial infarction. Acute kidney injury, recovered and the renal function is back to baseline Systolic heart failure with mild impairment LV function with an ejection fraction of 40 to 45% History of hypertension. Hyperlipidemia. History of left breast cancer. History of anxiety/depression. Plan: To be discharged home with hospice.
== END 2024-07-20 15:20 | disposition hospice, inpatient (51) | DRG 280 ==
LOC: EC 03:26 → 3SCARD 06:57
PROVIDERS: ADMIT Hospitalist; ATTEND Hospitalist
PROC: 5A09457 Assistance with Respiratory Ventilation, 24-96 Consecutive Hours, Continuous Positive Airway Pressure (ICD-10-PCS; principal; 2024-07-07)
DX: I21.4 Non-ST elevation (NSTEMI) myocardial infarction (principal); G93.41 Metabolic encephalopathy; I63.442 Cerebral infarction due to embolism of left cerebellar artery; J96.21 Acute and chronic respiratory failure with hypoxia; I50.21 Acute systolic (congestive) heart failure; I42.9 Cardiomyopathy, unspecified; N17.9 Acute kidney failure, unspecified; G93.1 Anoxic brain damage, not elsewhere classified; E87.1 Hypo-osmolality and hyponatremia; N13.6 Pyonephrosis; J98.11 Atelectasis; F02.84 Dementia in other diseases classified elsewhere, unspecified severity, with anxiety; F02.83 Dementia in other diseases classified elsewhere, unspecified severity, with mood disturbance; I11.0 Hypertensive heart disease with heart failure; G93.89 Other specified disorders of brain; G30.1 Alzheimer's disease with late onset; F32.9 Major depressive disorder, single episode, unspecified; J44.89 Other specified chronic obstructive pulmonary disease; I08.1 Rheumatic disorders of both mitral and tricuspid valves; Z66 Do not resuscitate; Z51.5 Encounter for palliative care; R29.810 Facial weakness; E78.5 Hyperlipidemia, unspecified; R32 Unspecified urinary incontinence; R00.1 Bradycardia, unspecified; Z99.81 Dependence on supplemental oxygen; Z79.01 Long term (current) use of anticoagulants; Z79.899 Other long term (current) drug therapy; Z86.73 Personal history of transient ischemic attack (TIA), and cerebral infarction without residual deficits; Z86.711 Personal history of pulmonary embolism; Z91.81 History of falling; Z85.3 Personal history of malignant neoplasm of breast; Z92.3 Personal history of irradiation; Z96.653 Presence of artificial knee joint, bilateral; Z53.20 Procedure and treatment not carried out because of patient's decision for unspecified reasons; Z88.1 Allergy status to other antibiotic agents; Z88.0 Allergy status to penicillin; Z88.8 Allergy status to other drugs, medicaments and biological substances
CPT/HCPCS: 36415; 36600; 70450; 70551; 71045; 71275; 78582; 80048; 80053; 80061; 81001; 82140; 82607; 82803; 82805; 83880; 84145; 84443; 84484; 85025; 85379; 85610; 85730; 87040; 87086; 93005; 93308; 93880; 94640; 94660; 94760; 96361; 96365; 96366; 96368; 96375; 99291